=== PATIENT | female | born 1970 | race American Indian/Alaskan Native ===

== ENCOUNTER 2020-02-21 07:26 | Inpatient (IN) | payer MEDICAID, SELFPAY ==
[2020-02-21] MEDS ORDERED: ALBUTEROL 2.5 MG/3 ML NEBU IH ONE (08:21)
[2020-02-21] MEDS ORDERED: MAGNESIUM SULFATE 2 GM/50 ML BAG IV ONE (08:21)
[2020-02-21] MEDS ORDERED: IPRATROPIUM 0.02% NEBU 2.5 ML IH ONE (08:21)
[2020-02-21] MEDS ORDERED: methylPREDNISolone Sod Succinate 125 MG/2 ML INJ IV ONE (08:21)
--- NOTE | 2020-02-21 08:30 | Emergency Department Report ---
HPI - General Chief Complaint: Adult Asthma Time Seen by Provider: 02/21/20 07:55 - HPI HPI: Room 7 \The patient is a 49-year-old female present with a chief complaint of shortness of breath. Patient states her symptoms began 02/18/2020 when a dog in a home triggered her asthma. Patient states she has had waxing and waning wheezing ever since. Patient states she has had a cough productive of clear sputum for the same amount of time. Patient states her wheezing worsened last night prompting her to come to the hospital. Patient denies history of fever. Patient states she tested negative for Covid 2 weeks ago ED Past Medical Hx - Past Medical History Hx Congestive Heart Failure: Yes (cardiomyopathy) Hx Asthma: Yes Additional medical history: pacemaker - Surgical History Hx Pacemaker: Yes - Family History Family history: no significant - Social History Smoking Status: Current Every Day Smoker (1/2 pack/day) Substance Use Type: Marijuana - Medications Home Medications: Home Medications Medication Instructions Recorded Confirmed Last Taken Type No Known Home Medications [No 02/21/20 02/21/20 Unknown History Reported Home Medications] ED Review of Systems ROS: Stated complaint: ASTHMA/YURI Other details as noted in HPI Constitutional: denies: fever Eyes: denies: eye pain ENT: denies: throat pain Respiratory: cough, shortness of breath, wheezing Cardiovascular: denies: chest pain Endocrine: no symptoms reported Gastrointestinal: denies: abdominal pain Genitourinary: denies: dysuria Musculoskeletal: denies: back pain Neurological: denies: headache Physical Exam - Physical Exam Vital Signs: Vital Signs 02/21/20 02/21/20 07:57 08:03 Temperature 99 F Pulse Rate 123 H Respiratory 28 H Rate Blood Pressure 104/63 [Right] O2 Sat by Pulse 94 94 Oximetry Physical Exam: GENERAL: The patient is well-developed well-nourished female sitting on stretcher receiving breathing treatment. [] HEENT: Normocephalic. Atraumatic. Extraocular motions are intact. Patient has moist mucous membranes. NECK: Supple. Trachea midline CHEST/LUNGS: Diminished on the left greater than right. Faint wheezing aus cultated. There is no respiratory distress noted. HEART/CARDIOVASCULAR: Regular. There is tachycardia. There is no gallop rub or murmur. ABDOMEN: Abdomen is soft, nontender. Patient has normal bowel sounds. There is no abdominal distention. SKIN: There is no rash. There is no diaphoresis. NEURO: The patient is awake, alert, and oriented. The patient is cooperative. The patient has normal speech MUSCULOSKELETAL: There is no evidence of acute injury. ED Course Vital Signs 02/21/20 02/21/20 07:57 08:03 Temperature 99 F Pulse Rate 123 H Respiratory 28 H Rate Blood Pressure 104/63 [Right] O2 Sat by Pulse 94 94 Oximetry - Reevaluation(s) Reevaluation #1: 02/21/20 10:08 I was called to the room for sudden status change with the patient. Patient complains of worsening shortness of breath with SPO2 in the 70s. Patient placed on nonrebreather initially with blood sats up to 100%. Patient then placed on BiPAP. Repeat chest x-ray ordered 02/21/20 10:24 Patient improved on BiPAP. Satting 100%, calm ED Medical Decision Making - Lab Data Result diagrams: 02/21/20 10:17 02/21/20 10:17 Laboratory Tests 02/21/20 02/21/20 02/21/20 10:17 10:17 10:17 WBC 21.2 H RBC 4.27 Hgb 13.1 Hct 40.6 MCV 95 MCH 31 MCHC 32 RDW 14.3 Plt Count 438 Seg Neutrophils % Promotions Assistant Sales Marketing D-Dimer 362.52 H Sodium 139 Potassium 3.8 Chloride 106.2 Carbon Dioxide 24 Anion Gap 13 BUN 9 Creatinine 0.4 L Estimated GFR > 60 BUN/Creatinine Ratio 23 Glucose 168 H Lactic Acid Calcium 8.5 Ferritin Lactate Dehydrogenase 324 H Troponin T C-Reactive Protein 0.40 NT-Pro-B Natriuret Pep 1005 H Triglycerides Cholesterol LDL Cholesterol Direct HDL Cholesterol Cholesterol/HDL Ratio Procalcitonin 02/21/20 02/21/20 02/21/20 10:17 10:17 10:17 WBC RBC Hgb Hct MCV MCH MCHC RDW Plt Count Seg Neutrophils % D-Dimer Sodium Potassium Chloride Carbon Dioxide Anion Gap BUN Creatinine Estimated GFR BUN/Creatinine Ratio Glucose Lactic Acid 2.50 H* Calcium Ferritin 160.6 Lactate Dehydrogenase Troponin T C-Reactive Protein NT-Pro-B Natriuret Pep Triglycerides Cholesterol LDL Cholesterol Direct HDL Cholesterol Cholesterol/HDL Ratio Procalcitonin < 0.05 02/21/20 02/21/20 10:17 11:56 WBC RBC Hgb Hct MCV MCH MCHC RDW Plt Count Seg Neutrophils % D-Dimer Sodium Potassium Chloride Carbon Dioxide Anion Gap BUN Creatinine Estimated GFR BUN/Creatinine Ratio Glucose Lactic Acid 2.80 H* Calcium Ferritin Lactate Dehydrogenase Troponin T 0.044 H C-Reactive Protein NT-Pro-B Natriuret Pep 1026 H Triglycerides 68 Cholesterol 170 LDL Cholesterol Direct 92 HDL Cholesterol 75 H Cholesterol/HDL Ratio 2.26 Procalcitonin - Radiology Data Radiology results: report reviewed (Chest x-ray), image reviewed (Chest x-ray) interpreted by me: Chest x-ray-no definite focal infiltrates, no pneumothorax, [facility] [address] [place] [address] XRay Report Signed Patient: OWEN CM MR#: [id number] : 1970 Acct:[id number] Age/Sex: 49 / F ADM Date: 02/21/20 Loc: ED Attending Dr: Ordering Physician: FABRIZIO LOPEZ MD Date of Service: 02/21/20 Procedure(s): XR chest 1V ap Accession Number(s): [id number] cc: FABRIZIO LOPEZ MD Fluoro Time In Minutes: CHEST 1 VIEW INDICATION / CLINICAL INFORMATION: Shortness of breath, cough. COMPARISON: None available. FINDINGS: SUPPORT DEVICES: Dual-lead left chest wall cardiac device with leads terminating in the right atrium and ventricle. HEART / MEDIASTINUM: No significant abnormality. LUNGS / PLEURA: No significant pulmonary or pleural abnormality. No confluent infiltrates or pleural effusion. No pneumothorax. ADDITIONAL FINDINGS: No significant additional findings. IMPRESSION: 1. No acute findings. Signer Name: Dinesh Elias MD Signed: 02/21/2020 9:26 AM Workstation Name: [id number] Transcribed By: Dictated By: DINESH ELIAS Electronically Authenticated By: DINESH ELIAS Signed Date/Time: 02/21/20925 DD/ 4 TD/TT: - Differential Diagnosis Acute asthma exacerbation, pneumonia, bronchitis Critical care attestation.: If time is entered above; I have spent that time in minutes in the direct care of this critically ill patient, excluding procedure time. ED Disposition Clinical Impression: COPD exacerbation, Cough, Hypoxia Disposition: OP ADMIT IP TO THIS HOSP Is pt being admited?: Yes Does the pt Need Aspirin: No Condition: Fair Instructions: Chronic Obstructive Pulmonary Disease (ED) Referrals: PRIMARY CARE, [Primary Care Provider] - 3-5 Days Time of Disposition: 12:51 (Hospitalist paged (Dr. Newton))
--- NOTE | 2020-02-21 09:30 | XRay Report ---
CHEST 1 VIEW INDICATION / CLINICAL INFORMATION: Shortness of breath, cough. COMPARISON: None available. FINDINGS: SUPPORT DEVICES: Dual-lead left chest wall cardiac device with leads terminating in the right atrium and ventricle. HEART / MEDIASTINUM: No significant abnormality. LUNGS / PLEURA: No significant pulmonary or pleural abnormality. No confluent infiltrates or pleural effusion. No pneumothorax. ADDITIONAL FINDINGS: No significant additional findings. IMPRESSION: 1. No acute findings. Signer Name: Dinesh Hein MD Signed: 02/21/2020 9:26 AM Workstation Name: [id number]
[2020-02-21] MEDS ORDERED: IPRATROPIUM/ALBUTEROL SULFATE 3 ML AMPUL.NEB IH ONE (09:49)
[2020-02-21] MEDS ORDERED: ETOMIDATE 20 MG/10 ML INJ IV ONE (10:03)
[2020-02-21] MEDS ORDERED: ROCURONIUM 50 MG/5 ML INJ IV ONE ×2 (10:03→16:55)
[2020-02-21] MEDS ORDERED: SUCCINYLCHOLINE CHLORIDE 200 MG/10 ML INJ MDV ONE ×2 (10:04→16:12)
[2020-02-21] MEDS ORDERED: LORazepam 2 MG/ML VIAL ONE ×3 (10:05→15:00)
[2020-02-21] MEDS ORDERED: LORazepam 2 MG/ML VIAL IV ONE ×3 (10:20→15:03)
[2020-02-21] MEDS: LORazepam 2 MG/ML VIAL IV ONE ×2 (10:26→10:28)
--- NOTE | 2020-02-21 10:36 | XRay Report ---
CHEST 1 VIEW INDICATION / CLINICAL INFORMATION: Sudden status change, worsening SOB, hypoxia. COMPARISON: 02/21/2020 FINDINGS: SUPPORT DEVICES: Stable, satisfactory device positioning. HEART / MEDIASTINUM: Stable. LUNGS / PLEURA: Interval development of linear opacity in the right lung base. No pleural effusion. N o pneumothorax. ADDITIONAL FINDINGS: No significant additional findings. IMPRESSION: 1. Interval development of mild right lung base atelectasis. Signer Name: Dinesh Hein MD Signed: 02/21/2020 10:31 AM Workstation Name: [id number]
[2020-02-21 10:55] LABS: Hematocrit 40.6 % (30.3-42.9); Hemoglobin 13.1 gm/dl (10.1-14.3); Mean Corpuscular HGB Conc 32 % (30-34); Mean Corpuscular Volume 95 fl (79-97); Platelet Count 438 K/mm3 (140-440); Red Blood Count 4.27 M/mm3 (3.65-5.03); Red Cell Distribution Width 14.3 % (13.2-15.2)
[2020-02-21 11:04] LABS: Blood Urea Nitrogen 9 mg/dL (7-17); Calcium 8.5 mg/dL (8.4-10.2); Hemolysis Index 5
[2020-02-21 11:07] LABS: BUN/Creatinine Ratio 23
[2020-02-21] MEDS ORDERED: ASPIRIN 325 MG TAB PO ONE (11:11)
[2020-02-21 12:19] LABS: Chol/HDL Ratio 2.26 %
[2020-02-21] MEDS ORDERED: cefTRIAXone/NS 1 GM/50 ML 1 GM/50 ML BAG IV ONE (12:31)
[2020-02-21 14:51] LABS: Band Neutrophils # (Manual) 0.2 K/mm3; Basophils % (Manual) 0 % (0.0-1.8); Eosinophils % (Manual) 0 % (0.0-4.3); Total Cells Counted 100
[2020-02-21 14:52] LABS: Platelet Estimate Consistent w Auto; RBC Morphology Normal
[2020-02-21 15:15] LABS: ABG Base Excess -3.8 mmol/L (-2.0-3.0); ABG Methemoglobin 0.6 % (0.0-1.5); ABG Oxygen Saturation 93.2 % (95.0-99.0); ABG PCO2 70.8 mm Hg; ABG PO2 73.8 mm Hg (80.0-90.0)
[2020-02-21 15:18] LABS: ABG PH 7.183 pH Units (7.350-7.450)
--- NOTE | 2020-02-21 16:10 | History and Physical Report ---
History of Present Illness Chief complaint: I cant breathe History of present illness: 49 YO Female with Nicotine Dependence, Cardiomyopathy s/p Pacemaker placement, Asthma Moderate Persistent presents to ED for evaluation. Patient states that she has experienced shortness of breath, wheezing over the past 3 days with persistently worsening symptoms over the same timeframe. Patient knowledges increasing nebulizer use, increase bronchodilator therapy without relief of symptoms. Patient knowledges productive cough of clear sputum, dyspnea on exertion, decreased exercise tolerance. EMS was notified and upon arrival the patient was found to be in distress and subsequently transported to [facility] for further care and evaluation of the aforementioned symptoms. Patient seen and evaluated in the emergency department. All lab and imaging studies reviewed. Patient found to have a pulse oximetry of 86% on 4 L nasal cannula which is consistent with acute hypoxemic respiratory failure. The patient was placed on noninvasive positive pressure ventilation with mild improvement in symptoms. The patient was also found to have right lower lobe pneumonia complicated by sepsis. Patient did not respond to medical therapy. Patient was unable to protect her airway and was intubated and placed on ventilatory support in the emergency department. Patient admitted to ICU due to increased risk of cardiopulmonary decompensation. Critical care team consulted in ED. No further history is obtainable. No prior admission for review. No medication listed at time of admission for reconciliation. Past History Past Medical History: heart failure, other (See HPI) Past Surgical History: Other (Pacemaker placement) Social history: single, smoking. denies: alcohol abuse, prescription drug abuse Family history: hypertension Medications and Allergies Allergies Allergy/AdvReac Type Severity Reaction Status Date / Time No Known Allergies Allergy Unverified 02/21/20 08:57 Home Medications Medication Instructions Recorded Confirmed Last Taken Type No Known Home Medications [No 02/21/20 02/21/20 Unknown History Reported Home Medications] Review of Systems ROS unobtainable: due to endotracheal tube Exam - Constitutional Vitals: Temp Pulse Resp BP Pulse Ox 99 F 126 H 27 H 150/101 95 02/21/20 07:57 02/21/20 15:50 02/21/20 15:50 02/21/20 15:50 02/21/20 15:50 General appearance: Present: severe distress - EENT Eyes: Present: miosis ENT: hearing decreased - Neck Neck: Present: supple, normal ROM - Respiratory Respiratory effort: labored, pursed lips, accessory muscle use, stridor Respiratory: bilateral: diminished, rhonchi - Cardiovascular Rhythm: other (Tachycardia) Heart Sounds: Present: S1 & S2. Absent: rub, click - Extremities Extremities: pulses symmetrical, No edema Peripheral Pulses: abnormal (Capillary refill greater than 3.5 seconds) - Abdominal General gastrointestinal: Present: soft, non-tender, non-distended, normal bowel sounds Female genitourinary: Present: normal - Integumentary Integumentary: Present: clear, warm, dry - Musculoskeletal Musculoskeletal: generalized weakness - Psychiatric Psychiatric: agitated - Neurologic Neurologic: CNII-XII intact, no focal deficits, moves all extremities, no gait normal HEART Score - HEART Score Troponin: Troponin T 0.044 ng/mL (0.00-0.029) H 02/21/20 10:17 Results - Labs CBC & Chem 7: 02/21/20 10:17 02/21/20 10:17 Labs: Abnormal lab results 02/21/20 02/21/20 02/21/20 Range/Units 10:17 10:17 10:17 WBC 21.2 H (4.5-11.0) K/mm3 Seg Neuts % (Manual) 94.0 H (40.0-70.0) % Lymphocytes % (Manual) 4.0 L (13.4-35.0) % Seg Neutrophils # Man 19.9 H (1.8-7.7) K/mm3 Lymphocytes # (Manual) 0.8 L (1.2-5.4) K/mm3 D-Dimer 362.52 H (0-234) ng/mlDDU ABG pH (7.350-7.450) pH Units ABG pO2 (80.0-90.0) mm Hg ABG O2 Saturation (95.0-99.0) % ABG Base Excess (-2.0-3.0) mmol/L Oxyhemoglobin (95.0-99.0) % Creatinine 0.4 L (0.6-1.2) mg/dL Glucose 168 H (65-100) mg/dL Lactic Acid (0.7-2.0) mmol/L Lactate Dehydrogenase 324 H (91-180) units/L Troponin T (0.00-0.029) ng/mL NT-Pro-B Natriuret Pep 1005 H (0-900) pg/mL HDL Cholesterol (40-59) mg/dL 02/21/20 02/21/20 02/21/20 Range/Units 10:17 10:17 11:56 WBC (4.5-11.0) K/mm3 Seg Neuts % (Manual) (40.0-70.0) % Lymphocytes % (Manual) (13.4-35.0) % Seg Neutrophils # Man (1.8-7.7) K/mm3 Lymphocytes # (Manual) (1.2-5.4) K/mm3 D-Dimer (0-234) ng/mlDDU ABG pH (7.350-7.450) pH Units ABG pO2 (80.0-90.0) mm Hg ABG O2 Saturation (95.0-99.0) % ABG Base Excess (-2.0-3.0) mmol/L Oxyhemoglobin (95.0-99.0) % Creatinine (0.6-1.2) mg/dL Glucose (65-100) mg/dL Lactic Acid 2.50 H* 2.80 H* (0.7-2.0) mmol/L Lactate Dehydrogenase (91-180) units/L Troponin T 0.044 H (0.00-0.029) ng/mL NT-Pro-B Natriuret Pep 1026 H (0-900) pg/mL HDL Cholesterol 75 H (40-59) mg/dL 02/21/20 02/21/20 02/21/20 Range/Units 13:31 14:18 15:03 WBC (4.5-11.0) K/mm3 Seg Neuts % (Manual) (40.0-70.0) % Lymphocytes % (Manual) (13.4-35.0) % Seg Neutrophils # Man (1.8-7.7) K/mm3 Lymphocytes # (Manual) (1.2-5.4) K/mm3 D-Dimer (0-234) ng/mlDDU ABG pH 7.183 L* (7.350-7.450) pH Units ABG pO2 73.8 L (80.0-90.0) mm Hg ABG O2 Saturation 93.2 L (95.0-99.0) % ABG Base Excess -3.8 L (-2.0-3.0) mmol/L Oxyhemoglobin 90.6 L (95.0-99.0) % Creatinine (0.6-1.2) mg/dL Glucose (65-100) mg/dL Lactic Acid 2.10 H* 2.50 H* (0.7-2.0) mmol/L Lactate Dehydrogenase (91-180) units/L Troponin T (0.00-0.029) ng/mL NT-Pro-B Natriuret Pep (0-900) pg/mL HDL Cholesterol (40-59) mg/dL Assessment and Plan - Patient Problems (1) Acute hypoxemic respiratory failure Current Visit: Yes Status: Acute Plan to address problem: Patient intubated and on ventilatory support. Wean vent as tolerated. ABG in a.m., sedation holiday, spontaneous breathing trial in a.m., The high probability of a clinically significant, sudden or life threatening deterioration of the [cardiac, pulmonary, renal, neuro] system(s) required my full and direct attention, intervention and personal management. The aggregate critical care time was [90] minutes. This time is in addition to time spent p erforming reported procedures but includes the following: [x] Data Review and interpretation [x] Patient assessment and monitoring of vital signs [x] Documentation [x] Medication orders and management (2) Pneumonia Current Visit: Yes Status: Acute Qualifiers: Laterality: right Lung location: lower lobe of lung Plan to address problem: Pneumonia protocol: Chest x-ray, CBC, CMP, IV antibiotic therapy, pulse oximetry, blood culture. (3) Sepsis Current Visit: Yes Status: Acute Qualifiers: Acute respiratory failure type: with hypoxia Plan to address problem: Sepsis protocol: CBC, CMP, chest x-ray, urinalysis, IV fluid resuscitation therapy, IV antibiotic therapy, monitor urine output every shift, maintain mean arterial pressure greater than or equal to 65, IV pressor support as clinically indicated, monitor fluid balance, blood culture, serial lactic acid level. (4) Cardiomyopathy Current Visit: Yes Status: Acute Qualifiers: Cardiomyopathy type: unspecified Qualified Code(s): I42.9 - Cardiomyopathy, unspecified Plan to address problem: Supportive care, echocardiogram ordered and pending at time of admission. (5) Nicotine dependence Current Visit: Yes Status: Acute Qualifiers: Nicotine product type: cigarettes Substance use status: in withdrawal Qualified Code(s): F17.213 - Nicotine dependence, cigarettes, with withdrawal Plan to address problem: Smoking cessation, behavior change counseling, +15 minutes (6) COPD exacerbation Current Visit: Yes Status: Acute Plan to address problem: IV steroid therapy, supportive care, (7) DVT prophylaxis Current Visit: Yes Status: Acute Plan to address problem: SCD to bilateral lower extremities while in bed, prophylactic anticoagulation
[2020-02-21] MEDS ORDERED: KETAMINE 500 MG/5 ML VIAL MDV ONE (16:12)
[2020-02-21] MEDS ORDERED: SODIUM CHLORIDE 0.9% 1000 ML IV SOLN IV ONE (16:30)
[2020-02-21] MEDS ORDERED: LORazepam 2 MG/ML VIAL IV PRN (16:44)
[2020-02-21] MEDS ORDERED: MINERAL OIL/PETROLATUM, WHITE OPHTH OINT 3.5 GM OU PRN (16:44)
[2020-02-21] MEDS ORDERED: LIP THERAPY VASELINE TP PRN (16:44)
--- NOTE | 2020-02-21 16:54 | Emergency Department Report ---
Blank Doc - Documentation Documentation: 49-year-old female with previous CABG, pacemaker, admitted for status asthmatic us now on BiPAP. I was requested by hospitalist to intubate. Blood gas shows acute respiratory acidosis with a critical pH with a PCO2 greater than 70. The patient consented to intubation. Procedure note The patient was prepared and placed in appropriate positioning. She was given ketamine for sedation. Nurse reported infiltration of IV she believes sometime after the ketamine was administered. She states that the ketamine did not infiltrate. Not withstanding, I placed an 18-gauge internal jugular line in the patient's left neck, single stick with Y site attachment. Additional medication was given for RSI and that port. Patient received ketamine and Ativan for induction then succinylcholine. She was switched from BiPAP to Ambu bag assist. She was well preoxygenated. She was intubated using direct laryngoscopy, MAC 4 blade and 7.5 [place] endotracheal tube, single attempt. The tube was secured at 22 cm at the teeth. There was colorimetric end-tidal CO2 change. Patient remained hemodynamically stable. Chest x-ray is ordered. Ventilator settings, restraint and sedation as ordered. Diagnostic impression Acute respiratory failure on BiPAP Plan Ventilatory management per respiratory and hospitalist. I will check the patient's chest x-ray. I will be sure that she is stable for their continued critical care management.
[2020-02-21] MEDS ORDERED: LORazepam 100 MG in SODIUM CHLORIDE 0.9% 50 ML, EMPTY BAG 0 ML IV SCH (17:00)
--- NOTE | 2020-02-21 17:21 | XRay Report ---
CHEST 1 VIEW INDICATION / CLINICAL INFORMATION: ETT placement. COMPARISON: 02/21/2020 FINDINGS: SUPPORT DEVICES: Interval placement of ET tube with its tip in appropriate position. Left chest wall cardiac device is stable. HEART / MEDIASTINUM: Stable. LUNGS / PLEURA: Previously noted right lung base opacity is similar. No pleural effusion. No pneumoth orax. ADDITIONAL FINDINGS: No significant additional findings. IMPRESSION: 1. Interval placement of ET tube with its tip in appropriate position. 2. Pulmonary findings are stable. Signer Name: Dinesh Hein MD Signed: 02/21/2020 5:16 PM Workstation Name: [id number]
[2020-02-21] MEDS ORDERED: SODIUM CHLORIDE 0.9% 1000 ML 2,000 ML ONE (17:25)
--- NOTE | 2020-02-21 17:34 | Consultation ---
History of Present Illness Consult date: 02/21/20 Requesting physician: CLARIBEL GARCIA Reason for consult: other (Critical care management) History of present illness: HISTORY PER DOCUMENTATION. PATIENT WAS ORALLY INTUBATED AT THE TIME OD MY EVALUATION 49 year old Female with Nicotine Dependence, Cardiomyopathy s/p Pacemaker placement, Asthma Moderate Persistent presents to ED for evaluation. Patient states that she has experienced shortness of breath, wheezing over the past 3 days with persistently worsening symptoms over the same timeframe. Patient knowledges increasing nebulizer use, increase bronchodilator therapy without relief of symptoms. Patient knowledges productive cough of clear sputum, dyspnea on exertion, decreased exercise tolerance. EMS was notified and upon arrival the patient was found to be in distress and subsequently transported to [facility] for further care and evaluation of the aforementioned symptoms. Patient seen and evaluated in the emergency department. All lab and imaging studies reviewed. Patient found to have a pulse oximetry of 86% on 4 L nasal cannula which is consistent with acute hypoxemic respiratory failure. The patient was placed on noninvasive positive pressure ventilation with mild improvement in symptoms. The patient was also found to have right lower lobe pneumonia complicated by sepsis. Patient did not respond to medical therapy. Patient was unable to protect her airway and was intubated and placed on ventilatory support in the emergency department. Patient admitted to ICU due to increased risk of cardiopulmonary decompensation. Critical care team consulted in ED. Medications and Allergies Allergies Allergy/AdvReac Type Severity Reaction Status Date / Time No Known Allergies Allergy Unverified 02/21/20 08:57 Home Medications Medication Instructions Recorded Confirmed Last Taken Type No Known Home Medications [No 02/21/20 02/21/20 Unknown History Reported Home Medications] Active Meds: Active Medications Acetaminophen (Tylenol) 650 mg PO Q6H PRN PRN Reason: Pain, Mild (1-3) Hydromorphone HCl (Dilaudid) 0.25 mg IV Q4H PRN PRN Reason: Pain, Moderate (4-6) Hydrophilic Ointment (Vaseline Lip Therapy) 1 applic TP Q2HR PRN PRN Reason: Dry Lips Levofloxacin/Dextrose (Levaquin 750mg/150ml) 750 mg in 150 mls @ 100 mls/hr IV Q24H KATELYN; Protocol Lorazepam 100 mg/ Sodium Chloride/ Miscellaneous Information 100 mls @ 1 mls/hr IV TITR KATELYN; Protocol Lorazepam (Ativan) 2 mg IV Q10MIN PRN PRN Reason: Agitation Multi-Ingred Cream/Lotion/Oil/Oint (Artificial Tears Ophth Oint) 1 applic OU Q4HR PRN PRN Reason: Dry Eye(s) Sodium Chloride (Sodium Chloride Flush Syringe 10 Ml) 10 ml IV BID KATELYN Sodium Chloride (Sodium Chloride Flush Syringe 10 Ml) 10 ml IV PRN PRN PRN Reason: LINE FLUSH Review of Systems ROS unobtainable: due to endotracheal tube Physical Examination Vital signs: Vital Signs Temp Pulse Resp BP Pulse Ox 99 F 123 H 28 H 104/63 94 02/21/20 07:57 02/21/20 07:57 02/21/20 07:57 02/21/20 07:57 02/21/20 07:57 General appearance: no acute distress, other (sedated, orally intubated) Eyes: non-icteric ENT: oropharynx moist, other (copious oral secretions) Neck: supple, no lymphadenopathy Effort: normal Ascultation: Bilateral: diminished breath sounds, rhonchi Cardiovascular: regular rate and rhythm, other (S1,S2) Gastrointestinal: normoactive bowel sounds, soft, non-tender, non-distended Integumentary: normal Extremities: no cyanosis, no edema, pulses normal unable to assess (sedated) other (unable to assess, sedated) Results - Laboratory Findings CBC and BMP: 02/22/20 02:57 02/22/20 02:57 ABG ABG pH 7.183 pH Units (7.350-7.450) L* 02/21/20 15:03 ABG pCO2 70.8 mm Hg 02/21/20 15:03 ABG pO2 73.8 mm Hg (80.0-90.0) L 02/21/20 15:03 ABG O2 Saturation 93.2 % (95.0-99.0) L 02/21/20 15:03 PT/INR, D-dimer D-Dimer 362.52 ng/mlDDU (0-234) H 02/21/20 10:17 Abnormal lab findings: Abnormal Labs 02/21/20 02/21/20 02/21/20 10:17 10:17 10:17 WBC 21.2 H Seg Neuts % (Manual) 94.0 H Lymphocytes % (Manual) 4.0 L Seg Neutrophils # Man 19.9 H Lymphocytes # (Manual) 0.8 L D-Dimer 362.52 H ABG pH ABG pO2 ABG O2 Saturation ABG Base Excess Oxyhemoglobin Creatinine 0.4 L Glucose 168 H Lactic Acid Lactate Dehydrogenase 324 H Troponin T NT-Pro-B Natriuret Pep 1005 H HDL Cholesterol 02/21/20 02/21/20 02/21/20 10:17 10:17 11:56 WBC Seg Neuts % (Manual) Lymphocytes % (Manual) Seg Neutrophils # Man Lymphocytes # (Manual) D-Dimer ABG pH ABG pO2 ABG O2 Saturation ABG Base Excess Oxyhemoglobin Creatinine Glucose Lactic Acid 2.50 H* 2.80 H* Lactate Dehydrogenase Troponin T 0.044 H NT-Pro-B Natriuret Pep 1026 H HDL Cholesterol 75 H 02/21/20 02/21/20 02/21/20 13:31 14:18 15:03 WBC Seg Neuts % (Manual) Lymphocytes % (Manual) Seg Neutrophils # Man Lymphocytes # (Manual) D-Dimer ABG pH 7.183 L* ABG pO2 73.8 L ABG O2 Saturation 93.2 L ABG Base Excess -3.8 L Oxyhemoglobin 90.6 L Creatinine Glucose Lactic Acid 2.10 H* 2.50 H* Lactate Dehydrogenase Troponin T NT-Pro-B Natriuret Pep HDL Cholesterol 02/21/20 16:10 WBC Seg Neuts % (Manual) Lymphocytes % (Manual) Seg Neutrophils # Man Lymphocytes # (Manual) D-Dimer ABG pH ABG pO2 ABG O2 Saturation ABG Base Excess Oxyhemoglobin Creatinine Glucose Lactic Acid 2.10 H* Lactate Dehydrogenase Troponin T NT-Pro-B Natriuret Pep HDL Cholesterol - Diagnostic Findings Chest x-ray: image reviewed Assessment and Plan Acute hypoxemic-hypercapnic respiratory failure on MVS Toxic metabolic encephalopathy CAP Cardiomyopathy s/p AICD h/o Asthma Tobacco use/Nicotine dependence UDS-positive THC Lactic acidosis -VAP bundle addressed, Aspiration precautions HOB >40 -Lung protective strategies, ARDS net protocol -Adjusted minute ventilation fro better gas-exchange with follow up ABG -Bronchodilators -Empiric antibiotics for now, de-escalate as clinically indicated Follow cultures -Vasopressor support to keep MAP>65, as clinically indicated -Monitor hemodynamics closely- judicious use of IVF, unknown EF but has AICD and has elevated BNP -CXR, ABG in am and as clinically indicated -Hilton catheter in this critically ill patient with acute renal failure. Re- address need for ongoing Hilton in the next 24 hours -Avoid nephrotoxins, adjust all medications for CrCl and GFR -Daily assessment of readiness to wean; SAT and SBT in am - Bronchodilators with pulmonary hygiene per RT -Maintenance of sleep-wake cycle, avoid delirium -Place NGT and initiate enteral nutritional support -Nutrition consult placed - Accuchecks with glycemic control per SSI for target blood glucose of 140-180 mg/dL while critically ill; avoid hypoglycemia -On Lorazepam, will change to Fentanyl and Propofol. Patient also has lactic acidosis, which may worsen with prolonged Lorazepam infusion - VTE prophylaxis -Heparin - Stress ulcer prophylaxis -Famotidine - Avoid delirium; Avoid benzodiazepines -Mobility, off loading per facility protocol to prevent pressure ulcers -PT/OT, range of motion exercises -Get echocardiogram to evaluate LVEF -Chronic home medications, cardioprotective measures -Nicotine withdrawal precautions, Smoking cessation counselling once she is extubated and is able to participate in counselling discussions -continue other care per attending / other consultants CONDITION: CRITICAL PROGNOSIS: GUARDED CODE STATUS: FULL CODE The high probability of a clinically significant, sudden or life-threatening deterioration of the respiratory, cardiovascular, neurology, renal system(s) required my full and direct attention, intervention and personal management. The aggregate critical care time was [35] minutes without overlap. Time includes spent on; [x] Data Review and interpretation [x] Patient assessment and monitoring of vital signs [x] Documentation [x] Medication orders and management
[2020-02-21 18:59] LABS: ABG Base Excess -5.5 mmol/L (-2.0-3.0); ABG HCO3 23.4 mmol/L (20.0-26.0); ABG Methemoglobin 0.5 % (0.0-1.5); ABG Oxygen Saturation 99.4 % (95.0-99.0); ABG PCO2 60.7 mm Hg; ABG PH 7.204 pH Units (7.350-7.450)
[2020-02-21] MEDS ORDERED: ACETAMINOPHEN 325 MG TAB PO PRN (19:09)
[2020-02-21] MEDS ORDERED: HYDROmorphone 1 MG/1 ML INJ IV PRN (19:09)
[2020-02-21 19:44] LABS: Amphetamine Screen,Urine Negative; Benzodiazepines Screen,Urine Negative; Cocaine Screen,Urine Negative; Methadone Screen,Urine Negative; Opiate Screen,Urine Negative
[2020-02-21 19:55] LABS: Cannabinoid Screen,Urine Positive
--- NOTE | 2020-02-21 20:28 | XRay Report ---
. ABDOMEN 1 VIEW(S) 02/21/2020 7:16 PM INDICATION: OG tube placement. COMPARISON: Prior chest radiograph dated 02/21/2020. FINDINGS: The tip of the nasogastric tube is malpositioned projecting over the mediastinum at the distal [place] ction. Advancement approximately 15 cm is recommended. Significantly gas-filled and distended gastric lumen.. Signer Name: Dinesh Hein MD Signed: 02/21/2020 8:24 PM Workstation Name: [id number]
--- NOTE | 2020-02-21 21:34 | XRay Report ---
ABDOMEN 1 VIEW(S) 02/21/2020 8:20 PM INDICATION: OG tube placement. COMPARISON: 02/21/2020 FINDINGS: Interval advancement of the NG tube now with its tip and sidehole projected over the gas-filled and d istended gastric lumen distally. Retraction approximately 10 cm can be performed if needed. Signer Name: Dinesh Hein MD Signed: 02/21/2020 9:29 PM Workstation Name: [id number]
[2020-02-21] MEDS ORDERED: methylPREDNISolone Sod Succinate 40 MG/1 ML INJ ONE (22:11)
[2020-02-21] MEDS ORDERED: HEPARIN 5,000 UNIT/1 ML VIAL ONE (22:12)
[2020-02-21] MEDS: methylPREDNISolone Sod Succinate 40 MG/1 ML INJ IV SCH (22:19)
[2020-02-21] MEDS: HEPARIN 5,000 UNIT/1 ML VIAL SUB-Q SCH (22:19)
--- NOTE | 2020-02-22 00:18 | Cat Scan Report ---
CTA chest with contrast INDICATION : dypsnea. TECHNIQUE: Axial imaging performed through the chest, with contrast bolus timing set to maximize opa cification of the pulmonary arteries. 3-plane MIP reformatted images were obtained. All CT scans at this location are performed using CT dose reduction for ALARA by means of automated exposure control. 100 mL of intravenous contrast administered. COMPARISON: None FINDINGS: Bolus: Contrast bolus timing is adequate. PTE: No filling defect is present to suggest PTE. Mediastinum: Endotracheal tube terminates above the arben. NG tube projects into the stomach. Heart size is normal. No pathologic mediastinal adenopathy. Lungs: There is advanced emphysema with mild patchy airspace disease centrally in the right middle l obe. The lungs are otherwise clear. Upper abdomen: Limited imaging of the upper abdomen shows nothing acute. Bones: Degenerative changes in the spine with nothing acute. IMPRESSION: 1. Negative for PTE. 2. Advanced emphysema with patchy airspace disease in the right middle lobe centrally. Correlate for evolving pneumonia. Signer Name: Doyle Valenzuela MD Signed: 02/22/2020 12:13 AM Workstation Name: [id number]
[2020-02-22] MEDS ORDERED: SODIUM CHLORIDE 0.9% 1000 ML 1,000 ML ONE ×3 (00:49→17:52)
[2020-02-22] MEDS ORDERED: SODIUM CHLORIDE 0.9% 1000 ML 1,000 ML IV ONE ×2 (00:50→02:37)
[2020-02-22 03:14] LABS: ABG Base Excess -3.8 mmol/L (-2.0-3.0); ABG HCO3 21.5 mmol/L (20.0-26.0); ABG Methemoglobin 0.5 % (0.0-1.5); ABG Oxygen Saturation 99.1 % (95.0-99.0); ABG PCO2 39.8 mm Hg; ABG PH 7.35 pH Units (7.350-7.450); ABG PO2 187.8 mm Hg (80.0-90.0)
[2020-02-22 03:30] LABS: Hematocrit 38.4 % (30.3-42.9); Hemoglobin 12.6 gm/dl (10.1-14.3); Mean Corpuscular HGB Conc 33 % (30-34); Mean Corpuscular Volume 96 fl (79-97); Platelet Count 331 K/mm3 (140-440); Red Blood Count 4.02 M/mm3 (3.65-5.03); Red Cell Distribution Width 14.1 % (13.2-15.2)
[2020-02-22 03:33] LABS: Lymphocytes % (Auto) 5.2 % (13.4-35.0)
[2020-02-22 03:34] LABS: Basophils % (Auto) 0.2 % (0.0-1.8); Lymphocytes # (Auto) 1.1 K/mm3 (1.2-5.4); Monocytes # (Auto) 1.8 K/mm3 (0.0-0.8); Monocytes % (Auto) 8.1 % (0.0-7.3)
--- NOTE | 2020-02-22 03:50 | XRay Report ---
CHEST - 1 VIEW INDICATION: follow up respiratory failure COMPARISON: Yesterday FINDINGS: SUPPORT DEVICES: Interval placement of an NG tube with tip of the tube below the [id number] in th e upper abdomen region. Satisfactory support device positioning. HEART: Stable cardiomediastinal silhouette. LUNGS/PLEURA: Minimal residual patchy right basilar airspace disease with otherwise clear lungs. ADDITIONAL FINDINGS: None. IMPRESSION: New NG tube projecting below the [id number]. Otherwise minimal residual patchy right basilar airsp susan disease. Signer Name: Doyle Valenzuela MD Signed: 02/22/2020 3:46 AM Workstation Name: [id number]
[2020-02-22 03:56] LABS: Blood Urea Nitrogen 11 mg/dL (7-17); Calcium 8.2 mg/dL (8.4-10.2); Hemolysis Index 64
[2020-02-22 04:01] LABS: BUN/Creatinine Ratio 22
[2020-02-22] MEDS: SODIUM CHLORIDE 0.9% 1000 ML 1,000 ML IV SCH ×2 (04:44→17:54)
[2020-02-22] MEDS ORDERED: methylPREDNISolone Sod Succinate 40 MG/1 ML INJ ONE (09:41)
[2020-02-22] MEDS ORDERED: HEPARIN 5,000 UNIT/1 ML VIAL ONE (09:41)
[2020-02-22] MEDS ORDERED: FAMOTIDINE 20 MG/2 ML INJ IV ONE (09:41)
[2020-02-22] MEDS: FAMOTIDINE 20 MG/2 ML INJ IV SCH (09:50)
[2020-02-22] MEDS: methylPREDNISolone Sod Succinate 40 MG/1 ML INJ IV SCH (09:50)
[2020-02-22] MEDS: HEPARIN 5,000 UNIT/1 ML VIAL SUB-Q SCH (09:51)
[2020-02-22] MEDS ORDERED: SODIUM BICARBONATE 325 MG TAB FEEDTUBE PRN (14:00)
[2020-02-22] MEDS ORDERED: LIPASE 10,500/PROTEASE 25,000/AMYLASE 43,750 (UNITS) DR CAP FEEDTUBE PRN (14:00)
[2020-02-22] MEDS ORDERED: fentaNYL 100 MCG/2 ML INJ IV PRN (14:48)
--- NOTE | 2020-02-22 16:28 | Progress Note ---
Assessment and Plan Acute hypoxemic-hypercapnic respiratory failure on MVS Toxic metabolic encephalopathy CAP Cardiomyopathy s/p AICD h/o Asthma Tobacco use/Nicotine dependence UDS-positive THC Lactic acidosis -VAP bundle addressed, Aspiration precautions HOB >40 - Continue with Lung protective strategies, ARDS net protocol - Continue with bronchodilators - Continue with empiric antibiotics for CAP, de-escalate as clinically indicated -Vasopressor support to keep MAP>65, as clinically indicated -Monitor hemodynamics closely- judicious use of IVF, unknown EF but has AICD and has elevated BNP Echocardiogram is pending -CXR, ABG in am and as clinically indicated -Discontinue Hilton cathetr, no longer clinically indicated -Avoid nephrotoxins, adjust all medications for CrCl and GFR -Daily assessment of readiness to wean; SAT and SBT daily - Bronchodilators with pulmonary hygiene per RT -Maintenance of sleep-wake cycle, avoid delirium -Enteral nutritional support, tube feedings per RD recommendations - Accuchecks with glycemic control per SSI for target blood glucose of 140-180 mg/dL while critically ill; avoid hypoglycemia -Continue Fentanyl and Propofol, titrate to RASS 0 to -1. - VTE prophylaxis -Heparin - Stress ulcer prophylaxis -Famotidine - Avoid delirium; Avoid benzodiazepines -Mobility, off loading per facility protocol to prevent pressure ulcers -PT/OT, range of motion exercises -Trend lactic acidosis -Chronic home medications, cardioprotective measures -Nicotine withdrawal precautions, Smoking cessation counselling once she is extubated and is able to participate in counselling discussions -continue other care per attending / other consultants CONDITION: CRITICAL PROGNOSIS: GUARDED CODE STATUS: FULL CODE The high probability of a clinically significant, sudden or life-threatening deterioration of the respiratory, cardiovascular, neurology, renal system(s) required my full and direct attention, intervention and personal management. The aggregate critical care time was [35] minutes without overlap. Time includes spent on; [x] Data Review and interpretation [x] Patient assessment and monitoring of vital signs [x] Documentation [x] Medication orders and management Subjective Date of service: 02/22/20 Interval history: Patient is seen today for: Acute hypoxemic & hypercapnic respiratory failure; Toxic metabolic encephalopathy; CAP; CMOP s/p AICD; h/o Asthma; Tobacco use/Nicotine dependence Seen and examined at bedside; 24hour events reviewed; nursing and respiratory care staff consulted; no adverse overnight events reported to me; resting peacefully in bed; remains on MVS; sedated ; no emesis or overt aspiration; Objective Vital Signs - 12hr 02/22/20 02/22/20 02/22/20 04:30 04:45 05:00 Pulse Rate 101 H 105 H 101 H Respiratory 26 H 26 H 26 H Rate Blood Pressure 106/75 108/78 112/80 O2 Sat by Pulse 100 99 Oximetry 02/22/20 02/22/20 02/22/20 05:15 05:30 05:45 Pulse Rate 100 H 104 H 103 H Respiratory 26 H 26 H 26 H Rate Blood Pressure 111/74 117/82 106/77 O2 Sat by Pulse 94 92 Oximetry 02/22/20 02/22/20 02/22/20 06:00 06:15 06:30 Pulse Rate 108 H 105 H 105 H Respiratory 26 H 26 H 26 H Rate Blood Pressure 116/86 115/81 108/74 O2 Sat by Pulse 99 98 Oximetry 02/22/20 02/22/20 02/22/20 06:45 07:00 07:15 Pulse Rate 103 H 107 H 106 H Respiratory 26 H 26 H 25 H Rate Blood Pressure 108/76 107/66 113/77 O2 Sat by Pulse 98 Oximetry 02/22/20 02/22/20 02/22/20 07:30 07:35 07:45 Pulse Rate 104 H 106 H Respiratory 25 H 25 H Rate Blood Pressure 109/75 117/77 O2 Sat by Pulse 98 99 Oximetry 02/22/20 02/22/20 02/22/20 07:51 08:00 08:15 Pulse Rate 109 H 108 H 106 H Respiratory 25 H 25 H Rate Blood Pressure 117/77 113/77 110/76 O2 Sat by Pulse 98 Oximetry 02/22/20 02/22/20 02/22/20 08:30 08:45 09:00 Pulse Rate 106 H 106 H 106 H Respiratory 25 H 25 H 26 H Rate Blood Pressure 116/78 119/81 109/81 O2 Sat by Pulse 99 99 98 Oximetry 02/22/20 02/22/20 02/22/20 09:15 09:30 09:45 Pulse Rate 108 H 108 H 106 H Respiratory 25 H 25 H 25 H Rate Blood Pressure 110/75 110/78 115/76 O2 Sat by Pulse 99 98 Oximetry 02/22/20 02/22/20 02/22/20 10:00 10:15 10:30 Pulse Rate 105 H 105 H 103 H Respiratory 20 26 H 19 Rate Blood Pressure 112/85 126/85 119/85 O2 Sat by Pulse 97 98 Oximetry 02/22/20 02/22/20 02/22/20 10:45 11:00 11:15 Pulse Rate 106 H 99 H 103 H Respiratory 26 H 26 H 27 H Rate Blood Pressure 119/84 121/83 119/82 O2 Sat by Pulse 99 Oximetry 02/22/20 02/22/20 02/22/20 11:23 11:30 11:45 Pulse Rate 105 H 102 H 103 H Respiratory 26 H 26 H Rate Blood Pressure 119/82 113/83 117/81 O2 Sat by Pulse 100 Oximetry 02/22/20 02/22/20 02/22/20 12:00 12:15 12:30 Pulse Rate 100 H 102 H 100 H Respiratory 26 H 26 H 26 H Rate Blood Pressure 119/83 113/82 114/77 O2 Sat by Pulse 99 99 Oximetry 02/22/20 02/22/20 02/22/20 12:45 13:00 13:15 Pulse Rate 102 H 101 H 108 H Respiratory 26 H 26 H 32 H Rate Blood Pressure 117/80 116/81 134/94 O2 Sat by Pulse 99 Oximetry 02/22/20 13:30 Pulse Rate 120 H Respiratory 32 H Rate Blood Pressure 130/90 O2 Sat by Pulse Oximetry Constitutional: no acute distress, other (sedated, orally intubated) Eyes: non-icteric ENT: oropharynx moist, other (copious oral secretions, ETT at 23cm at the lip) Neck: supple, no lymphadenopathy Effort: normal Ascultation: Bilateral: diminished breath sounds, rhonchi Cardiovascular: regular rate and rhythm, other (S1,S2) Gastrointestinal: normoactive bowel sounds, soft, non-tender, non-distended Integumentary: normal Extremities: no cyanosis, no edema, pulses normal Neurologic: unable to assess (sedated) Psychiatric: other (unable to assess, sedated) CBC and BMP: 02/29/20 09:44 02/29/20 04:41 ABG, PT/INR, D-dimer: ABG ABG pH 7.350 pH Units (7.350-7.450) 02/22/20 02:25 ABG pCO2 39.8 mm Hg 02/22/20 02:25 ABG pO2 187.8 mm Hg (80.0-90.0) H 02/22/20 02:25 ABG O2 Saturation 99.1 % (95.0-99.0) H 02/22/20 02:25 PT/INR, D-dimer D-Dimer 362.52 ng/mlDDU (0-234) H 02/21/20 10:17 Abnormal lab findings: Abnormal Labs 02/21/20 02/21/20 02/21/20 10:17 10:17 10:17 WBC 21.2 H Lymph % (Auto) Archer % (Auto) Lymph # (Auto) Archer # (Auto) Seg Neutrophils % Seg Neuts % (Manual) 94.0 H Lymphocytes % (Manual) 4.0 L Seg Neutrophils # Seg Neutrophils # Man 19.9 H Lymphocytes # (Manual) 0.8 L D-Dimer 362.52 H ABG pH ABG pO2 ABG O2 Saturation ABG Base Excess Oxyhemoglobin Potassium Chloride Carbon Dioxide Creatinine 0.4 L Glucose 168 H Lactic Acid Calcium Lactate Dehydrogenase 324 H Troponin T NT-Pro-B Natriuret Pep 1005 H HDL Cholesterol 02/21/20 02/21/20 02/21/20 10:17 10:17 11:56 WBC Lymph % (Auto) Archer % (Auto) Lymph # (Auto) Archer # (Auto) Seg Neutrophils % Seg Neuts % (Manual) Lymphocytes % (Manual) Seg Neutrophils # Seg Neutrophils # Man Lymphocytes # (Manual) D-Dimer ABG pH ABG pO2 ABG O2 Saturation ABG Base Excess Oxyhemoglobin Potassium Chloride Carbon Dioxide Creatinine Glucose Lactic Acid 2.50 H* 2.80 H* Calcium Lactate Dehydrogenase Troponin T 0.044 H NT-Pro-B Natriuret Pep 1026 H HDL Cholesterol 75 H 02/21/20 02/21/20 02/21/20 13:31 14:18 15:03 WBC Lymph % (Auto) Archer % (Auto) Lymph # (Auto) Archer # (Auto) Seg Neutrophils % Seg Neuts % (Manual) Lymphocytes % (Manual) Seg Neutrophils # Seg Neutrophils # Man Lymphocytes # (Manual) D-Dimer ABG pH 7.183 L* ABG pO2 73.8 L ABG O2 Saturation 93.2 L ABG Base Excess -3.8 L Oxyhemoglobin 90.6 L Potassium Chloride Carbon Dioxide Creatinine Glucose Lactic Acid 2.10 H* 2.50 H* Calcium Lactate Dehydrogenase Troponin T NT-Pro-B Natriuret Pep HDL Cholesterol 02/21/20 02/21/20 02/22/20 16:10 18:33 02:25 WBC Lymph % (Auto) Archer % (Auto) Lymph # (Auto) Archer # (Auto) Seg Neutrophils % Seg Neuts % (Manual) Lymphocytes % (Manual) Seg Neutrophils # Seg Neutrophils # Man Lymphocytes # (Manual) D-Dimer ABG pH 7.204 L ABG pO2 295.0 H 187.8 H ABG O2 Saturation 99.4 H 99.1 H ABG Base Excess -5.5 L -3.8 L Oxyhemoglobin Potassium Chloride Carbon Dioxide Creatinine Glucose Lactic Acid 2.10 H* Calcium Lactate Dehydrogenase Troponin T NT-Pro-B Natriuret Pep HDL Cholesterol 02/22/20 02/22/20 02/22/20 02:57 02:57 02:57 WBC 21.9 H Lymph % (Auto) 5.2 L Archer % (Auto) 8.1 H Lymph # (Auto) 1.1 L Archer # (Auto) 1.8 H Seg Neutrophils % 86.5 H Seg Neuts % (Manual) Lymphocytes % (Manual) Seg Neutrophils # 19.0 H Seg Neutrophils # Man Lymphocytes # (Manual) D-Dimer ABG pH ABG pO2 ABG O2 Saturation ABG Base Excess Oxyhemoglobin Potassium 5.9 H D Chloride 109.4 H Carbon Dioxide 17 L D Creatinine 0.5 L Glucose 106 H Lactic Acid 2.40 H* Calcium 8.2 L Lactate Dehydrogenase Troponin T NT-Pro-B Natriuret Pep HDL Cholesterol Chest x-ray: image reviewed Allied health notes reviewed: RT
[2020-02-22] MEDS ORDERED: IPRATROPIUM/ALBUTEROL SULFATE 3 ML AMPUL.NEB IH ONE (20:40)
[2020-02-22] MEDS: IPRATROPIUM/ALBUTEROL SULFATE 3 ML AMPUL.NEB IH SCH (21:02)
[2020-02-23] MEDS ORDERED: HEPARIN 5,000 UNIT/1 ML VIAL ONE ×2 (00:19→10:45)
[2020-02-23] MEDS ORDERED: FAMOTIDINE 20 MG/2 ML INJ IV ONE ×2 (00:19→10:47)
[2020-02-23] MEDS ORDERED: methylPREDNISolone Sod Succinate 40 MG/1 ML INJ ONE ×2 (00:19→10:46)
[2020-02-23] MEDS: HEPARIN 5,000 UNIT/1 ML VIAL SUB-Q SCH ×2 (00:30→11:07)
[2020-02-23] MEDS: FAMOTIDINE 20 MG/2 ML INJ IV SCH ×2 (00:30→11:07)
[2020-02-23] MEDS: methylPREDNISolone Sod Succinate 40 MG/1 ML INJ IV SCH ×2 (00:32→11:06)
--- NOTE | 2020-02-23 03:58 | XRay Report ---
CHEST - 1 VIEW INDICATION: follow up respiratory failure COMPARISON: Yesterday FINDINGS: SUPPORT DEVICES: Stable support device positioning. HEART: Stable cardiomediastinal silhouette. LUNGS/PLEURA: Minimal residual patchy airspace disease in the right lung base. No new abnormality. ADDITIONAL FINDINGS: None. IMPRESSION: Unchanged exam. Signer Name: Doyle Valenzuela MD Signed: 02/23/2020 3:53 AM Workstation Name: [id number]
[2020-02-23] MEDS ORDERED: SODIUM CHLORIDE 0.9% 1000 ML 1,000 ML ONE ×2 (06:36→22:37)
[2020-02-23 06:46] LABS: ABG Base Excess -2.1 mmol/L (-2.0-3.0); ABG HCO3 20.9 mmol/L (20.0-26.0); ABG Methemoglobin 0.5 % (0.0-1.5); ABG Oxygen Saturation 97.3 % (95.0-99.0); ABG PCO2 30.3 mm Hg; ABG PH 7.456 pH Units (7.350-7.450); ABG PO2 87.4 mm Hg (80.0-90.0)
--- NOTE | 2020-02-23 08:45 | Progress Note ---
Assessment and Plan The high probability of a clinically significant, sudden or life threatening deterioration of the [cardiac, pulmonary, renal, neuro] system(s) required my full and direct attention, intervention and personal management. The aggregate critical care time was [40] minutes. This time is in addition to time spent performing reported procedures but includes the following: [x] Data Review and interpretation [x] Patient assessment and monitoring of vital signs [x] Documentation [x] Medication orders and management Patient Problems (1) Acute hypoxemic respiratory failure Current Visit: Yes Status: Acute Plan to address problem: Patient intubated and on ventilatory support. Wean vent as tolerated. ABG in a.m., sedation holiday, spontaneous breathing trial in a.m., (2) Pneumonia Current Visit: Yes Status: Acute Qualifiers: Laterality: right Lung location: lower lobe of lung Plan to address problem: Pneumonia protocol: Chest x-ray, CBC, CMP, IV antibiotic therapy, pulse oximetry, blood culture. (3) Sepsis Current Visit: Yes Status: Acute Qualifiers: Acute respiratory failure type: with hypoxia Plan to address problem: Sepsis protocol: CBC, CMP, chest x-ray, urinalysis, IV fluid resuscitation therapy, IV antibiotic therapy, monitor urine output every shift, maintain mean arterial pressure greater than or equal to 65, IV pressor support as clinically indicated, monitor fluid balance, blood culture, serial lactic acid level. (4) Cardiomyopathy Current Visit: Yes Status: Acute Qualifiers: Cardiomyopathy type: unspecified Qualified Code(s): I42.9 - Cardiomyopathy, unspecified Plan to address problem: Supportive care, echocardiogram ordered and pending at time of admission. (5) Nicotine dependence Current Visit: Yes Status: Acute Qualifiers: Nicotine product type: cigarettes Substance use status: in withdrawal Qualified Code(s): F17.213 - Nicotine dependence, cigarettes, with withdrawal Plan to address problem: Smoking cessation, behavior change counseling, +15 minutes (6) COPD exacerbation Current Visit: Yes Status: Acute Plan to address problem: IV steroid therapy, supportive care, (7) DVT prophylaxis Current Visit: Yes Status: Acute Plan to address problem: SCD to bilateral lower extremities while in bed, prophylactic anticoagulation Subjective Date of service: 02/22/20 Principal diagnosis: Resp failure and asthma exacerbation Interval history: 1 YO Female with Nicotine Dependence, Cardiomyopathy s/p Pacemaker placement, Asthma Moderate Persistent presents to ED for evaluation. Patient states that she has experienced shortness of breath, wheezing over the past 3 days with persistently worsening symptoms over the same timeframe. Patient knowledges increasing nebulizer use, increase bronchodilator therapy without relief of symptoms. Patient knowledges productive cough of clear sputum, dyspnea on exertion, decreased exercise tolerance. EMS was notified and upon arrival the patient was found to be in distress and subsequently transported to [facility] for further care and evaluation of the aforementioned symptoms. Patient seen and evaluated in the emergency department. All lab and imaging studies reviewed. Patient found to have a pulse oximetry of 86% on 4 L nasal cannula which is consistent with acute hypoxemic respiratory failure. The patient was placed on noninvasive positive pressure ventilation with mild improvement in symptoms. The patient was also found to have right lower lobe pneumonia complicated by sepsis. Patient did not respond to medical therapy. Patient was unable to protect her airway and was intubated and placed on ventilatory support in the emergency department. Patient admitted to ICU due to increased risk of cardiopulmonary decompensation. Critical care team consulted in ED. No further history is obtainable. No prior admission for review. No medication listed at time of admission for reconciliation. Day 2 --02/22/20 Some improvement Objective - Constitutional Vitals: Vital Signs - 12hr 02/22/20 02/22/20 02/22/20 20:45 21:00 21:02 Pulse Rate 108 H 106 H Pulse Rate [ 104 H Throughout] Respiratory 23 26 H Rate Respiratory 26 H Rate [ Throughout] Blood Pressure 143/89 128/90 O2 Sat by Pulse 98 99 Oximetry 02/22/20 02/22/20 02/22/20 21:04 21:15 21:30 Pulse Rate 101 H 103 H 112 H Pulse Rate [ Throughout] Respiratory 26 H 27 H Rate Respiratory Rate [ Throughout] Blood Pressure 128/90 117/87 121/84 O2 Sat by Pulse 98 99 Oximetry 02/22/20 02/22/20 02/22/20 21:45 22:00 22:12 Pulse Rate 114 H 111 H 107 H Pulse Rate [ Throughout] Respiratory 25 H 26 H 26 H Rate Respiratory Rate [ Throughout] Blood Pressure 114/82 122/79 122/79 O2 Sat by Pulse 100 100 Oximetry 02/22/20 02/23/20 02/23/20 23:00 00:00 00:45 Pulse Rate 105 H 102 H 106 H Pulse Rate [ Throughout] Respiratory 23 26 H Rate Respiratory Rate [ Throughout] Blood Pressure 117/75 126/82 130/80 O2 Sat by Pulse 99 100 Oximetry 02/23/20 02/23/20 02/23/20 01:00 02:00 03:00 Pulse Rate 109 H 105 H 102 H Pulse Rate [ Throughout] Respiratory 29 H 26 H 26 H Rate Respiratory Rate [ Throughout] Blood Pressure 132/84 121/86 125/88 O2 Sat by Pulse 100 100 Oximetry 02/23/20 02/23/20 02/23/20 04:00 04:32 05:05 Pulse Rate 97 H 102 H Pulse Rate [ Throughout] Respiratory 27 H 26 H Rate Respiratory Rate [ Throughout] Blood Pressure 124/90 O2 Sat by Pulse 100 100 Oximetry 02/23/20 02/23/20 02/23/20 05:06 05:07 06:01 Pulse Rate 109 H 108 H 105 H Pulse Rate [ Throughout] Respiratory 26 H 26 H 26 H Rate Respiratory Rate [ Throughout] Blood Pressure 138/79 138/79 134/96 O2 Sat by Pulse 100 99 98 Oximetry 02/23/20 02/23/20 02/23/20 06:03 06:05 06:07 Pulse Rate 106 H 103 H 103 H Pulse Rate [ Throughout] Respiratory 26 H 26 H 15 Rate Respiratory Rate [ Throughout] Blood Pressure 134/96 134/96 134/96 O2 Sat by Pulse 99 99 99 Oximetry 02/23/20 02/23/20 02/23/20 06:09 06:11 06:13 Pulse Rate 101 H 103 H 100 H Pulse Rate [ Throughout] Respiratory 19 14 26 H Rate Respiratory Rate [ Throughout] Blood Pressure 134/96 134/96 134/96 O2 Sat by Pulse 98 98 99 Oximetry 02/23/20 02/23/20 02/23/20 06:15 06:17 06:19 Pulse Rate 101 H 102 H 102 H Pulse Rate [ Throughout] Respiratory 26 H 26 H 26 H Rate Respiratory Rate [ Throughout] Blood Pressure 134/96 134/96 134/96 O2 Sat by Pulse 94 100 100 Oximetry 02/23/20 02/23/20 02/23/20 06:21 06:23 06:25 Pulse Rate 102 H 101 H 100 H Pulse Rate [ Throughout] Respiratory 26 H 26 H 26 H Rate Respiratory Rate [ Throughout] Blood Pressure 134/96 134/96 134/96 O2 Sat by Pulse 99 100 100 Oximetry 02/23/20 02/23/20 02/23/20 06:27 06:29 06:30 Pulse Rate 107 H 107 H 102 H Pulse Rate [ Throughout] Respiratory 26 H 26 H 26 H Rate Respiratory Rate [ Throughout] Blood Pressure 134/96 134/96 126/80 O2 Sat by Pulse 100 100 100 Oximetry 02/23/20 02/23/20 02/23/20 06:31 06:33 06:35 Pulse Rate 104 H 103 H 111 H Pulse Rate [ Throughout] Respiratory 26 H 26 H 26 H Rate Respiratory Rate [ Throughout] Blood Pressure 126/80 126/80 126/80 O2 Sat by Pulse 100 100 100 Oximetry 02/23/20 02/23/20 02/23/20 06:37 06:39 06:41 Pulse Rate 104 H 103 H 103 H Pulse Rate [ Throughout] Respiratory 26 H 26 H 26 H Rate Respiratory Rate [ Throughout] Blood Pressure 126/80 126/80 126/80 O2 Sat by Pulse 100 100 100 Oximetry 02/23/20 02/23/20 02/23/20 06:43 06:45 06:47 Pulse Rate 105 H 106 H 103 H Pulse Rate [ Throughout] Respiratory 26 H 26 H 26 H Rate Respiratory Rate [ Throughout] Blood Pressure 126/80 126/80 126/80 O2 Sat by Pulse 100 100 100 Oximetry 02/23/20 02/23/20 02/23/20 06:49 06:51 06:53 Pulse Rate 108 H 103 H 105 H Pulse Rate [ Throughout] Respiratory 26 H 26 H 26 H Rate Respiratory Rate [ Throughout] Blood Pressure 126/80 126/80 126/80 O2 Sat by Pulse 100 100 100 Oximetry 02/23/20 02/23/20 02/23/20 06:54 06:55 06:57 Pulse Rate 101 H 99 H 109 H Pulse Rate [ Throughout] Respiratory 26 H 26 H 26 H Rate Respiratory Rate [ Throughout] Blood Pressure 126/80 126/80 126/80 O2 Sat by Pulse 100 100 100 Oximetry 02/23/20 02/23/20 02/23/20 06:59 07:00 07:01 Pulse Rate 100 H 98 H 103 H Pulse Rate [ Throughout] Respiratory 26 H 26 H 26 H Rate Respiratory Rate [ Throughout] Blood Pressure 126/80 127/86 127/86 O2 Sat by Pulse 100 97 100 Oximetry 02/23/20 02/23/20 02/23/20 07:03 07:05 07:07 Pulse Rate 99 H 103 H 96 H Pulse Rate [ Throughout] Respiratory 26 H 26 H 26 H Rate Respiratory Rate [ Throughout] Blood Pressure 127/86 127/86 127/86 O2 Sat by Pulse 100 100 99 Oximetry 02/23/20 02/23/20 02/23/20 07:09 07:11 07:13 Pulse Rate 94 H 94 H 94 H Pulse Rate [ Throughout] Respiratory 26 H 26 H 26 H Rate Respiratory Rate [ Throughout] Blood Pressure 127/86 127/86 127/86 O2 Sat by Pulse 100 100 100 Oximetry 02/23/20 02/23/20 02/23/20 07:15 07:17 07:19 Pulse Rate 93 H 96 H 98 H Pulse Rate [ Throughout] Respiratory 26 H 26 H 26 H Rate Respiratory Rate [ Throughout] Blood Pressure 127/86 127/86 126/80 O2 Sat by Pulse 100 100 100 Oximetry 02/23/20 02/23/20 02/23/20 07:21 07:23 07:25 Pulse Rate 95 H 97 H 96 H Pulse Rate [ Throughout] Respiratory 26 H 26 H 26 H Rate Respiratory Rate [ Throughout] Blood Pressure 126/80 126/80 126/80 O2 Sat by Pulse 99 100 100 Oximetry 02/23/20 02/23/20 02/23/20 07:27 07:29 07:30 Pulse Rate 101 H 96 H 95 H Pulse Rate [ Throughout] Respiratory 26 H 26 H 26 H Rate Respiratory Rate [ Throughout] Blood Pressure 126/80 126/80 130/84 O2 Sat by Pulse 100 100 Oximetry 02/23/20 07:31 Pulse Rate 99 H Pulse Rate [ Throughout] Respiratory 26 H Rate Respiratory Rate [ Throughout] Blood Pressure 130/84 O2 Sat by Pulse 100 Oximetry General appearance: Present: mild distress, well-nourished - EENT Eyes: PERRL, EOM intact ENT: hearing intact, clear oral mucosa Ears: bilateral: normal - Neck Neck: supple, normal ROM - Respiratory Respiratory effort: normal Respiratory: bilateral: diminished (Accesory muscles of resp prominent), rhonchi, wheezing - Breasts Breasts: normal - Cardiovascular Heart rate: 78 Rhythm: regular Heart Sounds: Present: S1 & S2. Absent: gallop, rub Extremities: pulses intact, No edema, normal color, Full ROM - Gastrointestinal General gastrointestinal: Present: soft, non-tender, non-distended, normal bowel sounds - Genitourinary Female genitourinary: normal - Integumentary Integumentary: clear, warm, dry - Musculoskeletal Musculoskeletal: 1, strength equal bilaterally - Neurologic Neurologic: moves all extremities - Psychiatric Psychiatric: memory intact, appropriate mood/affect, intact judgment & insight - Allied health notes Allied health notes reviewed: nursing, case management - Labs CBC & Chem 7: 02/22/20 02:57 02/22/20 02:57 Labs: Abnormal lab results 02/23/20 Range/Units 06:15 ABG pH 7.456 H (7.350-7.450) pH Units ABG Base Excess -2.1 L (-2.0-3.0) mmol/L HEART Score - HEART Score Troponin: Troponin T 0.044 ng/mL (0.00-0.029) H 02/21/20 10:17
[2020-02-23] MEDS: IPRATROPIUM/ALBUTEROL SULFATE 3 ML AMPUL.NEB IH SCH ×3 (09:50→20:39)
--- NOTE | 2020-02-23 10:55 | Progress Note ---
Assessment and Plan Assessment and plan: --COVID-19 test negative; -- Acute hypoxemic respiratory failure Current Visit: Yes Status: Acute Plan to address problem: Patient intubated and on ventilatory support. Continue sedation nebulizers and supportive care wean vent as tolerated and extubate Pulmonary critical following --Acute COPD exacerbation Current Visit: Yes Status: Acute Plan to address problem: IV steroid therapy, supportive care, --Probably community acquired pneumonia; Current Visit: Yes Status: Acute Plan to address problem: Empiric antibiotics with Levaquin Follow cultures, supportive care --Sepsis; secondary to right pneumonia Current Visit: Yes Status: Acute Plan to address problem: Tachycardia, leukocytosis, infiltrate on chest x-ray and CT Continue current antibiotics follow cultures --Acute systolic congestive heart failure; EF 15 to 20% Current Visit: Yes Status: Acute Plan to address problem: Diuretics, input output monitoring, beta-blockers CLOTILDE inhibitors, low-sodium diet, fluid restriction -- Cardiomyopathy EF 15 to 20% Current Visit: Yes Status: Acute Plan to address problem: Diuretics, input output monitoring, beta-blockers CLOTILDE inhibitors, low-sodium diet, fluid restriction Cardiology consult Possible ischemia work-up if not done before --Ongoing tobacco use; Current Visit: Yes Status: Acute Plan to address problem: Smoking cessation, nicotine patch as needed We will residential counselor the patient once patient is off ventilator --DVT prophylaxis Current Visit: Yes Status: Acute Plan to address problem: SCD , anticoagulation Closely monitor the patient and adjust management as needed Plan of care reviewed with the patient's nurse Consults and recommendations noted and appreciated The high probability of a clinically significant, sudden or life threatening deterioration of the [cardiac, pulmonary, renal, neuro] system(s) required my full and direct attention, intervention and personal management. The aggregate critical care time was [45] minutes. This time is in addition to time spent performing reported procedures but includes the follow ing: [x] Data Review and interpretation [x] Patient assessment and monitoring of vital signs [x] Documentation [x] Medication orders and management History Interval history: Have seen and examined the patient in ER awaiting ICU bed assignment Patient is orally intubated on ventilatory support, And sedated Vital signs reviewed Hospitalist Physical - Constitutional Vitals: Temp Pulse Resp BP Pulse Ox 98.2 F 96 H 26 H 128/89 100 02/22/20 19:00 02/23/20 08:30 02/23/20 08:30 02/23/20 08:30 02/23/20 08:30 General appearance: Present: mild distress, well-nourished, other (Intubated on vent) - EENT Eyes: Present: PERRL, EOM intact ENT: other (ET tube and Dobbhoff in place) - Neck Neck: Present: supple, other - Respiratory Respiratory effort: normal Respiratory: bilateral: diminished, rhonchi, negative: rales, wheezing - Cardiovascular Rhythm: regular Heart Sounds: Present: S1 & S2 - Extremities Extremities: no ischemia, No edema - Abdominal General gastrointestinal: soft, non-tender, non-distended, normal bowel sounds - Integumentary Integumentary: Present: clear, warm - Psychiatric Psychiatric: other (Intubated on vent) - Neurologic Neurologic: other (Intubated on vent) HEART Score - HEART Score Troponin: Troponin T 0.044 ng/mL (0.00-0.029) H 02/21/20 10:17 Results - Labs CBC & Chem 7: 02/22/20 02:57 02/22/20 02:57 Labs: Laboratory Last Values WBC 21.9 K/mm3 (4.5-11.0) H 02/22/20 02:57 RBC 4.02 M/mm3 (3.65-5.03) 02/22/20 02:57 Hgb 12.6 gm/dl (10.1-14.3) 02/22/20 02:57 Hct 38.4 % (30.3-42.9) 02/22/20 02:57 MCV 96 fl (79-97) 02/22/20 02:57 MCH 31 pg (28-32) 02/22/20 02:57 MCHC 33 % (30-34) 02/22/20 02:57 RDW 14.1 % (13.2-15.2) 02/22/20 02:57 Plt Count 331 K/mm3 (140-440) 02/22/20 02:57 Lymph % (Auto) 5.2 % (13.4-35.0) L 02/22/20 02:57 Beaver % (Auto) 8.1 % (0.0-7.3) H 02/22/20 02:57 Eos % (Auto) 0.0 % (0.0-4.3) 02/22/20 02:57 Baso % (Auto) 0.2 % (0.0-1.8) 02/22/20 02:57 Lymph # (Auto) 1.1 K/mm3 (1.2-5.4) L 02/22/20 02:57 Beaver # (Auto) 1.8 K/mm3 (0.0-0.8) H 02/22/20 02:57 Eos # (Auto) 0.0 K/mm3 (0.0-0.4) 02/22/20 02:57 Baso # (Auto) 0.0 K/mm3 (0.0-0.1) 02/22/20 02:57 Add Manual Diff Complete 02/21/20 10:17 Total Counted 100 02/21/20 10:17 Seg Neutrophils % 86.5 % (40.0-70.0) H 02/22/20 02:57 Seg Neuts % (Manual) 94.0 % (40.0-70.0) H 02/21/20 10:17 Band Neutrophils % 1.0 % 02/21/20 10:17 Lymphocytes % (Manual) 4.0 % (13.4-35.0) L 02/21/20 10:17 Reactive Lymphs % (Man) 0 % 02/21/20 10:17 Monocytes % (Manual) 1.0 % (0.0-7.3) 02/21/20 10:17 Eosinophils % (Manual) 0 % (0.0-4.3) 02/21/20 10:17 Basophils % (Manual) 0 % (0.0-1.8) 02/21/20 10:17 Metamyelocytes % 0 % 02/21/20 10:17 Myelocytes % 0 % 02/21/20 10:17 Promyelocytes % 0 % 02/21/20 10:17 Blast Cells % 0 % 02/21/20 10:17 Nucleated RBC % Not Reportable 02/21/20 10:17 Seg Neutrophils # 19.0 K/mm3 (1.8-7.7) H 02/22/20 02:57 Seg Neutrophils # Man 19.9 K/mm3 (1.8-7.7) H 02/21/20 10:17 Band Neutrophils # 0.2 K/mm3 02/21/20 10:17 Lymphocytes # (Manual) 0.8 K/mm3 (1.2-5.4) L 02/21/20 10:17 Abs React Lymphs (Man) 0.0 K/mm3 02/21/20 10:17 Monocytes # (Manual) 0.2 K/mm3 (0.0-0.8) 02/21/20 10:17 Eosinophils # (Manual) 0.0 K/mm3 (0.0-0.4) 02/21/20 10:17 Basophils # (Manual) 0.0 K/mm3 (0.0-0.1) 02/21/20 10:17 Metamyelocytes # 0.0 K/mm3 02/21/20 10:17 Myelocytes # 0.0 K/mm3 02/21/20 10:17 Promyelocytes # 0.0 K/mm3 02/21/20 10:17 Blast Cells # 0.0 K/mm3 02/21/20 10:17 WBC Morphology Not Reportable 02/21/20 10:17 Hypersegmented Neuts Not Reportable 02/21/20 10:17 Hyposegmented Neuts Not Reportable 02/21/20 10:17 Hypogranular Neuts Not Reportable 02/21/20 10:17 Smudge Cells Not Reportable 02/21/20 10:17 Toxic Granulation Not Reportable 02/21/20 10:17 Toxic Vacuolation Not Reportable 02/21/20 10:17 Dohle Bodies Not Reportable 02/21/20 10:17 Pelger-Huet Anomaly Not Reportable 02/21/20 10:17 Arlette Rods Not Reportable 02/21/20 10:17 Platelet Estimate Consistent w auto 02/21/20 10:17 Clumped Platelets Not Reportable 02/21/20 10:17 Plt Clumps, EDTA Not Reportable 02/21/20 10:17 Large Platelets Not Reportable 02/21/20 10:17 Giant Platelets Not Reportable 02/21/20 10:17 Platelet Satelliting Not Reportable 02/21/20 10:17 Plt Morphology Comment Not Reportable 02/21/20 10:17 RBC Morphology Normal 02/21/20 10:17 Dimorphic RBCs Not Reportable 02/21/20 10:17 Polychromasia Not Reportable 02/21/20 10:17 Hypochromasia Not Reportable 02/21/20 10:17 Poikilocytosis Not Reportable 02/21/20 10:17 Anisocytosis Not Reportable 02/21/20 10:17 Microcytosis Not Reportable 02/21/20 10:17 Macrocytosis Not Reportable 02/21/20 10:17 Spherocytes Not Reportable 02/21/20 10:17 Pappenheimer Bodies Not Reportable 02/21/20 10:17 Sickle Cells Not Reportable 02/21/20 10:17 Target Cells Not Reportable 02/21/20 10:17 Tear Drop Cells Not Reportable 02/21/20 10:17 Ovalocytes Not Reportable 02/21/20 10:17 Helmet Cells Not Reportable 02/21/20 10:17 [place] Bodies Not Reportable 02/21/20 10:17 Exira Rings Not Reportable 02/21/20 10:17 Vulcan Cells Not Reportable 02/21/20 10:17 Bite Cells Not Reportable 02/21/20 10:17 Crenated Cell Not Reportable 02/21/20 10:17 Elliptocytes Not Reportable 02/21/20 10:17 Acanthocytes (Spur) Not Reportable 02/21/20 10:17 Rouleaux Not Reportable 02/21/20 10:17 Hemoglobin C Crystals Not Reportable 02/21/20 10:17 Schistocytes Not Reportable 02/21/20 10:17 Malaria parasites Not Reportable 02/21/20 10:17 Hilton Bodies Not Reportable 02/21/20 10:17 Hem Pathologist Commnt No 02/21/20 10:17 D-Dimer 362.52 ng/mlDDU (0-234) H 02/21/20 10:17 ABG pH 7.456 pH Units (7.350-7.450) H 02/23/20 06:15 ABG pCO2 30.3 mm Hg 02/23/20 06:15 ABG pO2 87.4 mm Hg (80.0-90.0) 02/23/20 06:15 ABG HCO3 20.9 mmol/L (20.0-26.0) 02/23/20 06:15 ABG O2 Saturation 97.3 % (95.0-99.0) 02/23/20 06:15 ABG O2 Content 16.1 (0.0-44) 02/23/20 06:15 ABG Base Excess -2.1 mmol/L (-2.0-3.0) L 02/23/20 06:15 ABG Hemoglobin 12.0 gm/dl (12.0-16.0) 02/23/20 06:15 ABG Carboxyhemoglobin 1.7 % (0.0-5.0) 02/23/20 06:15 ABG Methemoglobin 0.5 % (0.0-1.5) 02/23/20 06:15 Oxyhemoglobin 95.1 % (95.0-99.0) 02/23/20 06:15 FiO2 25 % 02/23/20 06:15 Sodium 142 mmol/L (137-145) 02/22/20 02:57 Potassium 5.9 mmol/L (3.6-5.0) H D 02/22/20 02:57 Chloride 109.4 mmol/L (98-107) H 02/22/20 02:57 Carbon Dioxide 17 mmol/L (22-30) L D 02/22/20 02:57 Anion Gap 22 mmol/L 02/22/20 02:57 BUN 11 mg/dL (7-17) 02/22/20 02:57 Creatinine 0.5 mg/dL (0.6-1.2) L 02/22/20 02:57 Estimated GFR > 60 ml/min 02/22/20 02:57 BUN/Creatinine Ratio 22 % 02/22/20 02:57 Glucose 106 mg/dL (65-100) H 02/22/20 02:57 Lactic Acid 1.80 mmol/L (0.7-2.0) 02/22/20 15:07 Calcium 8.2 mg/dL (8.4-10.2) L 02/22/20 02:57 Ferritin 160.6 ng/mL (10.0-200.0) 02/21/20 10:17 Lactate Dehydrogenase 324 units/L (91-180) H 02/21/20 10:17 Troponin T 0.044 ng/mL (0.00-0.029) H 02/21/20 10:17 C-Reactive Protein 0.40 mg/dL (0.00-1.30) 02/21/20 10:17 NT-Pro-B Natriuret Pep 1005 pg/mL (0-900) H 02/21/20 10:17 NT-Pro-B Natriuret Pep 1026 pg/mL (0-900) H 02/21/20 10:17 Triglycerides 68 mg/dL (2-149) 02/21/20 10:17 Cholesterol 170 mg/dL (50-199) 02/21/20 10:17 LDL Cholesterol Direct 92 mg/dL (50-130) 02/21/20 10:17 HDL Cholesterol 75 mg/dL (40-59) H 02/21/20 10:17 Cholesterol/HDL Ratio 2.26 % 02/21/20 10:17 Procalcitonin < 0.05 ng/mL (<0.15) 02/21/20 10:17 Urine Opiates Screen Negative 02/21/20 19:20 Urine Methadone Screen Negative 02/21/20 19:20 Ur Barbiturates Screen Negative 02/21/20 19:20 Ur Phencyclidine Scrn Negative 02/21/20 19:20 Ur Amphetamines Screen Negative 02/21/20 19:20 U Benzodiazepines Scrn Negative 02/21/20 19:20 Urine Cocaine Screen Negative 02/21/20 19:20 U Marijuana (THC) Screen Positive 02/21/20 19:20 Drugs of Abuse Note Disclamer 02/21/20 19:20 Coronavirus (PCR) Negative (Negative) 02/21/20 10:24 Microbiology: Microbiology 02/21/20 16:44 Tracheal Aspirate Sputum Culture - Preliminary 02/21/20 10:28 Peripheral/Venous Blood Culture - Preliminary NO GROWTH AFTER 24 HOURS 02/21/20 10:17 Peripheral/Venous Blood Culture - Preliminary NO GROWTH AFTER 24 HOURS - Diagnostic Impressions Diagnostic Impressions: Echocardiogram 02/21/20 16:13 Transthoracic Echocardiogram Indication: Shortness of breath BP: 109/75 HR: 100 Conclusions *The left ventricular size is moderate to severely dilated. *Global left ventricular systolic function is severely decreased. *The estimated ejection fraction is Less Than 15-20%. *There is mild mitral regurgitation. *There is trace tricuspid regurgitation. *There is evidence of mild pulmonary hypertension. *The right ventricular systolic pressure is calculated at 30 mmHg. *A pacemaker wire is visualized in the right heart chambers. Findings Left Ventricle: The left ventricular size is moderate to severely dilated. There is no left ventricular hypertrophy. Global left ventricular systolic function is severely decreased. The estimated ejection fraction is 15-20%. Left Atrium: The left atrial chamber size is normal. Right Ventricle: The right ventricle is mildly dilated. The right ventricular global systolic function is mildly reduced. A pacemaker wire is visualized in the right ventricle. Right Atrium: The right atrial cavity size is normal. A pacemaker wire is visualized in the right atrium. Aortic Valve: The aortic valve is trileaflet. The aortic valve leaflets are moderately thickened. There is no evidence of aortic regurgitation. There is no evidence of aortic stenosis. Mitral Valve: The mitral valve leaflets appear myxomatous. There is mild mitral regurgitation. There is no evidence of mitral stenosis. Tricuspid Valve: There is trace tricuspid regurgitation. The right ventricular systolic pressure is calculated at 30 mmHg. There is evidence of mild pulmonary hypertension. Pulmonic Valve: There is mild pulmonic regurgitation. Pericardium: There is no pericardial effusion. Aorta: There is no dilatation of the aortic root. Venous: The inferior vena cava is dilated. Measurements Chambers 2D Name Value Normal Range IVSd (2D) 0.8 cm (0.6 - 1.1) LVPWd (2D) 0.78 cm (0.6 - 1.1) LVIDd (2D) 5.1 cm (3.7 - 5.6) LVIDs (2D) 3.74 cm (2 - 3.8) LV FS (2D) 26.7 % - EF Teichholz (2D) 51.89 % - Ao root diameter (2D) 3.33 cm (2 - 3.7) Volumes/Mass Name Value Normal Range LA ESV SP 4CH (A/L) 34.31 ml - LA ESV SP 2CH (A/L) 13.16 ml - LA ESV BP (A/L) 36.23 ml - LA ESV BP (A/L) index 21.31 ml/m2 - LA ESV SP 4CH (MOD) 28.65 ml - LA ESV SP 2CH (MOD) 10.49 ml - LA ESV BP (MOD) 29.3 ml - LA ESV BP (MOD) index 17.24 ml/m2 - Aortic Valve Name Value Normal Range AV Vmax 1.05 m/sec - AV VTI 14.59 cm - AV peak gradient 4.38 mmHg - AV mean gradient 2.55 mmHg - LVOT diameter 2.14 cm - LVOT Vmax 0.92 m/sec - LVOT VTI 12.77 cm - LVOT peak gradient 3.36 mmHg - LVOT mean gradient 1.53 mmHg - SV LVOT 45.99 ml - REJI (continuity Vmax) 3.15 cm2 - REJI (continuity VTI) 3.15 cm2 - Ascending Ao 2.83 cm - Mitral Valve Name Value Normal Range MV PHT 38.65 msec - MR Vmax 3.89 m/sec - MVA (PHT) 5.69 cm2 - Tricuspid Valve Name Value Normal Range TR Vmax 2.21 m/sec - TR peak gradient 19 mmHg - RAP 8 mmHg - RVSP 30 mmHg - IVC diameter 2.45 cm (1.2 - 2.3) Pulmonic Valve/Qp:Qs Name Value Normal Range PV Vmax 0.68 m/sec - PV peak gradient 1.86 mmHg - PV acceleration time 110.37 msec - Hilton/IV: IV Catheter Type [Right Peripheral IV Antecubital] IV Catheter Type [Left Peripheral IV External Jugular] IV Catheter Type [Right Peripheral IV Forearm] Active Medications - Current Medications Current Medications: Generic Name Dose Route Start Last Admin Trade Name Freq PRN Reason Stop Dose Admin Acetaminophen 650 mg 02/21/20 16:10 Tylenol PO Q6H PRN Pain, Mild (1-3) Albuterol/Ipratropium 1 ampul 02/22/20 20:00 02/22/20 21:02 Duoneb *Not For Prn Use* IH 1 ampul TIDRT KATELYN Administration Lipase/Protease/Amylase 1 each 02/22/20 14:00 Pancreradha Sebastian 10,500 Unit FEEDTUBE PRN PRN For Clogged Feeding Tube Famotidine 20 mg 02/22/20 10:00 02/23/20 00:30 Pepcid IV 20 mg BID KATELYN Administration Fentanyl 50 mcg 02/22/20 14:48 Sublimaze IV Q10MIN PRN ANALGESIA Heparin Sodium (Porcine) 5,000 unit 02/21/20 22:00 02/23/20 00:30 Heparin SUB-Q 5,000 unit Q12HR KATELYN Administration Hydromorphone HCl 0.25 mg 02/21/20 16:10 Dilaudid IV Q4H PRN Pain, Moderate (4-6) Hydrophilic Ointment 1 applic 02/21/20 16:44 Vaseline Lip Therapy TP Q2HR PRN Dry Lips Levofloxacin/Dextrose 750 mg in 150 mls @ 100 mls/hr 02/21/20 17:00 02/22/20 18:00 Levaquin 750mg/150ml IV 02/25/20 18:29 100 mls/hr Q24H KATELYN Administration Protocol Sodium Chloride 1,000 mls @ 75 mls/hr 02/22/20 04:30 02/22/20 17:54 Nacl 0.9% 1000 Ml IV 75 mls/hr DIRECT KATELYN Administration Fentanyl Citrate 2,000 mcg in 100 mls @ 3.175 mls/hr 02/22/20 15:00 Fentanyl Drip Premix IV TITR KATELYN Protocol 1 MCG/KG/HR Propofol 1,000 mg in 100 mls @ 1.905 mls/hr 02/22/20 15:00 02/23/20 05:00 Diprivan 10 Mg/Ml IV 15 mcg/kg/min TITR KATELYN 5.715 mls/hr Titration Protocol 5 MCG/KG/MIN Lorazepam 2 mg 02/21/20 16:44 Ativan IV Q10MIN PRN Agitation Methylprednisolone Sodium Succinate 20 mg 02/21/20 22:00 02/23/20 00:32 Solu-Medrol IV 20 mg Q12HR KATELYN Administration Multi-Ingred Cream/Lotion/Oil/Oint 1 applic 02/21/20 16:44 Artificial Tears Ophth Oint OU Q4HR PRN Dry Eye(s) Sodium Bicarbonate 325 mg 02/22/20 14:00 Sodium Bicarbonate FEEDTUBE PRN PRN For Clogged Feeding Tube Sodium Chloride 10 ml 02/21/20 22:00 02/23/20 08:46 Sodium Chloride Flush Syringe 10 Ml IV Not Given BID KATELYN Sodium Chloride 10 ml 02/21/20 16:10 Sodium Chloride Flush Syringe 10 Ml IV PRN PRN LINE FLUSH Nutrition/Malnutrition Assess - Dietary Evaluation Nutrition/Malnutrition Findings: Nutrition Notes Start: 02/22/20 11:38 Freq: Status: Active Protocol: Document 02/22/20 11:38 BRENDA (Rec: 02/22/20 11:47 BRENDA [id number]) Nutrition Notes Need for Assessment generated from: MD Order Initial or Follow up Assessment Current Diagnosis COPD,Sepsis,Heart Failure, Respiratory Failure Other Pertinent Diagnosis COPD exacerbation, asthma, pneu Current Diet NPO Labs/Tests K 5.9 Pertinent Medications Solumedrol, NS at 75ml/hr, Ativan gtt Height 5 ft 5 in Weight 63.503 kg [place] Body Weight (kg) 56.81 BMI 23.3 Weight Status Appropriate Subjective/Other Information RD consulted to evaluate nutritional intake. Pt in ED at this time and on vent support. Burn Absent Trauma Absent Minimum of two criteria No #1 Nutrition Diagnosis Inadequate oral intake Etiology mech ventilation As Evidenced by Signs and Symptoms pt NPO Is patient on ventilator? Yes Is Patient Ambulatory and/or Out of Bed No REE-([facility]-confined to bed) 1511.124 [facility] Additional Notes Pro needs 1.2-2g/k-127g/ day Fluid needs 1ml/kcal Nutrition Intervention Change Diet Order: Advance diet when medically feasible Nutrition Support: Start EN support if unable to advance diet Recommend Promote at 60ml/hr. Goal #1 Either advance diet or start EN support to meet nutrient needs Anticipated Discharge Needs: Unable to identify at this time Follow-Up By: 02/24/20 Additional Comments F/U: diet advancement vs TF consult, vent status
[2020-02-23] MEDS ORDERED: fentaNYL DRIP Premix 2,000 MCG/100 ML BAG IV ONE (11:01)
[2020-02-23] MEDS: fentaNYL DRIP Premix 2,000 MCG/100 ML BAG IV SCH (11:07)
--- NOTE | 2020-02-23 13:57 | Progress Note ---
Assessment and Plan Acute hypoxemic-hypercapnic respiratory failure on MVS Toxic metabolic encephalopathy CAP Cardiomyopathy s/p AICD h/o Asthma Tobacco use/Nicotine dependence Lactic acidosis - repeat ABG tonight +/- adjust set minute ventilation - ACS evaluation ongoing - empiric Levaquin X 5 days for Severe Sepsis - continue care as below otherwise; - Vasopressor support to keep MAP > 65 mmHg - Monitor hemodynamics closely; judicious use of IVF re: HFrEF (ECHO EF of 15- 20%) - continue Daily SAT and SBT assessment as tolerated - continue to wean supplemental oxygen for target O2 sat's > 92% acutely - VAP bundle addressed - continue lung protective strategies - continue bronchodilators with pulmonary hygiene per RT - wean per pulmonary driven protocols otherwise - continue accuchecks with glycemic control per SSI (While critically ill target blood glucose of 140-180 mg/dL; avoid hypoglycemia) - sedation prn for target RASS -1 to -2 - avoid nephrotoxins, renally dose all medications - continue to avoid benzodiazepine's, reduce the possibility of delirium - prn analgesia per CPOT score - Maintenance of sleep-wake cycle, avoid delirium - continue enteral nutritional support at goal rate as tolerated - G.I. & VTE prophylaxis - PT/OT/ROM exercises - continue mobility protocols for pressure ulcer prophylaxis - Monitor hemodynamics closely - Nicotine withdrawal precautions, Smoking cessation counselling once she is extubated and is able to participate in counselling discussions - continue other care per attending / other consultants - discharge planning ongoing concurrently .... Re-evaluate in am & prn CONDITION: CRITICAL PROGNOSIS: GUARDED CODE STATUS: FULL CODE The high probability of a clinically significant, sudden or life-threatening deterioration of the [respiratory, cardiovascular, neurologic & renal] system (s) required my full and direct attention, intervention and personal management. The aggregate critical care time was [35] minutes without overlap. Time includes spent on; [x] Data Review and interpretation [x] Patient assessment and monitoring of vital signs [x] Documentation [x] Medication orders and management Subjective Date of service: 02/23/20 Principal diagnosis: Resp failure and asthma exacerbation Interval history: Patient is seen today for: Acute hypoxemic & hypercapnic respiratory failure; Toxic metabolic encephalopathy; CAP; CMOP s/p AICD; h/o Asthma; Tobacco use/Nicotine dependence Seen and examined at bedside; 24hour events reviewed; nursing and respiratory care staff consulted; no adverse overnight events reported to me; resting peacefully in bed; remains on MVS; sedated; riding set rate of 26/min; no emesis or overt aspiration reported to me and no high grade fevers Objective Vital Signs - 12hr 02/23/20 02/23/20 02/23/20 02:00 03:00 04:00 Pulse Rate 105 H 102 H 97 H Pulse Rate [ Throughout] Respiratory 26 H 26 H 27 H Rate Respiratory Rate [ Throughout] Blood Pressure 121/86 125/88 124/90 O2 Sat by Pulse 100 100 Oximetry 02/23/20 02/23/20 02/23/20 04:32 05:05 05:06 Pulse Rate 102 H 109 H Pulse Rate [ Throughout] Respiratory 26 H 26 H Rate Respiratory Rate [ Throughout] Blood Pressure 138/79 O2 Sat by Pulse 100 100 Oximetry 02/23/20 02/23/20 02/23/20 05:07 06:01 06:03 Pulse Rate 108 H 105 H 106 H Pulse Rate [ Throughout] Respiratory 26 H 26 H 26 H Rate Respiratory Rate [ Throughout] Blood Pressure 138/79 134/96 134/96 O2 Sat by Pulse 99 98 99 Oximetry 02/23/20 02/23/20 02/23/20 06:05 06:07 06:09 Pulse Rate 103 H 103 H 101 H Pulse Rate [ Throughout] Respiratory 26 H 15 19 Rate Respiratory Rate [ Throughout] Blood Pressure 134/96 134/96 134/96 O2 Sat by Pulse 99 99 98 Oximetry 02/23/20 02/23/20 02/23/20 06:11 06:13 06:15 Pulse Rate 103 H 100 H 101 H Pulse Rate [ Throughout] Respiratory 14 26 H 26 H Rate Respiratory Rate [ Throughout] Blood Pressure 134/96 134/96 134/96 O2 Sat by Pulse 98 99 94 Oximetry 02/23/20 02/23/20 02/23/20 06:17 06:19 06:21 Pulse Rate 102 H 102 H 102 H Pulse Rate [ Throughout] Respiratory 26 H 26 H 26 H Rate Respiratory Rate [ Throughout] Blood Pressure 134/96 134/96 134/96 O2 Sat by Pulse 100 100 99 Oximetry 02/23/20 02/23/20 02/23/20 06:23 06:25 06:27 Pulse Rate 101 H 100 H 107 H Pulse Rate [ Throughout] Respiratory 26 H 26 H 26 H Rate Respiratory Rate [ Throughout] Blood Pressure 134/96 134/96 134/96 O2 Sat by Pulse 100 100 100 Oximetry 02/23/20 02/23/20 02/23/20 06:29 06:30 06:31 Pulse Rate 107 H 102 H 104 H Pulse Rate [ Throughout] Respiratory 26 H 26 H 26 H Rate Respiratory Rate [ Throughout] Blood Pressure 134/96 126/80 126/80 O2 Sat by Pulse 100 100 100 Oximetry 02/23/20 02/23/20 02/23/20 06:33 06:35 06:37 Pulse Rate 103 H 111 H 104 H Pulse Rate [ Throughout] Respiratory 26 H 26 H 26 H Rate Respiratory Rate [ Throughout] Blood Pressure 126/80 126/80 126/80 O2 Sat by Pulse 100 100 100 Oximetry 02/23/20 02/23/20 02/23/20 06:39 06:41 06:43 Pulse Rate 103 H 103 H 105 H Pulse Rate [ Throughout] Respiratory 26 H 26 H 26 H Rate Respiratory Rate [ Throughout] Blood Pressure 126/80 126/80 126/80 O2 Sat by Pulse 100 100 100 Oximetry 02/23/20 02/23/20 02/23/20 06:45 06:47 06:49 Pulse Rate 106 H 103 H 108 H Pulse Rate [ Throughout] Respiratory 26 H 26 H 26 H Rate Respiratory Rate [ Throughout] Blood Pressure 126/80 126/80 126/80 O2 Sat by Pulse 100 100 100 Oximetry 02/23/20 02/23/20 02/23/20 06:51 06:53 06:54 Pulse Rate 103 H 105 H 101 H Pulse Rate [ Throughout] Respiratory 26 H 26 H 26 H Rate Respiratory Rate [ Throughout] Blood Pressure 126/80 126/80 126/80 O2 Sat by Pulse 100 100 100 Oximetry 02/23/20 02/23/20 02/23/20 06:55 06:57 06:59 Pulse Rate 99 H 109 H 100 H Pulse Rate [ Throughout] Respiratory 26 H 26 H 26 H Rate Respiratory Rate [ Throughout] Blood Pressure 126/80 126/80 126/80 O2 Sat by Pulse 100 100 100 Oximetry 02/23/20 02/23/20 02/23/20 07:00 07:01 07:03 Pulse Rate 98 H 103 H 99 H Pulse Rate [ Throughout] Respiratory 26 H 26 H 26 H Rate Respiratory Rate [ Throughout] Blood Pressure 127/86 127/86 127/86 O2 Sat by Pulse 97 100 100 Oximetry 02/23/20 02/23/20 02/23/20 07:05 07:07 07:09 Pulse Rate 103 H 96 H 94 H Pulse Rate [ Throughout] Respiratory 26 H 26 H 26 H Rate Respiratory Rate [ Throughout] Blood Pressure 127/86 127/86 127/86 O2 Sat by Pulse 100 99 100 Oximetry 02/23/20 02/23/20 02/23/20 07:11 07:13 07:15 Pulse Rate 94 H 94 H 93 H Pulse Rate [ Throughout] Respiratory 26 H 26 H 26 H Rate Respiratory Rate [ Throughout] Blood Pressure 127/86 127/86 127/86 O2 Sat by Pulse 100 100 100 Oximetry 02/23/20 02/23/20 02/23/20 07:17 07:19 07:21 Pulse Rate 96 H 98 H 95 H Pulse Rate [ Throughout] Respiratory 26 H 26 H 26 H Rate Respiratory Rate [ Throughout] Blood Pressure 127/86 126/80 126/80 O2 Sat by Pulse 100 100 99 Oximetry 02/23/20 02/23/20 02/23/20 07:23 07:25 07:27 Pulse Rate 97 H 96 H 101 H Pulse Rate [ Throughout] Respiratory 26 H 26 H 26 H Rate Respiratory Rate [ Throughout] Blood Pressure 126/80 126/80 126/80 O2 Sat by Pulse 100 100 100 Oximetry 02/23/20 02/23/20 02/23/20 07:29 07:30 07:31 Pulse Rate 96 H 95 H 99 H Pulse Rate [ Throughout] Respiratory 26 H 26 H 26 H Rate Respiratory Rate [ Throughout] Blood Pressure 126/80 130/84 130/84 O2 Sat by Pulse 100 100 Oximetry 02/23/20 02/23/20 02/23/20 08:00 08:30 09:00 Pulse Rate 104 H 96 H 99 H Pulse Rate [ Throughout] Respiratory 26 H 26 H 26 H Rate Respiratory Rate [ Throughout] Blood Pressure 136/67 128/89 125/81 O2 Sat by Pulse 100 100 Oximetry 02/23/20 02/23/20 02/23/20 09:30 09:40 10:00 Pulse Rate 95 H 106 H Pulse Rate [ 104 H Throughout] Respiratory 26 H 11 L Rate Respiratory 30 H Rate [ Throughout] Blood Pressure 136/97 121/83 O2 Sat by Pulse 99 100 Oximetry 1202/23/20 02/23/20 10:31 11:00 11:30 Pulse Rate 130 H 136 H 128 H Pulse Rate [ Throughout] Respiratory 32 H 37 H 31 H Rate Respiratory Rate [ Throughout] Blood Pressure 136/97 143/100 138/78 O2 Sat by Pulse 98 95 95 Oximetry 02/23/20 02/23/20 12:00 12:30 Pulse Rate 114 H 105 H Pulse Rate [ Throughout] Respiratory 23 26 H Rate Respiratory Rate [ Throughout] Blood Pressure 125/68 124/70 O2 Sat by Pulse 94 94 Oximetry Constitutional: no acute distress, other (middle aged female with normal respiratory effort at rest on MVS) Eyes: non-icteric ENT: oropharynx moist, other (ETT 23 cm MILKA) Neck: supple, no lymphadenopathy Effort: normal Ascultation: Bilateral: diminished breath sounds, rhonchi, other (prolonged expiratory phase) Percussion: Bilateral: not dull Cardiovascular: regular rate and rhythm, other (S1,S2) Gastrointestinal: normoactive bowel sounds, soft, non-tender, non-distended Integumentary: normal Extremities: no cyanosis, no edema, pulses normal, no ischemia or petechiae Neurologic: pupils equal and round, unable to assess (sedated) Psychiatric: other (unable to assess, sedated) CBC and BMP: 02/24/20 04:50 02/24/20 04:50 ABG, PT/INR, D-dimer: ABG ABG pH 7.456 pH Units (7.350-7.450) H 02/23/20 06:15 ABG pCO2 30.3 mm Hg 02/23/20 06:15 ABG pO2 87.4 mm Hg (80.0-90.0) 02/23/20 06:15 ABG O2 Saturation 97.3 % (95.0-99.0) 02/23/20 06:15 PT/INR, D-dimer D-Dimer 362.52 ng/mlDDU (0-234) H 02/21/20 10:17 Abnormal lab findings: Abnormal Labs 02/21/20 02/21/20 02/21/20 10:17 10:17 10:17 WBC 21.2 H Lymph % (Auto) [place] % (Auto) Lymph # (Auto) [place] # (Auto) Seg Neutrophils % Seg Neuts % (Manual) 94.0 H Lymphocytes % (Manual) 4.0 L Seg Neutrophils # Seg Neutrophils # Man 19.9 H Lymphocytes # (Manual) 0.8 L D-Dimer 362.52 H ABG pH ABG pO2 ABG O2 Saturation ABG Base Excess Oxyhemoglobin Potassium Chloride Carbon Dioxide Creatinine 0.4 L Glucose 168 H Lactic Acid Calcium Lactate Dehydrogenase 324 H Troponin T NT-Pro-B Natriuret Pep 1005 H HDL Cholesterol 02/21/20 02/21/20 02/21/20 10:17 10:17 11:56 WBC Lymph % (Auto) [place] % (Auto) Lymph # (Auto) [place] # (Auto) Seg Neutrophils % Seg Neuts % (Manual) Lymphocytes % (Manual) Seg Neutrophils # Seg Neutrophils # Man Lymphocytes # (Manual) D-Dimer ABG pH ABG pO2 ABG O2 Saturation ABG Base Excess Oxyhemoglobin Potassium Chloride Carbon Dioxide Creatinine Glucose Lactic Acid 2.50 H* 2.80 H* Calcium Lactate Dehydrogenase Troponin T 0.044 H NT-Pro-B Natriuret Pep 1026 H HDL Cholesterol 75 H 02/21/20 02/21/20 02/21/20 13:31 14:18 15:03 WBC Lymph % (Auto) [place] % (Auto) Lymph # (Auto) [place] # (Auto) Seg Neutrophils % Seg Neuts % (Manual) Lymphocytes % (Manual) Seg Neutrophils # Seg Neutrophils # Man Lymphocytes # (Manual) D-Dimer ABG pH 7.183 L* ABG pO2 73.8 L ABG O2 Saturation 93.2 L ABG Base Excess -3.8 L Oxyhemoglobin 90.6 L Potassium Chloride Carbon Dioxide Creatinine Glucose Lactic Acid 2.10 H* 2.50 H* Calcium Lactate Dehydrogenase Troponin T NT-Pro-B Natriuret Pep HDL Cholesterol 02/21/20 02/21/20 02/22/20 16:10 18:33 02:25 WBC Lymph % (Auto) [place] % (Auto) Lymph # (Auto) [place] # (Auto) Seg Neutrophils % Seg Neuts % (Manual) Lymphocytes % (Manual) Seg Neutrophils # Seg Neutrophils # Man Lymphocytes # (Manual) D-Dimer ABG pH 7.204 L ABG pO2 295.0 H 187.8 H ABG O2 Saturation 99.4 H 99.1 H ABG Base Excess -5.5 L -3.8 L Oxyhemoglobin Potassium Chloride Carbon Dioxide Creatinine Glucose Lactic Acid 2.10 H* Calcium Lactate Dehydrogenase Troponin T NT-Pro-B Natriuret Pep HDL Cholesterol 02/22/20 02/22/20 02/22/20 02:57 02:57 02:57 WBC 21.9 H Lymph % (Auto) 5.2 L [place] % (Auto) 8.1 H Lymph # (Auto) 1.1 L [place] # (Auto) 1.8 H Seg Neutrophils % 86.5 H Seg Neuts % (Manual) Lymphocytes % (Manual) Seg Neutrophils # 19.0 H Seg Neutrophils # Man Lymphocytes # (Manual) D-Dimer ABG pH ABG pO2 ABG O2 Saturation ABG Base Excess Oxyhemoglobin Potassium 5.9 H D Chloride 109.4 H Carbon Dioxide 17 L D Creatinine 0.5 L Glucose 106 H Lactic Acid 2.40 H* Calcium 8.2 L Lactate Dehydrogenase Troponin T NT-Pro-B Natriuret Pep HDL Cholesterol 02/23/20 06:15 WBC Lymph % (Auto) [place] % (Auto) Lymph # (Auto) [place] # (Auto) Seg Neutrophils % Seg Neuts % (Manual) Lymphocytes % (Manual) Seg Neutrophils # Seg Neutrophils # Man Lymphocytes # (Manual) D-Dimer ABG pH 7.456 H ABG pO2 ABG O2 Saturation ABG Base Excess -2.1 L Oxyhemoglobin Potassium Chloride Carbon Dioxide Creatinine Glucose Lactic Acid Calcium Lactate Dehydrogenase Troponin T NT-Pro-B Natriuret Pep HDL Cholesterol Chest x-ray: image reviewed (hyperinflation; left upper chest ICD) Allied health notes reviewed: nursing
[2020-02-23] MEDS ORDERED: IPRATROPIUM/ALBUTEROL SULFATE 3 ML AMPUL.NEB IH ONE ×2 (14:05→20:37)
[2020-02-23] MEDS ORDERED: PROPOFOL 500 MG/50 ML VIAL IV SCH (20:00)
[2020-02-24] MEDS ORDERED: HEPARIN 5,000 UNIT/1 ML VIAL ONE ×2 (00:53→10:11)
[2020-02-24] MEDS ORDERED: methylPREDNISolone Sod Succinate 40 MG/1 ML INJ ONE ×2 (00:53→10:10)
[2020-02-24] MEDS ORDERED: FAMOTIDINE 20 MG/2 ML INJ IV ONE ×2 (00:53→10:11)
[2020-02-24] MEDS ORDERED: fentaNYL DRIP Premix 2,000 MCG/100 ML BAG IV ONE ×2 (01:17→14:53)
[2020-02-24] MEDS: PROPOFOL 500 MG/50 ML VIAL IV SCH ×5 (01:52→20:30)
[2020-02-24] MEDS: SODIUM CHLORIDE 0.9% 1000 ML 1,000 ML IV SCH (01:53)
[2020-02-24] MEDS: fentaNYL DRIP Premix 2,000 MCG/100 ML BAG IV SCH ×2 (01:53→14:57)
[2020-02-24] MEDS: FAMOTIDINE 20 MG/2 ML INJ IV SCH ×2 (01:56→10:16)
[2020-02-24] MEDS: HEPARIN 5,000 UNIT/1 ML VIAL SUB-Q SCH ×2 (01:56→10:16)
[2020-02-24] MEDS: methylPREDNISolone Sod Succinate 40 MG/1 ML INJ IV SCH ×2 (01:56→10:15)
--- NOTE | 2020-02-24 04:26 | XRay Report ---
CHEST - 1 VIEW INDICATION: follow up respiratory failure COMPARISON: Yesterday FINDINGS: SUPPORT DEVICES: Stable support device positioning. HEART: Stable cardiomediastinal silhouette. LUNGS/PLEURA: Minimal residual patchy airspace disease in the lungs, most notably the right upper lo be. ADDITIONAL FINDINGS: None. IMPRESSION: Unchanged exam. Signer Name: Doyle Valenzuela MD Signed: 02/24/2020 4:22 AM Workstation Name: [id number]
[2020-02-24 04:51] LABS: ABG Base Excess -2.8 mmol/L (-2.0-3.0); ABG HCO3 21.7 mmol/L (20.0-26.0); ABG Methemoglobin 0.6 % (0.0-1.5); ABG Oxygen Saturation 82.9 % (95.0-99.0); ABG PCO2 36.7 mm Hg; ABG PH 7.39 pH Units (7.350-7.450)
[2020-02-24 05:26] LABS: Basophils % (Auto) 0.1 % (0.0-1.8); Eosinophils % (Auto) 0.1 % (0.0-4.3); Hematocrit 38.9 % (30.3-42.9); Hemoglobin 12.5 gm/dl (10.1-14.3); Lymphocytes # (Auto) 1.3 K/mm3 (1.2-5.4); Lymphocytes % (Auto) 7.1 % (13.4-35.0); Mean Corpuscular HGB Conc 32 % (30-34); Mean Corpuscular Volume 96 fl (79-97); Monocytes # (Auto) 1.3 K/mm3 (0.0-0.8); Monocytes % (Auto) 7.1 % (0.0-7.3); Platelet Count 370 K/mm3 (140-440); Red Blood Count 4.06 M/mm3 (3.65-5.03); Red Cell Distribution Width 13.9 % (13.2-15.2)
[2020-02-24 05:37] LABS: ABG Base Excess -3.1 mmol/L (-2.0-3.0); ABG HCO3 22.3 mmol/L (20.0-26.0); ABG Methemoglobin 0.6 % (0.0-1.5); ABG Oxygen Saturation 90.8 % (95.0-99.0); ABG PH 7.353 pH Units (7.350-7.450); ABG PO2 58.9 mm Hg (80.0-90.0)
[2020-02-24 05:42] LABS: Alanine Aminotransferase 46 units/L (7-56); Albumin 3.7 g/dL (3.9-5); Blood Urea Nitrogen 8 mg/dL (7-17); Calcium 8.4 mg/dL (8.4-10.2); Hemolysis Index 8
[2020-02-24 05:46] LABS: BUN/Creatinine Ratio 20
[2020-02-24] MEDS ORDERED: IPRATROPIUM/ALBUTEROL SULFATE 3 ML AMPUL.NEB IH ONE ×3 (08:49→22:43)
[2020-02-24] MEDS: IPRATROPIUM/ALBUTEROL SULFATE 3 ML AMPUL.NEB IH SCH ×3 (08:52→22:47)
[2020-02-24] MEDS ORDERED: SIMPLE SYRUP 15 ML FEEDTUBE PRN ×2 (09:00)
[2020-02-24] MEDS ORDERED: LIPASE 10,500/PROTEASE 25,000/AMYLASE 43,750 (UNITS) DR CAP FEEDTUBE PRN (09:00)
[2020-02-24] MEDS ORDERED: SODIUM BICARBONATE 325 MG TAB FEEDTUBE PRN (09:00)
--- NOTE | 2020-02-24 09:06 | Progress Note ---
Assessment and Plan Assessment and plan: --COVID-19 test negative; -- Acute hypoxemic respiratory failure Current Visit: Yes Status: Acute Plan to address problem: Patient intubated and on ventilatory support. Continue sedation nebulizers and supportive care wean vent as tolerated and extubate --Acute COPD exacerbation Current Visit: Yes Status: Acute Plan to address problem: IV steroid therapy, IV antibiotics supportive care, --Probably community acquired pneumonia; Current Visit: Yes Status: Acute Plan to address problem: Empiric antibiotics with Levaquin Follow cultures, supportive care --Sepsis; secondary to right pneumonia Current Visit: Yes Status: Acute Plan to address problem: Tachycardia, leukocytosis, infiltrate on chest x-ray and CT Continue current antibiotics follow cultures --Acute on chronic congestive heart failure; EF 15 to 20% Current Visit: Yes Status: Acute Plan to address problem: Diuretics, input output monitoring, beta-blockers CLOTILDE inhibitors, low-sodium diet, fluid restriction Cardiology consult --Dilated cardiomyopathy EF 15 to 20% Current Visit: Yes Status: Acute Plan to address problem: Diuretics, input output monitoring, beta-blockers CLOTILDE inhibitors, low-sodium diet, fluid restriction Possible ischemia work-up if not done before ICD in place --Ongoing tobacco use; Current Visit: Yes Status: Acute Plan to address problem: Smoking cessation, nicotine patch as needed We will primary counselor the patient once patient is off ventilator --DVT prophylaxis Current Visit: Yes Status: Acute Plan to address problem: SCD , anticoagulation Closely monitor the patient and adjust management as needed Plan of care reviewed with the patient's nurse Consults and recommendations noted and appreciated The high probability of a clinically significant, sudden or life threatening deterioration of the [cardiac, pulmonary, renal, neuro] system(s) required my full and direct attention, intervention and personal management. The aggregate critical care time was [45] minutes. This time is in addition to time spent performing reported procedures but includes the following: [x] Data Review and interpretation [x] Patient assessment and monitoring of vital signs [x] Documentation [x] Medication orders and management Get good have you how 02/24/2020; patient remains intubated on ventilatory support COVID-19 test negative, wean as tolerated and extubate Follow cultures, consultants recommendations noted and appreciated Start tube feeding History Interval history: I have seen and examined the patient in ER awaiting ICU bed assignment Patient remains intubated on ventilatory support, sedated Vital signs noted COVID-19 test negative Hospitalist Physical - Constitutional Vitals: Temp Pulse Resp BP Pulse Ox 98.2 F 82 26 H 116/80 100 02/22/20 19:00 02/24/20 08:37 02/24/20 08:30 02/24/20 08:37 02/24/20 08:37 General appearance: Present: mild distress, well-nourished, other (Intubated on vent) - EENT Eyes: Present: PERRL, EOM intact - Neck Neck: Present: supple, normal ROM - Respiratory Respiratory effort: normal Respiratory: bilateral: diminished, rhonchi, negative: rales, wheezing - Cardiovascular Rhythm: regular Heart Sounds: Present: S1 & S2 - Extremities Extremities: no ischemia, No edema - Abdominal General gastrointestinal: soft, non-tender, non-distended, normal bowel sounds - Integumentary Integumentary: Present: clear, warm - Psychiatric Psychiatric: other (Ventilatory support) - Neurologic Neurologic: other (Intubated on vent) HEART Score - HEART Score Troponin: Troponin T 0.044 ng/mL (0.00-0.029) H 02/21/20 10:17 Results - Labs CBC & Chem 7: 02/24/20 04:50 02/24/20 04:50 Labs: Laboratory Last Values WBC 18.7 K/mm3 (4.5-11.0) H 02/24/20 04:50 RBC 4.06 M/mm3 (3.65-5.03) 02/24/20 04:50 Hgb 12.5 gm/dl (10.1-14.3) 02/24/20 04:50 Hct 38.9 % (30.3-42.9) 02/24/20 04:50 MCV 96 fl (79-97) 02/24/20 04:50 MCH 31 pg (28-32) 02/24/20 04:50 MCHC 32 % (30-34) 02/24/20 04:50 RDW 13.9 % (13.2-15.2) 02/24/20 04:50 Plt Count 370 K/mm3 (140-440) 02/24/20 04:50 Lymph % (Auto) 7.1 % (13.4-35.0) L 02/24/20 04:50 [place] % (Auto) 7.1 % (0.0-7.3) 02/24/20 04:50 Eos % (Auto) 0.1 % (0.0-4.3) 02/24/20 04:50 Baso % (Auto) 0.1 % (0.0-1.8) 02/24/20 04:50 Lymph # (Auto) 1.3 K/mm3 (1.2-5.4) 02/24/20 04:50 [place] # (Auto) 1.3 K/mm3 (0.0-0.8) H 02/24/20 04:50 Eos # (Auto) 0.0 K/mm3 (0.0-0.4) 02/24/20 04:50 Baso # (Auto) 0.0 K/mm3 (0.0-0.1) 02/24/20 04:50 Add Manual Diff Complete 02/21/20 10:17 Total Counted 100 02/21/20 10:17 Seg Neutrophils % 85.6 % (40.0-70.0) H 02/24/20 04:50 Seg Neuts % (Manual) 94.0 % (40.0-70.0) H 02/21/20 10:17 Band Neutrophils % 1.0 % 02/21/20 10:17 Lymphocytes % (Manual) 4.0 % (13.4-35.0) L 02/21/20 10:17 Reactive Lymphs % (Man) 0 % 02/21/20 10:17 Monocytes % (Manual) 1.0 % (0.0-7.3) 02/21/20 10:17 Eosinophils % (Manual) 0 % (0.0-4.3) 02/21/20 10:17 Basophils % (Manual) 0 % (0.0-1.8) 02/21/20 10:17 Metamyelocytes % 0 % 02/21/20 10:17 Myelocytes % 0 % 02/21/20 10:17 Promyelocytes % 0 % 02/21/20 10:17 Blast Cells % 0 % 02/21/20 10:17 Nucleated RBC % Not Reportable 02/21/20 10:17 Seg Neutrophils # 16.0 K/mm3 (1.8-7.7) H 02/24/20 04:50 Seg Neutrophils # Man 19.9 K/mm3 (1.8-7.7) H 02/21/20 10:17 Band Neutrophils # 0.2 K/mm3 02/21/20 10:17 Lymphocytes # (Manual) 0.8 K/mm3 (1.2-5.4) L 02/21/20 10:17 Abs React Lymphs (Man) 0.0 K/mm3 02/21/20 10:17 Monocytes # (Manual) 0.2 K/mm3 (0.0-0.8) 02/21/20 10:17 Eosinophils # (Manual) 0.0 K/mm3 (0.0-0.4) 02/21/20 10:17 Basophils # (Manual) 0.0 K/mm3 (0.0-0.1) 02/21/20 10:17 Metamyelocytes # 0.0 K/mm3 02/21/20 10:17 Myelocytes # 0.0 K/mm3 02/21/20 10:17 Promyelocytes # 0.0 K/mm3 02/21/20 10:17 Blast Cells # 0.0 K/mm3 02/21/20 10:17 WBC Morphology Not Reportable 02/21/20 10:17 Hypersegmented Neuts Not Reportable 02/21/20 10:17 Hyposegmented Neuts Not Reportable 02/21/20 10:17 Hypogranular Neuts Not Reportable 02/21/20 10:17 Smudge Cells Not Reportable 02/21/20 10:17 Toxic Granulation Not Reportable 02/21/20 10:17 Toxic Vacuolation Not Reportable 02/21/20 10:17 Dohle Bodies Not Reportable 02/21/20 10:17 Pelger-Huet Anomaly Not Reportable 02/21/20 10:17 Arlette Rods Not Reportable 02/21/20 10:17 Platelet Estimate Consistent w auto 02/21/20 10:17 Clumped Platelets Not Reportable 02/21/20 10:17 Plt Clumps, EDTA Not Reportable 02/21/20 10:17 Large Platelets Not Reportable 02/21/20 10:17 Giant Platelets Not Reportable 02/21/20 10:17 Platelet Satelliting Not Reportable 02/21/20 10:17 Plt Morphology Comment Not Reportable 02/21/20 10:17 RBC Morphology Normal 02/21/20 10:17 Dimorphic RBCs Not Reportable 02/21/20 10:17 Polychromasia Not Reportable 02/21/20 10:17 Hypochromasia Not Reportable 02/21/20 10:17 Poikilocytosis Not Reportable 02/21/20 10:17 Anisocytosis Not Reportable 02/21/20 10:17 Microcytosis Not Reportable 02/21/20 10:17 Macrocytosis Not Reportable 02/21/20 10:17 Spherocytes Not Reportable 02/21/20 10:17 Pappenheimer Bodies Not Reportable 02/21/20 10:17 Sickle Cells Not Reportable 02/21/20 10:17 Target Cells Not Reportable 02/21/20 10:17 Tear Drop Cells Not Reportable 02/21/20 10:17 Ovalocytes Not Reportable 02/21/20 10:17 Helmet Cells Not Reportable 02/21/20 10:17 Dahl-[place] Bodies Not Reportable 02/21/20 10:17 Sparks Rings Not Reportable 02/21/20 10:17 Aide Cells Not Reportable 02/21/20 10:17 Bite Cells Not Reportable 02/21/20 10:17 Crenated Cell Not Reportable 02/21/20 10:17 Elliptocytes Not Reportable 02/21/20 10:17 Acanthocytes (Spur) Not Reportable 02/21/20 10:17 Rouleaux Not Reportable 02/21/20 10:17 Hemoglobin C Crystals Not Reportable 02/21/20 10:17 Schistocytes Not Reportable 02/21/20 10:17 Malaria parasites Not Reportable 02/21/20 10:17 Hilton Bodies Not Reportable 02/21/20 10:17 Hem Pathologist Commnt No 02/21/20 10:17 D-Dimer 362.52 ng/mlDDU (0-234) H 02/21/20 10:17 ABG pH 7.353 pH Units (7.350-7.450) 02/24/20 05:08 ABG pCO2 41.0 mm Hg 02/24/20 05:08 ABG pO2 58.9 mm Hg (80.0-90.0) L 02/24/20 05:08 ABG HCO3 22.3 mmol/L (20.0-26.0) 02/24/20 05:08 ABG O2 Saturation 90.8 % (95.0-99.0) L 02/24/20 05:08 ABG O2 Content 14.0 (0.0-44) 02/24/20 04:36 ABG Base Excess -3.1 mmol/L (-2.0-3.0) L 02/24/20 05:08 ABG Hemoglobin 12.6 gm/dl (12.0-16.0) 02/24/20 05:08 ABG Carboxyhemoglobin 1.4 % (0.0-5.0) 02/24/20 05:08 ABG Methemoglobin 0.6 % (0.0-1.5) 02/24/20 05:08 Oxyhemoglobin 89.0 % (95.0-99.0) L 02/24/20 05:08 FiO2 25 % 02/24/20 05:08 Sodium 142 mmol/L (137-145) 02/24/20 04:50 Potassium 4.4 mmol/L (3.6-5.0) D 02/24/20 04:50 Chloride 107.5 mmol/L (98-107) H 02/24/20 04:50 Carbon Dioxide 21 mmol/L (22-30) L 02/24/20 04:50 Anion Gap 18 mmol/L 02/24/20 04:50 BUN 8 mg/dL (7-17) 02/24/20 04:50 Creatinine 0.4 mg/dL (0.6-1.2) L 02/24/20 04:50 Estimated GFR > 60 ml/min 02/24/20 04:50 BUN/Creatinine Ratio 20 % 02/24/20 04:50 Glucose 76 mg/dL (65-100) 02/24/20 04:50 Lactic Acid 1.80 mmol/L (0.7-2.0) 02/22/20 15:07 Calcium 8.4 mg/dL (8.4-10.2) 02/24/20 04:50 Magnesium 2.00 mg/dL (1.7-2.3) 02/24/20 04:50 Ferritin 160.6 ng/mL (10.0-200.0) 02/21/20 10:17 Total Bilirubin 1.10 mg/dL (0.1-1.2) 02/24/20 04:50 AST 36 units/L (5-40) 02/24/20 04:50 ALT 46 units/L (7-56) 02/24/20 04:50 Alkaline Phosphatase 69 units/L (35-129) 02/24/20 04:50 Lactate Dehydrogenase 324 units/L (91-180) H 02/21/20 10:17 Troponin T 0.044 ng/mL (0.00-0.029) H 02/21/20 10:17 C-Reactive Protein 0.40 mg/dL (0.00-1.30) 02/21/20 10:17 NT-Pro-B Natriuret Pep 1005 pg/mL (0-900) H 02/21/20 10:17 NT-Pro-B Natriuret Pep 1026 pg/mL (0-900) H 02/21/20 10:17 Total Protein 5.9 g/dL (6.3-8.2) L 02/24/20 04:50 Albumin 3.7 g/dL (3.9-5) L 02/24/20 04:50 Albumin/Globulin Ratio 1.7 % 02/24/20 04:50 Triglycerides 68 mg/dL (2-149) 02/21/20 10:17 Cholesterol 170 mg/dL (50-199) 02/21/20 10:17 LDL Cholesterol Direct 92 mg/dL (50-130) 02/21/20 10:17 HDL Cholesterol 75 mg/dL (40-59) H 02/21/20 10:17 Cholesterol/HDL Ratio 2.26 % 02/21/20 10:17 Procalcitonin < 0.05 ng/mL (<0.15) 02/21/20 10:17 Urine Opiates Screen Negative 02/21/20 19:20 Urine Methadone Screen Negative 02/21/20 19:20 Ur Barbiturates Screen Negative 02/21/20 19:20 Ur Phencyclidine Scrn Negative 02/21/20 19:20 Ur Amphetamines Screen Negative 02/21/20 19:20 U Benzodiazepines Scrn Negative 02/21/20 19:20 Urine Cocaine Screen Negative 02/21/20 19:20 U Marijuana (THC) Screen Positive 02/21/20 19:20 Drugs of Abuse Note Disclamer 02/21/20 19:20 Coronavirus (PCR) Negative (Negative) 02/21/20 10:24 Microbiology: Microbiology 02/21/20 10:28 Peripheral/Venous Blood Culture - Preliminary NO GROWTH AFTER 48 HOURS 02/21/20 10:17 Peripheral/Venous Blood Culture - Preliminary NO GROWTH AFTER 48 HOURS - Diagnostic Impressions Diagnostic Impressions: Echocardiogram 02/21/20 16:13 Transthoracic Echocardiogram Indication: Shortness of breath BP: 109/75 HR: 100 Conclusions *The left ventricular size is moderate to severely dilated. *Global left ventricular systolic function is severely decreased. *The estimated ejection fraction is Less Than 15-20%. *There is mild mitral regurgitation. *There is trace tricuspid regurgitation. *There is evidence of mild pulmonary hypertension. *The right ventricular systolic pressure is calculated at 30 mmHg. *A pacemaker wire is visualized in the right heart chambers. Findings Left Ventricle: The left ventricular size is moderate to severely dilated. There is no left ventricular hypertrophy. Global left ventricular systolic function is severely decreased. The estimated ejection fraction is 15-20%. Left Atrium: The left atrial chamber size is normal. Right Ventricle: The right ventricle is mildly dilated. The right ventricular global systolic function is mildly reduced. A pacemaker wire is visualized in the right ventricle. Right Atrium: The right atrial cavity size is normal. A pacemaker wire is visualized in the right atrium. Aortic Valve: The aortic valve is trileaflet. The aortic valve leaflets are moderately thickened. There is no evidence of aortic regurgitation. There is no evidence of aortic stenosis. Mitral Valve: The mitral valve leaflets appear myxomatous. There is mild mitral regurgitation. There is no evidence of mitral stenosis. Tricuspid Valve: There is trace tricuspid regurgitation. The right ventricular systolic pressure is calculated at 30 mmHg. There is evidence of mild pulmonary hypertension. Pulmonic Valve: There is mild pulmonic regurgitation. Pericardium: There is no pericardial effusion. Aorta: There is no dilatation of the aortic root. Venous: The inferior vena cava is dilated. Measurements Chambers 2D Name Value Normal Range IVSd (2D) 0.8 cm (0.6 - 1.1) LVPWd (2D) 0.78 cm (0.6 - 1.1) LVIDd (2D) 5.1 cm (3.7 - 5.6) LVIDs (2D) 3.74 cm (2 - 3.8) LV FS (2D) 26.7 % - EF Teichholz (2D) 51.89 % - Ao root diameter (2D) 3.33 cm (2 - 3.7) Volumes/Mass Name Value Normal Range LA ESV SP 4CH (A/L) 34.31 ml - LA ESV SP 2CH (A/L) 13.16 ml - LA ESV BP (A/L) 36.23 ml - LA ESV BP (A/L) index 21.31 ml/m2 - LA ESV SP 4CH (MOD) 28.65 ml - LA ESV SP 2CH (MOD) 10.49 ml - LA ESV BP (MOD) 29.3 ml - LA ESV BP (MOD) index 17.24 ml/m2 - Aortic Valve Name Value Normal Range AV Vmax 1.05 m/sec - AV VTI 14.59 cm - AV peak gradient 4.38 mmHg - AV mean gradient 2.55 mmHg - LVOT diameter 2.14 cm - LVOT Vmax 0.92 m/sec - LVOT VTI 12.77 cm - LVOT peak gradient 3.36 mmHg - LVOT mean gradient 1.53 mmHg - SV LVOT 45.99 ml - REJI (continuity Vmax) 3.15 cm2 - REJI (continuity VTI) 3.15 cm2 - Ascending Ao 2.83 cm - Mitral Valve Name Value Normal Range MV PHT 38.65 msec - MR Vmax 3.89 m/sec - MVA (PHT) 5.69 cm2 - Tricuspid Valve Name Value Normal Range TR Vmax 2.21 m/sec - TR peak gradient 19 mmHg - RAP 8 mmHg - RVSP 30 mmHg - IVC diameter 2.45 cm (1.2 - 2.3) Pulmonic Valve/Qp:Qs Name Value Normal Range PV Vmax 0.68 m/sec - PV peak gradient 1.86 mmHg - PV acceleration time 110.37 msec - Hilton/IV: IV Catheter Type [Right Peripheral IV Antecubital] IV Catheter Type [Left Peripheral IV External Jugular] IV Catheter Type [Right Peripheral IV Forearm] IV Catheter Type [Right Hand] INT / Saline Lock Active Medications - Current Medications Current Medications: Generic Name Dose Route Start Last Admin Trade Name Freq PRN Reason Stop Dose Admin Acetaminophen 650 mg 02/21/20 16:10 Tylenol PO Q6H PRN Pain, Mild (1-3) Albuterol/Ipratropium 1 ampul 02/22/20 20:00 02/24/20 08:52 Duoneb *Not For Prn Use* IH 1 ampul TIDRT KATELYN Administration Lipase/Protease/Amylase 1 each 02/22/20 14:00 Arlene Sebastian 10,500 Unit FEEDTUBE PRN PRN For Clogged Feeding Tube Lipase/Protease/Amylase 1 each 02/24/20 08:56 Arlene Sebastian 10,500 Unit FEEDTUBE PRN PRN For Clogged Feeding Tube Famotidine 20 mg 02/22/20 10:00 02/24/20 01:56 Pepcid IV 20 mg BID KATELYN Administration Fentanyl 50 mcg 02/22/20 14:48 Sublimaze IV Q10MIN PRN ANALGESIA Heparin Sodium (Porcine) 5,000 unit 02/21/20 22:00 02/24/20 01:56 Heparin SUB-Q 5,000 unit Q12HR KATELYN Administration Hydromorphone HCl 0.25 mg 02/21/20 16:10 Dilaudid IV Q4H PRN Pain, Moderate (4-6) Hydrophilic Ointment 1 applic 02/21/20 16:44 Vaseline Lip Therapy TP Q2HR PRN Dry Lips Levofloxacin/Dextrose 750 mg in 150 mls @ 100 mls/hr 02/21/20 17:00 02/23/20 17:07 Levaquin 750mg/150ml IV 02/25/20 18:29 100 mls/hr Q24H KATELYN Administration Protocol Sodium Chloride 1,000 mls @ 75 mls/hr 02/22/20 04:30 02/24/20 01:53 Nacl 0.9% 1000 Ml IV 75 mls/hr DIRECT KATELYN Administration Fentanyl Citrate 2,000 mcg in 100 mls @ 3.175 mls/hr 02/22/20 15:00 02/24/20 01:53 Fentanyl Drip Premix IV 2 mcg/kg/hr TITR KATELYN 6.35 mls/hr Administration Protocol 1 MCG/KG/HR Propofol 500 mg in 50 mls @ 1.905 mls/hr 02/23/20 23:00 02/24/20 08:59 Propofol IV 25 mcg/kg/min TITR KATELYN 9.525 mls/hr Titration Protocol 5 MCG/KG/MIN Lorazepam 2 mg 02/21/20 16:44 Ativan IV Q10MIN PRN Agitation Methylprednisolone Sodium Succinate 20 mg 02/21/20 22:00 02/24/20 01:56 Solu-Medrol IV 20 mg Q12HR KATELYN Administration Multi-Ingred Cream/Lotion/Oil/Oint 1 applic 02/21/20 16:44 Artificial Tears Ophth Oint OU Q4HR PRN Dry Eye(s) Simple Syrup 15 ml 02/24/20 08:56 Simple Syrup FEEDTUBE PRN PRN Hypoglycemia Simple Syrup 30 ml 02/24/20 08:56 Simple Syrup FEEDTUBE PRN PRN Hypoglycemia Sodium Bicarbonate 325 mg 02/22/20 14:00 Sodium Bicarbonate FEEDTUBE PRN PRN For Clogged Feeding Tube Sodium Bicarbonate 325 mg 02/24/20 08:56 Sodium Bicarbonate FEEDTUBE PRN PRN For Clogged Feeding Tube Sodium Chloride 10 ml 02/21/20 22:00 02/24/20 01:57 Sodium Chloride Flush Syringe 10 Ml IV 10 ml BID KATELYN Administration Sodium Chloride 10 ml 02/21/20 16:10 Sodium Chloride Flush Syringe 10 Ml IV PRN PRN LINE FLUSH Nutrition/Malnutrition Assess - Dietary Evaluation Nutrition/Malnutrition Findings: Nutrition Notes Start: 02/22/20 11:38 Freq: Status: Active Protocol: Document 02/23/20 12:37 EN (Rec: 02/23/20 12:40 EN [id number]) Co-Sign 02/23/20 12:37 NHALL Nutrition Notes Initial or Follow up Brief Note Current Diagnosis COPD,Sepsis,Heart Failure, Respiratory Failure Other Pertinent Diagnosis COPD exacerbation, asthma, pneu Current Diet NPO Subjective/Other Information Pt remains in ED and on vent support. No TF consult received. Nutrition Intervention Anticipated Discharge Needs: Unable to identify at this time Follow-Up By: 02/25/20 Additional Comments F/U: diet advancement vs TF consult, vent status
[2020-02-24] MEDS: FUROSEMIDE 20 MG TAB PO SCH (10:22)
[2020-02-24] MEDS: carvediloL 3.125 MG TAB PO SCH (10:22)
[2020-02-24] MEDS: LISINOPRIL 5 MG TAB PO SCH (10:23)
--- NOTE | 2020-02-24 11:51 | Consultation ---
History of Present Illness Consult date: 02/24/20 Consult reason: other (Cardiomyopathy) History of present illness: This is a 49-year old F who presented to this hospital with shortness of breath, wheezing, admitted with acute respiratory failure, asthma exacerbation and pneumonia. COVID test was negative. CTA of the CT was negative for PE. In the emergency room the patient was unable to protect her airway and was intubated and placed on ventilatory support. Cardiology consultation has been requested for dilated cardiomyopathy. An echocardiogram showed severe dilated cardiomyopathy with an ejection fraction 15-20%. There was mild dilated RV with mild pulmonary hypertension, RVSP. The findings of this cardiomyopathy is likely chronic. She has a dual chamber AICD insitu seen on her chest x-ray. There is no 12-lead ECG available for review but telemetry shows a normal sinus rhythm. Past History Past Medical History: heart failure Past Surgical History: Other (ICD placement) Social history: single, smoking. denies: alcohol abuse, prescription drug abuse Family history: hypertension Medications and Allergies Allergies Allergy/AdvReac Type Severity Reaction Status Date / Time No Known Allergies Allergy Unverified 02/21/20 08:57 Home Medications Medication Instructions Recorded Confirmed Last Taken Type No Known Home Medications [No 02/21/20 02/21/20 Unknown History Reported Home Medications] Active Meds: Active Medications Acetaminophen (Tylenol) 650 mg PO Q6H PRN PRN Reason: Pain, Mild (1-3) Albuterol/Ipratropium (Duoneb *Not For Prn Use*) 1 ampul IH TIDRT [facility] Last Admin: 02/24/20 08:52 Dose: 1 ampul Documented by: Lipase/Protease/Amylase (Arlene Sebastian 10,500 Unit) 1 each FEEDTUBE PRN PRN PRN Reason: For Clogged Feeding Tube Carvedilol (Coreg) 3.125 mg PO BID [facility] Last Admin: 02/24/20 10:22 Dose: Not Given Documented by: Famotidine (Pepcid) 20 mg IV BID [facility] Last Admin: 02/24/20 10:16 Dose: 20 mg Documented by: Fentanyl (Sublimaze) 50 mcg IV Q10MIN PRN PRN Reason: ANALGESIA Furosemide (Lasix) 20 mg PO QDAY [facility] Last Admin: 02/24/20 10:22 Dose: Not Given Documented by: Heparin Sodium (Porcine) (Heparin) 5,000 unit SUB-Q Q12HR KATELYN Last Admin: 02/24/20 10:16 Dose: 5,000 unit Documented by: Hydromorphone HCl (Dilaudid) 0.25 mg IV Q4H PRN PRN Reason: Pain, Moderate (4-6) Hydrophilic Ointment (Vaseline Lip Therapy) 1 applic TP Q2HR PRN PRN Reason: Dry Lips Levofloxacin/Dextrose (Levaquin 750mg/150ml) 750 mg in 150 mls @ 100 mls/hr IV Q24H KATELYN; Protocol Stop: 02/25/20 18:29 Last Admin: 02/23/20 17:07 Dose: 100 mls/hr Documented by: Sodium Chloride (Nacl 0.9% 1000 Ml) 1,000 mls @ 75 mls/hr IV DIRECT KATELYN Last Admin: 02/24/20 01:53 Dose: 75 mls/hr Documented by: Fentanyl Citrate (Fentanyl Drip Premix) 2,000 mcg in 100 mls @ 3.175 mls/hr IV TITR KATELYN; Protocol Last Admin: 02/24/20 01:53 Dose: 2 mcg/kg/hr, 6.35 mls/hr Documented by: Propofol (Propofol) 500 mg in 50 mls @ 1.905 mls/hr IV TITR KATELYN; Protocol Last Admin: 02/24/20 09:33 Dose: 25 mcg/kg/min, 9.525 mls/hr Documented by: Lisinopril (Zestril) 5 mg PO QDAY KATELYN Last Admin: 02/24/20 10:23 Dose: Not Given Documented by: Lorazepam (Ativan) 2 mg IV Q10MIN PRN PRN Reason: Agitation Methylprednisolone Sodium Succinate (Solu-Medrol) 20 mg IV Q12HR KATELYN Last Admin: 02/24/20 10:15 Dose: 20 mg Documented by: Multi-Ingred Cream/Lotion/Oil/Oint (Artificial Tears Ophth Oint) 1 applic OU Q4HR PRN PRN Reason: Dry Eye(s) Simple Syrup (Simple Syrup) 15 ml FEEDTUBE PRN PRN PRN Reason: Hypoglycemia Simple Syrup (Simple Syrup) 30 ml FEEDTUBE PRN PRN PRN Reason: Hypoglycemia Sodium Bicarbonate (Sodium Bicarbonate) 325 mg FEEDTUBE PRN PRN PRN Reason: For Clogged Feeding Tube Sodium Chloride (Sodium Chloride Flush Syringe 10 Ml) 10 ml IV BID KATELYN Last Admin: 02/24/20 01:57 Dose: 10 ml Documented by: Sodium Chloride (Sodium Chloride Flush Syringe 10 Ml) 10 ml IV PRN PRN PRN Reason: LINE FLUSH Review of Systems ROS unobtainable: due to endotracheal tube Physical Examination Vital Signs Temp Pulse Resp BP Pulse Ox 99 F 123 H 28 H 104/63 94 02/21/20 07:57 02/21/20 07:57 02/21/20 07:57 02/21/20 07:57 02/21/20 07:57 General appearance: other (intubated on the vent) Cardiac: Positive: Reg Rate and Rhythm Results 02/24/20 04:50 02/24/20 04:50 Cardiac Enzymes 02/24/20 Range/Units 04:50 AST 36 (5-40) units/L CBC 02/24/20 Range/Units 04:50 WBC 18.7 H (4.5-11.0) K/mm3 RBC 4.06 (3.65-5.03) M/mm3 Hgb 12.5 (10.1-14.3) gm/dl Hct 38.9 (30.3-42.9) % Plt Count 370 (140-440) K/mm3 Lymph # (Auto) 1.3 (1.2-5.4) K/mm3 [place] # (Auto) 1.3 H (0.0-0.8) K/mm3 Eos # (Auto) 0.0 (0.0-0.4) K/mm3 Baso # (Auto) 0.0 (0.0-0.1) K/mm3 Comprehensive Metabolic Panel 02/24/20 Range/Units 04:50 Sodium 142 (137-145) mmol/L Potassium 4.4 D (3.6-5.0) mmol/L Chloride 107.5 H (98-107) mmol/L Carbon Dioxide 21 L (22-30) mmol/L BUN 8 (7-17) mg/dL Creatinine 0.4 L (0.6-1.2) mg/dL Glucose 76 (65-100) mg/dL Calcium 8.4 (8.4-10.2) mg/dL AST 36 (5-40) units/L ALT 46 (7-56) units/L Alkaline Phosphatase 69 (35-129) units/L Total Protein 5.9 L (6.3-8.2) g/dL Albumin 3.7 L (3.9-5) g/dL Assessment and Plan - Patient Problems (1) Cardiomyopathy Current Visit: Yes Status: Acute Qualifiers: Qualified Code(s): I42.9 - Cardiomyopathy, unspecified Plan to address problem: An echocardiogram showed severe dilated cardiomyopathy with an ejection fraction 15-20%. There was mild dilated RV with mild pulmonary hypertension, RVSP. The findings of this cardiomyopathy is likely chronic. She has a dual chamber AICD insitu seen on her chest x-ray. Guideline directed medical therapy for dilated cardiomyopathy including diuretics, beta blockers and afterload reduction agents. Obtain a 12 lead ECG.
[2020-02-24] MEDS ORDERED: SODIUM CHLORIDE 0.9% 1000 ML 1,000 ML ONE (14:53)
--- NOTE | 2020-02-24 15:23 | Progress Note ---
Assessment and Plan Acute hypoxemic-hypercapnic respiratory failure on MVS Acute COPD exacerbation Toxic metabolic encephalopathy CAP Cardiomyopathy s/p AICD h/o Asthma Tobacco use/Nicotine dependence Lactic acidosis - reduced set rate to 20/min - tentatively begin SBT's in am if appropriate minute ventilation - repeat ABG in am - ACS evaluation ongoing - complete empiric Levaquin X 5 days for AE-COPD - continue systemic steroids with slow taper - continue care as below otherwise; - Vasopressor support to keep MAP > 65 mmHg - Monitor hemodynamics closely; judicious use of IVF re: HFrEF (ECHO EF of 15- 20%) - continue Daily SAT and SBT assessment as tolerated - continue to wean supplemental oxygen for target O2 sat's > 92% acutely - VAP bundle addressed - continue lung protective strategies - continue bronchodilators with pulmonary hygiene per RT - wean per pulmonary driven protocols otherwise - continue accuchecks with glycemic control per SSI (While critically ill target blood glucose of 140-180 mg/dL; avoid hypoglycemia) - sedation prn for target RASS -1 to -2 - avoid nephrotoxins, renally dose all medications - continue to avoid benzodiazepine's, reduce the possibility of delirium - prn analgesia per CPOT score - Maintenance of sleep-wake cycle, avoid delirium - continue enteral nutritional support at goal rate as tolerated - G.I. & VTE prophylaxis - PT/OT/ROM exercises - continue mobility protocols for pressure ulcer prophylaxis - Monitor hemodynamics closely - Nicotine withdrawal precautions, Smoking cessation counselling once she is extubated and is able to participate in counselling discussions - continue other care per attending / other consultants - discharge planning ongoing concurrently .... Re-evaluate in am & prn CONDITION: CRITICAL PROGNOSIS: GUARDED CODE STATUS: FULL CODE The high probability of a clinically significant, sudden or life-threatening deterioration of the [respiratory, cardiovascular, neurologic & renal] system (s) required my full and direct attention, intervention and personal management. The aggregate critical care time was [32] minutes without overlap. Time includes spent on; [x] Data Review and interpretation [x] Patient assessment and monitoring of vital signs [x] Documentation [x] Medication orders and management Subjective Date of service: 02/24/20 Principal diagnosis: Ac hypoxemic & hypercapnic resp failure; Ac. encephalopathy; CAP; CMOP;COPD Interval history: Patient is seen today for: Acute hypoxemic & hypercapnic respiratory failure; Toxic metabolic encephalopathy; CAP; CMOP s/p AICD; h/o Asthma; Tobacco use/Nicotine dependence Seen and examined at bedside; 24hour events reviewed; nursing and respiratory care staff consulted; no adverse overnight events reported to me; resting peacefully in bed; remains on MVS; sedated but a little morte alert; no emesis or overt aspiration; attempts to nod head somewhat appropriately at time of my examination; no high grade fevers Objective Vital Signs - 12hr 02/24/20 02/24/20 02/24/20 03:30 04:00 04:30 Pulse Rate 92 H 84 82 Pulse Rate [ Throughout] Respiratory 26 H 26 H 26 H Rate Respiratory Rate [ Throughout] Blood Pressure 142/88 142/88 130/88 O2 Sat by Pulse 100 100 96 Oximetry 02/24/20 02/24/20 02/24/20 04:39 05:00 05:30 Pulse Rate 77 91 H 77 Pulse Rate [ Throughout] Respiratory 26 H 26 H Rate Respiratory Rate [ Throughout] Blood Pressure 121/77 130/88 123/78 O2 Sat by Pulse 100 92 Oximetry 02/24/20 02/24/20 02/24/20 06:00 06:30 07:00 Pulse Rate 82 89 82 Pulse Rate [ Throughout] Respiratory 26 H 26 H 26 H Rate Respiratory Rate [ Throughout] Blood Pressure 122/91 129/87 129/84 O2 Sat by Pulse 100 100 99 Oximetry 02/24/20 02/24/20 02/24/20 07:30 08:00 08:30 Pulse Rate 79 72 77 Pulse Rate [ 79 Throughout] Respiratory 26 H 26 H 26 H Rate Respiratory 26 H Rate [ Throughout] Blood Pressure 119/78 119/76 116/80 O2 Sat by Pulse 99 99 97 Oximetry 02/24/20 02/24/20 02/24/20 08:37 09:00 09:30 Pulse Rate 82 86 87 Pulse Rate [ Throughout] Respiratory 25 H 26 H Rate Respiratory Rate [ Throughout] Blood Pressure 116/80 123/85 126/80 O2 Sat by Pulse 100 100 98 Oximetry 02/24/20 02/24/20 02/24/20 10:00 10:30 11:00 Pulse Rate 80 78 80 Pulse Rate [ Throughout] Respiratory 12 26 H 26 H Rate Respiratory Rate [ Throughout] Blood Pressure 112/73 111/57 116/76 O2 Sat by Pulse 99 98 97 Oximetry 02/24/20 02/24/20 11:30 13:00 Pulse Rate 76 75 Pulse Rate [ Throughout] Respiratory 26 H Rate Respiratory Rate [ Throughout] Blood Pressure 123/79 111/74 O2 Sat by Pulse 100 100 Oximetry Constitutional: appears uncomfortable, other (middle aged female with mildly increased respiratory effort at rest on MVS) Eyes: non-icteric ENT: oropharynx moist, other (ETT 23 cm MILKA) Neck: supple, no lymphadenopathy, no JVD Effort: normal Ascultation: Bilateral: diminished breath sounds, rhonchi Percussion: Bilateral: not dull Cardiovascular: regular rate and rhythm, other (S1,S2) Gastrointestinal: normoactive bowel sounds, soft, non-tender, non-distended Integumentary: normal Extremities: no cyanosis, no edema, pulses normal, no ischemia or petechiae Neurologic: pupils equal and round, unable to assess (sedated) Psychiatric: other (unable to assess, sedated) CBC and BMP: 02/24/20 04:50 02/24/20 04:50 ABG, PT/INR, D-dimer: ABG ABG pH 7.353 pH Units (7.350-7.450) 02/24/20 05:08 ABG pCO2 41.0 mm Hg 02/24/20 05:08 ABG pO2 58.9 mm Hg (80.0-90.0) L 02/24/20 05:08 ABG O2 Saturation 90.8 % (95.0-99.0) L 02/24/20 05:08 PT/INR, D-dimer D-Dimer 362.52 ng/mlDDU (0-234) H 02/21/20 10:17 Abnormal lab findings: Abnormal Labs 02/21/20 02/21/20 02/21/20 10:17 10:17 10:17 WBC 21.2 H Lymph % (Auto) [place] % (Auto) Lymph # (Auto) [place] # (Auto) Seg Neutrophils % Seg Neuts % (Manual) 94.0 H Lymphocytes % (Manual) 4.0 L Seg Neutrophils # Seg Neutrophils # Man 19.9 H Lymphocytes # (Manual) 0.8 L D-Dimer 362.52 H ABG pH ABG pO2 ABG O2 Saturation ABG Base Excess Oxyhemoglobin Potassium Chloride Carbon Dioxide Creatinine 0.4 L Glucose 168 H Lactic Acid Calcium Lactate Dehydrogenase 324 H Troponin T NT-Pro-B Natriuret Pep 1005 H Total Protein Albumin HDL Cholesterol 02/21/20 02/21/20 02/21/20 10:17 10:17 11:56 WBC Lymph % (Auto) [place] % (Auto) Lymph # (Auto) [place] # (Auto) Seg Neutrophils % Seg Neuts % (Manual) Lymphocytes % (Manual) Seg Neutrophils # Seg Neutrophils # Man Lymphocytes # (Manual) D-Dimer ABG pH ABG pO2 ABG O2 Saturation ABG Base Excess Oxyhemoglobin Potassium Chloride Carbon Dioxide Creatinine Glucose Lactic Acid 2.50 H* 2.80 H* Calcium Lactate Dehydrogenase Troponin T 0.044 H NT-Pro-B Natriuret Pep 1026 H Total Protein Albumin HDL Cholesterol 75 H 02/21/20 02/21/20 02/21/20 13:31 14:18 15:03 WBC Lymph % (Auto) [place] % (Auto) Lymph # (Auto) [place] # (Auto) Seg Neutrophils % Seg Neuts % (Manual) Lymphocytes % (Manual) Seg Neutrophils # Seg Neutrophils # Man Lymphocytes # (Manual) D-Dimer ABG pH 7.183 L* ABG pO2 73.8 L ABG O2 Saturation 93.2 L ABG Base Excess -3.8 L Oxyhemoglobin 90.6 L Potassium Chloride Carbon Dioxide Creatinine Glucose Lactic Acid 2.10 H* 2.50 H* Calcium Lactate Dehydrogenase Troponin T NT-Pro-B Natriuret Pep Total Protein Albumin HDL Cholesterol 02/21/20 02/21/20 02/22/20 16:10 18:33 02:25 WBC Lymph % (Auto) [place] % (Auto) Lymph # (Auto) [place] # (Auto) Seg Neutrophils % Seg Neuts % (Manual) Lymphocytes % (Manual) Seg Neutrophils # Seg Neutrophils # Man Lymphocytes # (Manual) D-Dimer ABG pH 7.204 L ABG pO2 295.0 H 187.8 H ABG O2 Saturation 99.4 H 99.1 H ABG Base Excess -5.5 L -3.8 L Oxyhemoglobin Potassium Chloride Carbon Dioxide Creatinine Glucose Lactic Acid 2.10 H* Calcium Lactate Dehydrogenase Troponin T NT-Pro-B Natriuret Pep Total Protein Albumin HDL Cholesterol 02/22/20 02/22/20 02/22/20 02:57 02:57 02:57 WBC 21.9 H Lymph % (Auto) 5.2 L [place] % (Auto) 8.1 H Lymph # (Auto) 1.1 L [place] # (Auto) 1.8 H Seg Neutrophils % 86.5 H Seg Neuts % (Manual) Lymphocytes % (Manual) Seg Neutrophils # 19.0 H Seg Neutrophils # Man Lymphocytes # (Manual) D-Dimer ABG pH ABG pO2 ABG O2 Saturation ABG Base Excess Oxyhemoglobin Potassium 5.9 H D Chloride 109.4 H Carbon Dioxide 17 L D Creatinine 0.5 L Glucose 106 H Lactic Acid 2.40 H* Calcium 8.2 L Lactate Dehydrogenase Troponin T NT-Pro-B Natriuret Pep Total Protein Albumin HDL Cholesterol 02/23/20 02/24/20 02/24/20 06:15 04:36 04:50 WBC 18.7 H Lymph % (Auto) 7.1 L [place] % (Auto) Lymph # (Auto) [place] # (Auto) 1.3 H Seg Neutrophils % 85.6 H Seg Neuts % (Manual) Lymphocytes % (Manual) Seg Neutrophils # 16.0 H Seg Neutrophils # Man Lymphocytes # (Manual) D-Dimer ABG pH 7.456 H ABG pO2 46.0 L ABG O2 Saturation 82.9 L ABG Base Excess -2.1 L -2.8 L Oxyhemoglobin 81.2 L Potassium Chloride Carbon Dioxide Creatinine Glucose Lactic Acid Calcium Lactate Dehydrogenase Troponin T NT-Pro-B Natriuret Pep Total Protein Albumin HDL Cholesterol 02/24/20 02/24/20 04:50 05:08 WBC Lymph % (Auto) [place] % (Auto) Lymph # (Auto) [place] # (Auto) Seg Neutrophils % Seg Neuts % (Manual) Lymphocytes % (Manual) Seg Neutrophils # Seg Neutrophils # Man Lymphocytes # (Manual) D-Dimer ABG pH ABG pO2 58.9 L ABG O2 Saturation 90.8 L ABG Base Excess -3.1 L Oxyhemoglobin 89.0 L Potassium Chloride 107.5 H Carbon Dioxide 21 L Creatinine 0.4 L Glucose Lactic Acid Calcium Lactate Dehydrogenase Troponin T NT-Pro-B Natriuret Pep Total Protein 5.9 L Albumin 3.7 L HDL Cholesterol Chest x-ray: image reviewed Allied health notes reviewed: nursing
[2020-02-24] MEDS ORDERED: PROPOFOL 500 MG/50 ML VIAL IV ONE (19:15)
[2020-02-25] MEDS ORDERED: PROPOFOL 500 MG/50 ML VIAL IV ONE ×4 (01:48→16:52)
[2020-02-25] MEDS: PROPOFOL 500 MG/50 ML VIAL IV SCH ×3 (01:55→10:25)
[2020-02-25] MEDS ORDERED: HEPARIN 5,000 UNIT/1 ML VIAL ONE ×2 (01:56→14:12)
[2020-02-25] MEDS: carvediloL 3.125 MG TAB PO SCH ×3 (01:56→23:30)
[2020-02-25] MEDS ORDERED: FAMOTIDINE 20 MG/2 ML INJ IV ONE ×2 (01:56→14:12)
[2020-02-25] MEDS ORDERED: methylPREDNISolone Sod Succinate 40 MG/1 ML INJ ONE ×2 (01:56→14:11)
[2020-02-25] MEDS: methylPREDNISolone Sod Succinate 40 MG/1 ML INJ IV SCH ×2 (01:59→14:19)
[2020-02-25] MEDS: HEPARIN 5,000 UNIT/1 ML VIAL SUB-Q SCH ×2 (01:59→14:17)
[2020-02-25] MEDS: FAMOTIDINE 20 MG/2 ML INJ IV SCH ×2 (01:59→14:16)
--- NOTE | 2020-02-25 03:34 | XRay Report ---
CHEST - 1 VIEW INDICATION: follow up respiratory failure COMPARISON: Yesterday FINDINGS: SUPPORT DEVICES: Stable support device positioning. HEART: Stable cardiomediastinal silhouette. LUNGS/PLEURA: Minimal residual patchy airspace disease in the lungs. ADDITIONAL FINDINGS: None. IMPRESSION: Slightly improved exam. Signer Name: Doyle Valenzuela MD Signed: 02/25/2020 3:29 AM Workstation Name: [email or web address]
[2020-02-25] MEDS ORDERED: SODIUM CHLORIDE 0.9% 1000 ML 1,000 ML ONE (04:03)
[2020-02-25 04:08] LABS: ABG Base Excess -3.1 mmol/L (-2.0-3.0); ABG HCO3 22.3 mmol/L (20.0-26.0); ABG Methemoglobin 0.5 % (0.0-1.5); ABG Oxygen Saturation 93.6 % (95.0-99.0); ABG PCO2 40.9 mm Hg; ABG PH 7.354 pH Units (7.350-7.450); ABG PO2 64.6 mm Hg (80.0-90.0)
[2020-02-25] MEDS: SODIUM CHLORIDE 0.9% 1000 ML 1,000 ML IV SCH (04:45)
[2020-02-25] MEDS ORDERED: fentaNYL DRIP Premix 2,000 MCG/100 ML BAG IV ONE ×2 (05:52→19:06)
[2020-02-25] MEDS: fentaNYL DRIP Premix 2,000 MCG/100 ML BAG IV SCH ×2 (05:56→19:09)
[2020-02-25] MEDS ORDERED: IPRATROPIUM/ALBUTEROL SULFATE 3 ML AMPUL.NEB IH ONE ×3 (07:52→21:38)
[2020-02-25] MEDS: IPRATROPIUM/ALBUTEROL SULFATE 3 ML AMPUL.NEB IH SCH ×3 (08:02→21:48)
--- NOTE | 2020-02-25 08:48 | Progress Note ---
Assessment and Plan Assessment and plan: --COVID-19 test negative; -- Acute hypoxemic respiratory failure Current Visit: Yes Status: Acute Plan to address problem: Due to acute on chronic congestive heart failure Pneumonia , COPD exacerbation Continue ventilatory support. Continue sedation nebulizers and supportive care wean vent as tolerated and extubate Pulmonary critical care following --Acute COPD exacerbation Current Visit: Yes Status: Acute Plan to address problem: IV steroid therapy, nebulizers IV antibiotics supportive care, --Probably community acquired pneumonia; Current Visit: Yes Status: Acute Plan to address problem: Empiric antibiotics with Levaquin Follow cultures, supportive care --Sepsis; secondary to right pneumonia Current Visit: Yes Status: Acute Plan to address problem: Tachycardia, leukocytosis, infiltrate on chest x-ray and CT Continue current antibiotics follow cultures --Acute on chronic congestive heart failure; EF 15 to 20% Current Visit: Yes Status: Acute Plan to address problem: Diuretics, input output monitoring, beta-blockers CLOTILDE inhibitors, low-sodium diet, fluid restriction Cardiology consult --Dilated cardiomyopathy EF 15 to 20% Current Visit: Yes Status: Acute Plan to address problem: Diuretics, input output monitoring, beta-blockers CLOTILDE inhibitors, low-sodium diet, fluid restriction Possible ischemia work-up if not done before ICD in place --Ongoing tobacco use; Current Visit: Yes Status: Acute Plan to address problem: Smoking cessation, nicotine patch as needed We will counseling program leader the patient once patient is off ventilator --DVT prophylaxis Current Visit: Yes Status: Acute Plan to address problem: SCD , anticoagulation Closely monitor the patient and adjust management as needed Plan of care reviewed with the patient's nurse Consults and recommendations noted and appreciated The high probability of a clinically significant, sudden or life threatening deterioration of the [cardiac, pulmonary, renal, neuro] system(s) required my full and direct attention, intervention and personal management. The aggregate critical care time was [40] minutes. This time is in addition to time spent performing reported procedures but includes the following: [x] Data Review and interpretation [x] Patient assessment and monitoring of vital signs [x] Documentation [x] Medication orders and management Get good have you how 02/24/2020; patient remains intubated on ventilatory support COVID-19 test negative, wean as tolerated and extubate Follow cultures, consultants recommendations noted and appreciated Start tube feeding 02/25/2020; patient tolerating tube feeding, remains intubated on vent Chest x-ray today mild improvement, wean as tolerated History Interval history: I have seen and examined the patient this morning in ER awaiting ICU bed assignment Patient orally intubated ventilatory support Responding to simple verbal commands by opening eyes In mild distress Vital signs noted Hospitalist Physical - Constitutional Vitals: Temp Pulse Resp BP Pulse Ox 98.2 F 92 H 20 126/79 95 02/22/20 19:00 02/25/20 08:00 02/25/20 08:00 02/25/20 07:00 02/25/20 07:00 General appearance: Present: mild distress, well-nourished, other (Intubated on vent) - EENT Eyes: Present: PERRL, EOM intact - Neck Neck: Present: supple, normal ROM - Respiratory Respiratory effort: normal Respiratory: bilateral: diminished, rhonchi, negative: rales, wheezing - Cardiovascular Rhythm: regular Heart Sounds: Present: S1 & S2 - Extremities Extremities: no ischemia, No edema - Abdominal General gastrointestinal: soft, non-tender, non-distended, normal bowel sounds - Integumentary Integumentary: Present: clear, warm - Psychiatric Psychiatric: appropriate mood/affect, cooperative - Neurologic Neurologic: moves all extremities HEART Score - HEART Score Troponin: Troponin T 0.044 ng/mL (0.00-0.029) H 02/21/20 10:17 Results - Labs CBC & Chem 7: 02/24/20 04:50 02/24/20 04:50 Labs: Laboratory Last Values WBC 18.7 K/mm3 (4.5-11.0) H 02/24/20 04:50 RBC 4.06 M/mm3 (3.65-5.03) 02/24/20 04:50 Hgb 12.5 gm/dl (10.1-14.3) 02/24/20 04:50 Hct 38.9 % (30.3-42.9) 02/24/20 04:50 MCV 96 fl (79-97) 02/24/20 04:50 MCH 31 pg (28-32) 02/24/20 04:50 MCHC 32 % (30-34) 02/24/20 04:50 RDW 13.9 % (13.2-15.2) 02/24/20 04:50 Plt Count 370 K/mm3 (140-440) 02/24/20 04:50 Lymph % (Auto) 7.1 % (13.4-35.0) L 02/24/20 04:50 [place] % (Auto) 7.1 % (0.0-7.3) 02/24/20 04:50 Eos % (Auto) 0.1 % (0.0-4.3) 02/24/20 04:50 Baso % (Auto) 0.1 % (0.0-1.8) 02/24/20 04:50 Lymph # (Auto) 1.3 K/mm3 (1.2-5.4) 02/24/20 04:50 Marion # (Auto) 1.3 K/mm3 (0.0-0.8) H 02/24/20 04:50 Eos # (Auto) 0.0 K/mm3 (0.0-0.4) 02/24/20 04:50 Baso # (Auto) 0.0 K/mm3 (0.0-0.1) 02/24/20 04:50 Add Manual Diff Complete 02/21/20 10:17 Total Counted 100 02/21/20 10:17 Seg Neutrophils % 85.6 % (40.0-70.0) H 02/24/20 04:50 Seg Neuts % (Manual) 94.0 % (40.0-70.0) H 02/21/20 10:17 Band Neutrophils % 1.0 % 02/21/20 10:17 Lymphocytes % (Manual) 4.0 % (13.4-35.0) L 02/21/20 10:17 Reactive Lymphs % (Man) 0 % 02/21/20 10:17 Monocytes % (Manual) 1.0 % (0.0-7.3) 02/21/20 10:17 Eosinophils % (Manual) 0 % (0.0-4.3) 02/21/20 10:17 Basophils % (Manual) 0 % (0.0-1.8) 02/21/20 10:17 Metamyelocytes % 0 % 02/21/20 10:17 Myelocytes % 0 % 02/21/20 10:17 Promyelocytes % 0 % 02/21/20 10:17 Blast Cells % 0 % 02/21/20 10:17 Nucleated RBC % Not Reportable 02/21/20 10:17 Seg Neutrophils # 16.0 K/mm3 (1.8-7.7) H 02/24/20 04:50 Seg Neutrophils # Man 19.9 K/mm3 (1.8-7.7) H 02/21/20 10:17 Band Neutrophils # 0.2 K/mm3 02/21/20 10:17 Lymphocytes # (Manual) 0.8 K/mm3 (1.2-5.4) L 02/21/20 10:17 Abs React Lymphs (Man) 0.0 K/mm3 02/21/20 10:17 Monocytes # (Manual) 0.2 K/mm3 (0.0-0.8) 02/21/20 10:17 Eosinophils # (Manual) 0.0 K/mm3 (0.0-0.4) 02/21/20 10:17 Basophils # (Manual) 0.0 K/mm3 (0.0-0.1) 02/21/20 10:17 Metamyelocytes # 0.0 K/mm3 02/21/20 10:17 Myelocytes # 0.0 K/mm3 02/21/20 10:17 Promyelocytes # 0.0 K/mm3 02/21/20 10:17 Blast Cells # 0.0 K/mm3 02/21/20 10:17 WBC Morphology Not Reportable 02/21/20 10:17 Hypersegmented Neuts Not Reportable 02/21/20 10:17 Hyposegmented Neuts Not Reportable 02/21/20 10:17 Hypogranular Neuts Not Reportable 02/21/20 10:17 Smudge Cells Not Reportable 02/21/20 10:17 Toxic Granulation Not Reportable 02/21/20 10:17 Toxic Vacuolation Not Reportable 02/21/20 10:17 Dohle Bodies Not Reportable 02/21/20 10:17 Pelger-Huet Anomaly Not Reportable 02/21/20 10:17 Arlette Rods Not Reportable 02/21/20 10:17 Platelet Estimate Consistent w auto 02/21/20 10:17 Clumped Platelets Not Reportable 02/21/20 10:17 Plt Clumps, EDTA Not Reportable 02/21/20 10:17 Large Platelets Not Reportable 02/21/20 10:17 Giant Platelets Not Reportable 02/21/20 10:17 Platelet Satelliting Not Reportable 02/21/20 10:17 Plt Morphology Comment Not Reportable 02/21/20 10:17 RBC Morphology Normal 02/21/20 10:17 Dimorphic RBCs Not Reportable 02/21/20 10:17 Polychromasia Not Reportable 02/21/20 10:17 Hypochromasia Not Reportable 02/21/20 10:17 Poikilocytosis Not Reportable 02/21/20 10:17 Anisocytosis Not Reportable 02/21/20 10:17 Microcytosis Not Reportable 02/21/20 10:17 Macrocytosis Not Reportable 02/21/20 10:17 Spherocytes Not Reportable 02/21/20 10:17 Pappenheimer Bodies Not Reportable 02/21/20 10:17 Sickle Cells Not Reportable 02/21/20 10:17 Target Cells Not Reportable 02/21/20 10:17 Tear Drop Cells Not Reportable 02/21/20 10:17 Ovalocytes Not Reportable 02/21/20 10:17 Helmet Cells Not Reportable 02/21/20 10:17 [place] Bodies Not Reportable 02/21/20 10:17 [place] Rings Not Reportable 02/21/20 10:17 Aide Cells Not Reportable 02/21/20 10:17 Bite Cells Not Reportable 02/21/20 10:17 Crenated Cell Not Reportable 02/21/20 10:17 Elliptocytes Not Reportable 02/21/20 10:17 Acanthocytes (Spur) Not Reportable 02/21/20 10:17 Rouleaux Not Reportable 02/21/20 10:17 Hemoglobin C Crystals Not Reportable 02/21/20 10:17 Schistocytes Not Reportable 02/21/20 10:17 Malaria parasites Not Reportable 02/21/20 10:17 Hilton Bodies Not Reportable 02/21/20 10:17 Hem Pathologist Commnt No 02/21/20 10:17 D-Dimer 362.52 ng/mlDDU (0-234) H 02/21/20 10:17 ABG pH 7.354 pH Units (7.350-7.450) 02/25/20 03:30 ABG pCO2 40.9 mm Hg 02/25/20 03:30 ABG pO2 64.6 mm Hg (80.0-90.0) L 02/25/20 03:30 ABG HCO3 22.3 mmol/L (20.0-26.0) 02/25/20 03:30 ABG O2 Saturation 93.6 % (95.0-99.0) L 02/25/20 03:30 ABG O2 Content 15.1 (0.0-44) 02/25/20 03:30 ABG Base Excess -3.1 mmol/L (-2.0-3.0) L 02/25/20 03:30 ABG Hemoglobin 11.7 gm/dl (12.0-16.0) L 02/25/20 03:30 ABG Carboxyhemoglobin 1.5 % (0.0-5.0) 02/25/20 03:30 ABG Methemoglobin 0.5 % (0.0-1.5) 02/25/20 03:30 Oxyhemoglobin 91.6 % (95.0-99.0) L 02/25/20 03:30 FiO2 25 % 02/25/20 03:30 Sodium 142 mmol/L (137-145) 02/24/20 04:50 Potassium 4.4 mmol/L (3.6-5.0) D 02/24/20 04:50 Chloride 107.5 mmol/L (98-107) H 02/24/20 04:50 Carbon Dioxide 21 mmol/L (22-30) L 02/24/20 04:50 Anion Gap 18 mmol/L 02/24/20 04:50 BUN 8 mg/dL (7-17) 02/24/20 04:50 Creatinine 0.4 mg/dL (0.6-1.2) L 02/24/20 04:50 Estimated GFR > 60 ml/min 02/24/20 04:50 BUN/Creatinine Ratio 20 % 02/24/20 04:50 Glucose 76 mg/dL (65-100) 02/24/20 04:50 Lactic Acid 1.80 mmol/L (0.7-2.0) 02/22/20 15:07 Calcium 8.4 mg/dL (8.4-10.2) 02/24/20 04:50 Magnesium 2.00 mg/dL (1.7-2.3) 02/24/20 04:50 Ferritin 160.6 ng/mL (10.0-200.0) 02/21/20 10:17 Total Bilirubin 1.10 mg/dL (0.1-1.2) 02/24/20 04:50 AST 36 units/L (5-40) 02/24/20 04:50 ALT 46 units/L (7-56) 02/24/20 04:50 Alkaline Phosphatase 69 units/L (35-129) 02/24/20 04:50 Lactate Dehydrogenase 324 units/L (91-180) H 02/21/20 10:17 Troponin T 0.044 ng/mL (0.00-0.029) H 02/21/20 10:17 C-Reactive Protein 0.40 mg/dL (0.00-1.30) 02/21/20 10:17 NT-Pro-B Natriuret Pep 1005 pg/mL (0-900) H 02/21/20 10:17 NT-Pro-B Natriuret Pep 1026 pg/mL (0-900) H 02/21/20 10:17 Total Protein 5.9 g/dL (6.3-8.2) L 02/24/20 04:50 Albumin 3.7 g/dL (3.9-5) L 02/24/20 04:50 Albumin/Globulin Ratio 1.7 % 02/24/20 04:50 Triglycerides 128 mg/dL (2-149) 02/25/20 05:06 Cholesterol 170 mg/dL (50-199) 02/21/20 10:17 LDL Cholesterol Direct 92 mg/dL (50-130) 02/21/20 10:17 HDL Cholesterol 75 mg/dL (40-59) H 02/21/20 10:17 Cholesterol/HDL Ratio 2.26 % 02/21/20 10:17 Procalcitonin < 0.05 ng/mL (<0.15) 02/21/20 10:17 Urine Opiates Screen Negative 02/21/20 19:20 Urine Methadone Screen Negative 02/21/20 19:20 Ur Barbiturates Screen Negative 02/21/20 19:20 Ur Phencyclidine Scrn Negative 02/21/20 19:20 Ur Amphetamines Screen Negative 02/21/20 19:20 U Benzodiazepines Scrn Negative 02/21/20 19:20 Urine Cocaine Screen Negative 02/21/20 19:20 U Marijuana (THC) Screen Positive 02/21/20 19:20 Drugs of Abuse Note Disclamer 02/21/20 19:20 Coronavirus (PCR) Negative (Negative) 02/21/20 10:24 Microbiology: Microbiology 02/21/20 10:28 Peripheral/Venous Blood Culture - Preliminary NO GROWTH AFTER 72 HOURS 02/21/20 10:17 Peripheral/Venous Blood Culture - Preliminary NO GROWTH AFTER 72 HOURS 02/21/20 16:44 Tracheal Aspirate Sputum Culture - Final - Diagnostic Impressions Diagnostic Impressions: Echocardiogram 02/21/20 16:13 Transthoracic Echocardiogram Indication: Shortness of breath BP: 109/75 HR: 100 Conclusions *The left ventricular size is moderate to severely dilated. *Global left ventricular systolic function is severely decreased. *The estimated ejection fraction is Less Than 15-20%. *There is mild mitral regurgitation. *There is trace tricuspid regurgitation. *There is evidence of mild pulmonary hypertension. *The right ventricular systolic pressure is calculated at 30 mmHg. *A pacemaker wire is visualized in the right heart chambers. Findings Left Ventricle: The left ventricular size is moderate to severely dilated. There is no left ventricular hypertrophy. Global left ventricular systolic function is severely decreased. The estimated ejection fraction is 15-20%. Left Atrium: The left atrial chamber size is normal. Right Ventricle: The right ventricle is mildly dilated. The right ventricular global systolic function is mildly reduced. A pacemaker wire is visualized in the right ventricle. Right Atrium: The right atrial cavity size is normal. A pacemaker wire is visualized in the right atrium. Aortic Valve: The aortic valve is trileaflet. The aortic valve leaflets are moderately thickened. There is no evidence of aortic regurgitation. There is no evidence of aortic stenosis. Mitral Valve: The mitral valve leaflets appear myxomatous. There is mild mitral regurgitation. There is no evidence of mitral stenosis. Tricuspid Valve: There is trace tricuspid regurgitation. The right ventricular systolic pressure is calculated at 30 mmHg. There is evidence of mild pulmonary hypertension. Pulmonic Valve: There is mild pulmonic regurgitation. Pericardium: There is no pericardial effusion. Aorta: There is no dilatation of the aortic root. Venous: The inferior vena cava is dilated. Measurements Chambers 2D Name Value Normal Range IVSd (2D) 0.8 cm (0.6 - 1.1) LVPWd (2D) 0.78 cm (0.6 - 1.1) LVIDd (2D) 5.1 cm (3.7 - 5.6) LVIDs (2D) 3.74 cm (2 - 3.8) LV FS (2D) 26.7 % - EF Teichholz (2D) 51.89 % - Ao root diameter (2D) 3.33 cm (2 - 3.7) Volumes/Mass Name Value Normal Range LA ESV SP 4CH (A/L) 34.31 ml - LA ESV SP 2CH (A/L) 13.16 ml - LA ESV BP (A/L) 36.23 ml - LA ESV BP (A/L) index 21.31 ml/m2 - LA ESV SP 4CH (MOD) 28.65 ml - LA ESV SP 2CH (MOD) 10.49 ml - LA ESV BP (MOD) 29.3 ml - LA ESV BP (MOD) index 17.24 ml/m2 - Aortic Valve Name Value Normal Range AV Vmax 1.05 m/sec - AV VTI 14.59 cm - AV peak gradient 4.38 mmHg - AV mean gradient 2.55 mmHg - LVOT diameter 2.14 cm - LVOT Vmax 0.92 m/sec - LVOT VTI 12.77 cm - LVOT peak gradient 3.36 mmHg - LVOT mean gradient 1.53 mmHg - SV LVOT 45.99 ml - REJI (continuity Vmax) 3.15 cm2 - REJI (continuity VTI) 3.15 cm2 - Ascending Ao 2.83 cm - Mitral Valve Name Value Normal Range MV PHT 38.65 msec - MR Vmax 3.89 m/sec - MVA (PHT) 5.69 cm2 - Tricuspid Valve Name Value Normal Range TR Vmax 2.21 m/sec - TR peak gradient 19 mmHg - RAP 8 mmHg - RVSP 30 mmHg - IVC diameter 2.45 cm (1.2 - 2.3) Pulmonic Valve/Qp:Qs Name Value Normal Range PV Vmax 0.68 m/sec - PV peak gradient 1.86 mmHg - PV acceleration time 110.37 msec - Hilton/IV: IV Catheter Type [Right Peripheral IV Antecubital] IV Catheter Type [Left Peripheral IV External Jugular] IV Catheter Type [Right Peripheral IV Forearm] IV Catheter Type [Right Hand] INT / Saline Lock Active Medications - Current Medications Current Medications: Generic Name Dose Route Start Last Admin Trade Name Freq PRN Reason Stop Dose Admin Acetaminophen 650 mg 02/21/20 16:10 Tylenol PO Q6H PRN Pain, Mild (1-3) Albuterol/Ipratropium 1 ampul 02/22/20 20:00 02/25/20 08:02 Duoneb *Not For Prn Use* IH 1 ampul TIDRT KATELYN Administration Lipase/Protease/Amylase 1 each 02/24/20 09:00 Pancreaze 10,500 Unit FEEDTUBE PRN PRN For Clogged Feeding Tube Carvedilol 3.125 mg 02/24/20 10:00 02/25/20 01:56 Coreg PO Not Given BID KATELYN Famotidine 20 mg 02/22/20 10:00 02/25/20 01:59 Pepcid IV 20 mg BID KATELYN Administration Fentanyl 50 mcg 02/22/20 14:48 Sublimaze IV Q10MIN PRN ANALGESIA Furosemide 20 mg 02/24/20 10:00 02/24/20 10:22 Lasix PO Not Given QDAY KATELYN Heparin Sodium (Porcine) 5,000 unit 02/21/20 22:00 02/25/20 01:59 Heparin SUB-Q 5,000 unit Q12HR KATELYN Administration Hydromorphone HCl 0.25 mg 02/21/20 16:10 Dilaudid IV Q4H PRN Pain, Moderate (4-6) Hydrophilic Ointment 1 applic 02/21/20 16:44 Vaseline Lip Therapy TP Q2HR PRN Dry Lips Levofloxacin/Dextrose 750 mg in 150 mls @ 100 mls/hr 02/21/20 17:00 02/24/20 17:59 Levaquin 750mg/150ml IV 02/25/20 18:29 100 mls/hr Q24H KATELYN Administration Protocol Sodium Chloride 1,000 mls @ 75 mls/hr 02/22/20 04:30 02/25/20 04:45 Nacl 0.9% 1000 Ml IV 75 mls/hr DIRECT KATELYN Administration Fentanyl Citrate 2,000 mcg in 100 mls @ 3.175 mls/hr 02/22/20 15:00 02/25/20 05:56 Fentanyl Drip Premix IV 2 mcg/kg/hr TITR KATELYN 6.35 mls/hr Administration Protocol 1 MCG/KG/HR Propofol 500 mg in 50 mls @ 1.905 mls/hr 02/23/20 23:00 02/25/20 04:41 Propofol IV 25 mcg/kg/min TITR KATELYN 9.525 mls/hr Administration Protocol 5 MCG/KG/MIN Lisinopril 5 mg 02/24/20 10:00 02/24/20 10:23 Zestril PO Not Given QDAY KATELYN Lorazepam 2 mg 02/21/20 16:44 Ativan IV Q10MIN PRN Agitation Methylprednisolone Sodium Succinate 20 mg 02/21/20 22:00 02/25/20 01:59 Solu-Medrol IV 20 mg Q12HR KATELYN Administration Multi-Ingred Cream/Lotion/Oil/Oint 1 applic 02/21/20 16:44 Artificial Tears Ophth Oint OU Q4HR PRN Dry Eye(s) Simple Syrup 15 ml 02/24/20 09:00 Simple Syrup FEEDTUBE PRN PRN Hypoglycemia Simple Syrup 30 ml 02/24/20 09:00 Simple Syrup FEEDTUBE PRN PRN Hypoglycemia Sodium Bicarbonate 325 mg 02/24/20 09:00 Sodium Bicarbonate FEEDTUBE PRN PRN For Clogged Feeding Tube Sodium Chloride 10 ml 02/21/20 22:00 02/25/20 01:59 Sodium Chloride Flush Syringe 10 Ml IV 10 ml BID KATELYN Administration Sodium Chloride 10 ml 02/21/20 16:10 Sodium Chloride Flush Syringe 10 Ml IV PRN PRN LINE FLUSH Nutrition/Malnutrition Assess - Dietary Evaluation Nutrition/Malnutrition Findings: Nutrition Notes Start: 02/22/20 11:38 Freq: Status: Active Protocol: Document 02/24/20 12:16 EN (Rec: 02/24/20 12:22 EN [id number]) Co-Sign 02/24/20 12:16 MK Nutrition Notes Need for Assessment generated from: MD Order Initial or Follow up Assessment Current Diagnosis COPD,Sepsis,Heart Failure, Respiratory Failure Other Pertinent Diagnosis COPD exacerbation, asthma, pneu Current Diet NPO Labs/Tests Reviewed Pertinent Medications Propofol Solu-medrol NS at 75 ml/hr Fentanyl Height 5 ft 5 in Weight 63.503 kg [place] Body Weight (kg) 56.81 BMI 23.3 Weight Status Appropriate Subjective/Other Information MD consult to write/manage TF. Pt is in ED and on vent. Percent of energy/protein needs met: 0%/0% Burn Absent Trauma Absent GI Symptoms None Minimum of two criteria No physical signs of malnutrition #1 Nutrition Diagnosis Inadequate oral intake Diagnosis Progress(for reassessment Continues documentation) Is patient on ventilator? Yes Is Patient Ambulatory and/or Out of Bed No REE-([facility]-confined to bed) 1511.124 Calculation Used for Recommendations [facility] Additional Notes Pro needs 1.2-2g/k-127g/ day Fluid needs 1ml/kcal Nutrition Intervention Change Diet Order: Start TF Nutrition Support: Promote at 60 ml/hr Flush 50ml q4h Kcal 1,440 Protein (gm) 90 Fluid (mL) 1,208 Goal #1 TF tolerance Goal #2 Meet 80% of energy and protein needs with TF at goal rate Anticipated Discharge Needs: Unable to identify at this time Follow-Up By: 02/26/20 Additional Comments F/u for TF start/tolerance
--- NOTE | 2020-02-25 09:43 | Progress Note ---
Assessment and Plan - Patient Problems (1) CHF (congestive heart failure) Current Visit: Yes Status: Acute (2) Cardiomyopathy Current Visit: Yes Status: Acute Qualifiers: Cardiomyopathy type: unspecified Qualified Code(s): I42.9 - Cardiomyopathy, unspecified Subjective Date of service: 02/25/20 Principal diagnosis: Ac hypoxemic & hypercapnic resp failure; Ac. encephalopathy; CAP; CMOP;COPD Interval history: VENT',,,APPEARS COMFORTABLE Objective Vital Signs Pulse Pulse Resp Resp BP Pulse Ox 02/25/20 08:00 92 H 20 02/25/20 07:00 91 H 126/79 95 02/25/20 06:30 80 20 117/48 96 02/25/20 06:00 90 20 122/83 93 02/25/20 05:30 86 20 122/83 94 02/25/20 05:00 88 20 112/63 94 02/25/20 04:30 80 20 112/63 95 02/25/20 04:00 79 20 119/60 93 02/25/20 03:59 91 H 119/60 100 02/25/20 03:30 97 H 19 133/67 85 02/25/20 03:00 89 20 121/70 88 02/25/20 02:30 83 20 114/69 92 02/25/20 02:00 80 20 114/69 95 02/25/20 01:30 83 20 122/56 95 02/25/20 01:09 76 113/69 100 02/25/20 01:00 77 20 113/69 100 02/25/20 00:30 83 19 102/57 100 02/25/20 00:00 81 20 125/50 100 02/24/20 23:37 80 20 117/67 100 02/24/20 23:30 84 20 117/67 100 02/24/20 23:00 79 20 120/69 100 02/24/20 22:47 88 20 02/24/20 22:44 76 112/64 100 02/24/20 22:30 83 20 112/64 100 02/24/20 22:00 100 H 20 131/82 98 02/24/20 21:30 81 20 123/68 99 02/24/20 21:00 89 20 116/63 97 02/24/20 20:30 77 20 106/63 98 02/24/20 20:00 80 20 103/61 99 02/24/20 19:30 89 20 110/65 98 02/24/20 19:00 87 20 105/61 99 02/24/20 18:30 87 18 128/77 99 02/24/20 18:00 80 20 118/73 100 02/24/20 17:30 79 20 107/66 02/24/20 17:00 81 20 105/66 100 02/24/20 16:30 105 H 19 114/75 97 02/24/20 16:00 96 H 20 111/65 95 02/24/20 15:30 96 H 20 118/66 97 02/24/20 15:00 116 H 13 125/68 98 02/24/20 14:30 119 H 42 H 123/79 97 02/24/20 14:00 77 86 26 H 20 114/70 98 02/24/20 13:30 77 26 H 123/79 02/24/20 13:00 69 26 H 111/74 100 02/24/20 12:30 80 26 H 122/78 100 02/24/20 12:00 74 26 H 112/76 100 02/24/20 11:30 76 26 H 123/79 100 02/24/20 11:00 80 26 H 116/76 97 02/24/20 10:30 78 26 H 111/57 98 02/24/20 10:00 80 12 112/73 99 - Physical Examination General: No Apparent Distress, Other (VENT) Neck: Positive: JVD/HJR Cardiac: Positive: Regular Rhythm, S4 Lungs: Positive: Other (COARSE BS) Neuro: Positive: Grossly Intact Abdomen: Positive: Unremarkable Extremities: Present: edema (NO) - Labs and Meds Lipids 02/25/20 Range/Units 05:06 Triglycerides 128 (2-149) mg/dL - Allied health notes Allied health notes reviewed: nursing
[2020-02-25] MEDS ORDERED: HYDROmorphone 1 MG/1 ML INJ ONE ×2 (11:43→16:14)
[2020-02-25] MEDS: HYDROmorphone 1 MG/1 ML INJ IV PRN ×2 (11:55→16:20)
[2020-02-25] MEDS: LISINOPRIL 5 MG TAB PO SCH (12:58)
[2020-02-25] MEDS: FUROSEMIDE 20 MG TAB PO SCH (13:01)
--- NOTE | 2020-02-25 13:08 | Progress Note ---
Assessment and Plan Acute hypoxemic-hypercapnic respiratory failure on MVS Acute COPD exacerbation Toxic metabolic encephalopathy CAP Cardiomyopathy s/p AICD h/o Asthma Tobacco use/Nicotine dependence Lactic acidosis - reduced set rate to 12/min - resume Daily SAT and SBT assessment as tolerated in am - ACS evaluation ongoing - complete empiric Levaquin X 5 days for AE-COPD - continue systemic steroids with slow taper - continue care as below otherwise; - Vasopressor support to keep MAP > 65 mmHg - Monitor hemodynamics closely; judicious use of IVF re: HFrEF (ECHO EF of 15- 20%) - continue to wean supplemental oxygen for target O2 sat's > 92% acutely - VAP bundle addressed - continue lung protective strategies - continue bronchodilators with pulmonary hygiene per RT - wean per pulmonary driven protocols otherwise - continue accuchecks with glycemic control per SSI (While critically ill target blood glucose of 140-180 mg/dL; avoid hypoglycemia) - sedation prn for target RASS -1 to -2 - avoid nephrotoxins, renally dose all medications - continue to avoid benzodiazepine's, reduce the possibility of delirium - prn analgesia per CPOT score - Maintenance of sleep-wake cycle, avoid delirium - continue enteral nutritional support at goal rate as tolerated - G.I. & VTE prophylaxis - PT/OT/ROM exercises - continue mobility protocols for pressure ulcer prophylaxis - Monitor hemodynamics closely - Nicotine withdrawal precautions, Smoking cessation counselling once she is extubated and is able to participate in counselling discussions - continue other care per attending / other consultants - discharge planning ongoing concurrently .... Re-evaluate in am & prn CONDITION: CRITICAL PROGNOSIS: GUARDED CODE STATUS: FULL CODE The high probability of a clinically significant, sudden or life-threatening deterioration of the [respiratory, cardiovascular, neurologic & renal] system (s) required my full and direct attention, intervention and personal management. The aggregate critical care time was [35] minutes without overlap. Time includes spent on; [x] Data Review and interpretation [x] Patient assessment and monitoring of vital signs [x] Documentation [x] Medication orders and management Subjective Date of service: 02/25/20 Principal diagnosis: Ac hypoxemic & hypercapnic resp failure; Ac. encephalopathy; CAP; CMOP;COPD Interval history: Patient is seen today for: Acute hypoxemic & hypercapnic respiratory failure; Toxic metabolic encephalopathy; CAP; CMOP s/p AICD; h/o Asthma; Tobacco use/ Nicotine dependence Seen and examined at bedside; 24hour events reviewed; nursing and respiratory care staff consulted; no adverse overnight events reported to me; resting pe acefully in bed; remains on MVS; failed SBT with increased work of breathing and tachyarrythmia; sedated; secretions moderate; No emesis or overt aspiration Objective Vital Signs - 12hr 02/25/20 02/25/20 02/25/20 01:09 01:30 02:00 Pulse Rate 76 83 80 Pulse Rate [ Throughout] Respiratory 20 20 Rate Respiratory Rate [ Throughout] Blood Pressure 113/69 122/56 114/69 O2 Sat by Pulse 100 95 95 Oximetry 02/25/20 02/25/20 02/25/20 02:30 03:00 03:30 Pulse Rate 83 89 97 H Pulse Rate [ Throughout] Respiratory 20 20 19 Rate Respiratory Rate [ Throughout] Blood Pressure 114/69 121/70 133/67 O2 Sat by Pulse 92 88 85 Oximetry 02/25/20 02/25/20 02/25/20 03:59 04:00 04:30 Pulse Rate 91 H 79 80 Pulse Rate [ Throughout] Respiratory 20 20 Rate Respiratory Rate [ Throughout] Blood Pressure 119/60 119/60 112/63 O2 Sat by Pulse 100 93 95 Oximetry 02/25/20 02/25/20 02/25/20 05:00 05:30 06:00 Pulse Rate 88 86 90 Pulse Rate [ Throughout] Respiratory 20 20 20 Rate Respiratory Rate [ Throughout] Blood Pressure 112/63 122/83 122/83 O2 Sat by Pulse 94 94 93 Oximetry 02/25/20 02/25/20 02/25/20 06:30 07:00 07:30 Pulse Rate 80 80 96 H Pulse Rate [ Throughout] Respiratory 20 20 20 Rate Respiratory Rate [ Throughout] Blood Pressure 117/48 115/51 126/79 O2 Sat by Pulse 96 96 93 Oximetry 02/25/20 02/25/20 02/25/20 08:00 08:30 09:00 Pulse Rate 90 92 H 87 Pulse Rate [ 92 H Throughout] Respiratory 20 20 20 Rate Respiratory 20 Rate [ Throughout] Blood Pressure 119/71 123/55 132/63 O2 Sat by Pulse 95 97 96 Oximetry 02/25/20 02/25/20 02/25/20 09:30 10:00 10:30 Pulse Rate 103 H 89 82 Pulse Rate [ Throughout] Respiratory 15 20 20 Rate Respiratory Rate [ Throughout] Blood Pressure 132/63 132/69 117/55 O2 Sat by Pulse 98 96 98 Oximetry 02/25/20 02/25/20 02/25/20 11:00 12:56 12:58 Pulse Rate 81 86 86 Pulse Rate [ Throughout] Respiratory 20 Rate Respiratory Rate [ Throughout] Blood Pressure 108/54 102/56 102/56 O2 Sat by Pulse 97 Oximetry Constitutional: appears uncomfortable, other (middle aged female with moderately increased respiratory effort at rest on MVS) Eyes: non-icteric ENT: oropharynx moist, other (ETT 23 cm MILKA) Neck: supple, no lymphadenopathy, no JVD Effort: mildly labored (moderately) Ascultation: Bilateral: diminished breath sounds, rhonchi, other (prolonged expiratory phase) Percussion: Bilateral: not dull Cardiovascular: regular rate and rhythm, other (S1,S2) Gastrointestinal: normoactive bowel sounds, soft, non-tender, non-distended Integumentary: normal Extremities: no cyanosis, no edema, pulses normal, no ischemia or petechiae Neurologic: pupils equal and round, unable to assess (sedated) Psychiatric: other (unable to assess, sedated) CBC and BMP: 02/26/20 04:37 02/26/20 04:37 ABG, PT/INR, D-dimer: ABG ABG pH 7.354 pH Units (7.350-7.450) 02/25/20 03:30 ABG pCO2 40.9 mm Hg 02/25/20 03:30 ABG pO2 64.6 mm Hg (80.0-90.0) L 02/25/20 03:30 ABG O2 Saturation 93.6 % (95.0-99.0) L 02/25/20 03:30 PT/INR, D-dimer D-Dimer 362.52 ng/mlDDU (0-234) H 02/21/20 10:17 Abnormal lab findings: Abnormal Labs 02/21/20 02/21/20 02/21/20 10:17 10:17 10:17 WBC 21.2 H Lymph % (Auto) [place] % (Auto) Lymph # (Auto) [place] # (Auto) Seg Neutrophils % Seg Neuts % (Manual) 94.0 H Lymphocytes % (Manual) 4.0 L Seg Neutrophils # Seg Neutrophils # Man 19.9 H Lymphocytes # (Manual) 0.8 L D-Dimer 362.52 H ABG pH ABG pO2 ABG O2 Saturation ABG Base Excess ABG Hemoglobin Oxyhemoglobin Potassium Chloride Carbon Dioxide Creatinine 0.4 L Glucose 168 H Lactic Acid Calcium Lactate Dehydrogenase 324 H Troponin T NT-Pro-B Natriuret Pep 1005 H Total Protein Albumin HDL Cholesterol 02/21/20 02/21/20 02/21/20 10:17 10:17 11:56 WBC Lymph % (Auto) [place] % (Auto) Lymph # (Auto) [place] # (Auto) Seg Neutrophils % Seg Neuts % (Manual) Lymphocytes % (Manual) Seg Neutrophils # Seg Neutrophils # Man Lymphocytes # (Manual) D-Dimer ABG pH ABG pO2 ABG O2 Saturation ABG Base Excess ABG Hemoglobin Oxyhemoglobin Potassium Chloride Carbon Dioxide Creatinine Glucose Lactic Acid 2.50 H* 2.80 H* Calcium Lactate Dehydrogenase Troponin T 0.044 H NT-Pro-B Natriuret Pep 1026 H Total Protein Albumin HDL Cholesterol 75 H 02/21/20 02/21/20 02/21/20 13:31 14:18 15:03 WBC Lymph % (Auto) [place] % (Auto) Lymph # (Auto) [place] # (Auto) Seg Neutrophils % Seg Neuts % (Manual) Lymphocytes % (Manual) Seg Neutrophils # Seg Neutrophils # Man Lymphocytes # (Manual) D-Dimer ABG pH 7.183 L* ABG pO2 73.8 L ABG O2 Saturation 93.2 L ABG Base Excess -3.8 L ABG Hemoglobin Oxyhemoglobin 90.6 L Potassium Chloride Carbon Dioxide Creatinine Glucose Lactic Acid 2.10 H* 2.50 H* Calcium Lactate Dehydrogenase Troponin T NT-Pro-B Natriuret Pep Total Protein Albumin HDL Cholesterol 02/21/20 02/21/20 02/22/20 16:10 18:33 02:25 WBC Lymph % (Auto) [place] % (Auto) Lymph # (Auto) [place] # (Auto) Seg Neutrophils % Seg Neuts % (Manual) Lymphocytes % (Manual) Seg Neutrophils # Seg Neutrophils # Man Lymphocytes # (Manual) D-Dimer ABG pH 7.204 L ABG pO2 295.0 H 187.8 H ABG O2 Saturation 99.4 H 99.1 H ABG Base Excess -5.5 L -3.8 L ABG Hemoglobin Oxyhemoglobin Potassium Chloride Carbon Dioxide Creatinine Glucose Lactic Acid 2.10 H* Calcium Lactate Dehydrogenase Troponin T NT-Pro-B Natriuret Pep Total Protein Albumin HDL Cholesterol 02/22/20 02/22/20 02/22/20 02:57 02:57 02:57 WBC 21.9 H Lymph % (Auto) 5.2 L [place] % (Auto) 8.1 H Lymph # (Auto) 1.1 L [place] # (Auto) 1.8 H Seg Neutrophils % 86.5 H Seg Neuts % (Manual) Lymphocytes % (Manual) Seg Neutrophils # 19.0 H Seg Neutrophils # Man Lymphocytes # (Manual) D-Dimer ABG pH ABG pO2 ABG O2 Saturation ABG Base Excess ABG Hemoglobin Oxyhemoglobin Potassium 5.9 H D Chloride 109.4 H Carbon Dioxide 17 L D Creatinine 0.5 L Glucose 106 H Lactic Acid 2.40 H* Calcium 8.2 L Lactate Dehydrogenase Troponin T NT-Pro-B Natriuret Pep Total Protein Albumin HDL Cholesterol 02/23/20 02/24/20 02/24/20 06:15 04:36 04:50 WBC 18.7 H Lymph % (Auto) 7.1 L [place] % (Auto) Lymph # (Auto) [place] # (Auto) 1.3 H Seg Neutrophils % 85.6 H Seg Neuts % (Manual) Lymphocytes % (Manual) Seg Neutrophils # 16.0 H Seg Neutrophils # Man Lymphocytes # (Manual) D-Dimer ABG pH 7.456 H ABG pO2 46.0 L ABG O2 Saturation 82.9 L ABG Base Excess -2.1 L -2.8 L ABG Hemoglobin Oxyhemoglobin 81.2 L Potassium Chloride Carbon Dioxide Creatinine Glucose Lactic Acid Calcium Lactate Dehydrogenase Troponin T NT-Pro-B Natriuret Pep Total Protein Albumin HDL Cholesterol 02/24/20 02/24/20 02/25/20 04:50 05:08 03:30 WBC Lymph % (Auto) [place] % (Auto) Lymph # (Auto) [place] # (Auto) Seg Neutrophils % Seg Neuts % (Manual) Lymphocytes % (Manual) Seg Neutrophils # Seg Neutrophils # Man Lymphocytes # (Manual) D-Dimer ABG pH ABG pO2 58.9 L 64.6 L ABG O2 Saturation 90.8 L 93.6 L ABG Base Excess -3.1 L -3.1 L ABG Hemoglobin 11.7 L Oxyhemoglobin 89.0 L 91.6 L Potassium Chloride 107.5 H Carbon Dioxide 21 L Creatinine 0.4 L Glucose Lactic Acid Calcium Lactate Dehydrogenase Troponin T NT-Pro-B Natriuret Pep Total Protein 5.9 L Albumin 3.7 L HDL Cholesterol Chest x-ray: image reviewed (cardiomegaly; ICD; faint LLL infiltrate) Allied health notes reviewed: nursing
[2020-02-25] MEDS ORDERED: FUROSEMIDE 20 MG/2 ML INJ ONE (16:14)
[2020-02-25] MEDS: FUROSEMIDE 20 MG/2 ML INJ IV SCH (16:22)
[2020-02-25] MEDS ORDERED: dexAMETHasone 4 MG/ML VIAL ONE (21:14)
[2020-02-25] MEDS ORDERED: dexAMETHasone 4 MG/ML VIAL IV ONE (21:28)
[2020-02-26] MEDS ORDERED: FAMOTIDINE 20 MG/2 ML INJ IV ONE (00:34)
[2020-02-26] MEDS ORDERED: HEPARIN 5,000 UNIT/1 ML VIAL ONE (00:34)
[2020-02-26] MEDS ORDERED: methylPREDNISolone Sod Succinate 40 MG/1 ML INJ ONE (00:34)
[2020-02-26] MEDS: FAMOTIDINE 20 MG/2 ML INJ IV SCH (00:38)
[2020-02-26] MEDS: HEPARIN 5,000 UNIT/1 ML VIAL SUB-Q SCH ×3 (00:38→21:11)
[2020-02-26] MEDS: methylPREDNISolone Sod Succinate 40 MG/1 ML INJ IV SCH ×2 (00:38→12:06)
[2020-02-26 05:27] LABS: Hematocrit 38.2 % (30.3-42.9); Hemoglobin 12.4 gm/dl (10.1-14.3); Mean Corpuscular HGB Conc 33 % (30-34); Mean Corpuscular Volume 93 fl (79-97); Platelet Count 411 K/mm3 (140-440); Red Blood Count 4.09 M/mm3 (3.65-5.03); Red Cell Distribution Width 13.7 % (13.2-15.2)
[2020-02-26 05:30] LABS: Basophils # (Auto) 0.1 K/mm3 (0.0-0.1); Basophils % (Auto) 0.1 % (0.0-1.8); Lymphocytes # (Auto) 1.4 K/mm3 (1.2-5.4); Lymphocytes % (Auto) 5.5 % (13.4-35.0); Monocytes # (Auto) 1.2 K/mm3 (0.0-0.8); Monocytes % (Auto) 4.9 % (0.0-7.3)
[2020-02-26] MEDS: FUROSEMIDE 20 MG/2 ML INJ IV SCH (06:03)
[2020-02-26 06:39] LABS: Blood Urea Nitrogen 10 mg/dL (7-17); Calcium 9.2 mg/dL (8.4-10.2); Hemolysis Index 4
[2020-02-26 06:41] LABS: BUN/Creatinine Ratio 20
[2020-02-26] MEDS: IPRATROPIUM/ALBUTEROL SULFATE 3 ML AMPUL.NEB IH SCH ×3 (08:21→21:28)
--- NOTE | 2020-02-26 08:33 | XRay Report ---
CHEST 1 VIEW INDICATION / CLINICAL INFORMATION: follow up respiratory failure. COMPARISON: 02/25/2020 0245 hours FINDINGS: SUPPORT DEVICES: Left-sided pacemaker HEART / MEDIASTINUM: No significant abnormality. LUNGS / PLEURA: Minimal airspace disease No pneumothorax. ADDITIONAL FINDINGS: No significant additional findings. IMPRESSION: Minimal airspace disease unchanged from yesterday Signer Name: Campbell Jj MD FACR Signed: 02/26/2020 8:28 AM Workstation Name: [id number]
[2020-02-26] MEDS: HYDROmorphone 1 MG/1 ML INJ IV PRN ×3 (08:45→16:50)
--- NOTE | 2020-02-26 09:44 | Progress Note ---
<SPENCER JEROME - Last Filed: 02/26/20 09:39> Assessment and Plan Non-ischemic cardiomyopathy normal [facility] in 2008 while living in [place] per pt presence of AICD Respiratory failure Asthma exacerbation Tobacco abuse An echocardiogram showed severe dilated cardiomyopathy with an ejection fraction 15-20%. There was mild dilated RV with mild pulmonary hypertension, RVSP. Strongly encourage smoking cessation. Continue guideline directed medical therapy for dilated cardiomyopathy. Otherwise conservative cardiac management. Subjective Date of service: 02/26/20 Principal diagnosis: Ac hypoxemic & hypercapnic resp failure; Ac. encephalopathy; CAP; CMOP;COPD Interval history: Patient self extubated overnight. Currently resting in bed and appears comfortable. Objective Vital Signs Temp Pulse Pulse Resp Resp BP Pulse Ox 02/26/20 08:26 99 02/26/20 08:24 98.6 F 44 L 16 125/50 97 02/26/20 08:00 52 L 16 02/26/20 04:21 97.9 F 47 L 16 116/45 100 02/26/20 01:23 97 02/26/20 01:08 98.6 F 90 20 130/79 96 02/26/20 00:41 99 H 18 131/81 99 02/26/20 00:30 102 H 19 131/81 98 02/26/20 00:21 100 H 20 133/67 98 02/26/20 00:11 101 H 19 133/67 97 02/26/20 00:00 89 14 133/67 98 02/25/20 23:51 97 H 18 129/54 96 02/25/20 23:41 98 H 15 129/54 98 02/25/20 23:36 98.9 F 02/25/20 23:35 93 H 37 H 129/54 96 02/25/20 23:00 110 H 21 141/80 95 02/25/20 22:00 97 H 15 126/70 95 02/25/20 21:48 88 13 02/25/20 21:00 113 H 17 149/82 97 02/25/20 20:00 155 H 26 H 164/98 95 02/25/20 19:23 150 H 99 02/25/20 19:00 71 14 138/83 94 02/25/20 15:00 138 H 150/87 96 02/25/20 13:51 115 H 13 02/25/20 12:58 86 102/56 02/25/20 12:56 86 102/56 02/25/20 11:00 135 H 20 122/83 93 02/25/20 10:30 82 20 117/55 98 02/25/20 10:00 89 20 132/69 96 - Physical Examination General: No Apparent Distress Neck: Positive: trachea midline Cardiac: Positive: Reg Rate and Rhythm Lungs: Positive: Decreased Breath Sounds Neuro: Positive: Grossly Intact Abdomen: Positive: Unremarkable Extremities: Absent: edema - Labs and Meds CBC 02/26/20 Range/Units 04:37 WBC 24.6 H (4.5-11.0) K/mm3 RBC 4.09 (3.65-5.03) M/mm3 Hgb 12.4 (10.1-14.3) gm/dl Hct 38.2 (30.3-42.9) % Plt Count 411 (140-440) K/mm3 Lymph # (Auto) 1.4 (1.2-5.4) K/mm3 [place] # (Auto) 1.2 H (0.0-0.8) K/mm3 Eos # (Auto) 0.0 (0.0-0.4) K/mm3 Baso # (Auto) 0.1 (0.0-0.1) K/mm3 Comprehensive Metabolic Panel 02/26/20 Range/Units 04:37 Sodium 143 (137-145) mmol/L Potassium 3.5 L D (3.6-5.0) mmol/L Chloride 102.8 (98-107) mmol/L Carbon Dioxide 25 (22-30) mmol/L BUN 10 (7-17) mg/dL Creatinine 0.5 L (0.6-1.2) mg/dL Glucose 155 H (65-100) mg/dL Calcium 9.2 (8.4-10.2) mg/dL - Allied health notes Allied health notes reviewed: nursing <JUSTIN HAYES - Last Filed: 02/28/20 09:04> Assessment and Plan - Patient Problems (1) CHF (congestive heart failure) Current Visit: Yes Status: Acute (2) Cardiomyopathy Current Visit: Yes Status: Acute Qualifiers: Cardiomyopathy type: unspecified Qualified Code(s): I42.9 - Cardiomyopathy, unspecified Subjective Interval history: I SAW THIS PT & AGREE WITH THE Dx & Tx PLAN Objective Vital Signs Temp Pulse Pulse Pulse Pulse Resp Resp 02/28/20 08:39 97.2 F L 72 18 02/28/20 08:34 02/28/20 08:25 65 20 02/28/20 06:20 98.0 F 48 L 18 02/28/20 00:44 98.0 F 50 L 18 02/27/20 22:00 92 H 02/27/20 21:46 02/27/20 21:41 79 18 02/27/20 21:18 41 L 02/27/20 19:35 98.0 F 41 L 20 02/27/20 17:00 79 02/27/20 16:45 80 18 02/27/20 15:22 40 L 02/27/20 15:21 98.9 F 20 02/27/20 12:17 98.9 F 74 20 02/27/20 11:25 02/27/20 11:20 82 18 02/27/20 10:03 89 02/27/20 10:01 89 02/27/20 10:00 79 86 86 21 BP Pulse Ox 02/28/20 08:39 97/46 93 02/28/20 08:34 96 02/28/20 08:25 02/28/20 06:20 123/67 92 02/28/20 00:44 108/52 93 02/27/20 22:00 02/27/20 21:46 96 02/27/20 21:41 02/27/20 21:18 108/48 02/27/20 19:35 108/48 91 02/27/20 17:00 02/27/20 16:45 02/27/20 15:22 90 02/27/20 15:21 108/46 02/27/20 12:17 100/59 94 02/27/20 11:25 98 02/27/20 11:20 02/27/20 10:03 112/54 02/27/20 10:01 112/54 02/27/20 10:00 95
--- NOTE | 2020-02-26 10:58 | Progress Note ---
Assessment and Plan Assessment and plan: --COVID-19 test negative; -- Acute hypoxemic respiratory failure/extubated Current Visit: Yes Status: Acute Plan to address problem: Due to acute on chronic congestive heart failure Pneumonia , COPD exacerbation Continue ventilatory support. Continue sedation nebulizers and supportive care wean vent as tolerated and extubate Pulmonary critical care following --Acute COPD exacerbation Current Visit: Yes Status: Acute Plan to address problem: IV steroid therapy, nebulizers IV antibiotics supportive care, --Probably community acquired pneumonia; Current Visit: Yes Status: Acute Plan to address problem: Empiric antibiotics with Levaquin Follow cultures, supportive care --Sepsis; secondary to right pneumonia Current Visit: Yes Status: Acute Plan to address problem: Tachycardia, leukocytosis, infiltrate on chest x-ray and CT Continue current antibiotics follow cultures --Acute on chronic congestive heart failure; EF 15 to 20% Current Visit: Yes Status: Acute Plan to address problem: Diuretics, input output monitoring, beta-blockers CLOTILDE inhibitors, low-sodium diet, fluid restriction Cardiology consult --Dilated cardiomyopathy EF 15 to 20% Current Visit: Yes Status: Acute Plan to address problem: Diuretics, input output monitoring, beta-blockers CLOTILDE inhibitors, low-sodium diet, fluid restriction Possible ischemia work-up if not done before ICD in place --Ongoing tobacco use; Current Visit: Yes Status: Acute Plan to address problem: Smoking cessation, nicotine patch as needed We will college counselor the patient once patient is off ventilator --DVT prophylaxis Current Visit: Yes Status: Acute Plan to address problem: SCD , anticoagulation Closely monitor the patient and adjust the management as needed Plan of care reviewed with the patient and her nurse We will check physical therapy occupational therapy DC planning when medically stable History Interval history: I have seen and examined the patient at the bedside Patient's chart and medications reviewed, patient was extubated yesterday Alert and awake in mild distress Speech therapist evaluating the patient Complains of mild shortness of breath Vital signs noted Hospitalist Physical - Constitutional Vitals: Temp Pulse Resp BP Pulse Ox 98.6 F 44 L 16 125/50 99 02/26/20 08:24 12 08:24 02/26/20 08:24 02/26/20 08:24 02/26/20 08:26 General appearance: Present: mild distress, well-nourished, other (On nasal c annula oxygen) - EENT Eyes: Present: PERRL, EOM intact - Neck Neck: Present: supple, normal ROM - Respiratory Respiratory effort: normal Respiratory: bilateral: diminished, rhonchi, negative: rales, wheezing - Cardiovascular Rhythm: regular Heart Sounds: Present: S1 & S2 - Extremities Extremities: no ischemia, No edema - Abdominal General gastrointestinal: soft, non-tender, non-distended, normal bowel sounds - Integumentary Integumentary: Present: clear, warm - Psychiatric Psychiatric: appropriate mood/affect, cooperative - Neurologic Neurologic: CNII-XII intact, moves all extremities HEART Score - HEART Score Troponin: Troponin T 0.044 ng/mL (0.00-0.029) H 02/21/20 10:17 Results - Labs CBC & Chem 7: 02/27/20 05:19 02/27/20 05:19 Labs: Laboratory Last Values WBC 24.6 K/mm3 (4.5-11.0) H 02/26/20 04:37 RBC 4.09 M/mm3 (3.65-5.03) 02/26/20 04:37 Hgb 12.4 gm/dl (10.1-14.3) 02/26/20 04:37 Hct 38.2 % (30.3-42.9) 02/26/20 04:37 MCV 93 fl (79-97) 02/26/20 04:37 MCH 30 pg (28-32) 02/26/20 04:37 MCHC 33 % (30-34) 02/26/20 04:37 RDW 13.7 % (13.2-15.2) 02/26/20 04:37 Plt Count 411 K/mm3 (140-440) 02/26/20 04:37 Lymph % (Auto) 5.5 % (13.4-35.0) L 02/26/20 04:37 [place] % (Auto) 4.9 % (0.0-7.3) 02/26/20 04:37 Eos % (Auto) 0.0 % (0.0-4.3) 02/26/20 04:37 Baso % (Auto) 0.1 % (0.0-1.8) 02/26/20 04:37 Lymph # (Auto) 1.4 K/mm3 (1.2-5.4) 02/26/20 04:37 [place] # (Auto) 1.2 K/mm3 (0.0-0.8) H 02/26/20 04:37 Eos # (Auto) 0.0 K/mm3 (0.0-0.4) 02/26/20 04:37 Baso # (Auto) 0.1 K/mm3 (0.0-0.1) 02/26/20 04:37 Add Manual Diff Complete 02/21/20 10:17 Total Counted 100 02/21/20 10:17 Seg Neutrophils % 89.5 % (40.0-70.0) H 02/26/20 04:37 Seg Neuts % (Manual) 94.0 % (40.0-70.0) H 02/21/20 10:17 Band Neutrophils % 1.0 % 02/21/20 10:17 Lymphocytes % (Manual) 4.0 % (13.4-35.0) L 02/21/20 10:17 Reactive Lymphs % (Man) 0 % 02/21/20 10:17 Monocytes % (Manual) 1.0 % (0.0-7.3) 02/21/20 10:17 Eosinophils % (Manual) 0 % (0.0-4.3) 02/21/20 10:17 Basophils % (Manual) 0 % (0.0-1.8) 02/21/20 10:17 Metamyelocytes % 0 % 02/21/20 10:17 Myelocytes % 0 % 02/21/20 10:17 Promyelocytes % 0 % 02/21/20 10:17 Blast Cells % 0 % 02/21/20 10:17 Nucleated RBC % Not Reportable 02/21/20 10:17 Seg Neutrophils # 22.0 K/mm3 (1.8-7.7) H 02/26/20 04:37 Seg Neutrophils # Man 19.9 K/mm3 (1.8-7.7) H 02/21/20 10:17 Band Neutrophils # 0.2 K/mm3 02/21/20 10:17 Lymphocytes # (Manual) 0.8 K/mm3 (1.2-5.4) L 02/21/20 10:17 Abs React Lymphs (Man) 0.0 K/mm3 02/21/20 10:17 Monocytes # (Manual) 0.2 K/mm3 (0.0-0.8) 02/21/20 10:17 Eosinophils # (Manual) 0.0 K/mm3 (0.0-0.4) 02/21/20 10:17 Basophils # (Manual) 0.0 K/mm3 (0.0-0.1) 02/21/20 10:17 Metamyelocytes # 0.0 K/mm3 02/21/20 10:17 Myelocytes # 0.0 K/mm3 02/21/20 10:17 Promyelocytes # 0.0 K/mm3 02/21/20 10:17 Blast Cells # 0.0 K/mm3 02/21/20 10:17 WBC Morphology Not Reportable 02/21/20 10:17 Hypersegmented Neuts Not Reportable 02/21/20 10:17 Hyposegmented Neuts Not Reportable 02/21/20 10:17 Hypogranular Neuts Not Reportable 02/21/20 10:17 Smudge Cells Not Reportable 02/21/20 10:17 Toxic Granulation Not Reportable 02/21/20 10:17 Toxic Vacuolation Not Reportable 02/21/20 10:17 Dohle Bodies Not Reportable 02/21/20 10:17 Pelger-Huet Anomaly Not Reportable 02/21/20 10:17 Arlette Rods Not Reportable 02/21/20 10:17 Platelet Estimate Consistent w auto 02/21/20 10:17 Clumped Platelets Not Reportable 02/21/20 10:17 Plt Clumps, EDTA Not Reportable 02/21/20 10:17 Large Platelets Not Reportable 02/21/20 10:17 Giant Platelets Not Reportable 02/21/20 10:17 Platelet Satelliting Not Reportable 02/21/20 10:17 Plt Morphology Comment Not Reportable 02/21/20 10:17 RBC Morphology Normal 02/21/20 10:17 Dimorphic RBCs Not Reportable 02/21/20 10:17 Polychromasia Not Reportable 02/21/20 10:17 Hypochromasia Not Reportable 02/21/20 10:17 Poikilocytosis Not Reportable 02/21/20 10:17 Anisocytosis Not Reportable 02/21/20 10:17 Microcytosis Not Reportable 02/21/20 10:17 Macrocytosis Not Reportable 02/21/20 10:17 Spherocytes Not Reportable 02/21/20 10:17 Pappenheimer Bodies Not Reportable 02/21/20 10:17 Sickle Cells Not Reportable 02/21/20 10:17 Target Cells Not Reportable 02/21/20 10:17 Tear Drop Cells Not Reportable 02/21/20 10:17 Ovalocytes Not Reportable 02/21/20 10:17 Helmet Cells Not Reportable 02/21/20 10:17 Dahl-E[place] Bodies Not Reportable 02/21/20 10:17 [place] Rings Not Reportable 02/21/20 10:17 Painter Cells Not Reportable 02/21/20 10:17 Bite Cells Not Reportable 02/21/20 10:17 Crenated Cell Not Reportable 02/21/20 10:17 Elliptocytes Not Reportable 02/21/20 10:17 Acanthocytes (Spur) Not Reportable 02/21/20 10:17 Rouleaux Not Reportable 02/21/20 10:17 Hemoglobin C Crystals Not Reportable 02/21/20 10:17 Schistocytes Not Reportable 02/21/20 10:17 Malaria parasites Not Reportable 02/21/20 10:17 Hilton Bodies Not Reportable 02/21/20 10:17 Hem Pathologist Commnt No 02/21/20 10:17 D-Dimer 362.52 ng/mlDDU (0-234) H 02/21/20 10:17 ABG pH 7.354 pH Units (7.350-7.450) 02/25/20 03:30 ABG pCO2 40.9 mm Hg 02/25/20 03:30 ABG pO2 64.6 mm Hg (80.0-90.0) L 02/25/20 03:30 ABG HCO3 22.3 mmol/L (20.0-26.0) 02/25/20 03:30 ABG O2 Saturation 93.6 % (95.0-99.0) L 02/25/20 03:30 ABG O2 Content 15.1 (0.0-44) 02/25/20 03:30 ABG Base Excess -3.1 mmol/L (-2.0-3.0) L 02/25/20 03:30 ABG Hemoglobin 11.7 gm/dl (12.0-16.0) L 02/25/20 03:30 ABG Carboxyhemoglobin 1.5 % (0.0-5.0) 02/25/20 03:30 ABG Methemoglobin 0.5 % (0.0-1.5) 02/25/20 03:30 Oxyhemoglobin 91.6 % (95.0-99.0) L 02/25/20 03:30 FiO2 25 % 02/25/20 03:30 Sodium 143 mmol/L (137-145) 02/26/20 04:37 Potassium 3.5 mmol/L (3.6-5.0) L D 02/26/20 04:37 Chloride 102.8 mmol/L (98-107) 02/26/20 04:37 Carbon Dioxide 25 mmol/L (22-30) 02/26/20 04:37 Anion Gap 19 mmol/L 02/26/20 04:37 BUN 10 mg/dL (7-17) 02/26/20 04:37 Creatinine 0.5 mg/dL (0.6-1.2) L 02/26/20 04:37 Estimated GFR > 60 ml/min 02/26/20 04:37 BUN/Creatinine Ratio 20 % 02/26/20 04:37 Glucose 155 mg/dL (65-100) H 02/26/20 04:37 Lactic Acid 1.80 mmol/L (0.7-2.0) 02/22/20 15:07 Calcium 9.2 mg/dL (8.4-10.2) 02/26/20 04:37 Magnesium 2.00 mg/dL (1.7-2.3) 02/24/20 04:50 Ferritin 160.6 ng/mL (10.0-200.0) 02/21/20 10:17 Total Bilirubin 1.10 mg/dL (0.1-1.2) 02/24/20 04:50 AST 36 units/L (5-40) 02/24/20 04:50 ALT 46 units/L (7-56) 02/24/20 04:50 Alkaline Phosphatase 69 units/L (35-129) 02/24/20 04:50 Lactate Dehydrogenase 324 units/L (91-180) H 02/21/20 10:17 Troponin T 0.044 ng/mL (0.00-0.029) H 02/21/20 10:17 C-Reactive Protein 0.40 mg/dL (0.00-1.30) 02/21/20 10:17 NT-Pro-B Natriuret Pep 1005 pg/mL (0-900) H 02/21/20 10:17 NT-Pro-B Natriuret Pep 1026 pg/mL (0-900) H 02/21/20 10:17 Total Protein 5.9 g/dL (6.3-8.2) L 02/24/20 04:50 Albumin 3.7 g/dL (3.9-5) L 02/24/20 04:50 Albumin/Globulin Ratio 1.7 % 02/24/20 04:50 Triglycerides 128 mg/dL (2-149) 02/25/20 05:06 Cholesterol 170 mg/dL (50-199) 02/21/20 10:17 LDL Cholesterol Direct 92 mg/dL (50-130) 02/21/20 10:17 HDL Cholesterol 75 mg/dL (40-59) H 02/21/20 10:17 Cholesterol/HDL Ratio 2.26 % 02/21/20 10:17 Procalcitonin < 0.05 ng/mL (<0.15) 02/21/20 10:17 Urine Opiates Screen Negative 02/21/20 19:20 Urine Methadone Screen Negative 02/21/20 19:20 Ur Barbiturates Screen Negative 02/21/20 19:20 Ur Phencyclidine Scrn Negative 02/21/20 19:20 Ur Amphetamines Screen Negative 02/21/20 19:20 U Benzodiazepines Scrn Negative 02/21/20 19:20 Urine Cocaine Screen Negative 02/21/20 19:20 U Marijuana (THC) Screen Positive 02/21/20 19:20 Drugs of Abuse Note Disclamer 02/21/20 19:20 Coronavirus (PCR) Negative (Negative) 02/21/20 10:24 Microbiology: Microbiology 02/21/20 10:28 Peripheral/Venous Blood Culture - Preliminary NO GROWTH AFTER 4 DAYS 02/21/20 10:17 Peripheral/Venous Blood Culture - Preliminary NO GROWTH AFTER 4 DAYS - Diagnostic Impressions Diagnostic Impressions: Echocardiogram 02/21/20 16:13 Transthoracic Echocardiogram Indication: Shortness of breath BP: 109/75 HR: 100 Conclusions *The left ventricular size is moderate to severely dilated. *Global left ventricular systolic function is severely decreased. *The estimated ejection fraction is Less Than 15-20%. *There is mild mitral regurgitation. *There is trace tricuspid regurgitation. *There is evidence of mild pulmonary hypertension. *The right ventricular systolic pressure is calculated at 30 mmHg. *A pacemaker wire is visualized in the right heart chambers. Findings Left Ventricle: The left ventricular size is moderate to severely dilated. There is no left ventricular hypertrophy. Global left ventricular systolic function is severely decreased. The estimated ejection fraction is 15-20%. Left Atrium: The left atrial chamber size is normal. Right Ventricle: The right ventricle is mildly dilated. The right ventricular global systolic function is mildly reduced. A pacemaker wire is visualized in the right ventricle. Right Atrium: The right atrial cavity size is normal. A pacemaker wire is visualized in the right atrium. Aortic Valve: The aortic valve is trileaflet. The aortic valve leaflets are moderately thickened. There is no evidence of aortic regurgitation. There is no evidence of aortic stenosis. Mitral Valve: The mitral valve leaflets appear myxomatous. There is mild mitral regurgitation. There is no evidence of mitral stenosis. Tricuspid Valve: There is trace tricuspid regurgitation. The right ventricular systolic pressure is calculated at 30 mmHg. There is evidence of mild pulmonary hypertension. Pulmonic Valve: There is mild pulmonic regurgitation. Pericardium: There is no pericardial effusion. Aorta: There is no dilatation of the aortic root. Venous: The inferior vena cava is dilated. Measurements Chambers 2D Name Value Normal Range IVSd (2D) 0.8 cm (0.6 - 1.1) LVPWd (2D) 0.78 cm (0.6 - 1.1) LVIDd (2D) 5.1 cm (3.7 - 5.6) LVIDs (2D) 3.74 cm (2 - 3.8) LV FS (2D) 26.7 % - EF Teichholz (2D) 51.89 % - Ao root diameter (2D) 3.33 cm (2 - 3.7) Volumes/Mass Name Value Normal Range LA ESV SP 4CH (A/L) 34.31 ml - LA ESV SP 2CH (A/L) 13.16 ml - LA ESV BP (A/L) 36.23 ml - LA ESV BP (A/L) index 21.31 ml/m2 - LA ESV SP 4CH (MOD) 28.65 ml - LA ESV SP 2CH (MOD) 10.49 ml - LA ESV BP (MOD) 29.3 ml - LA ESV BP (MOD) index 17.24 ml/m2 - Aortic Valve Name Value Normal Range AV Vmax 1.05 m/sec - AV VTI 14.59 cm - AV peak gradient 4.38 mmHg - AV mean gradient 2.55 mmHg - LVOT diameter 2.14 cm - LVOT Vmax 0.92 m/sec - LVOT VTI 12.77 cm - LVOT peak gradient 3.36 mmHg - LVOT mean gradient 1.53 mmHg - SV LVOT 45.99 ml - REJI (continuity Vmax) 3.15 cm2 - REJI (continuity VTI) 3.15 cm2 - Ascending Ao 2.83 cm - Mitral Valve Name Value Normal Range MV PHT 38.65 msec - MR Vmax 3.89 m/sec - MVA (PHT) 5.69 cm2 - Tricuspid Valve Name Value Normal Range TR Vmax 2.21 m/sec - TR peak gradient 19 mmHg - RAP 8 mmHg - RVSP 30 mmHg - IVC diameter 2.45 cm (1.2 - 2.3) Pulmonic Valve/Qp:Qs Name Value Normal Range PV Vmax 0.68 m/sec - PV peak gradient 1.86 mmHg - PV acceleration time 110.37 msec - Hilton/IV: IV Catheter Type [Right INT / Saline Lock Antecubital] IV Catheter Type [Left Peripheral IV External Jugular] IV Catheter Type [Right Peripheral IV Forearm] IV Catheter Type [Right Hand] INT / Saline Lock Active Medications - Current Medications Current Medications: Generic Name Dose Route Start Last Admin Trade Name Freq PRN Reason Stop Dose Admin Acetaminophen 650 mg 02/21/20 16:10 Tylenol PO Q6H PRN Pain, Mild (1-3) Albuterol/Ipratropium 1 ampul 02/22/20 20:00 02/26/20 08:21 Duoneb *Not For Prn Use* IH 1 ampul TIDRT KATELYN Administration Lipase/Protease/Amylase 1 each 02/24/20 09:00 Arlene Sebastian 10,500 Unit FEEDTUBE PRN PRN For Clogged Feeding Tube Carvedilol 3.125 mg 02/24/20 10:00 12/03/20 23:30 Coreg PO 3.125 mg BID KATELYN Administration Famotidine 20 mg 02/26/20 10:00 Pepcid PO BID KATELYN Furosemide 20 mg 02/25/20 13:00 02/26/20 06:03 Lasix IV 20 mg DAILY@0600 KATELYN Administration Heparin Sodium (Porcine) 5,000 unit 02/21/20 22:00 02/26/20 00:38 Heparin SUB-Q 5,000 unit Q12HR KATELYN Administration Hydromorphone HCl 0.25 mg 02/21/20 16:10 02/25/20 16:20 Dilaudid IV 0.25 mg Q4H PRN Administration Pain, Moderate (4-6) Hydrophilic Ointment 1 applic 02/21/20 16:44 Vaseline Lip Therapy TP Q2HR PRN Dry Lips Sodium Chloride 1,000 mls @ 75 mls/hr 02/22/20 04:30 02/25/20 04:45 Nacl 0.9% 1000 Ml IV 75 mls/hr DIRECT KATELYN Administration Lisinopril 5 mg 02/24/20 10:00 02/25/20 12:58 Zestril PO Not Given QDAY KATELYN Lorazepam 2 mg 02/21/20 16:44 Ativan IV Q10MIN PRN Agitation Methylprednisolone Sodium Succinate 20 mg 02/21/20 22:00 02/26/20 00:38 Solu-Medrol IV 20 mg Q12HR KATELYN Administration Multi-Ingred Cream/Lotion/Oil/Oint 1 applic 02/21/20 16:44 Artificial Tears Ophth Oint OU Q4HR PRN Dry Eye(s) Simple Syrup 15 ml 02/24/20 09:00 Simple Syrup FEEDTUBE PRN PRN Hypoglycemia Simple Syrup 30 ml 02/24/20 09:00 Simple Syrup FEEDTUBE PRN PRN Hypoglycemia Sodium Bicarbonate 325 mg 02/24/20 09:00 Sodium Bicarbonate FEEDTUBE PRN PRN For Clogged Feeding Tube Sodium Chloride 10 ml 02/21/20 22:00 02/26/20 00:39 Sodium Chloride Flush Syringe 10 Ml IV 10 ml BID KATELYN Administration Sodium Chloride 10 ml 02/21/20 16:10 Sodium Chloride Flush Syringe 10 Ml IV PRN PRN LINE FLUSH Spironolactone 25 mg 02/26/20 10:00 Aldactone PO QDAY [facility] Nutrition/Malnutrition Assess - Dietary Evaluation Nutrition/Malnutrition Findings: Nutrition Notes Start: 02/22/20 11:38 Freq: Status: Active Protocol: Document 02/24/20 12:16 EN (Rec: 02/24/20 12:22 EN [id number]) Co-Sign 02/24/20 12:16 MK Nutrition Notes Need for Assessment generated from: MD Order Initial or Follow up Assessment Current Diagnosis COPD,Sepsis,Heart Failure, Respiratory Failure Other Pertinent Diagnosis COPD exacerbation, asthma, pneu Current Diet NPO Labs/Tests Reviewed Pertinent Medications Propofol Solu-medrol NS at 75 ml/hr Fentanyl Height 5 ft 5 in Weight 63.503 kg [place] Body Weight (kg) 56.81 BMI 23.3 Weight Status Appropriate Subjective/Other Information MD consult to write/manage TF. Pt is in ED and on vent. Percent of energy/protein needs met: 0%/0% Burn Absent Trauma Absent GI Symptoms None Minimum of two criteria No physical signs of malnutrition #1 Nutrition Diagnosis Inadequate oral intake Diagnosis Progress(for reassessment Continues documentation) Is patient on ventilator? Yes Is Patient Ambulatory and/or Out of Bed No REE-([place]. Jeor-confined to bed) 1511.124 Calculation Used for Recommendations [place] or Additional Notes Pro needs 1.2-2g/k-127g/ day Fluid needs 1ml/kcal Nutrition Intervention Change Diet Order: Start TF Nutrition Support: Promote at 60 ml/hr Flush 50ml q4h Kcal 1,440 Protein (gm) 90 Fluid (mL) 1,208 Goal #1 TF tolerance Goal #2 Meet 80% of energy and protein needs with TF at goal rate Anticipated Discharge Needs: Unable to identify at this time Follow-Up By: 02/26/20 Additional Comments F/u for TF start/tolerance
[2020-02-26] MEDS ORDERED: FLU VACC QUAD 2020-2021 (6 months +)/PF 60 0.5 ML SYRINGE IM ONE (12:00)
[2020-02-26] MEDS: SPIRONOLACTONE 25 MG TAB PO SCH (12:08)
[2020-02-26] MEDS: FAMOTIDINE 20 MG TAB PO SCH ×2 (12:08→21:10)
[2020-02-26] MEDS: LISINOPRIL 5 MG TAB PO SCH (12:08)
[2020-02-26] MEDS: carvediloL 3.125 MG TAB PO SCH ×2 (12:08→21:11)
[2020-02-26] MEDS: SODIUM CHLORIDE 0.9% 1000 ML 1,000 ML IV SCH (12:36)
--- NOTE | 2020-02-26 14:43 | Progress Note ---
Assessment and Plan Acute hypoxemic-hypercapnic respiratory failure on MVS Acute COPD exacerbation Toxic metabolic encephalopathy CAP Cardiomyopathy s/p AICD h/o Asthma Tobacco use/Nicotine dependence Lactic acidosis - replaced KCL 40 meq p.o. X 1 - s/p empiric Levaquin X 5 days for AE-COPD - continue systemic steroids with slow taper (changed to prednisone 20 mg qd) - continue care as below otherwise; - Monitor hemodynamics closely; judicious use of IVF re: HFrEF (ECHO EF of 15- 20%) [stopped IVF] - continue to wean supplemental oxygen for target O2 sat's > 90 % acutely - aspiration precautions - continue lung protective strategies - continue bronchodilators with pulmonary hygiene per RT - wean per pulmonary driven protocols otherwise - continue accuchecks with glycemic control per SSI for a target blood glucose of < 180 mg/dL; avoid hypoglycemia - avoid nephrotoxins, renally dose all medications - prn analgesia per pain score - Maintenance of sleep-wake cycle, avoid delirium - G.I. & VTE prophylaxis - PT/OT/ROM exercises - mobility protocols for pressure ulcer prophylaxis - Monitor hemodynamics closely - Nicotine withdrawal precautions, Smoking cessation counselling done at bedside - continue other care per attending / other consultants - discharge planning ongoing concurrently .... Re-evaluate in am & prn CONDITION: FAIR PROGNOSIS: GUARDED CODE STATUS: FULL CODE Subjective Date of service: 02/26/20 Principal diagnosis: Ac hypoxemic & hypercapnic resp failure; Ac. encephalopathy; CAP; CMOP;COPD Interval history: Patient is seen today for: Acute hypoxemic & hypercapnic respiratory failure; Toxic metabolic encephalopathy; CAP; CMOP s/p AICD; h/o Asthma; Tobacco use/Nicotine dependence Seen and examined at bedside; 24hour events reviewed; nursing and respiratory care staff consulted; no adverse overnight events reported to me; resting peacefully in bed; self extubated yesterday but doing decently; remains on 40% FiO2; + cough no hemoptysis; No N/V/F/C Objective Vital Signs - 12hr 02/26/20 02/26/20 02/26/20 04:21 08:00 08:24 Temperature 97.9 F 98.6 F Pulse Rate 47 L 44 L Pulse Rate [ 52 L Throughout] Respiratory 16 16 Rate Respiratory 16 Rate [ Throughout] Blood Pressure 116/45 125/50 O2 Sat by Pulse 100 97 Oximetry 02/26/20 02/26/20 08:26 11:32 Temperature 98.9 F Pulse Rate 61 Pulse Rate [ Throughout] Respiratory 16 Rate Respiratory Rate [ Throughout] Blood Pressure 123/53 O2 Sat by Pulse 99 93 Oximetry Constitutional: no acute distress, other (middle aged female with mildly increased respiratory effort at rest) Eyes: non-icteric ENT: oropharynx moist, other (extubated) Neck: supple, no lymphadenopathy, no JVD Effort: mildly labored (moderately) Ascultation: Bilateral: diminished breath sounds, wheezes (posterior bases end expiration), other (prolonged expiratory phase) Percussion: Bilateral: not dull Cardiovascular: regular rate and rhythm, other (S1,S2) Gastrointestinal: normoactive bowel sounds, soft, non-tender, non-distended Integumentary: normal Extremities: no cyanosis, no edema, pulses normal, no ischemia or petechiae Neurologic: non-focal exam, pupils equal and round, CN II-XII normal, motor strength normal and (weak) Psychiatric: mood appropriate, affect normal CBC and BMP: 02/26/20 04:37 02/26/20 04:37 ABG, PT/INR, D-dimer: ABG ABG pH 7.354 pH Units (7.350-7.450) 02/25/20 03:30 ABG pCO2 40.9 mm Hg 02/25/20 03:30 ABG pO2 64.6 mm Hg (80.0-90.0) L 02/25/20 03:30 ABG O2 Saturation 93.6 % (95.0-99.0) L 02/25/20 03:30 PT/INR, D-dimer D-Dimer 362.52 ng/mlDDU (0-234) H 02/21/20 10:17 Abnormal lab findings: Abnormal Labs 02/21/20 02/21/20 02/21/20 10:17 10:17 10:17 WBC 21.2 H Lymph % (Auto) Levy % (Auto) Lymph # (Auto) Levy # (Auto) Seg Neutrophils % Seg Neuts % (Manual) 94.0 H Lymphocytes % (Manual) 4.0 L Seg Neutrophils # Seg Neutrophils # Man 19.9 H Lymphocytes # (Manual) 0.8 L D-Dimer 362.52 H ABG pH ABG pO2 ABG O2 Saturation ABG Base Excess ABG Hemoglobin Oxyhemoglobin Potassium Chloride Carbon Dioxide Creatinine 0.4 L Glucose 168 H Lactic Acid Calcium Lactate Dehydrogenase 324 H Troponin T NT-Pro-B Natriuret Pep 1005 H Total Protein Albumin HDL Cholesterol 02/21/20 02/21/20 02/21/20 10:17 10:17 11:56 WBC Lymph % (Auto) Levy % (Auto) Lymph # (Auto) Levy # (Auto) Seg Neutrophils % Seg Neuts % (Manual) Lymphocytes % (Manual) Seg Neutrophils # Seg Neutrophils # Man Lymphocytes # (Manual) D-Dimer ABG pH ABG pO2 ABG O2 Saturation ABG Base Excess ABG Hemoglobin Oxyhemoglobin Potassium Chloride Carbon Dioxide Creatinine Glucose Lactic Acid 2.50 H* 2.80 H* Calcium Lactate Dehydrogenase Troponin T 0.044 H NT-Pro-B Natriuret Pep 1026 H Total Protein Albumin HDL Cholesterol 75 H 02/21/20 02/21/20 02/21/20 13:31 14:18 15:03 WBC Lymph % (Auto) Levy % (Auto) Lymph # (Auto) Levy # (Auto) Seg Neutrophils % Seg Neuts % (Manual) Lymphocytes % (Manual) Seg Neutrophils # Seg Neutrophils # Man Lymphocytes # (Manual) D-Dimer ABG pH 7.183 L* ABG pO2 73.8 L ABG O2 Saturation 93.2 L ABG Base Excess -3.8 L ABG Hemoglobin Oxyhemoglobin 90.6 L Potassium Chloride Carbon Dioxide Creatinine Glucose Lactic Acid 2.10 H* 2.50 H* Calcium Lactate Dehydrogenase Troponin T NT-Pro-B Natriuret Pep Total Protein Albumin HDL Cholesterol 02/21/20 02/21/20 02/22/20 16:10 18:33 02:25 WBC Lymph % (Auto) Levy % (Auto) Lymph # (Auto) Levy # (Auto) Seg Neutrophils % Seg Neuts % (Manual) Lymphocytes % (Manual) Seg Neutrophils # Seg Neutrophils # Man Lymphocytes # (Manual) D-Dimer ABG pH 7.204 L ABG pO2 295.0 H 187.8 H ABG O2 Saturation 99.4 H 99.1 H ABG Base Excess -5.5 L -3.8 L ABG Hemoglobin Oxyhemoglobin Potassium Chloride Carbon Dioxide Creatinine Glucose Lactic Acid 2.10 H* Calcium Lactate Dehydrogenase Troponin T NT-Pro-B Natriuret Pep Total Protein Albumin HDL Cholesterol 02/22/20 02/22/20 02/22/20 02:57 02:57 02:57 WBC 21.9 H Lymph % (Auto) 5.2 L Levy % (Auto) 8.1 H Lymph # (Auto) 1.1 L Levy # (Auto) 1.8 H Seg Neutrophils % 86.5 H Seg Neuts % (Manual) Lymphocytes % (Manual) Seg Neutrophils # 19.0 H Seg Neutrophils # Man Lymphocytes # (Manual) D-Dimer ABG pH ABG pO2 ABG O2 Saturation ABG Base Excess ABG Hemoglobin Oxyhemoglobin Potassium 5.9 H D Chloride 109.4 H Carbon Dioxide 17 L D Creatinine 0.5 L Glucose 106 H Lactic Acid 2.40 H* Calcium 8.2 L Lactate Dehydrogenase Troponin T NT-Pro-B Natriuret Pep Total Protein Albumin HDL Cholesterol 02/23/20 02/24/20 02/24/20 06:15 04:36 04:50 WBC 18.7 H Lymph % (Auto) 7.1 L Levy % (Auto) Lymph # (Auto) Levy # (Auto) 1.3 H Seg Neutrophils % 85.6 H Seg Neuts % (Manual) Lymphocytes % (Manual) Seg Neutrophils # 16.0 H Seg Neutrophils # Man Lymphocytes # (Manual) D-Dimer ABG pH 7.456 H ABG pO2 46.0 L ABG O2 Saturation 82.9 L ABG Base Excess -2.1 L -2.8 L ABG Hemoglobin Oxyhemoglobin 81.2 L Potassium Chloride Carbon Dioxide Creatinine Glucose Lactic Acid Calcium Lactate Dehydrogenase Troponin T NT-Pro-B Natriuret Pep Total Protein Albumin HDL Cholesterol 02/24/20 02/24/20 02/25/20 04:50 05:08 03:30 WBC Lymph % (Auto) Levy % (Auto) Lymph # (Auto) Levy # (Auto) Seg Neutrophils % Seg Neuts % (Manual) Lymphocytes % (Manual) Seg Neutrophils # Seg Neutrophils # Man Lymphocytes # (Manual) D-Dimer ABG pH ABG pO2 58.9 L 64.6 L ABG O2 Saturation 90.8 L 93.6 L ABG Base Excess -3.1 L -3.1 L ABG Hemoglobin 11.7 L Oxyhemoglobin 89.0 L 91.6 L Potassium Chloride 107.5 H Carbon Dioxide 21 L Creatinine 0.4 L Glucose Lactic Acid Calcium Lactate Dehydrogenase Troponin T NT-Pro-B Natriuret Pep Total Protein 5.9 L Albumin 3.7 L HDL Cholesterol 02/26/20 02/26/20 04:37 04:37 WBC 24.6 H Lymph % (Auto) 5.5 L Levy % (Auto) Lymph # (Auto) Levy # (Auto) 1.2 H Seg Neutrophils % 89.5 H Seg Neuts % (Manual) Lymphocytes % (Manual) Seg Neutrophils # 22.0 H Seg Neutrophils # Man Lymphocytes # (Manual) D-Dimer ABG pH ABG pO2 ABG O2 Saturation ABG Base Excess ABG Hemoglobin Oxyhemoglobin Potassium 3.5 L D Chloride Carbon Dioxide Creatinine 0.5 L Glucose 155 H Lactic Acid Calcium Lactate Dehydrogenase Troponin T NT-Pro-B Natriuret Pep Total Protein Albumin HDL Cholesterol Chest x-ray: image reviewed Allied health notes reviewed: nursing
[2020-02-26] MEDS ORDERED: POTASSIUM CHLORIDE ER 20 MEQ TAB PO ONE (15:48)
[2020-02-27] MEDS: FUROSEMIDE 20 MG/2 ML INJ IV SCH (05:28)
[2020-02-27 05:44] LABS: Hematocrit 36.2 % (30.3-42.9); Hemoglobin 11.6 gm/dl (10.1-14.3); Mean Corpuscular HGB Conc 32 % (30-34); Mean Corpuscular Volume 93 fl (79-97); Platelet Count 364 K/mm3 (140-440); Red Blood Count 3.88 M/mm3 (3.65-5.03); Red Cell Distribution Width 13.8 % (13.2-15.2)
[2020-02-27 06:01] LABS: Blood Urea Nitrogen 12 mg/dL (7-17); Calcium 8.7 mg/dL (8.4-10.2); Hemolysis Index 6
[2020-02-27 06:03] LABS: BUN/Creatinine Ratio 30
[2020-02-27 07:10] LABS: Basophils % (Manual) 0 % (0.0-1.8); Eosinophils % (Manual) 0 % (0.0-4.3); Total Cells Counted 100
[2020-02-27 07:11] LABS: Anisocytosis 1+; Large Platelets Few; Platelet Estimate Consistent w Auto
--- NOTE | 2020-02-27 08:05 | XRay Report ---
CHEST 1 VIEW 02/27/2020 6:56 AM INDICATION / CLINICAL INFORMATION: follow up respiratory failure. COMPARISON: 02/26/2020 FINDINGS: SUPPORT DEVICES: Left subclavian pacemaker/ICD leads, unchanged HEART / MEDIASTINUM: No significant abnormality. LUNGS / PLEURA: No significant pulmonary or pleural abnormality. No pneumothorax. ADDITIONAL FINDINGS: No significant additional findings. IMPRESSION: 1. No acute findings. Signer Name: Lalo Muñoz MD Signed: 02/27/2020 8:01 AM Workstation Name: [id number]
--- NOTE | 2020-02-27 08:11 | Progress Note ---
Assessment and Plan Assessment and plan: --COVID-19 test negative; --Hypokalemia; Current Visit: Yes Status: Acute Plan to address problem: In spite of being on spironolactone , patient's potassium potassium 3.3 We will add one-time dose of 30 mEq p.o. x1 Closely monitor potassium levels -- Acute hypoxemic respiratory failure/self extubated Current Visit: Yes Status: Acute Plan to address problem: Due to acute on chronic congestive heart failure . Pneumonia , COPD exacerbation Continue ventilatory support. Continue sedation nebulizers and supportive care wean vent as tolerated and extubate Pulmonary critical care following --Acute COPD exacerbation Current Visit: Yes Status: Acute Plan to address problem: IV steroid therapy, nebulizers IV antibiotics supportive care, --Probably community acquired pneumonia; Current Visit: Yes Status: Acute Plan to address problem: Empiric antibiotics with Levaquin Follow cultures, supportive care --Sepsis; secondary to right pneumonia Current Visit: Yes Status: Acute Plan to address problem: Tachycardia, leukocytosis, infiltrate on chest x-ray and CT Continue current antibiotics follow cultures --Acute on chronic congestive heart failure; EF 15 to 20% Current Visit: Yes Status: Acute Plan to address problem: Diuretics, input output monitoring, beta-blockers CLOTILDE inhibitors, low-sodium diet, fluid restriction Cardiology consult --Dilated cardiomyopathy EF 15 to 20% Current Visit: Yes Status: Acute Plan to address problem: Diuretics, input output monitoring, beta-blockers CLOTILDE inhibitors, low-sodium diet, fluid restriction Possible ischemia work-up if not done before ICD in place --Ongoing tobacco use; Current Visit: Yes Status: Acute Plan to address problem: Smoking cessation, nicotine patch as needed We will vocational guidance counselor the patient once patient is off ventilator --DVT prophylaxis Current Visit: Yes Status: Acute Plan to address problem: SCD , anticoagulation Closely monitor the patient and adjust the management as needed Plan of care reviewed with the patient and her nurse We will check physical therapy occupational therapy DC planning when medically stable 02/27/2020; patient feels slightly better complains of generalized weakness, awaiting PT evaluation Possible discharge in 1 to 2 days if stable, vegan diet ordered per patient's request History Interval history: I have seen and examined the patient at the bedside this morning Patient's chart and medications reviewed Patient feels slightly better, request for vegan diet Vital signs noted Hospitalist Physical - Constitutional Vitals: Temp Pulse Resp BP Pulse Ox 98.6 F 53 L 20 113/58 90 02/27/20 04:53 02/27/20 04:53 02/27/20 04:53 02/27/20 04:53 02/27/20 04:53 General appearance: Present: mild distress, well-nourished, other (On nasal cannula oxygen) - EENT Eyes: Present: PERRL, EOM intact - Neck Neck: Present: supple, normal ROM - Respiratory Respiratory effort: normal Respiratory: bilateral: diminished, negative: rales, rhonchi, wheezing - Cardiovascular Rhythm: regular Heart Sounds: Present: S1 & S2 - Extremities Extremities: no ischemia, No edema - Abdominal General gastrointestinal: soft, non-tender, non-distended, normal bowel sounds - Integumentary Integumentary: Present: clear, warm - Psychiatric Psychiatric: appropriate mood/affect, cooperative - Neurologic Neurologic: moves all extremities HEART Score - HEART Score Troponin: Troponin T 0.044 ng/mL (0.00-0.029) H 02/21/20 10:17 Results - Labs CBC & Chem 7: 02/27/20 05:19 02/27/20 05:19 Labs: Laboratory Last Values WBC 25.7 K/mm3 (4.5-11.0) H 02/27/20 05:19 RBC 3.88 M/mm3 (3.65-5.03) 02/27/20 05:19 Hgb 11.6 gm/dl (10.1-14.3) 02/27/20 05:19 Hct 36.2 % (30.3-42.9) 02/27/20 05:19 MCV 93 fl (79-97) 02/27/20 05:19 MCH 30 pg (28-32) 02/27/20 05:19 MCHC 32 % (30-34) 02/27/20 05:19 RDW 13.8 % (13.2-15.2) 02/27/20 05:19 Plt Count 364 K/mm3 (140-440) 02/27/20 05:19 Lymph % (Auto) 5.5 % (13.4-35.0) L 02/26/20 04:37 [place] % (Auto) 4.9 % (0.0-7.3) 02/26/20 04:37 Eos % (Auto) 0.0 % (0.0-4.3) 02/26/20 04:37 Baso % (Auto) 0.1 % (0.0-1.8) 02/26/20 04:37 Lymph # (Auto) 1.4 K/mm3 (1.2-5.4) 02/26/20 04:37 [place]assen # (Auto) 1.2 K/mm3 (0.0-0.8) H 02/26/20 04:37 Eos # (Auto) 0.0 K/mm3 (0.0-0.4) 02/26/20 04:37 Baso # (Auto) 0.1 K/mm3 (0.0-0.1) 02/26/20 04:37 Add Manual Diff Complete 02/27/20 05:19 Total Counted 100 02/27/20 05:19 Seg Neutrophils % 89.5 % (40.0-70.0) H 02/26/20 04:37 Seg Neuts % (Manual) 76.0 % (40.0-70.0) H 02/27/20 05:19 Band Neutrophils % 0 % 02/27/20 05:19 Lymphocytes % (Manual) 15.0 % (13.4-35.0) 02/27/20 05:19 Reactive Lymphs % (Man) 0 % 02/27/20 05:19 Monocytes % (Manual) 9.0 % (0.0-7.3) H 02/27/20 05:19 Eosinophils % (Manual) 0 % (0.0-4.3) 02/27/20 05:19 Basophils % (Manual) 0 % (0.0-1.8) 02/27/20 05:19 Metamyelocytes % 0 % 02/27/20 05:19 Myelocytes % 0 % 02/27/20 05:19 Promyelocytes % 0 % 02/27/20 05:19 Blast Cells % 0 % 02/27/20 05:19 Nucleated RBC % Not Reportable 02/27/20 05:19 Seg Neutrophils # 22.0 K/mm3 (1.8-7.7) H 02/26/20 04:37 Seg Neutrophils # Man 19.5 K/mm3 (1.8-7.7) H 02/27/20 05:19 Band Neutrophils # 0.0 K/mm3 02/27/20 05:19 Lymphocytes # (Manual) 3.9 K/mm3 (1.2-5.4) 02/27/20 05:19 Abs React Lymphs (Man) 0.0 K/mm3 02/27/20 05:19 Monocytes # (Manual) 2.3 K/mm3 (0.0-0.8) H 02/27/20 05:19 Eosinophils # (Manual) 0.0 K/mm3 (0.0-0.4) 02/27/20 05:19 Basophils # (Manual) 0.0 K/mm3 (0.0-0.1) 02/27/20 05:19 Metamyelocytes # 0.0 K/mm3 02/27/20 05:19 Myelocytes # 0.0 K/mm3 02/27/20 05:19 Promyelocytes # 0.0 K/mm3 02/27/20 05:19 Blast Cells # 0.0 K/mm3 02/27/20 05:19 WBC Morphology Not Reportable 02/27/20 05:19 Hypersegmented Neuts Not Reportable 02/27/20 05:19 Hyposegmented Neuts Not Reportable 02/27/20 05:19 Hypogranular Neuts Not Reportable 02/27/20 05:19 Smudge Cells Not Reportable 02/27/20 05:19 Toxic Granulation Not Reportable 02/27/20 05:19 Toxic Vacuolation Not Reportable 02/27/20 05:19 Dohle Bodies Not Reportable 02/27/20 05:19 Pelger-Huet Anomaly Not Reportable 02/27/20 05:19 Arlette Rods Not Reportable 02/27/20 05:19 Platelet Estimate Consistent w auto 02/27/20 05:19 Clumped Platelets Not Reportable 02/27/20 05:19 Plt Clumps, EDTA Not Reportable 02/27/20 05:19 Large Platelets Few 02/27/20 05:19 Giant Platelets Not Reportable 02/27/20 05:19 Platelet Satelliting Not Reportable 02/27/20 05:19 Plt Morphology Comment Not Reportable 02/27/20 05:19 RBC Morphology Not Reportable 02/27/20 05:19 Dimorphic RBCs Not Reportable 02/27/20 05:19 Polychromasia Not Reportable 02/27/20 05:19 Hypochromasia Not Reportable 02/27/20 05:19 Poikilocytosis Not Reportable 02/27/20 05:19 Anisocytosis 1+ 02/27/20 05:19 Microcytosis Not Reportable 02/27/20 05:19 Macrocytosis Not Reportable 02/27/20 05:19 Spherocytes Not Reportable 02/27/20 05:19 Pappenheimer Bodies Not Reportable 02/27/20 05:19 Sickle Cells Not Reportable 02/27/20 05:19 Target Cells Not Reportable 02/27/20 05:19 Tear Drop Cells Not Reportable 02/27/20 05:19 Ovalocytes Not Reportable 02/27/20 05:19 Helmet Cells Not Reportable 02/27/20 05:19 [place] Bodies Not Reportable 02/27/20 05:19 Rogers Rings Not Reportable 02/27/20 05:19 [place] Cells Not Reportable 02/27/20 05:19 Bite Cells Not Reportable 02/27/20 05:19 Crenated Cell Not Reportable 02/27/20 05:19 Elliptocytes Not Reportable 02/27/20 05:19 Acanthocytes (Spur) Not Reportable 02/27/20 05:19 Rouleaux Not Reportable 02/27/20 05:19 Hemoglobin C Crystals Not Reportable 02/27/20 05:19 Schistocytes Not Reportable 02/27/20 05:19 Malaria parasites Not Reportable 02/27/20 05:19 Hilton Bodies Not Reportable 02/27/20 05:19 Hem Pathologist Commnt No 02/27/20 05:19 D-Dimer 362.52 ng/mlDDU (0-234) H 02/21/20 10:17 ABG pH 7.354 pH Units (7.350-7.450) 02/25/20 03:30 ABG pCO2 40.9 mm Hg 02/25/20 03:30 ABG pO2 64.6 mm Hg (80.0-90.0) L 02/25/20 03:30 ABG HCO3 22.3 mmol/L (20.0-26.0) 02/25/20 03:30 ABG O2 Saturation 93.6 % (95.0-99.0) L 02/25/20 03:30 ABG O2 Content 15.1 (0.0-44) 02/25/20 03:30 ABG Base Excess -3.1 mmol/L (-2.0-3.0) L 02/25/20 03:30 ABG Hemoglobin 11.7 gm/dl (12.0-16.0) L 02/25/20 03:30 ABG Carboxyhemoglobin 1.5 % (0.0-5.0) 02/25/20 03:30 ABG Methemoglobin 0.5 % (0.0-1.5) 02/25/20 03:30 Oxyhemoglobin 91.6 % (95.0-99.0) L 02/25/20 03:30 FiO2 25 % 02/25/20 03:30 Sodium 141 mmol/L (137-145) 02/27/20 05:19 Potassium 3.3 mmol/L (3.6-5.0) L 02/27/20 05:19 Chloride 103.8 mmol/L (98-107) 02/27/20 05:19 Carbon Dioxide 29 mmol/L (22-30) 02/27/20 05:19 Anion Gap 12 mmol/L 02/27/20 05:19 BUN 12 mg/dL (7-17) 02/27/20 05:19 Creatinine 0.4 mg/dL (0.6-1.2) L 02/27/20 05:19 Estimated GFR > 60 ml/min 02/27/20 05:19 BUN/Creatinine Ratio 30 % 02/27/20 05:19 Glucose 111 mg/dL (65-100) H 02/27/20 05:19 Lactic Acid 1.80 mmol/L (0.7-2.0) 02/22/20 15:07 Calcium 8.7 mg/dL (8.4-10.2) 02/27/20 05:19 Magnesium 2.00 mg/dL (1.7-2.3) 02/24/20 04:50 Ferritin 160.6 ng/mL (10.0-200.0) 02/21/20 10:17 Total Bilirubin 1.10 mg/dL (0.1-1.2) 02/24/20 04:50 AST 36 units/L (5-40) 02/24/20 04:50 ALT 46 units/L (7-56) 02/24/20 04:50 Alkaline Phosphatase 69 units/L (35-129) 02/24/20 04:50 Lactate Dehydrogenase 324 units/L (91-180) H 02/21/20 10:17 Troponin T 0.044 ng/mL (0.00-0.029) H 02/21/20 10:17 C-Reactive Protein 0.40 mg/dL (0.00-1.30) 02/21/20 10:17 NT-Pro-B Natriuret Pep 1005 pg/mL (0-900) H 02/21/20 10:17 NT-Pro-B Natriuret Pep 1026 pg/mL (0-900) H 02/21/20 10:17 Total Protein 5.9 g/dL (6.3-8.2) L 02/24/20 04:50 Albumin 3.7 g/dL (3.9-5) L 02/24/20 04:50 Albumin/Globulin Ratio 1.7 % 02/24/20 04:50 Triglycerides 128 mg/dL (2-149) 02/25/20 05:06 Cholesterol 170 mg/dL (50-199) 02/21/20 10:17 LDL Cholesterol Direct 92 mg/dL (50-130) 02/21/20 10:17 HDL Cholesterol 75 mg/dL (40-59) H 02/21/20 10:17 Cholesterol/HDL Ratio 2.26 % 02/21/20 10:17 Procalcitonin < 0.05 ng/mL (<0.15) 02/21/20 10:17 Urine Opiates Screen Negative 02/21/20 19:20 Urine Methadone Screen Negative 02/21/20 19:20 Ur Barbiturates Screen Negative 02/21/20 19:20 Ur Phencyclidine Scrn Negative 02/21/20 19:20 Ur Amphetamines Screen Negative 02/21/20 19:20 U Benzodiazepines Scrn Negative 02/21/20 19:20 Urine Cocaine Screen Negative 02/21/20 19:20 U Marijuana (THC) Screen Positive 02/21/20 19:20 Drugs of Abuse Note Disclamer 02/21/20 19:20 Coronavirus (PCR) Negative (Negative) 02/21/20 10:24 Microbiology: Microbiology 02/21/20 10:28 Peripheral/Venous Blood Culture - Final NO GROWTH AFTER 5 DAYS 02/21/20 10:17 Peripheral/Venous Blood Culture - Final NO GROWTH AFTER 5 DAYS - Diagnostic Impressions Diagnostic Impressions: Echocardiogram 02/21/20 16:13 Transthoracic Echocardiogram Indication: Shortness of breath BP: 109/75 HR: 100 Conclusions *The left ventricular size is moderate to severely dilated. *Global left ventricular systolic function is severely decreased. *The estimated ejection fraction is Less Than 15-20%. *There is mild mitral regurgitation. *There is trace tricuspid regurgitation. *There is evidence of mild pulmonary hypertension. *The right ventricular systolic pressure is calculated at 30 mmHg. *A pacemaker wire is visualized in the right heart chambers. Findings Left Ventricle: The left ventricular size is moderate to severely dilated. There is no left ventricular hypertrophy. Global left ventricular systolic function is severely decreased. The estimated ejection fraction is 15-20%. Left Atrium: The left atrial chamber size is normal. Right Ventricle: The right ventricle is mildly dilated. The right ventricular global systolic function is mildly reduced. A pacemaker wire is visualized in the right ventricle. Right Atrium: The right atrial cavity size is normal. A pacemaker wire is visualized in the right atrium. Aortic Valve: The aortic valve is trileaflet. The aortic valve leaflets are moderately thickened. There is no evidence of aortic regurgitation. There is no evidence of aortic stenosis. Mitral Valve: The mitral valve leaflets appear myxomatous. There is mild mitral regurgitation. There is no evidence of mitral stenosis. Tricuspid Valve: There is trace tricuspid regurgitation. The right ventricular systolic pressure is calculated at 30 mmHg. There is evidence of mild pulmonary hypertension. Pulmonic Valve: There is mild pulmonic regurgitation. Pericardium: There is no pericardial effusion. Aorta: There is no dilatation of the aortic root. Venous: The inferior vena cava is dilated. Measurements Chambers 2D Name Value Normal Range IVSd (2D) 0.8 cm (0.6 - 1.1) LVPWd (2D) 0.78 cm (0.6 - 1.1) LVIDd (2D) 5.1 cm (3.7 - 5.6) LVIDs (2D) 3.74 cm (2 - 3.8) LV FS (2D) 26.7 % - EF Teichholz (2D) 51.89 % - Ao root diameter (2D) 3.33 cm (2 - 3.7) Volumes/Mass Name Value Normal Range LA ESV SP 4CH (A/L) 34.31 ml - LA ESV SP 2CH (A/L) 13.16 ml - LA ESV BP (A/L) 36.23 ml - LA ESV BP (A/L) index 21.31 ml/m2 - LA ESV SP 4CH (MOD) 28.65 ml - LA ESV SP 2CH (MOD) 10.49 ml - LA ESV BP (MOD) 29.3 ml - LA ESV BP (MOD) index 17.24 ml/m2 - Aortic Valve Name Value Normal Range AV Vmax 1.05 m/sec - AV VTI 14.59 cm - AV peak gradient 4.38 mmHg - AV mean gradient 2.55 mmHg - LVOT diameter 2.14 cm - LVOT Vmax 0.92 m/sec - LVOT VTI 12.77 cm - LVOT peak gradient 3.36 mmHg - LVOT mean gradient 1.53 mmHg - SV LVOT 45.99 ml - REJI (continuity Vmax) 3.15 cm2 - REJI (continuity VTI) 3.15 cm2 - Ascending Ao 2.83 cm - Mitral Valve Name Value Normal Range MV PHT 38.65 msec - MR Vmax 3.89 m/sec - MVA (PHT) 5.69 cm2 - Tricuspid Valve Name Value Normal Range TR Vmax 2.21 m/sec - TR peak gradient 19 mmHg - RAP 8 mmHg - RVSP 30 mmHg - IVC diameter 2.45 cm (1.2 - 2.3) Pulmonic Valve/Qp:Qs Name Value Normal Range PV Vmax 0.68 m/sec - PV peak gradient 1.86 mmHg - PV acceleration time 110.37 msec - Hilton/IV: IV Catheter Type [Right INT / Saline Lock Antecubital] IV Catheter Type [Left Peripheral IV External Jugular] IV Catheter Type [Right Peripheral IV Forearm] IV Catheter Type [Right Hand] INT / Saline Lock Active Medications - Current Medications Current Medications: Generic Name Dose Route Start Last Admin Trade Name Freq PRN Reason Stop Dose Admin Acetaminophen 650 mg 02/21/20 16:10 Tylenol PO Q6H PRN Pain, Mild (1-3) Albuterol/Ipratropium 1 ampul 02/22/20 20:00 02/26/20 21:28 Duoneb *Not For Prn Use* IH 1 ampul TIDRT KATELYN Administration Lipase/Protease/Amylase 1 each 02/24/20 09:00 Arlene Sebastian 10,500 Unit FEEDTUBE PRN PRN For Clogged Feeding Tube Carvedilol 3.125 mg 02/24/20 10:00 02/26/20 21:11 Coreg PO 3.125 mg BID KATELYN Administration Famotidine 20 mg 02/26/20 10:00 02/26/20 21:10 Pepcid PO 20 mg BID KATELYN Administration Furosemide 20 mg 02/25/20 13:00 02/27/20 05:28 Lasix IV 20 mg DAILY@0600 KATELYN Administration Heparin Sodium (Porcine) 5,000 unit 02/21/20 22:00 02/26/20 21:11 Heparin SUB-Q 5,000 unit Q12HR KATELYN Administration Hydromorphone HCl 0.25 mg 02/21/20 16:10 02/26/20 16:50 Dilaudid IV 0.25 mg Q4H PRN Administration Pain, Moderate (4-6) Hydrophilic Ointment 1 applic 02/21/20 16:44 Vaseline Lip Therapy TP Q2HR PRN Dry Lips Lisinopril 5 mg 02/24/20 10:00 02/26/20 12:08 Zestril PO 5 mg QDAY KATELYN Administration Lorazepam 2 mg 02/21/20 16:44 Ativan IV Q10MIN PRN Agitation Multi-Ingred Cream/Lotion/Oil/Oint 1 applic 02/21/20 16:44 Artificial Tears Ophth Oint OU Q4HR PRN Dry Eye(s) Simple Syrup 15 ml 02/24/20 09:00 Simple Syrup FEEDTUBE PRN PRN Hypoglycemia Simple Syrup 30 ml 02/24/20 09:00 Simple Syrup FEEDTUBE PRN PRN Hypoglycemia Sodium Bicarbonate 325 mg 02/24/20 09:00 Sodium Bicarbonate FEEDTUBE PRN PRN For Clogged Feeding Tube Sodium Chloride 10 ml 02/21/20 22:00 02/26/20 21:33 Sodium Chloride Flush Syringe 10 Ml IV 10 ml BID KATELYN Administration Sodium Chloride 10 ml 02/21/20 16:10 Sodium Chloride Flush Syringe 10 Ml IV PRN PRN LINE FLUSH Spironolactone 25 mg 02/26/20 10:00 02/26/20 12:08 Aldactone PO 25 mg QDAY KATELYN Administration Nutrition/Malnutrition Assess - Dietary Evaluation Nutrition/Malnutrition Findings: Nutrition Notes Start: 02/22/20 11:38 Freq: Status: Active Protocol: Document 02/26/20 10:58 CW (Rec: 02/26/20 11:03 CW [email or web address]) Co-Sign 02/26/20 10:58 LM Nutrition Notes Initial or Follow up Brief Note Current Diagnosis COPD,Sepsis,Heart Failure, Respiratory Failure Other Pertinent Diagnosis COPD exacerbation, asthma, pneu Current Diet Promote 1.0 at 60ml/hr Labs/Tests K 3.5 Pertinent Medications Lasix Heparin Solu-medrol Height 5 ft 5 in Weight 63.5 kg [place] Body Weight (kg) 56.81 BMI 23.3 Weight Status Appropriate Subjective/Other Information Pt self extubated on 02/24. [employer]ST[employer]ILOS[employer]HY PROFESSOR conducting swallow exam during visit. Nurse reports pt requested breaskfast today. WESTERN PHILOSOPHY PROFESSOR approved pt for regular diet. Nutrition Intervention Change Diet Order: Cardiac Goal #1 Meet 75% of protein and energy needs Anticipated Discharge Needs: Unable to identify at this time Follow-Up By: 02/29/20 Additional Comments FU for intakes/tolerance
[2020-02-27] MEDS: FAMOTIDINE 20 MG TAB PO SCH ×2 (10:00→21:14)
[2020-02-27] MEDS: carvediloL 3.125 MG TAB PO SCH ×2 (10:01→21:18)
[2020-02-27] MEDS: LISINOPRIL 5 MG TAB PO SCH (10:01)
[2020-02-27] MEDS: ACETAMINOPHEN 325 MG TAB PO PRN ×2 (10:01→21:13)
[2020-02-27] MEDS: SPIRONOLACTONE 25 MG TAB PO SCH (10:03)
[2020-02-27] MEDS: HEPARIN 5,000 UNIT/1 ML VIAL SUB-Q SCH ×2 (10:07→21:15)
--- NOTE | 2020-02-27 10:49 | Progress Note ---
Assessment and Plan - Patient Problems (1) CHF (congestive heart failure) Current Visit: Yes Status: Acute (2) Cardiomyopathy Current Visit: Yes Status: Acute Qualifiers: Cardiomyopathy type: unspecified Qualified Code(s): I42.9 - Cardiomyopathy, unspecified Subjective Date of service: 02/27/20 Principal diagnosis: Ac hypoxemic & hypercapnic resp failure; Ac. encephalopathy; CAP; CMOP;COPD Interval history: AMBULATING Objective Vital Signs Temp Pulse Pulse Resp Resp BP Pulse Ox 02/27/20 10:03 89 112/54 02/27/20 10:01 89 112/54 02/27/20 07:41 80 97 02/27/20 07:40 98.0 F 20 112/71 02/27/20 04:53 98.6 F 53 L 20 113/58 90 02/26/20 23:43 98.5 F 84 20 112/42 98 02/26/20 22:00 88 95 02/26/20 21:30 51 L 18 02/26/20 21:11 87 123/79 02/26/20 19:28 97.7 F 87 20 123/79 95 02/26/20 16:38 99 H 18 02/26/20 16:20 98.3 F 85 16 114/73 100 02/26/20 11:32 98.9 F 61 16 123/53 93 - Physical Examination General: No Apparent Distress HEENT: Positive: PERRL Neck: Positive: neck supple, trachea midline Cardiac: Positive: Reg Rate and Rhythm Lungs: Positive: clear to auscultation Neuro: Positive: Grossly Intact Abdomen: Positive: Unremarkable Extremities: Absent: edema - Labs and Meds CBC 02/27/20 Range/Units 05:19 WBC 25.7 H (4.5-11.0) K/mm3 RBC 3.88 (3.65-5.03) M/mm3 Hgb 11.6 (10.1-14.3) gm/dl Hct 36.2 (30.3-42.9) % Plt Count 364 (140-440) K/mm3 Comprehensive Metabolic Panel 02/27/20 Range/Units 05:19 Sodium 141 (137-145) mmol/L Potassium 3.3 L (3.6-5.0) mmol/L Chloride 103.8 (98-107) mmol/L Carbon Dioxide 29 (22-30) mmol/L BUN 12 (7-17) mg/dL Creatinine 0.4 L (0.6-1.2) mg/dL Glucose 111 H (65-100) mg/dL Calcium 8.7 (8.4-10.2) mg/dL - Allied health notes Allied health notes reviewed: nursing
[2020-02-27] MEDS: IPRATROPIUM/ALBUTEROL SULFATE 3 ML AMPUL.NEB IH SCH ×3 (11:20→21:41)
--- NOTE | 2020-02-27 13:14 | Progress Note ---
Assessment and Plan Acute hypoxemic-hypercapnic respiratory failure on MVS Acute COPD exacerbation Toxic metabolic encephalopathy CAP Cardiomyopathy s/p AICD h/o Asthma Tobacco use/Nicotine dependence Lactic acidosis - continue systemic steroids with slow taper (changed to prednisone 20 mg qd) - doing better overall, continue care as below - continue care as below otherwise; - s/p empiric Levaquin X 5 days for AE-COPD - Monitor hemodynamics closely; judicious use of IVF re: HFrEF (ECHO EF of 15- 20%) [stopped IVF] - continue to wean supplemental oxygen for target O2 sat's > 90 % acutely - aspiration precautions - continue lung protective strategies - continue bronchodilators with pulmonary hygiene per RT - wean per pulmonary driven protocols otherwise - continue accuchecks with glycemic control per SSI for a target blood glucose of < 180 mg/dL; avoid hypoglycemia - avoid nephrotoxins, renally dose all medications - prn analgesia per pain score - Maintenance of sleep-wake cycle, avoid delirium - G.I. & VTE prophylaxis - PT/OT/ROM exercises - mobility protocols for pressure ulcer prophylaxis - Monitor hemodynamics closely - Nicotine withdrawal precautions, Smoking cessation counselling done at bedside - continue other care per attending / other consultants - discharge planning ongoing concurrently .... Re-evaluate in am & prn Subjective Date of service: 02/27/20 Principal diagnosis: Ac hypoxemic & hypercapnic resp failure; Ac. encephalopathy ; CAP; CMOP;COPD Interval history: Patient is seen today for: Acute hypoxemic & hypercapnic respiratory failure; Toxic metabolic encephalopathy; CAP; CMOP s/p AICD; h/o Asthma; Tobacco use/Nicotine dependence Seen and examined at bedside; 24hour events reviewed; nursing and respiratory care staff consulted; no adverse overnight events reported to me; resting peacefully in bed; feels better; less SOB; No N/V/F/C Objective Vital Signs - 12hr 02/27/20 02/27/20 02/27/20 04:53 07:40 07:41 Temperature 98.6 F 98.0 F Pulse Rate 53 L 80 Pulse Rate [ Left Radial] Pulse Rate [ Right Radial] Respiratory 20 20 Rate Blood Pressure 113/58 112/71 O2 Sat by Pulse 90 97 Oximetry 02/27/20 02/27/20 02/27/20 10:00 10:01 10:03 Temperature Pulse Rate 79 89 89 Pulse Rate [ 86 Left Radial] Pulse Rate [ 86 Right Radial] Respiratory 21 Rate Blood Pressure 112/54 112/54 O2 Sat by Pulse 95 Oximetry 02/27/20 12:17 Temperature 98.9 F Pulse Rate 74 Pulse Rate [ Left Radial] Pulse Rate [ Right Radial] Respiratory 20 Rate Blood Pressure 100/59 O2 Sat by Pulse 94 Oximetry Constitutional: no acute distress, other (middle aged female with mildly increased respiratory effort at rest) Eyes: non-icteric ENT: oropharynx moist, other (extubated) Neck: supple, no lymphadenopathy, no JVD Effort: mildly labored (moderately) Ascultation: Bilateral: rhonchi (scant bases), other (prolonged expiratory phase) Percussion: Bilateral: not dull Cardiovascular: regular rate and rhythm, other (S1,S2) Gastrointestinal: normoactive bowel sounds, soft, non-tender, non-distended Integumentary: normal Extremities: no cyanosis, no edema, pulses normal, no ischemia or petechiae Neurologic: non-focal exam, pupils equal and round, CN II-XII normal, motor strength normal and (weak) Psychiatric: mood appropriate, affect normal CBC and BMP: 02/27/20 05:19 02/28/20 10:05 ABG, PT/INR, D-dimer: ABG ABG pH 7.354 pH Units (7.350-7.450) 02/25/20 03:30 ABG pCO2 40.9 mm Hg 02/25/20 03:30 ABG pO2 64.6 mm Hg (80.0-90.0) L 02/25/20 03:30 ABG O2 Saturation 93.6 % (95.0-99.0) L 02/25/20 03:30 PT/INR, D-dimer D-Dimer 362.52 ng/mlDDU (0-234) H 02/21/20 10:17 Abnormal lab findings: Abnormal Labs 02/21/20 02/21/20 02/21/20 10:17 10:17 10:17 WBC 21.2 H Lymph % (Auto) [place] % (Auto) Lymph # (Auto) [place] # (Auto) Seg Neutrophils % Seg Neuts % (Manual) 94.0 H Lymphocytes % (Manual) 4.0 L Monocytes % (Manual) Seg Neutrophils # Seg Neutrophils # Man 19.9 H Lymphocytes # (Manual) 0.8 L Monocytes # (Manual) D-Dimer 362.52 H ABG pH ABG pO2 ABG O2 Saturation ABG Base Excess ABG Hemoglobin Oxyhemoglobin Potassium Chloride Carbon Dioxide Creatinine 0.4 L Glucose 168 H Lactic Acid Calcium Lactate Dehydrogenase 324 H Troponin T NT-Pro-B Natriuret Pep 1005 H Total Protein Albumin HDL Cholesterol 02/21/20 02/21/20 02/21/20 10:17 10:17 11:56 WBC Lymph % (Auto) [place] % (Auto) Lymph # (Auto) [place] # (Auto) Seg Neutrophils % Seg Neuts % (Manual) Lymphocytes % (Manual) Monocytes % (Manual) Seg Neutrophils # Seg Neutrophils # Man Lymphocytes # (Manual) Monocytes # (Manual) D-Dimer ABG pH ABG pO2 ABG O2 Saturation ABG Base Excess ABG Hemoglobin Oxyhemoglobin Potassium Chloride Carbon Dioxide Creatinine Glucose Lactic Acid 2.50 H* 2.80 H* Calcium Lactate Dehydrogenase Troponin T 0.044 H NT-Pro-B Natriuret Pep 1026 H Total Protein Albumin HDL Cholesterol 75 H 02/21/20 02/21/20 02/21/20 13:31 14:18 15:03 WBC Lymph % (Auto) [place] % (Auto) Lymph # (Auto) [place] # (Auto) Seg Neutrophils % Seg Neuts % (Manual) Lymphocytes % (Manual) Monocytes % (Manual) Seg Neutrophils # Seg Neutrophils # Man Lymphocytes # (Manual) Monocytes # (Manual) D-Dimer ABG pH 7.183 L* ABG pO2 73.8 L ABG O2 Saturation 93.2 L ABG Base Excess -3.8 L ABG Hemoglobin Oxyhemoglobin 90.6 L Potassium Chloride Carbon Dioxide Creatinine Glucose Lactic Acid 2.10 H* 2.50 H* Calcium Lactate Dehydrogenase Troponin T NT-Pro-B Natriuret Pep Total Protein Albumin HDL Cholesterol 02/21/20 02/21/20 02/22/20 16:10 18:33 02:25 WBC Lymph % (Auto) [place] % (Auto) Lymph # (Auto) [place] # (Auto) Seg Neutrophils % Seg Neuts % (Manual) Lymphocytes % (Manual) Monocytes % (Manual) Seg Neutrophils # Seg Neutrophils # Man Lymphocytes # (Manual) Monocytes # (Manual) D-Dimer ABG pH 7.204 L ABG pO2 295.0 H 187.8 H ABG O2 Saturation 99.4 H 99.1 H ABG Base Excess -5.5 L -3.8 L ABG Hemoglobin Oxyhemoglobin Potassium Chloride Carbon Dioxide Creatinine Glucose Lactic Acid 2.10 H* Calcium Lactate Dehydrogenase Troponin T NT-Pro-B Natriuret Pep Total Protein Albumin HDL Cholesterol 02/22/20 02/22/20 02/22/20 02:57 02:57 02:57 WBC 21.9 H Lymph % (Auto) 5.2 L [place] % (Auto) 8.1 H Lymph # (Auto) 1.1 L [place] # (Auto) 1.8 H Seg Neutrophils % 86.5 H Seg Neuts % (Manual) Lymphocytes % (Manual) Monocytes % (Manual) Seg Neutrophils # 19.0 H Seg Neutrophils # Man Lymphocytes # (Manual) Monocytes # (Manual) D-Dimer ABG pH ABG pO2 ABG O2 Saturation ABG Base Excess ABG Hemoglobin Oxyhemoglobin Potassium 5.9 H D Chloride 109.4 H Carbon Dioxide 17 L D Creatinine 0.5 L Glucose 106 H Lactic Acid 2.40 H* Calcium 8.2 L Lactate Dehydrogenase Troponin T NT-Pro-B Natriuret Pep Total Protein Albumin HDL Cholesterol 02/23/20 02/24/20 02/24/20 06:15 04:36 04:50 WBC 18.7 H Lymph % (Auto) 7.1 L [place] % (Auto) Lymph # (Auto) [place] # (Auto) 1.3 H Seg Neutrophils % 85.6 H Seg Neuts % (Manual) Lymphocytes % (Manual) Monocytes % (Manual) Seg Neutrophils # 16.0 H Seg Neutrophils # Man Lymphocytes # (Manual) Monocytes # (Manual) D-Dimer ABG pH 7.456 H ABG pO2 46.0 L ABG O2 Saturation 82.9 L ABG Base Excess -2.1 L -2.8 L ABG Hemoglobin Oxyhemoglobin 81.2 L Potassium Chloride Carbon Dioxide Creatinine Glucose Lactic Acid Calcium Lactate Dehydrogenase Troponin T NT-Pro-B Natriuret Pep Total Protein Albumin HDL Cholesterol 02/24/20 02/24/20 02/25/20 04:50 05:08 03:30 WBC Lymph % (Auto) [place] % (Auto) Lymph # (Auto) [place] # (Auto) Seg Neutrophils % Seg Neuts % (Manual) Lymphocytes % (Manual) Monocytes % (Manual) Seg Neutrophils # Seg Neutrophils # Man Lymphocytes # (Manual) Monocytes # (Manual) D-Dimer ABG pH ABG pO2 58.9 L 64.6 L ABG O2 Saturation 90.8 L 93.6 L ABG Base Excess -3.1 L -3.1 L ABG Hemoglobin 11.7 L Oxyhemoglobin 89.0 L 91.6 L Potassium Chloride 107.5 H Carbon Dioxide 21 L Creatinine 0.4 L Glucose Lactic Acid Calcium Lactate Dehydrogenase Troponin T NT-Pro-B Natriuret Pep Total Protein 5.9 L Albumin 3.7 L HDL Cholesterol 02/26/20 02/26/20 02/27/20 04:37 04:37 05:19 WBC 24.6 H 25.7 H Lymph % (Auto) 5.5 L [place] % (Auto) Lymph # (Auto) [place] # (Auto) 1.2 H Seg Neutrophils % 89.5 H Seg Neuts % (Manual) 76.0 H Lymphocytes % (Manual) Monocytes % (Manual) 9.0 H Seg Neutrophils # 22.0 H Seg Neutrophils # Man 19.5 H Lymphocytes # (Manual) Monocytes # (Manual) 2.3 H D-Dimer ABG pH ABG pO2 ABG O2 Saturation ABG Base Excess ABG Hemoglobin Oxyhemoglobin Potassium 3.5 L D Chloride Carbon Dioxide Creatinine 0.5 L Glucose 155 H Lactic Acid Calcium Lactate Dehydrogenase Troponin T NT-Pro-B Natriuret Pep Total Protein Albumin HDL Cholesterol 02/27/20 05:19 WBC Lymph % (Auto) [place] % (Auto) Lymph # (Auto) [place] # (Auto) Seg Neutrophils % Seg Neuts % (Manual) Lymphocytes % (Manual) Monocytes % (Manual) Seg Neutrophils # Seg Neutrophils # Man Lymphocytes # (Manual) Monocytes # (Manual) D-Dimer ABG pH ABG pO2 ABG O2 Saturation ABG Base Excess ABG Hemoglobin Oxyhemoglobin Potassium 3.3 L Chloride Carbon Dioxide Creatinine 0.4 L Glucose 111 H Lactic Acid Calcium Lactate Dehydrogenase Troponin T NT-Pro-B Natriuret Pep Total Protein Albumin HDL Cholesterol Allied health notes reviewed: nursing
[2020-02-27] MEDS ORDERED: POTASSIUM CHLORIDE ER 10 MEQ TAB PO NR (19:00)
[2020-02-27] MEDS: HYDROmorphone 1 MG/1 ML INJ IV PRN (23:48)
[2020-02-28] MEDS: FUROSEMIDE 20 MG/2 ML INJ IV SCH (05:15)
[2020-02-28] MEDS: IPRATROPIUM/ALBUTEROL SULFATE 3 ML AMPUL.NEB IH SCH ×3 (08:28→20:11)
--- NOTE | 2020-02-28 08:35 | XRay Report ---
CHEST 1 VIEW 7:50 AM INDICATION / CLINICAL INFORMATION: Respiratory failure. COMPARISON: Yesterday. FINDINGS: SUPPORT DEVICES: The position of the dual chamber left subclavian ICD has not changed. HEART / MEDIASTINUM: The heart size and pulmonary vasculature are normal. LUNGS / PLEURA: Mild left retrocardiac atelectasis has increased. The right lung is clear No pneumoth orax. ADDITIONAL FINDINGS: No significant additional findings. IMPRESSION: Mild left retrocardiac atelectasis. Signer Name: Den Garcia MD Signed: 02/28/2020 8:30 AM Workstation Name: [id number]
--- NOTE | 2020-02-28 08:56 | Progress Note ---
Assessment and Plan Assessment and plan: --COVID-19 test negative; --Sore throat; due to self extubation Current Visit: Yes Status: Acute Plan to address problem: Cepacol lozenges Lidocaine throat spray --Sepsis; secondary to right pneumonia/POA Current Visit: Yes Status: Acute Plan to address problem: Tachycardia, leukocytosis, infiltrate on chest x-ray and CT, Patient completed 5 days of Levaquin 02/28/2020 chest x-ray mild left retrocardiac atelectasis --Leukocytosis; Current Visit: Yes Status: Acute Plan to address problem: 02/28/2020 chest x-ray mild left retrocardiac atelectasis Follow cultures --Possible community acquired pneumonia; POA Current Visit: Yes Status: Acute Plan to address problem: Completed 5 days of Levaquin Pulmonary following -- Ac. hypoxemic resp failure/self extubated 02/25/2020 Current Visit: Yes Status: Acute Plan to address problem: Continue oxygen titrate O2 sats to more than 90% Ambulate as tolerated, Pulmonary following Oxygen evaluation --Acute COPD exacerbation Current Visit: Yes Status: Acute Plan to address problem: IV steroid therapy, nebulizers IV antibiotics supportive care, --Hypokalemia; Current Visit: Yes Status: Acute Plan to address problem: In spite of being on spironolactone , patient's potassium potassium 3.3 We will add one-time dose of 30 mEq p.o. x1 Closely monitor potassium levels --Acute on chronic congestive heart failure; EF 15 to 20% Current Visit: Yes Status: Acute Plan to address problem: Diuretics, input output monitoring, beta-blockers CLOTILDE inhibitors, low-sodium diet, fluid restriction Cardiology consult --Dilated cardiomyopathy EF 15 to 20% Current Visit: Yes Status: Acute Plan to address problem: Diuretics, input output monitoring, beta-blockers CLOTILDE inhibitors, low-sodium diet, fluid restriction Possible ischemia work-up if not done before --ICD in place; stable --Ongoing tobacco use; Current Visit: Yes Status: Acute Plan to address problem: Smoking cessation, nicotine patch as needed We will certified addiction counselor the patient once patient is off ventilator --DVT prophylaxis Current Visit: Yes Status: Acute Plan to address problem: SCD , anticoagulation Closely monitor the patient and adjust the management as needed Plan of care reviewed with the patient and her nurse We will check physical therapy occupational therapy DC planning when medically stable 02/27/2020; patient feels slightly better complains of generalized weakness, awaiting PT evaluation Possible discharge in 1 to 2 days if stable, vegan diet ordered per patient's request 02/28/2020; patient feels slightly better, ambulate as tolerated, possible discha rge tomorrow if stable History Interval history: I have seen and examined the patient this morning Patient's chart and medications reviewed Patient feels slightly better wants to ambulate and shower Complains of sore throat, secondary to self extubation Vital signs noted Hospitalist Physical - Constitutional Vitals: Temp Pulse Resp BP Pulse Ox 97.2 F L 72 18 101/40 100 02/28/20 08:39 02/28/20 08:39 02/28/20 08:39 02/28/20 08:39 02/28/20 08:39 General appearance: Present: mild distress, well-nourished - EENT Eyes: Present: PERRL, EOM intact - Neck Neck: Present: supple, normal ROM - Respiratory Respiratory effort: normal Respiratory: bilateral: diminished, negative: rales, rhonchi, wheezing - Cardiovascular Rhythm: regular Heart Sounds: Present: S1 & S2 - Extremities Extremities: no ischemia, No edema - Abdominal General gastrointestinal: soft, non-tender, non-distended, normal bowel sounds - Integumentary Integumentary: Present: clear, warm - Psychiatric Psychiatric: appropriate mood/affect, cooperative - Neurologic Neurologic: moves all extremities HEART Score - HEART Score Troponin: Troponin T 0.044 ng/mL (0.00-0.029) H 02/21/20 10:17 Results - Labs CBC & Chem 7: 02/27/20 05:19 02/28/20 10:05 Labs: Laboratory Last Values WBC 25.7 K/mm3 (4.5-11.0) H 02/27/20 05:19 RBC 3.88 M/mm3 (3.65-5.03) 02/27/20 05:19 Hgb 11.6 gm/dl (10.1-14.3) 02/27/20 05:19 Hct 36.2 % (30.3-42.9) 02/27/20 05:19 MCV 93 fl (79-97) 02/27/20 05:19 MCH 30 pg (28-32) 02/27/20 05:19 MCHC 32 % (30-34) 02/27/20 05:19 RDW 13.8 % (13.2-15.2) 02/27/20 05:19 Plt Count 364 K/mm3 (140-440) 02/27/20 05:19 Lymph % (Auto) 5.5 % (13.4-35.0) L 02/26/20 04:37 [place] % (Auto) 4.9 % (0.0-7.3) 02/26/20 04:37 Eos % (Auto) 0.0 % (0.0-4.3) 02/26/20 04:37 Baso % (Auto) 0.1 % (0.0-1.8) 02/26/20 04:37 Lymph # (Auto) 1.4 K/mm3 (1.2-5.4) 02/26/20 04:37 [place] # (Auto) 1.2 K/mm3 (0.0-0.8) H 02/26/20 04:37 Eos # (Auto) 0.0 K/mm3 (0.0-0.4) 02/26/20 04:37 Baso # (Auto) 0.1 K/mm3 (0.0-0.1) 02/26/20 04:37 Add Manual Diff Complete 02/27/20 05:19 Total Counted 100 02/27/20 05:19 Seg Neutrophils % 89.5 % (40.0-70.0) H 02/26/20 04:37 Seg Neuts % (Manual) 76.0 % (40.0-70.0) H 02/27/20 05:19 Band Neutrophils % 0 % 02/27/20 05:19 Lymphocytes % (Manual) 15.0 % (13.4-35.0) 02/27/20 05:19 Reactive Lymphs % (Man) 0 % 02/27/20 05:19 Monocytes % (Manual) 9.0 % (0.0-7.3) H 02/27/20 05:19 Eosinophils % (Manual) 0 % (0.0-4.3) 02/27/20 05:19 Basophils % (Manual) 0 % (0.0-1.8) 02/27/20 05:19 Metamyelocytes % 0 % 02/27/20 05:19 Myelocytes % 0 % 02/27/20 05:19 Promyelocytes % 0 % 02/27/20 05:19 Blast Cells % 0 % 02/27/20 05:19 Nucleated RBC % Not Reportable 02/27/20 05:19 Seg Neutrophils # 22.0 K/mm3 (1.8-7.7) H 02/26/20 04:37 Seg Neutrophils # Man 19.5 K/mm3 (1.8-7.7) H 02/27/20 05:19 Band Neutrophils # 0.0 K/mm3 02/27/20 05:19 Lymphocytes # (Manual) 3.9 K/mm3 (1.2-5.4) 02/27/20 05:19 Abs React Lymphs (Man) 0.0 K/mm3 02/27/20 05:19 Monocytes # (Manual) 2.3 K/mm3 (0.0-0.8) H 02/27/20 05:19 Eosinophils # (Manual) 0.0 K/mm3 (0.0-0.4) 02/27/20 05:19 Basophils # (Manual) 0.0 K/mm3 (0.0-0.1) 02/27/20 05:19 Metamyelocytes # 0.0 K/mm3 02/27/20 05:19 Myelocytes # 0.0 K/mm3 02/27/20 05:19 Promyelocytes # 0.0 K/mm3 02/27/20 05:19 Blast Cells # 0.0 K/mm3 02/27/20 05:19 WBC Morphology Not Reportable 02/27/20 05:19 Hypersegmented Neuts Not Reportable 02/27/20 05:19 Hyposegmented Neuts Not Reportable 02/27/20 05:19 Hypogranular Neuts Not Reportable 02/27/20 05:19 Smudge Cells Not Reportable 02/27/20 05:19 Toxic Granulation Not Reportable 02/27/20 05:19 Toxic Vacuolation Not Reportable 02/27/20 05:19 Dohle Bodies Not Reportable 02/27/20 05:19 Pelger-Huet Anomaly Not Reportable 02/27/20 05:19 Arlette Rods Not Reportable 02/27/20 05:19 Platelet Estimate Consistent w auto 02/27/20 05:19 Clumped Platelets Not Reportable 02/27/20 05:19 Plt Clumps, EDTA Not Reportable 02/27/20 05:19 Large Platelets Few 02/27/20 05:19 Giant Platelets Not Reportable 02/27/20 05:19 Platelet Satelliting Not Reportable 02/27/20 05:19 Plt Morphology Comment Not Reportable 02/27/20 05:19 RBC Morphology Not Reportable 02/27/20 05:19 Dimorphic RBCs Not Reportable 02/27/20 05:19 Polychromasia Not Reportable 02/27/20 05:19 Hypochromasia Not Reportable 02/27/20 05:19 Poikilocytosis Not Reportable 02/27/20 05:19 Anisocytosis 1+ 02/27/20 05:19 Microcytosis Not Reportable 02/27/20 05:19 Macrocytosis Not Reportable 02/27/20 05:19 Spherocytes Not Reportable 02/27/20 05:19 Pappenheimer Bodies Not Reportable 02/27/20 05:19 Sickle Cells Not Reportable 02/27/20 05:19 Target Cells Not Reportable 02/27/20 05:19 Tear Drop Cells Not Reportable 02/27/20 05:19 Ovalocytes Not Reportable 02/27/20 05:19 Helmet Cells Not Reportable 02/27/20 05:19 [place] Bodies Not Reportable 02/27/20 05:19 [place] Rings Not Reportable 02/27/20 05:19 [place] Cells Not Reportable 02/27/20 05:19 Bite Cells Not Reportable 02/27/20 05:19 Crenated Cell Not Reportable 02/27/20 05:19 Elliptocytes Not Reportable 02/27/20 05:19 Acanthocytes (Spur) Not Reportable 02/27/20 05:19 Rouleaux Not Reportable 02/27/20 05:19 Hemoglobin C Crystals Not Reportable 02/27/20 05:19 Schistocytes Not Reportable 02/27/20 05:19 Malaria parasites Not Reportable 02/27/20 05:19 [place] Bodies Not Reportable 02/27/20 05:19 Hem Pathologist Commnt No 02/27/20 05:19 D-Dimer 362.52 ng/mlDDU (0-234) H 02/21/20 10:17 ABG pH 7.354 pH Units (7.350-7.450) 02/25/20 03:30 ABG pCO2 40.9 mm Hg 02/25/20 03:30 ABG pO2 64.6 mm Hg (80.0-90.0) L 02/25/20 03:30 ABG HCO3 22.3 mmol/L (20.0-26.0) 02/25/20 03:30 ABG O2 Saturation 93.6 % (95.0-99.0) L 02/25/20 03:30 ABG O2 Content 15.1 (0.0-44) 02/25/20 03:30 ABG Base Excess -3.1 mmol/L (-2.0-3.0) L 02/25/20 03:30 ABG Hemoglobin 11.7 gm/dl (12.0-16.0) L 02/25/20 03:30 ABG Carboxyhemoglobin 1.5 % (0.0-5.0) 02/25/20 03:30 ABG Methemoglobin 0.5 % (0.0-1.5) 02/25/20 03:30 Oxyhemoglobin 91.6 % (95.0-99.0) L 02/25/20 03:30 FiO2 25 % 02/25/20 03:30 Sodium 141 mmol/L (137-145) 02/27/20 05:19 Potassium 3.3 mmol/L (3.6-5.0) L 02/27/20 05:19 Chloride 103.8 mmol/L (98-107) 02/27/20 05:19 Carbon Dioxide 29 mmol/L (22-30) 02/27/20 05:19 Anion Gap 12 mmol/L 02/27/20 05:19 BUN 12 mg/dL (7-17) 02/27/20 05:19 Creatinine 0.4 mg/dL (0.6-1.2) L 02/27/20 05:19 Estimated GFR > 60 ml/min 02/27/20 05:19 BUN/Creatinine Ratio 30 % 02/27/20 05:19 Glucose 111 mg/dL (65-100) H 02/27/20 05:19 Lactic Acid 1.80 mmol/L (0.7-2.0) 02/22/20 15:07 Calcium 8.7 mg/dL (8.4-10.2) 02/27/20 05:19 Magnesium 2.00 mg/dL (1.7-2.3) 02/24/20 04:50 Ferritin 160.6 ng/mL (10.0-200.0) 02/21/20 10:17 Total Bilirubin 1.10 mg/dL (0.1-1.2) 02/24/20 04:50 AST 36 units/L (5-40) 02/24/20 04:50 ALT 46 units/L (7-56) 02/24/20 04:50 Alkaline Phosphatase 69 units/L (35-129) 02/24/20 04:50 Lactate Dehydrogenase 324 units/L (91-180) H 02/21/20 10:17 Troponin T 0.044 ng/mL (0.00-0.029) H 02/21/20 10:17 C-Reactive Protein 0.40 mg/dL (0.00-1.30) 02/21/20 10:17 NT-Pro-B Natriuret Pep 1005 pg/mL (0-900) H 02/21/20 10:17 NT-Pro-B Natriuret Pep 1026 pg/mL (0-900) H 02/21/20 10:17 Total Protein 5.9 g/dL (6.3-8.2) L 02/24/20 04:50 Albumin 3.7 g/dL (3.9-5) L 02/24/20 04:50 Albumin/Globulin Ratio 1.7 % 02/24/20 04:50 Triglycerides 128 mg/dL (2-149) 02/25/20 05:06 Cholesterol 170 mg/dL (50-199) 02/21/20 10:17 LDL Cholesterol Direct 92 mg/dL (50-130) 02/21/20 10:17 HDL Cholesterol 75 mg/dL (40-59) H 02/21/20 10:17 Cholesterol/HDL Ratio 2.26 % 02/21/20 10:17 Procalcitonin < 0.05 ng/mL (<0.15) 02/21/20 10:17 Urine Opiates Screen Negative 02/21/20 19:20 Urine Methadone Screen Negative 02/21/20 19:20 Ur Barbiturates Screen Negative 11/29/20 19:20 Ur Phencyclidine Scrn Negative 02/21/20 19:20 Ur Amphetamines Screen Negative 02/21/20 19:20 U Benzodiazepines Scrn Negative 02/21/20 19:20 Urine Cocaine Screen Negative 02/21/20 19:20 U Marijuana (THC) Screen Positive 02/21/20 19:20 Drugs of Abuse Note Disclamer 02/21/20 19:20 Coronavirus (PCR) Negative (Negative) 02/21/20 10:24 - Diagnostic Impressions Diagnostic Impressions: Echocardiogram 02/21/20 16:13 Transthoracic Echocardiogram Indication: Shortness of breath BP: 109/75 HR: 100 Conclusions *The left ventricular size is moderate to severely dilated. *Global left ventricular systolic function is severely decreased. *The estimated ejection fraction is Less Than 15-20%. *There is mild mitral regurgitation. *There is trace tricuspid regurgitation. *There is evidence of mild pulmonary hypertension. *The right ventricular systolic pressure is calculated at 30 mmHg. *A pacemaker wire is visualized in the right heart chambers. Findings Left Ventricle: The left ventricular size is moderate to severely dilated. There is no left ventricular hypertrophy. Global left ventricular systolic function is severely decreased. The estimated ejection fraction is 15-20%. Left Atrium: The left atrial chamber size is normal. Right Ventricle: The right ventricle is mildly dilated. The right ventricular global systolic function is mildly reduced. A pacemaker wire is visualized in the right ventricle. Right Atrium: The right atrial cavity size is normal. A pacemaker wire is visualized in the right atrium. Aortic Valve: The aortic valve is trileaflet. The aortic valve leaflets are moderately thickened. There is no evidence of aortic regurgitation. There is no evidence of aortic stenosis. Mitral Valve: The mitral valve leaflets appear myxomatous. There is mild mitral regurgitation. There is no evidence of mitral stenosis. Tricuspid Valve: There is trace tricuspid regurgitation. The right ventricular systolic pressure is calculated at 30 mmHg. There is evidence of mild pulmonary hypertension. Pulmonic Valve: There is mild pulmonic regurgitation. Pericardium: There is no pericardial effusion. Aorta: There is no dilatation of the aortic root. Venous: The inferior vena cava is dilated. Measurements Chambers 2D Name Value Normal Range IVSd (2D) 0.8 cm (0.6 - 1.1) LVPWd (2D) 0.78 cm (0.6 - 1.1) LVIDd (2D) 5.1 cm (3.7 - 5.6) LVIDs (2D) 3.74 cm (2 - 3.8) LV FS (2D) 26.7 % - EF Teichholz (2D) 51.89 % - Ao root diameter (2D) 3.33 cm (2 - 3.7) Volumes/Mass Name Value Normal Range LA ESV SP 4CH (A/L) 34.31 ml - LA ESV SP 2CH (A/L) 13.16 ml - LA ESV BP (A/L) 36.23 ml - LA ESV BP (A/L) index 21.31 ml/m2 - LA ESV SP 4CH (MOD) 28.65 ml - LA ESV SP 2CH (MOD) 10.49 ml - LA ESV BP (MOD) 29.3 ml - LA ESV BP (MOD) index 17.24 ml/m2 - Aortic Valve Name Value Normal Range AV Vmax 1.05 m/sec - AV VTI 14.59 cm - AV peak gradient 4.38 mmHg - AV mean gradient 2.55 mmHg - LVOT diameter 2.14 cm - LVOT Vmax 0.92 m/sec - LVOT VTI 12.77 cm - LVOT peak gradient 3.36 mmHg - LVOT mean gradient 1.53 mmHg - SV LVOT 45.99 ml - REJI (continuity Vmax) 3.15 cm2 - REJI (continuity VTI) 3.15 cm2 - Ascending Ao 2.83 cm - Mitral Valve Name Value Normal Range MV PHT 38.65 msec - MR Vmax 3.89 m/sec - MVA (PHT) 5.69 cm2 - Tricuspid Valve Name Value Normal Range TR Vmax 2.21 m/sec - TR peak gradient 19 mmHg - RAP 8 mmHg - RVSP 30 mmHg - IVC diameter 2.45 cm (1.2 - 2.3) Pulmonic Valve/Qp:Qs Name Value Normal Range PV Vmax 0.68 m/sec - PV peak gradient 1.86 mmHg - PV acceleration time 110.37 msec - [place]/IV: Voiding Method Bedside Commode IV Catheter Type [Right INT / Saline Lock Antecubital] IV Catheter Type [Left Peripheral IV External Jugular] IV Catheter Type [Right Peripheral IV Forearm] IV Catheter Type [Right Hand] INT / Saline Lock Active Medications - Current Medications Current Medications: Generic Name Dose Route Start Last Admin Trade Name Freq PRN Reason Stop Dose Admin Acetaminophen 650 mg 02/21/20 16:10 02/27/20 21:13 Tylenol PO 650 mg Q6H PRN Administration Pain, Mild (1-3) Albuterol/Ipratropium 1 ampul 02/22/20 20:00 02/28/20 08:28 Duoneb *Not For Prn Use* IH 1 ampul TIDRT KATELYN Administration Lipase/Protease/Amylase 1 each 02/24/20 09:00 Pancreradha Sebastian 10,500 Unit FEEDTUBE PRN PRN For Clogged Feeding Tube Carvedilol 3.125 mg 02/24/20 10:00 02/27/20 21:18 Coreg PO Not Given BID KATELYN Famotidine 20 mg 02/26/20 10:00 02/27/20 21:14 Pepcid PO 20 mg BID KATELYN Administration Furosemide 20 mg 02/25/20 13:00 02/28/20 05:15 Lasix IV 20 mg DAILY@0600 KATELYN Administration Heparin Sodium (Porcine) 5,000 unit 02/21/20 22:00 02/27/20 21:15 Heparin SUB-Q 5,000 unit Q12HR KATELYN Administration Hydromorphone HCl 0.25 mg 02/21/20 16:10 02/27/20 23:48 Dilaudid IV 0.25 mg Q4H PRN Administration Pain, Moderate (4-6) Hydrophilic Ointment 1 applic 02/21/20 16:44 Vaseline Lip Therapy TP Q2HR PRN Dry Lips Lisinopril 5 mg 02/24/20 10:00 02/27/20 10:01 Zestril PO 5 mg QDAY KATELYN Administration Lorazepam 2 mg 02/21/20 16:44 Ativan IV Q10MIN PRN Agitation Multi-Ingred Cream/Lotion/Oil/Oint 1 applic 02/21/20 16:44 Artificial Tears Ophth Oint OU Q4HR PRN Dry Eye(s) Simple Syrup 15 ml 02/24/20 09:00 Simple Syrup FEEDTUBE PRN PRN Hypoglycemia Simple Syrup 30 ml 02/24/20 09:00 Simple Syrup FEEDTUBE PRN PRN Hypoglycemia Sodium Bicarbonate 325 mg 02/24/20 09:00 Sodium Bicarbonate FEEDTUBE PRN PRN For Clogged Feeding Tube Sodium Chloride 10 ml 02/21/20 22:00 02/27/20 21:23 Sodium Chloride Flush Syringe 10 Ml IV 10 ml BID KATELYN Administration Sodium Chloride 10 ml 02/21/20 16:10 Sodium Chloride Flush Syringe 10 Ml IV PRN PRN LINE FLUSH Spironolactone 25 mg 02/26/20 10:00 02/27/20 10:03 Aldactone PO 25 mg QDAY KATELYN Administration Nutrition/Malnutrition Assess - Dietary Evaluation Nutrition/Malnutrition Findings: Nutrition Notes Start: 02/22/20 11:38 Freq: Status: Active Protocol: Document 02/26/20 10:58 CW (Rec: 02/26/20 11:03 CW [email or web address]) Co-Sign 02/26/20 10:58 LM Nutrition Notes Initial or Follow up Brief Note Current Diagnosis COPD,Sepsis,Heart Failure, Respiratory Failure Other Pertinent Diagnosis COPD exacerbation, asthma, pneu Current Diet Promote 1.0 at 60ml/hr Labs/Tests K 3.5 Pertinent Medications Lasix Heparin Solu-medrol Height 5 ft 5 in Weight 63.5 kg Edson Body Weight (kg) 56.81 BMI 23.3 Weight Status Appropriate Subjective/Other Information Pt self extubated on 02/24. [employer]RUGATED SHEET MATERIAL SHEETER conducting swallow exam during visit. Nurse reports pt requested cory today. CORRUGATED SHEET MATERIAL SHEETER approved pt for regular diet. Nutrition Intervention Change Diet Order: Cardiac Goal #1 Meet 75% of protein and energy needs Anticipated Discharge Needs: Unable to identify at this time Follow-Up By: 02/29/20 Additional Comments FU for intakes/tolerance
[2020-02-28] MEDS: HEPARIN 5,000 UNIT/1 ML VIAL SUB-Q SCH ×2 (09:28→21:50)
[2020-02-28] MEDS: LISINOPRIL 5 MG TAB PO SCH (09:28)
[2020-02-28] MEDS: SPIRONOLACTONE 25 MG TAB PO SCH (09:28)
[2020-02-28] MEDS: FAMOTIDINE 20 MG TAB PO SCH ×2 (09:28→21:50)
[2020-02-28] MEDS: carvediloL 3.125 MG TAB PO SCH ×2 (09:29→21:50)
[2020-02-28] MEDS ORDERED: POTASSIUM CHLORIDE ER 20 MEQ TAB PO ONE (11:09)
--- NOTE | 2020-02-28 12:53 | Progress Note ---
Assessment and Plan - Patient Problems (1) CHF (congestive heart failure) Current Visit: Yes Status: Acute (2) Cardiomyopathy Current Visit: Yes Status: Acute Qualifiers: Cardiomyopathy type: unspecified Qualified Code(s): I42.9 - Cardiomyopathy, unspecified Subjective Date of service: 02/28/20 Principal diagnosis: Ac hypoxemic & hypercapnic resp failure; Ac. encephalopathy; CAP; CMOP;COPD Interval history: breathing ok,,ambulating Objective Vital Signs Temp Pulse Pulse Resp Resp BP BP 02/28/20 11:39 98.1 F 61 15 116/53 02/28/20 09:29 60 116/53 02/28/20 09:28 60 116/53 02/28/20 08:39 97.2 F L 72 18 97/46 02/28/20 08:34 02/28/20 08:25 65 20 02/28/20 06:20 98.0 F 48 L 18 123/67 02/28/20 00:44 98.0 F 50 L 18 108/52 02/27/20 22:00 92 H 02/27/20 21:46 02/27/20 21:41 79 18 02/27/20 21:18 41 L 108/48 02/27/20 19:35 98.0 F 41 L 20 108/48 02/27/20 17:00 79 02/27/20 16:45 80 18 02/27/20 15:22 40 L 02/27/20 15:21 98.9 F 20 108/46 Pulse Ox 02/28/20 11:39 93 02/28/20 09:29 02/28/20 09:28 02/28/20 08:39 93 02/28/20 08:34 96 02/28/20 08:25 02/28/20 06:20 92 02/28/20 00:44 93 02/27/20 22:00 02/27/20 21:46 96 02/27/20 21:41 02/27/20 21:18 02/27/20 19:35 91 02/27/20 17:00 02/27/20 16:45 02/27/20 15:22 90 02/27/20 15:21 - Physical Examination General: No Apparent Distress HEENT: Positive: PERRL Neck: Positive: neck supple, trachea midline Cardiac: Positive: Reg Rate and Rhythm Lungs: Positive: clear to auscultation Neuro: Positive: Grossly Intact Abdomen: Positive: Unremarkable Extremities: Absent: edema (no) - Labs and Meds Comprehensive Metabolic Panel 02/28/20 Range/Units 10:05 Potassium 3.3 L (3.6-5.0) mmol/L - Allied health notes Allied health notes reviewed: nursing
--- NOTE | 2020-02-28 14:48 | Progress Note ---
Assessment and Plan Acute hypoxemic-hypercapnic respiratory failure on MVS Acute COPD exacerbation Toxic metabolic encephalopathy CAP Cardiomyopathy s/p AICD h/o Asthma Tobacco use/Nicotine dependence Lactic acidosis - discharge planning ok pulmonary-rai - doing better overall, continue care as below - continue systemic steroids with slow taper (prednisone 20 mg qd) - s/p empiric Levaquin X 5 days for AE-COPD - Monitor hemodynamics closely; judicious use of IVF re: HFrEF (ECHO EF of 15- 20%) [stopped IVF] - continue to wean supplemental oxygen for target O2 sat's > 90 % acutely - aspiration precautions - continue lung protective strategies - continue bronchodilators with pulmonary hygiene per RT - wean per pulmonary driven protocols otherwise - continue accuchecks with glycemic control per SSI for a target blood glucose of < 180 mg/dL; avoid hypoglycemia - avoid nephrotoxins, renally dose all medications - prn analgesia per pain score - Maintenance of sleep-wake cycle, avoid delirium - G.I. & VTE prophylaxis - PT/OT/ROM exercises - mobility protocols for pressure ulcer prophylaxis - Monitor hemodynamics closely - Nicotine withdrawal precautions, Smoking cessation counselling done at bedside - continue other care per attending / other consultants - discharge planning ongoing concurrently .... Re-evaluate in am & prn Subjective Date of service: 02/28/20 Principal diagnosis: Ac hypoxemic & hypercapnic resp failure; Ac. encephalopathy; CAP; CMOP;COPD Interval history: Patient is seen today for: Acute hypoxemic & hypercapnic respiratory failure; Toxic metabolic encephalopathy; CAP; CMOP s/p AICD; h/o Asthma; Tobacco use/Nicotine dependence Seen and examined at bedside; 24hour events reviewed; nursing and respiratory care staff consulted; no adverse overnight events reported to me; resting peacefully in bed; looks and feels so much better; no more wheezing; cough better; denies chest pain; ,looking forwards to going home. Objective Vital Signs - 12hr 02/28/20 02/28/20 02/28/20 06:20 08:25 08:34 Temperature 98.0 F Pulse Rate 48 L Pulse Rate [ Apical] Pulse Rate [ From Monitor] Pulse Rate [ 65 Throughout] Respiratory 18 Rate Respiratory 20 Rate [ Throughout] Blood Pressure 123/67 Blood Pressure [Right] O2 Sat by Pulse 92 96 Oximetry 02/28/20 02/28/20 02/28/20 08:39 09:28 09:29 Temperature 97.2 F L Pulse Rate 72 60 60 Pulse Rate [ Apical] Pulse Rate [ From Monitor] Pulse Rate [ Throughout] Respiratory 18 Rate Respiratory Rate [ Throughout] Blood Pressure 97/46 116/53 116/53 Blood Pressure [Right] O2 Sat by Pulse 93 Oximetry 02/28/20 02/28/20 10:00 11:39 Temperature 98.1 F Pulse Rate 93 H 61 Pulse Rate [ 93 H Apical] Pulse Rate [ 93 H From Monitor] Pulse Rate [ Throughout] Respiratory 15 Rate Respiratory Rate [ Throughout] Blood Pressure Blood Pressure 116/53 [Right] O2 Sat by Pulse 96 93 Oximetry Constitutional: no acute distress, other (middle aged female with normal respiratory effort at rest) Eyes: non-icteric ENT: oropharynx moist Neck: supple, no lymphadenopathy, no JVD Effort: normal Ascultation: Bilateral: clear, other (prolonged expiratory phase) Percussion: Bilateral: not dull Cardiovascular: regular rate and rhythm, other (S1,S2) Gastrointestinal: normoactive bowel sounds, soft, non-tender, non-distended Integumentary: normal Extremities: no cyanosis, no edema, pulses normal, no ischemia or petechiae Neurologic: non-focal exam, pupils equal and round, CN II-XII normal, motor strength normal and (weak) Psychiatric: mood appropriate, affect normal CBC and BMP: 02/27/20 05:19 02/28/20 10:05 ABG, PT/INR, D-dimer: ABG ABG pH 7.354 pH Units (7.350-7.450) 02/25/20 03:30 ABG pCO2 40.9 mm Hg 02/25/20 03:30 ABG pO2 64.6 mm Hg (80.0-90.0) L 02/25/20 03:30 ABG O2 Saturation 93.6 % (95.0-99.0) L 02/25/20 03:30 PT/INR, D-dimer D-Dimer 362.52 ng/mlDDU (0-234) H 02/21/20 10:17 Abnormal lab findings: Abnormal Labs 02/21/20 02/21/20 02/21/20 10:17 10:17 10:17 WBC 21.2 H Lymph % (Auto) Emery % (Auto) Lymph # (Auto) Emery # (Auto) Seg Neutrophils % Seg Neuts % (Manual) 94.0 H Lymphocytes % (Manual) 4.0 L Monocytes % (Manual) Seg Neutrophils # Seg Neutrophils # Man 19.9 H Lymphocytes # (Manual) 0.8 L Monocytes # (Manual) D-Dimer 362.52 H ABG pH ABG pO2 ABG O2 Saturation ABG Base Excess ABG Hemoglobin Oxyhemoglobin Potassium Chloride Carbon Dioxide Creatinine 0.4 L Glucose 168 H Lactic Acid Calcium Lactate Dehydrogenase 324 H Troponin T NT-Pro-B Natriuret Pep 1005 H Total Protein Albumin HDL Cholesterol 02/21/20 02/21/20 02/21/20 10:17 10:17 11:56 WBC Lymph % (Auto) Emery % (Auto) Lymph # (Auto) Emery # (Auto) Seg Neutrophils % Seg Neuts % (Manual) Lymphocytes % (Manual) Monocytes % (Manual) Seg Neutrophils # Seg Neutrophils # Man Lymphocytes # (Manual) Monocytes # (Manual) D-Dimer ABG pH ABG pO2 ABG O2 Saturation ABG Base Excess ABG Hemoglobin Oxyhemoglobin Potassium Chloride Carbon Dioxide Creatinine Glucose Lactic Acid 2.50 H* 2.80 H* Calcium Lactate Dehydrogenase Troponin T 0.044 H NT-Pro-B Natriuret Pep 1026 H Total Protein Albumin HDL Cholesterol 75 H 02/21/20 02/21/20 02/21/20 13:31 14:18 15:03 WBC Lymph % (Auto) Emery % (Auto) Lymph # (Auto) Emery # (Auto) Seg Neutrophils % Seg Neuts % (Manual) Lymphocytes % (Manual) Monocytes % (Manual) Seg Neutrophils # Seg Neutrophils # Man Lymphocytes # (Manual) Monocytes # (Manual) D-Dimer ABG pH 7.183 L* ABG pO2 73.8 L ABG O2 Saturation 93.2 L ABG Base Excess -3.8 L ABG Hemoglobin Oxyhemoglobin 90.6 L Potassium Chloride Carbon Dioxide Creatinine Glucose Lactic Acid 2.10 H* 2.50 H* Calcium Lactate Dehydrogenase Troponin T NT-Pro-B Natriuret Pep Total Protein Albumin HDL Cholesterol 02/21/20 02/21/20 02/22/20 16:10 18:33 02:25 WBC Lymph % (Auto) Emery % (Auto) Lymph # (Auto) Emery # (Auto) Seg Neutrophils % Seg Neuts % (Manual) Lymphocytes % (Manual) Monocytes % (Manual) Seg Neutrophils # Seg Neutrophils # Man Lymphocytes # (Manual) Monocytes # (Manual) D-Dimer ABG pH 7.204 L ABG pO2 295.0 H 187.8 H ABG O2 Saturation 99.4 H 99.1 H ABG Base Excess -5.5 L -3.8 L ABG Hemoglobin Oxyhemoglobin Potassium Chloride Carbon Dioxide Creatinine Glucose Lactic Acid 2.10 H* Calcium Lactate Dehydrogenase Troponin T NT-Pro-B Natriuret Pep Total Protein Albumin HDL Cholesterol 02/22/20 02/22/20 02/22/20 02:57 02:57 02:57 WBC 21.9 H Lymph % (Auto) 5.2 L Emery % (Auto) 8.1 H Lymph # (Auto) 1.1 L Emery # (Auto) 1.8 H Seg Neutrophils % 86.5 H Seg Neuts % (Manual) Lymphocytes % (Manual) Monocytes % (Manual) Seg Neutrophils # 19.0 H Seg Neutrophils # Man Lymphocytes # (Manual) Monocytes # (Manual) D-Dimer ABG pH ABG pO2 ABG O2 Saturation ABG Base Excess ABG Hemoglobin Oxyhemoglobin Potassium 5.9 H D Chloride 109.4 H Carbon Dioxide 17 L D Creatinine 0.5 L Glucose 106 H Lactic Acid 2.40 H* Calcium 8.2 L Lactate Dehydrogenase Troponin T NT-Pro-B Natriuret Pep Total Protein Albumin HDL Cholesterol 02/23/20 02/24/20 02/24/20 06:15 04:36 04:50 WBC 18.7 H Lymph % (Auto) 7.1 L Emery % (Auto) Lymph # (Auto) Emery # (Auto) 1.3 H Seg Neutrophils % 85.6 H Seg Neuts % (Manual) Lymphocytes % (Manual) Monocytes % (Manual) Seg Neutrophils # 16.0 H Seg Neutrophils # Man Lymphocytes # (Manual) Monocytes # (Manual) D-Dimer ABG pH 7.456 H ABG pO2 46.0 L ABG O2 Saturation 82.9 L ABG Base Excess -2.1 L -2.8 L ABG Hemoglobin Oxyhemoglobin 81.2 L Potassium Chloride Carbon Dioxide Creatinine Glucose Lactic Acid Calcium Lactate Dehydrogenase Troponin T NT-Pro-B Natriuret Pep Total Protein Albumin HDL Cholesterol 02/24/20 02/24/20 02/25/20 04:50 05:08 03:30 WBC Lymph % (Auto) Emery % (Auto) Lymph # (Auto) Emery # (Auto) Seg Neutrophils % Seg Neuts % (Manual) Lymphocytes % (Manual) Monocytes % (Manual) Seg Neutrophils # Seg Neutrophils # Man Lymphocytes # (Manual) Monocytes # (Manual) D-Dimer ABG pH ABG pO2 58.9 L 64.6 L ABG O2 Saturation 90.8 L 93.6 L ABG Base Excess -3.1 L -3.1 L ABG Hemoglobin 11.7 L Oxyhemoglobin 89.0 L 91.6 L Potassium Chloride 107.5 H Carbon Dioxide 21 L Creatinine 0.4 L Glucose Lactic Acid Calcium Lactate Dehydrogenase Troponin T NT-Pro-B Natriuret Pep Total Protein 5.9 L Albumin 3.7 L HDL Cholesterol 02/26/20 02/26/20 02/27/20 04:37 04:37 05:19 WBC 24.6 H 25.7 H Lymph % (Auto) 5.5 L Emery % (Auto) Lymph # (Auto) Emery # (Auto) 1.2 H Seg Neutrophils % 89.5 H Seg Neuts % (Manual) 76.0 H Lymphocytes % (Manual) Monocytes % (Manual) 9.0 H Seg Neutrophils # 22.0 H Seg Neutrophils # Man 19.5 H Lymphocytes # (Manual) Monocytes # (Manual) 2.3 H D-Dimer ABG pH ABG pO2 ABG O2 Saturation ABG Base Excess ABG Hemoglobin Oxyhemoglobin Potassium 3.5 L D Chloride Carbon Dioxide Creatinine 0.5 L Glucose 155 H Lactic Acid Calcium Lactate Dehydrogenase Troponin T NT-Pro-B Natriuret Pep Total Protein Albumin HDL Cholesterol 02/27/20 02/28/20 05:19 10:05 WBC Lymph % (Auto) Emery % (Auto) Lymph # (Auto) Emery # (Auto) Seg Neutrophils % Seg Neuts % (Manual) Lymphocytes % (Manual) Monocytes % (Manual) Seg Neutrophils # Seg Neutrophils # Man Lymphocytes # (Manual) Monocytes # (Manual) D-Dimer ABG pH ABG pO2 ABG O2 Saturation ABG Base Excess ABG Hemoglobin Oxyhemoglobin Potassium 3.3 L 3.3 L Chloride Carbon Dioxide Creatinine 0.4 L Glucose 111 H Lactic Acid Calcium Lactate Dehydrogenase Troponin T NT-Pro-B Natriuret Pep Total Protein Albumin HDL Cholesterol Allied health notes reviewed: nursing
[2020-02-28] MEDS: predniSONE 20 MG TAB PO SCH (15:10)
[2020-02-28] MEDS: HYDROmorphone 1 MG/1 ML INJ IV PRN (16:24)
[2020-02-28] MEDS ORDERED: BENZOCAINE/MENTHOL LOZENGE MM PRN (17:32)
[2020-02-28] MEDS: oxyCODONE /ACETAMINOPHEN 5-325MG TAB PO PRN (21:50)
[2020-02-29] MEDS: FUROSEMIDE 20 MG/2 ML INJ IV SCH (05:03)
--- NOTE | 2020-02-29 08:17 | XRay Report ---
CHEST - 1 VIEW 0735 hours INDICATION: follow up respiratory failure COMPARISON: Yesterday FINDINGS: Support devices: Stable positioning of the pacemaker device. Heart: Stable cardiomediastinal silhouette. Lungs/pleura: The right lung remains clear. Infiltrate or atelectasis in the left lower lobe is unch anged. The left upper lobe remains clear. No significant pleural fluid or pneumothorax. Additional findings: None. IMPRESSION: Unchanged exam. Signer Name: Edwin Acuña Jr, MD Signed: 02/29/2020 8:12 AM Workstation Name: [id number]
[2020-02-29] MEDS: IPRATROPIUM/ALBUTEROL SULFATE 3 ML AMPUL.NEB IH SCH ×3 (09:12→20:26)
[2020-02-29] MEDS: oxyCODONE /ACETAMINOPHEN 5-325MG TAB PO PRN ×2 (09:22→18:00)
[2020-02-29] MEDS: carvediloL 3.125 MG TAB PO SCH ×2 (09:23→21:54)
[2020-02-29] MEDS: SPIRONOLACTONE 25 MG TAB PO SCH (09:23)
[2020-02-29] MEDS: predniSONE 20 MG TAB PO SCH (09:23)
[2020-02-29] MEDS: HEPARIN 5,000 UNIT/1 ML VIAL SUB-Q SCH ×2 (09:23→21:53)
[2020-02-29] MEDS: LISINOPRIL 5 MG TAB PO SCH (09:23)
[2020-02-29] MEDS: FAMOTIDINE 20 MG TAB PO SCH ×2 (09:23→21:53)
--- NOTE | 2020-02-29 10:01 | Progress Note ---
<SPENCER JEROME - Last Filed: 02/29/20 10:00> Assessment and Plan Non-ischemic cardiomyopathy normal [facility] in 2008 while living in [place] per pt presence of AICD Respiratory failure Asthma exacerbation Tobacco abuse An echocardiogram showed severe dilated cardiomyopathy with an ejection fraction 15-20%. There was mild dilated RV with mild pulmonary hypertension, RVSP. Strongly encourage smoking cessation. Continue guideline directed medical therapy for dilated cardiomyopathy. Otherwise, conservative cardiac management. 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 Subjective Date of service: 02/29/20 Principal diagnosis: Ac hypoxemic & hypercapnic resp failure; Ac. encephalopathy; CAP; CMOP;COPD Interval history: Patient reports she is feeling better. Denies shortness of breath, denies chest pain and denies palpitations. Objective Vital Signs Temp Pulse Pulse Pulse Resp Resp BP 02/29/20 09:22 20 02/29/20 09:12 88 16 02/29/20 08:21 98.9 F 89 18 116/74 02/29/20 03:41 98.5 F 82 18 120/71 02/28/20 23:50 99.0 F 87 18 117/84 02/28/20 22:00 76 18 02/28/20 20:19 02/28/20 20:17 74 20 02/28/20 20:13 98.3 F 71 18 123/54 02/28/20 16:54 14 02/28/20 16:25 98.2 F 64 18 103/62 02/28/20 16:24 15 02/28/20 14:50 80 18 02/28/20 11:39 98.1 F 61 15 BP Pulse Ox 02/29/20 09:22 02/29/20 09:12 02/29/20 08:21 93 02/29/20 03:41 95 02/28/20 23:50 95 02/28/20 22:00 96 02/28/20 20:19 98 02/28/20 20:17 02/28/20 20:13 96 02/28/20 16:54 02/28/20 16:25 93 02/28/20 16:24 02/28/20 14:50 02/28/20 11:39 116/53 93 - Physical Examination General: No Apparent Distress HEENT: Positive: PERRL Neck: Positive: neck supple, trachea midline Cardiac: Positive: Reg Rate and Rhythm (with occasional PVCs) Lungs: Positive: Decreased Breath Sounds Neuro: Positive: Grossly Intact Abdomen: Positive: Unremarkable Extremities: Absent: edema - Labs and Meds Comprehensive Metabolic Panel 02/28/20 02/29/20 Range/Units 10:05 04:41 Potassium 3.3 L 3.9 (3.6-5.0) mmol/L - Allied health notes Allied health notes reviewed: nursing <JUSTIN HAYES - Last Filed: 03/01/20 07:52> Assessment and Plan - Patient Problems (1) CHF (congestive heart failure) Current Visit: Yes Status: Acute (2) Cardiomyopathy Current Visit: Yes Status: Acute Qualifiers: Cardiomyopathy type: unspecified Qualified Code(s): I42.9 - Cardiomyopathy, unspecified Subjective Interval history: I SAW THIS PT & AGREE WITH THE Dx & Tx PLAN. Objective Vital Signs Temp Pulse Pulse Resp Resp BP BP 03/01/20 04:20 97.9 F 65 16 105/64 02/29/20 23:44 98.2 F 68 14 92/49 02/29/20 22:00 02/29/20 20:28 80 20 02/29/20 19:53 98.3 F 92 H 14 107/66 02/29/20 18:00 20 02/29/20 17:32 98.6 F 76 18 102/53 02/29/20 14:53 90 16 02/29/20 12:06 98.7 F 64 18 103/70 02/29/20 10:00 02/29/20 09:22 20 02/29/20 09:12 88 16 02/29/20 08:21 98.9 F 89 18 116/74 Pulse Ox 03/01/20 04:20 96 02/29/20 23:44 96 02/29/20 22:00 97 02/29/20 20:28 02/29/20 19:53 96 02/29/20 18:00 02/29/20 17:32 96 02/29/20 14:53 02/29/20 12:06 02/29/20 10:00 97 02/29/20 09:22 02/29/20 09:12 02/29/20 08:21 93 - Labs and Meds CBC 02/29/20 Range/Units 09:44 WBC 26.0 H (4.5-11.0) K/mm3 RBC 4.41 (3.65-5.03) M/mm3 Hgb 13.5 (10.1-14.3) gm/dl Hct 41.9 (30.3-42.9) % Plt Count 374 (140-440) K/mm3 Lymph # (Auto) Door Closer
[2020-02-29 10:32] LABS: Hematocrit 41.9 % (30.3-42.9); Hemoglobin 13.5 gm/dl (10.1-14.3); Mean Corpuscular HGB Conc 32 % (30-34); Mean Corpuscular Volume 95 fl (79-97); Platelet Count 374 K/mm3 (140-440); Red Blood Count 4.41 M/mm3 (3.65-5.03); Red Cell Distribution Width 13.8 % (13.2-15.2)
--- NOTE | 2020-02-29 12:04 | Progress Note ---
Assessment and Plan Assessment and plan: --COVID-19 test negative; --Sore throat; due to self extubation Current Visit: Yes Status: Acute Plan to address problem: Cepacol lozenges Lidocaine throat spray --Sepsis; secondary to right pneumonia/POA Current Visit: Yes Status: Acute Plan to address problem: Tachycardia, leukocytosis, infiltrate on chest x-ray and CT, Patient completed 5 days of Levaquin 02/28/2020 chest x-ray mild left retrocardiac atelectasis --Persistent leukocytosis; Current Visit: Yes Status: Acute Plan to address problem: 02/28/2020 chest x-ray mild left retrocardiac atelectasis Follow cultures --Persistent infiltrate on chest x-ray/persistent leukocytosis Current Visit: Yes Status: Acute Plan to address problem: Completed 5 days of Levaquin Patient has persistent infiltrate on multiple chest x-rays along with worsening leukocytosis Start cefepime, pulmonary following ,ID consult if needed -- Ac. hypoxemic resp failure/self extubated 02/25/2020 Current Visit: Yes Status: Acute Plan to address problem: Continue oxygen titrate O2 sats to more than 90% Ambulate as tolerated, Pulmonary following Oxygen evaluation --Acute COPD exacerbation Current Visit: Yes Status: Acute Plan to address problem: IV steroid therapy, nebulizers IV antibiotics supportive care, --Hypokalemia; Current Visit: Yes Status: Acute Plan to address problem: Resolved, closely monitor electrolytes --Acute on chronic congestive heart failure; EF 15 to 20% Current Visit: Yes Status: Acute Plan to address problem: Diuretics, input output monitoring, beta-blockers CLOTILDE inhibitors, low-sodium diet, fluid restriction Cardiology consult --Dilated cardiomyopathy EF 15 to 20% Current Visit: Yes Status: Acute Plan to address problem: Diuretics, input output monitoring, beta-blockers CLOTILDE inhibitors, low-sodium diet, fluid restriction Possible ischemia work-up if not done before --ICD in place; stable --Ongoing tobacco use; Current Visit: Yes Status: Acute Plan to address problem: Smoking cessation, nicotine patch as needed We will counselor nurses' association the patient once patient is off ventilator --DVT prophylaxis Current Visit: Yes Status: Acute Plan to address problem: SCD , anticoagulation Closely monitor the patient and adjust the management as needed Plan of care reviewed with the patient and her nurse We will check physical therapy occupational therapy DC planning when medically stable 02/27/2020; patient feels slightly better complains of generalized weakness, awaiting PT evaluation Possible discharge in 1 to 2 days if stable, vegan diet ordered per patient's request 02/28/2020; patient feels slightly better, ambulate as tolerated, possible discharge tomorrow if stable 02/29/2020; persistent leukocytosis, persistent infiltrate on chest x-ray, patient has sore throat Probably secondary to self extubation, Cepacol lozenges/throat spray and pain medications Brief history: 49-year old female patient was admitted through emergency room with acute exacerbation of bronchial asthma and acute respiratory failure requiring intubation on ventilatory support .patient was self extubated on 02/25/2020 , noted to have leukocytosis and pneumonia , completed 5 days of IV Levaquin with significant improvement .however patient continues to have persistent leukocytosis , and persistent infiltrate on chest x-ray .patient started on cefepime Rpt Cultures sent, patient also has severe cardiomyopathy with ejection fraction of 15 to 20%, cardiology following and patient already has ICD in place. Disposition; follow clinically and DC in 1 to 2 days if stable, evaluate for home oxygen at discharge History Interval history: I have seen and examined at the bedside this morning Patient's chart and medications reviewed Patient continues to have some throat irritation[secondary to forceful self extubation] Pain medications, Cepacol throat lozenges, supportive care Vital signs noted, anxious to go home Hospitalist Physical - Constitutional Vitals: Temp Pulse Resp BP Pulse Ox 98.9 F 88 20 116/74 93 02/29/20 08:21 02/29/20 09:12 02/29/20 09:22 02/29/20 08:21 02/29/20 08:21 General appearance: Present: mild distress, well-nourished, other (On nasal cannula oxygen) - EENT Eyes: Present: PERRL, EOM intact - Neck Neck: Present: supple, normal ROM - Respiratory Respiratory effort: normal Respiratory: bilateral: diminished, negative: rales, rhonchi, wheezing - Cardiovascular Rhythm: regular Heart Sounds: Present: S1 & S2 - Extremities Extremities: no ischemia, No edema - Abdominal General gastrointestinal: soft, non-tender, non-distended, normal bowel sounds - Integumentary Integumentary: Present: clear, warm - Psychiatric Psychiatric: appropriate mood/affect, cooperative - Neurologic Neurologic: moves all extremities HEART Score - HEART Score Troponin: Troponin T 0.044 ng/mL (0.00-0.029) H 02/21/20 10:17 Results - Labs CBC & Chem 7: 02/29/20 09:44 02/29/20 04:41 Labs: Laboratory Last Values WBC 26.0 K/mm3 (4.5-11.0) H 02/29/20 09:44 RBC 4.41 M/mm3 (3.65-5.03) 02/29/20 09:44 Hgb 13.5 gm/dl (10.1-14.3) 02/29/20 09:44 Hct 41.9 % (30.3-42.9) 02/29/20 09:44 MCV 95 fl (79-97) 02/29/20 09:44 MCH 31 pg (28-32) 02/29/20 09:44 MCHC 32 % (30-34) 02/29/20 09:44 RDW 13.8 % (13.2-15.2) 02/29/20 09:44 Plt Count 374 K/mm3 (140-440) 02/29/20 09:44 Lymph % (Auto) 5.5 % (13.4-35.0) L 02/26/20 04:37 [place] % (Auto) 4.9 % (0.0-7.3) 02/26/20 04:37 Eos % (Auto) 0.0 % (0.0-4.3) 02/26/20 04:37 Baso % (Auto) 0.1 % (0.0-1.8) 02/26/20 04:37 Lymph # (Auto) Door Serviceman 02/29/20 09:44 [place] # (Auto) 1.2 K/mm3 (0.0-0.8) H 02/26/20 04:37 Eos # (Auto) 0.0 K/mm3 (0.0-0.4) 02/26/20 04:37 Baso # (Auto) 0.1 K/mm3 (0.0-0.1) 02/26/20 04:37 Add Manual Diff Complete 02/27/20 05:19 Total Counted 100 02/27/20 05:19 Seg Neutrophils % 89.5 % (40.0-70.0) H 02/26/20 04:37 Seg Neuts % (Manual) 76.0 % (40.0-70.0) H 02/27/20 05:19 Band Neutrophils % 0 % 02/27/20 05:19 Lymphocytes % (Manual) 15.0 % (13.4-35.0) 02/27/20 05:19 Reactive Lymphs % (Man) 0 % 02/27/20 05:19 Monocytes % (Manual) 9.0 % (0.0-7.3) H 02/27/20 05:19 Eosinophils % (Manual) 0 % (0.0-4.3) 02/27/20 05:19 Basophils % (Manual) 0 % (0.0-1.8) 02/27/20 05:19 Metamyelocytes % 0 % 02/27/20 05:19 Myelocytes % 0 % 02/27/20 05:19 Promyelocytes % 0 % 02/27/20 05:19 Blast Cells % 0 % 02/27/20 05:19 Nucleated RBC % Not Reportable 02/27/20 05:19 Seg Neutrophils # 22.0 K/mm3 (1.8-7.7) H 02/26/20 04:37 Seg Neutrophils # Man 19.5 K/mm3 (1.8-7.7) H 02/27/20 05:19 Band Neutrophils # 0.0 K/mm3 02/27/20 05:19 Lymphocytes # (Manual) 3.9 K/mm3 (1.2-5.4) 02/27/20 05:19 Abs React Lymphs (Man) 0.0 K/mm3 02/27/20 05:19 Monocytes # (Manual) 2.3 K/mm3 (0.0-0.8) H 02/27/20 05:19 Eosinophils # (Manual) 0.0 K/mm3 (0.0-0.4) 02/27/20 05:19 Basophils # (Manual) 0.0 K/mm3 (0.0-0.1) 02/27/20 05:19 Metamyelocytes # 0.0 K/mm3 02/27/20 05:19 Myelocytes # 0.0 K/mm3 02/27/20 05:19 Promyelocytes # 0.0 K/mm3 02/27/20 05:19 Blast Cells # 0.0 K/mm3 02/27/20 05:19 WBC Morphology Not Reportable 02/27/20 05:19 Hypersegmented Neuts Not Reportable 02/27/20 05:19 Hyposegmented Neuts Not Reportable 02/27/20 05:19 Hypogranular Neuts Not Reportable 02/27/20 05:19 Smudge Cells Not Reportable 02/27/20 05:19 Toxic Granulation Not Reportable 02/27/20 05:19 Toxic Vacuolation Not Reportable 02/27/20 05:19 Dohle Bodies Not Reportable 02/27/20 05:19 Pelger-Huet Anomaly Not Reportable 02/27/20 05:19 Arlette Rods Not Reportable 02/27/20 05:19 Platelet Estimate Consistent w auto 02/27/20 05:19 Clumped Platelets Not Reportable 02/27/20 05:19 Plt Clumps, EDTA Not Reportable 02/27/20 05:19 Large Platelets Few 02/27/20 05:19 Giant Platelets Not Reportable 02/27/20 05:19 Platelet Satelliting Not Reportable 02/27/20 05:19 Plt Morphology Comment Not Reportable 02/27/20 05:19 RBC Morphology Not Reportable 02/27/20 05:19 Dimorphic RBCs Not Reportable 02/27/20 05:19 Polychromasia Not Reportable 02/27/20 05:19 Hypochromasia Not Reportable 02/27/20 05:19 Poikilocytosis Not Reportable 02/27/20 05:19 Anisocytosis 1+ 02/27/20 05:19 Microcytosis Not Reportable 02/27/20 05:19 Macrocytosis Not Reportable 02/27/20 05:19 Spherocytes Not Reportable 02/27/20 05:19 Pappenheimer Bodies Not Reportable 02/27/20 05:19 Sickle Cells Not Reportable 02/27/20 05:19 Target Cells Not Reportable 02/27/20 05:19 Tear Drop Cells Not Reportable 02/27/20 05:19 Ovalocytes Not Reportable 02/27/20 05:19 Helmet Cells Not Reportable 02/27/20 05:19 [place] Bodies Not Reportable 02/27/20 05:19 [place] Rings Not Reportable 02/27/20 05:19 Aide Cells Not Reportable 02/27/20 05:19 Bite Cells Not Reportable 02/27/20 05:19 Crenated Cell Not Reportable 02/27/20 05:19 Elliptocytes Not Reportable 02/27/20 05:19 Acanthocytes (Spur) Not Reportable 02/27/20 05:19 Rouleaux Not Reportable 02/27/20 05:19 Hemoglobin C Crystals Not Reportable 02/27/20 05:19 Schistocytes Not Reportable 02/27/20 05:19 Malaria parasites Not Reportable 02/27/20 05:19 [place] Bodies Not Reportable 02/27/20 05:19 Hem Pathologist Commnt No 02/27/20 05:19 D-Dimer 362.52 ng/mlDDU (0-234) H 02/21/20 10:17 ABG pH 7.354 pH Units (7.350-7.450) 02/25/20 03:30 ABG pCO2 40.9 mm Hg 02/25/20 03:30 ABG pO2 64.6 mm Hg (80.0-90.0) L 02/25/20 03:30 ABG HCO3 22.3 mmol/L (20.0-26.0) 02/25/20 03:30 ABG O2 Saturation 93.6 % (95.0-99.0) L 02/25/20 03:30 ABG O2 Content 15.1 (0.0-44) 02/25/20 03:30 ABG Base Excess -3.1 mmol/L (-2.0-3.0) L 02/25/20 03:30 ABG Hemoglobin 11.7 gm/dl (12.0-16.0) L 02/25/20 03:30 ABG Carboxyhemoglobin 1.5 % (0.0-5.0) 02/25/20 03:30 ABG Methemoglobin 0.5 % (0.0-1.5) 02/25/20 03:30 Oxyhemoglobin 91.6 % (95.0-99.0) L 02/25/20 03:30 FiO2 25 % 02/25/20 03:30 Sodium 141 mmol/L (137-145) 02/27/20 05:19 Potassium 3.9 mmol/L (3.6-5.0) 02/29/20 04:41 Chloride 103.8 mmol/L (98-107) 02/27/20 05:19 Carbon Dioxide 29 mmol/L (22-30) 02/27/20 05:19 Anion Gap 12 mmol/L 02/27/20 05:19 BUN 12 mg/dL (7-17) 02/27/20 05:19 Creatinine 0.4 mg/dL (0.6-1.2) L 02/27/20 05:19 Estimated GFR > 60 ml/min 02/27/20 05:19 BUN/Creatinine Ratio 30 % 02/27/20 05:19 Glucose 111 mg/dL (65-100) H 02/27/20 05:19 Lactic Acid 1.80 mmol/L (0.7-2.0) 02/22/20 15:07 Calcium 8.7 mg/dL (8.4-10.2) 02/27/20 05:19 Magnesium 1.90 mg/dL (1.7-2.3) 02/29/20 04:41 Ferritin 160.6 ng/mL (10.0-200.0) 02/21/20 10:17 Total Bilirubin 1.10 mg/dL (0.1-1.2) 02/24/20 04:50 AST 36 units/L (5-40) 02/24/20 04:50 ALT 46 units/L (7-56) 02/24/20 04:50 Alkaline Phosphatase 69 units/L (35-129) 02/24/20 04:50 Lactate Dehydrogenase 324 units/L (91-180) H 02/21/20 10:17 Troponin T 0.044 ng/mL (0.00-0.029) H 02/21/20 10:17 C-Reactive Protein 0.40 mg/dL (0.00-1.30) 02/21/20 10:17 NT-Pro-B Natriuret Pep 1005 pg/mL (0-900) H 02/21/20 10:17 NT-Pro-B Natriuret Pep 1026 pg/mL (0-900) H 02/21/20 10:17 Total Protein 5.9 g/dL (6.3-8.2) L 02/24/20 04:50 Albumin 3.7 g/dL (3.9-5) L 02/24/20 04:50 Albumin/Globulin Ratio 1.7 % 02/24/20 04:50 Triglycerides 128 mg/dL (2-149) 02/25/20 05:06 Cholesterol 170 mg/dL (50-199) 02/21/20 10:17 LDL Cholesterol Direct 92 mg/dL (50-130) 02/21/20 10:17 HDL Cholesterol 75 mg/dL (40-59) H 02/21/20 10:17 Cholesterol/HDL Ratio 2.26 % 02/21/20 10:17 Procalcitonin < 0.05 ng/mL (<0.15) 02/21/20 10:17 Urine Opiates Screen Negative 02/21/20 19:20 Urine Methadone Screen Negative 02/21/20 19:20 Ur Barbiturates Screen Negative 02/21/20 19:20 Ur Phencyclidine Scrn Negative 02/21/20 19:20 Ur Amphetamines Screen Negative 02/21/20 19:20 U Benzodiazepines Scrn Negative 02/21/20 19:20 Urine Cocaine Screen Negative 02/21/20 19:20 U Marijuana (THC) Screen Positive 02/21/20 19:20 Drugs of Abuse Note Disclamer 02/21/20 19:20 Coronavirus (PCR) Negative (Negative) 02/21/20 10:24 - Diagnostic Impressions Diagnostic Impressions: Echocardiogram 02/21/20 16:13 Transthoracic Echocardiogram Indication: Shortness of breath BP: 109/75 HR: 100 Conclusions *The left ventricular size is moderate to severely dilated. *Global left ventricular systolic function is severely decreased. *The estimated ejection fraction is Less Than 15-20%. *There is mild mitral regurgitation. *There is trace tricuspid regurgitation. *There is evidence of mild pulmonary hypertension. *The right ventricular systolic pressure is calculated at 30 mmHg. *A pacemaker wire is visualized in the right heart chambers. Findings Left Ventricle: The left ventricular size is moderate to severely dilated. There is no left ventricular hypertrophy. Global left ventricular systolic function is severely decreased. The estimated ejection fraction is 15-20%. Left Atrium: The left atrial chamber size is normal. Right Ventricle: The right ventricle is mildly dilated. The right ventricular global systolic function is mildly reduced. A pacemaker wire is visualized in the right ventricle. Right Atrium: The right atrial cavity size is normal. A pacemaker wire is visualized in the right atrium. Aortic Valve: The aortic valve is trileaflet. The aortic valve leaflets are moderately thickened. There is no evidence of aortic regurgitation. There is no evidence of aortic stenosis. Mitral Valve: The mitral valve leaflets appear myxomatous. There is mild mitral regurgitation. There is no evidence of mitral stenosis. Tricuspid Valve: There is trace tricuspid regurgitation. The right ventricular systolic pressure is calculated at 30 mmHg. There is evidence of mild pulmonary hypertension. Pulmonic Valve: There is mild pulmonic regurgitation. Pericardium: There is no pericardial effusion. Aorta: There is no dilatation of the aortic root. Venous: The inferior vena cava is dilated. Measurements Chambers 2D Name Value Normal Range IVSd (2D) 0.8 cm (0.6 - 1.1) LVPWd (2D) 0.78 cm (0.6 - 1.1) LVIDd (2D) 5.1 cm (3.7 - 5.6) LVIDs (2D) 3.74 cm (2 - 3.8) LV FS (2D) 26.7 % - EF Teichholz (2D) 51.89 % - Ao root diameter (2D) 3.33 cm (2 - 3.7) Volumes/Mass Name Value Normal Range LA ESV SP 4CH (A/L) 34.31 ml - LA ESV SP 2CH (A/L) 13.16 ml - LA ESV BP (A/L) 36.23 ml - LA ESV BP (A/L) index 21.31 ml/m2 - LA ESV SP 4CH (MOD) 28.65 ml - LA ESV SP 2CH (MOD) 10.49 ml - LA ESV BP (MOD) 29.3 ml - LA ESV BP (MOD) index 17.24 ml/m2 - Aortic Valve Name Value Normal Range AV Vmax 1.05 m/sec - AV VTI 14.59 cm - AV peak gradient 4.38 mmHg - AV mean gradient 2.55 mmHg - LVOT diameter 2.14 cm - LVOT Vmax 0.92 m/sec - LVOT VTI 12.77 cm - LVOT peak gradient 3.36 mmHg - LVOT mean gradient 1.53 mmHg - SV LVOT 45.99 ml - REJI (continuity Vmax) 3.15 cm2 - REJI (continuity VTI) 3.15 cm2 - Ascending Ao 2.83 cm - Mitral Valve Name Value Normal Range MV PHT 38.65 msec - MR Vmax 3.89 m/sec - MVA (PHT) 5.69 cm2 - Tricuspid Valve Name Value Normal Range TR Vmax 2.21 m/sec - TR peak gradient 19 mmHg - RAP 8 mmHg - RVSP 30 mmHg - IVC diameter 2.45 cm (1.2 - 2.3) Pulmonic Valve/Qp:Qs Name Value Normal Range PV Vmax 0.68 m/sec - PV peak gradient 1.86 mmHg - PV acceleration time 110.37 msec - [place]/IV: Voiding Method Bedside Commode IV Catheter Type [Right INT / Saline Lock Antecubital] IV Catheter Type [Left Peripheral IV External Jugular] IV Catheter Type [Right Peripheral IV Forearm] IV Catheter Type [Right Hand] INT / Saline Lock Active Medications - Current Medications Current Medications: Generic Name Dose Route Start Last Admin Trade Name Freq PRN Reason Stop Dose Admin Acetaminophen 650 mg 02/21/20 16:10 02/27/20 21:13 Tylenol PO 650 mg Q6H PRN Administration Pain, Mild (1-3) Albuterol/Ipratropium 1 ampul 02/22/20 20:00 02/29/20 09:12 Duoneb *Not For Prn Use* IH 1 ampul TIDRT KATELYN Administration Lipase/Protease/Amylase 1 each 02/24/20 09:00 Pancreradha Sebastian 10,500 Unit FEEDTUBE PRN PRN For Clogged Feeding Tube Benzocaine/Menthol 1 each 02/28/20 17:32 02/29/20 05:05 Cepacol X Strength MM 1 each Q2HR PRN Administration Sore Throat Carvedilol 3.125 mg 02/24/20 10:00 02/29/20 09:23 Coreg PO 3.125 mg BID KATELYN Administration Famotidine 20 mg 02/26/20 10:00 02/29/20 09:23 Pepcid PO 20 mg BID KATELYN Administration Furosemide 20 mg 02/25/20 13:00 02/29/20 05:03 Lasix IV 20 mg DAILY@0600 KATELYN Administration Heparin Sodium (Porcine) 5,000 unit 02/21/20 22:00 02/29/20 09:23 Heparin SUB-Q 5,000 unit Q12HR KATELYN Administration Hydromorphone HCl 0.25 mg 02/21/20 16:10 02/28/20 16:24 Dilaudid IV 0.25 mg Q4H PRN Administration Pain, Moderate (4-6) Hydrophilic Ointment 1 applic 02/21/20 16:44 Vaseline Lip Therapy TP Q2HR PRN Dry Lips Lisinopril 5 mg 02/24/20 10:00 02/29/20 09:23 Zestril PO 5 mg QDAY KATELYN Administration Lorazepam 2 mg 02/21/20 16:44 Ativan IV Q10MIN PRN Agitation Multi-Ingred Cream/Lotion/Oil/Oint 1 applic 02/21/20 16:44 Artificial Tears Ophth Oint OU Q4HR PRN Dry Eye(s) Oxycodone/Acetaminophen 1 tab 02/28/20 17:35 02/29/20 09:22 Percocet 5/325 PO 1 tab Q6H PRN Administration Pain, Moderate (4-6) Prednisone 20 mg 02/28/20 15:00 02/29/20 09:23 Deltasone PO 20 mg QDAY KATELYN Administration Simple Syrup 15 ml 02/24/20 09:00 Simple Syrup FEEDTUBE PRN PRN Hypoglycemia Simple Syrup 30 ml 02/24/20 09:00 Simple Syrup FEEDTUBE PRN PRN Hypoglycemia Sodium Bicarbonate 325 mg 02/24/20 09:00 Sodium Bicarbonate FEEDTUBE PRN PRN For Clogged Feeding Tube Sodium Chloride 10 ml 02/21/20 22:00 02/28/20 21:51 Sodium Chloride Flush Syringe 10 Ml IV 10 ml BID KATELYN Administration Sodium Chloride 10 ml 02/21/20 16:10 Sodium Chloride Flush Syringe 10 Ml IV PRN PRN LINE FLUSH Spironolactone 25 mg 02/26/20 10:00 02/29/20 09:23 Aldactone PO 25 mg QDAY KATELYN Administration Nutrition/Malnutrition Assess - Dietary Evaluation Nutrition/Malnutrition Findings: Nutrition Notes Start: 02/22/20 11:38 Freq: Status: Active Protocol: Document 02/26/20 10:58 CW (Rec: 02/26/20 11:03 CW [email or web address]) Co-Sign 02/26/20 10:58 LM Nutrition Notes Initial or Follow up Brief Note Current Diagnosis COPD,Sepsis,Heart Failure, Respiratory Failure Other Pertinent Diagnosis COPD exacerbation, asthma, pneu Current Diet Promote 1.0 at 60ml/hr Labs/Tests K 3.5 Pertinent Medications Lasix Heparin Solu-medrol Height 5 ft 5 in Weight 63.5 kg [place] Body Weight (kg) 56.81 BMI 23.3 Weight Status Appropriate Subjective/Other Information Pt self extubated on 02/24. CONTRACT MODELER conducting swallow exam during visit. Nurse reports pt requested breaskfast today. CONTRACT MODELER approved pt for regular diet. Nutrition Intervention Change Diet Order: Cardiac Goal #1 Meet 75% of protein and energy needs Anticipated Discharge Needs: Unable to identify at this time Follow-Up By: 02/29/20 Additional Comments FU for intakes/tolerance
[2020-02-29 12:16] LABS: Basophils % (Manual) 0 % (0.0-1.8); Myelocytes # (Manual) 1.3 K/mm3; Total Cells Counted 100
[2020-02-29 12:17] LABS: Large Platelets Few; Platelet Estimate Consistent w Auto; RBC Morphology Normal
--- NOTE | 2020-02-29 13:58 | Progress Note ---
Assessment and Plan Patient alert, awake.Patient resting on room air. O2 saturation 96%. ABG on FIO@ 25% ABG pH 7.354 pH Units (7.350-7.450) 02/25/20 03:30 ABG pCO2 40.9 mm Hg 02/25/20 03:30 ABG pO2 64.6 mm Hg (80.0-90.0) L 02/25/20 03:30 ABG O2 Saturation 93.6 % (95.0-99.0) L 02/25/20 03:30 Denies chest pain, shortness of breath . Complaining some cough. Coughing up white sputum. Patient afebrile. Has leukocytosis. Chest xray done 02/29/20 reported Infiltrate or atelectasis in the left lower lobe is unchanged. The left upper lobe remains clear. No significant pleural fluid or pneumothorax. Patient is on cefepime, S/C Heparine, Famotidine, Albuterol/atrovent aerosol treatments. Patient has heavy history of smoking less than pack x day for 34 years. Counseled to stop smoking. Denies alcohol abuse. Patient smoked marijuana. 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 - Patient Problems (1) Acute hypoxemic respiratory failure Current Visit: Yes Status: Acute Plan to address problem: Patient presently on room air ,O2 saturation 96%. Albuterol/atrovent aerosol treatments q 6 hours. Continue S/C Heparin. Continue cefepime. (2) COPD exacerbation Current Visit: Yes Status: Acute Plan to address problem: Patient presently on room air ,O2 saturation 96%. Albuterol/atrovent aerosol treatments q 6 hours. Continue S/C Heparin. Continue cefepime. Recommend PFTs as out patient. (3) CHF (congestive heart failure) Current Visit: Yes Status: Acute Plan to address problem: Management as per cardiology. (4) Cardiomyopathy Current Visit: Yes Status: Acute Qualifiers: Cardiomyopathy type: unspecified Qualified Code(s): I42.9 - Cardiomyopathy, unspecified Plan to address problem: Patient has pacemaker/defibrilator. Management as per cardiology. (5) Nicotine dependence Current Visit: Yes Status: Acute Qualifiers: Nicotine product type: cigarettes Substance use status: in withdrawal Qualified Code(s): F17.213 - Nicotine dependence, cigarettes, with withdrawal Plan to address problem: Counseled to stop smoking. (6) Pneumonia Current Visit: Yes Status: Acute Qualifiers: Laterality: right Lung location: lower lobe of lung Plan to address problem: Patient is on cefepime. Subjective Date of service: 02/29/20 Principal diagnosis: Ac hypoxemic & hypercapnic resp failure; Ac. encephalopath y; CAP; CMOP;COPD Interval history: Patient alert, awake.Patient resting on room air. O2 saturation 96%. ABG on 25% fio2. ABG pH 7.354 pH Units (7.350-7.450) 02/25/20 03:30 ABG pCO2 40.9 mm Hg 02/25/20 03:30 ABG pO2 64.6 mm Hg (80.0-90.0) L 02/25/20 03:30 ABG O2 Saturation 93.6 % (95.0-99.0) L 02/25/20 03:30 Denies chest pain, shortness of breath . Complaining some cough. Coughing up white sputum. Patient afebrile. Has leukocytosis. Chest xray done 02/29/20 reported Infiltrate or atelectasis in the left lower lobe is unchanged. The left upper lobe remains clear. No significant pleural fluid or p neumothorax. Patient is on cefepime, S/C Heparine, Famotidine, Albuterol/atrovent aerosol treatments. Patient has heavy history of smoking less than pack x day for 34 years. Counseled to stop smoking. Denies alcohol abuse. Patient smoked marijuana. 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 Objective Vital Signs - 12hr 02/29/20 02/29/20 02/29/20 03:41 08:21 09:12 Temperature 98.5 F 98.9 F Pulse Rate 82 89 Pulse Rate [ 88 Throughout] Respiratory 18 18 Rate Respiratory 16 Rate [ Throughout] Blood Pressure 120/71 116/74 Blood Pressure [Right] O2 Sat by Pulse 95 93 Oximetry 02/29/20 02/29/20 09:22 12:06 Temperature 98.7 F Pulse Rate 64 Pulse Rate [ Throughout] Respiratory 20 18 Rate Respiratory Rate [ Throughout] Blood Pressure Blood Pressure 103/70 [Right] O2 Sat by Pulse Oximetry Constitutional: no acute distress, alert, other (middle aged female with normal respiratory effort at rest) Eyes: non-icteric ENT: oropharynx moist Neck: supple, no lymphadenopathy, no JVD Effort: normal Ascultation: Bilateral: diminished breath sounds, wheezes (posterior bases end expiration), rhonchi (scant bases), other (prolonged expiratory phase) Percussion: Bilateral: not dull Cardiovascular: regular rate and rhythm, other (S1,S2) Gastrointestinal: normoactive bowel sounds, soft, non-tender, non-distended Integumentary: normal Extremities: no cyanosis, no edema, pulses normal, no ischemia or petechiae Neurologic: non-focal exam, pupils equal and round, CN II-XII normal, motor strength normal and (weak) Psychiatric: mood appropriate, affect normal CBC and BMP: 02/29/20 09:44 02/29/20 04:41 ABG, PT/INR, D-dimer: ABG ABG pH 7.354 pH Units (7.350-7.450) 02/25/20 03:30 ABG pCO2 40.9 mm Hg 02/25/20 03:30 ABG pO2 64.6 mm Hg (80.0-90.0) L 02/25/20 03:30 ABG O2 Saturation 93.6 % (95.0-99.0) L 02/25/20 03:30 PT/INR, D-dimer D-Dimer 362.52 ng/mlDDU (0-234) H 02/21/20 10:17 Abnormal lab findings: Abnormal Labs 02/21/20 02/21/20 02/21/20 10:17 10:17 10:17 WBC 21.2 H Lymph % (Auto) [place] % (Auto) Lymph # (Auto) [place] # (Auto) Seg Neutrophils % Seg Neuts % (Manual) 94.0 H Lymphocytes % (Manual) 4.0 L Monocytes % (Manual) Seg Neutrophils # Seg Neutrophils # Man 19.9 H Lymphocytes # (Manual) 0.8 L Monocytes # (Manual) Eosinophils # (Manual) D-Dimer 362.52 H ABG pH ABG pO2 ABG O2 Saturation ABG Base Excess ABG Hemoglobin Oxyhemoglobin Potassium Chloride Carbon Dioxide Creatinine 0.4 L Glucose 168 H Lactic Acid Calcium Lactate Dehydrogenase 324 H Troponin T NT-Pro-B Natriuret Pep 1005 H Total Protein Albumin HDL Cholesterol 02/21/20 02/21/20 02/21/20 10:17 10:17 11:56 WBC Lymph % (Auto) [place] % (Auto) Lymph # (Auto) [place] # (Auto) Seg Neutrophils % Seg Neuts % (Manual) Lymphocytes % (Manual) Monocytes % (Manual) Seg Neutrophils # Seg Neutrophils # Man Lymphocytes # (Manual) Monocytes # (Manual) Eosinophils # (Manual) D-Dimer ABG pH ABG pO2 ABG O2 Saturation ABG Base Excess ABG Hemoglobin Oxyhemoglobin Potassium Chloride Carbon Dioxide Creatinine Glucose Lactic Acid 2.50 H* 2.80 H* Calcium Lactate Dehydrogenase Troponin T 0.044 H NT-Pro-B Natriuret Pep 1026 H Total Protein Albumin HDL Cholesterol 75 H 02/21/20 02/21/20 02/21/20 13:31 14:18 15:03 WBC Lymph % (Auto) [place] % (Auto) Lymph # (Auto) [place] # (Auto) Seg Neutrophils % Seg Neuts % (Manual) Lymphocytes % (Manual) Monocytes % (Manual) Seg Neutrophils # Seg Neutrophils # Man Lymphocytes # (Manual) Monocytes # (Manual) Eosinophils # (Manual) D-Dimer ABG pH 7.183 L* ABG pO2 73.8 L ABG O2 Saturation 93.2 L ABG Base Excess -3.8 L ABG Hemoglobin Oxyhemoglobin 90.6 L Potassium Chloride Carbon Dioxide Creatinine Glucose Lactic Acid 2.10 H* 2.50 H* Calcium Lactate Dehydrogenase Troponin T NT-Pro-B Natriuret Pep Total Protein Albumin HDL Cholesterol 02/21/20 02/21/20 02/22/20 16:10 18:33 02:25 WBC Lymph % (Auto) [place] % (Auto) Lymph # (Auto) [place] # (Auto) Seg Neutrophils % Seg Neuts % (Manual) Lymphocytes % (Manual) Monocytes % (Manual) Seg Neutrophils # Seg Neutrophils # Man Lymphocytes # (Manual) Monocytes # (Manual) Eosinophils # (Manual) D-Dimer ABG pH 7.204 L ABG pO2 295.0 H 187.8 H ABG O2 Saturation 99.4 H 99.1 H ABG Base Excess -5.5 L -3.8 L ABG Hemoglobin Oxyhemoglobin Potassium Chloride Carbon Dioxide Creatinine Glucose Lactic Acid 2.10 H* Calcium Lactate Dehydrogenase Troponin T NT-Pro-B Natriuret Pep Total Protein Albumin HDL Cholesterol 11/30/20 11/30/20 11/30/20 02:57 02:57 02:57 WBC 21.9 H Lymph % (Auto) 5.2 L [place] % (Auto) 8.1 H Lymph # (Auto) 1.1 L [place] # (Auto) 1.8 H Seg Neutrophils % 86.5 H Seg Neuts % (Manual) Lymphocytes % (Manual) Monocytes % (Manual) Seg Neutrophils # 19.0 H Seg Neutrophils # Man Lymphocytes # (Manual) Monocytes # (Manual) Eosinophils # (Manual) D-Dimer ABG pH ABG pO2 ABG O2 Saturation ABG Base Excess ABG Hemoglobin Oxyhemoglobin Potassium 5.9 H D Chloride 109.4 H Carbon Dioxide 17 L D Creatinine 0.5 L Glucose 106 H Lactic Acid 2.40 H* Calcium 8.2 L Lactate Dehydrogenase Troponin T NT-Pro-B Natriuret Pep Total Protein Albumin HDL Cholesterol 02/23/20 02/24/20 02/24/20 06:15 04:36 04:50 WBC 18.7 H Lymph % (Auto) 7.1 L [place] % (Auto) Lymph # (Auto) [place] # (Auto) 1.3 H Seg Neutrophils % 85.6 H Seg Neuts % (Manual) Lymphocytes % (Manual) Monocytes % (Manual) Seg Neutrophils # 16.0 H Seg Neutrophils # Man Lymphocytes # (Manual) Monocytes # (Manual) Eosinophils # (Manual) D-Dimer ABG pH 7.456 H ABG pO2 46.0 L ABG O2 Saturation 82.9 L ABG Base Excess -2.1 L -2.8 L ABG Hemoglobin Oxyhemoglobin 81.2 L Potassium Chloride Carbon Dioxide Creatinine Glucose Lactic Acid Calcium Lactate Dehydrogenase Troponin T NT-Pro-B Natriuret Pep Total Protein Albumin HDL Cholesterol 02/24/20 02/24/20 02/25/20 04:50 05:08 03:30 WBC Lymph % (Auto) [place] % (Auto) Lymph # (Auto) [place] # (Auto) Seg Neutrophils % Seg Neuts % (Manual) Lymphocytes % (Manual) Monocytes % (Manual) Seg Neutrophils # Seg Neutrophils # Man Lymphocytes # (Manual) Monocytes # (Manual) Eosinophils # (Manual) D-Dimer ABG pH ABG pO2 58.9 L 64.6 L ABG O2 Saturation 90.8 L 93.6 L ABG Base Excess -3.1 L -3.1 L ABG Hemoglobin 11.7 L Oxyhemoglobin 89.0 L 91.6 L Potassium Chloride 107.5 H Carbon Dioxide 21 L Creatinine 0.4 L Glucose Lactic Acid Calcium Lactate Dehydrogenase Troponin T NT-Pro-B Natriuret Pep Total Protein 5.9 L Albumin 3.7 L HDL Cholesterol 02/26/20 02/26/20 02/27/20 04:37 04:37 05:19 WBC 24.6 H 25.7 H Lymph % (Auto) 5.5 L [place] % (Auto) Lymph # (Auto) [place] # (Auto) 1.2 H Seg Neutrophils % 89.5 H Seg Neuts % (Manual) 76.0 H Lymphocytes % (Manual) Monocytes % (Manual) 9.0 H Seg Neutrophils # 22.0 H Seg Neutrophils # Man 19.5 H Lymphocytes # (Manual) Monocytes # (Manual) 2.3 H Eosinophils # (Manual) D-Dimer ABG pH ABG pO2 ABG O2 Saturation ABG Base Excess ABG Hemoglobin Oxyhemoglobin Potassium 3.5 L D Chloride Carbon Dioxide Creatinine 0.5 L Glucose 155 H Lactic Acid Calcium Lactate Dehydrogenase Troponin T NT-Pro-B Natriuret Pep Total Protein Albumin HDL Cholesterol 02/27/20 02/28/20 02/29/20 05:19 10:05 09:44 WBC 26.0 H Lymph % (Auto) [place] % (Auto) Lymph # (Auto) [place] # (Auto) Seg Neutrophils % Seg Neuts % (Manual) Lymphocytes % (Manual) Monocytes % (Manual) Seg Neutrophils # Seg Neutrophils # Man 17.2 H Lymphocytes # (Manual) 5.5 H Monocytes # (Manual) 1.3 H Eosinophils # (Manual) 0.5 H D-Dimer ABG pH ABG pO2 ABG O2 Saturation ABG Base Excess ABG Hemoglobin Oxyhemoglobin Potassium 3.3 L 3.3 L Chloride Carbon Dioxide Creatinine 0.4 L Glucose 111 H Lactic Acid Calcium Lactate Dehydrogenase Troponin T NT-Pro-B Natriuret Pep Total Protein Albumin HDL Cholesterol Chest x-ray: report reviewed, image reviewed Additional Studies: CHEST - 1 VIEW 0735 hours 02/29/20 INDICATION: follow up respiratory failure COMPARISON: Yesterday FINDINGS: Support devices: Stable positioning of the pacemaker device. Heart: Stable cardiomediastinal silhouette. Lungs/pleura: The right lung remains clear. Infiltrate or atelectasis in the left lower lobe is unchanged. The left upper lobe remains clear. No significant pleural fluid or pneumothorax. Additional findings: None. IMPRESSION: Unchanged exam. Allied health notes reviewed: nursing
[2020-02-29] MEDS: CEFEPIME/NS 2 GM/100 ML 2 GM/100 ML BAG IV SCH ×2 (16:29→21:53)
[2020-03-01] MEDS: oxyCODONE /ACETAMINOPHEN 5-325MG TAB PO PRN ×3 (00:01→12:19)
[2020-03-01] MEDS: FUROSEMIDE 20 MG/2 ML INJ IV SCH (06:35)
[2020-03-01] MEDS: CEFEPIME/NS 2 GM/100 ML 2 GM/100 ML BAG IV SCH ×2 (06:38→13:57)
[2020-03-01] MEDS: IPRATROPIUM/ALBUTEROL SULFATE 3 ML AMPUL.NEB IH SCH (08:57)
--- NOTE | 2020-03-01 09:37 | Progress Note ---
<SPENCER JEROME - Last Filed: 03/01/20 09:36> Assessment and Plan Non-ischemic cardiomyopathy normal [facility] in 2008 while living in [place] per pt presence of AICD Respiratory failure Asthma exacerbation Tobacco abuse An echocardiogram showed severe dilated cardiomyopathy with an ejection fraction 15-20%. There was mild dilated RV with mild pulmonary hypertension, RVSP. Smoking cessation. Continue guideline directed medical therapy for dilated cardiomyopathy. Otherwise, conservative cardiac management. 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 Subjective Date of service: 03/01/20 Principal diagnosis: Ac hypoxemic & hypercapnic resp failure; Ac. encephalopathy; CAP; CMOP;COPD Interval history: No interval cardiac changes. Objective Vital Signs Temp Pulse Pulse Resp Resp BP BP 03/01/20 08:59 71 16 03/01/20 08:00 98.3 F 73 18 88/49 03/01/20 04:20 97.9 F 65 16 105/64 02/29/20 23:44 98.2 F 68 14 92/49 02/29/20 22:00 02/29/20 20:28 80 20 02/29/20 19:53 98.3 F 92 H 14 107/66 02/29/20 18:00 20 02/29/20 17:32 98.6 F 76 18 102/53 02/29/20 14:53 90 16 02/29/20 12:06 98.7 F 64 18 103/70 02/29/20 10:00 Pulse Ox 03/01/20 08:59 03/01/20 08:00 03/01/20 04:20 96 02/29/20 23:44 96 02/29/20 22:00 97 02/29/20 20:28 02/29/20 19:53 96 02/29/20 18:00 02/29/20 17:32 96 02/29/20 14:53 02/29/20 12:06 02/29/20 10:00 97 - Physical Examination General: No Apparent Distress HEENT: Positive: PERRL Neck: Positive: neck supple Cardiac: Positive: Reg Rate and Rhythm Neuro: Positive: Grossly Intact Abdomen: Positive: Unremarkable Extremities: Absent: edema - Labs and Meds CBC 02/29/20 Range/Units 09:44 WBC 26.0 H (4.5-11.0) K/mm3 RBC 4.41 (3.65-5.03) M/mm3 Hgb 13.5 (10.1-14.3) gm/dl Hct 41.9 (30.3-42.9) % Plt Count 374 (140-440) K/mm3 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
[2020-03-01] MEDS: carvediloL 3.125 MG TAB PO SCH (09:52)
[2020-03-01] MEDS: predniSONE 20 MG TAB PO SCH (09:52)
[2020-03-01] MEDS: SPIRONOLACTONE 25 MG TAB PO SCH (09:52)
[2020-03-01] MEDS: HEPARIN 5,000 UNIT/1 ML VIAL SUB-Q SCH (09:52)
[2020-03-01] MEDS: LISINOPRIL 5 MG TAB PO SCH (09:52)
[2020-03-01] MEDS: FAMOTIDINE 20 MG TAB PO SCH (09:53)
--- NOTE | 2020-03-01 10:00 | Progress Note ---
Assessment and Plan Assessment and plan: --COVID-19 test negative; --Sore throat; due to self extubation Cepacol lozenges Lidocaine throat spray --Sepsis; secondary to right pneumonia/POA Tachycardia, leukocytosis, infiltrate on chest x-ray and CT, Patient completed 5 days of Levaquin 02/28/2020 chest x-ray mild left retrocardiac atelectasis --Persistent leukocytosis; 02/28/2020 chest x-ray mild left retrocardiac atelectasis Follow cultures --Persistent infiltrate on chest x-ray/persistent leukocytosis Completed 5 days of Levaquin Patient has persistent infiltrate on multiple chest x-rays along with worsening leukocytosis Start cefepime, pulmonary following ,ID consult if needed -- Ac. hypoxemic resp failure/self extubated 02/25/2020 Continue oxygen titrate O2 sats to more than 90% Ambulate as tolerated, Pulmonary following Oxygen evaluation --Acute COPD exacerbation IV steroid therapy, nebulizers IV antibiotics supportive care, --Hypokalemia; Resolved, closely monitor electrolytes --Acute on chronic congestive heart failure; EF 15 to 20% Diuretics, input output monitoring, beta-blockers CLOTILDE inhibitors, low-sodium diet, fluid restriction Cardiology consult --Dilated cardiomyopathy EF 15 to 20% Diuretics, input output monitoring, beta-blockers CLOTILDE inhibitors, low-sodium diet, fluid restriction Possible ischemia work-up if not done before --ICD in place; stable --Ongoing tobacco use; Smoking cessation, nicotine patch as needed We will on awake counselor the patient once patient is off ventilator --DVT prophylaxis SCD , anticoagulation Closely monitor the patient and adjust the management as needed Plan of care reviewed with the patient and her nurse We will check physical therapy occupational therapy DC planning when medically stable 02/27/2020; patient feels slightly better complains of generalized weakness, awaiting PT evaluation Possible discharge in 1 to 2 days if stable, vegan diet ordered per patient's request 02/28/2020; patient feels slightly better, ambulate as tolerated, possible discharge tomorrow if stable 02/29/2020; persistent leukocytosis, persistent infiltrate on chest x-ray, patient has sore throat Probably secondary to self extubation, Cepacol lozenges/throat spray and pain medications. 03/01/2020. Patient's leukocytosis likely related to steroids. Infiltrate on chest x-ray likely related to atelectasis. Patient satting above 95% on room air. History Interval history: 49-year old female patient was admitted through emergency room with acute exacerbation of bronchial asthma and acute respiratory failure requiring intubation on ventilatory support .patient was self extubated on 02/25/2020 , noted to have leukocytosis and pneumonia , completed 5 days of IV Levaquin with significant improvement .however patient continues to have persistent leukocytosis , and persistent infiltrate on chest x-ray .patient started on cefepime Rpt Cultures sent, patient also has severe cardiomyopathy with ejection fraction of 15 to 20%, cardiology following and patient already has ICD in place. Hospitalist Physical - Constitutional Vitals: Temp Pulse Resp BP Pulse Ox 98.3 F 71 16 88/49 96 03/01/20 08:00 03/01/20 08:59 03/01/20 08:59 03/01/20 08:00 03/01/20 04:20 General appearance: Present: mild distress, well-nourished, other (On nasal cannula oxygen) - EENT Eyes: Present: PERRL, EOM intact ENT: hearing intact, clear oral mucosa, dentition normal - Neck Neck: Present: supple, normal ROM - Respiratory Respiratory effort: normal Respiratory: bilateral: CTA - Cardiovascular Rhythm: regular Heart Sounds: Present: S1 & S2. Absent: gallop, rub - Extremities Extremities: no ischemia, No edema, Full ROM - Abdominal General gastrointestinal: soft, non-tender, non-distended, normal bowel sounds - Integumentary Integumentary: Present: clear, warm, dry - Neurologic Neurologic: CNII-XII intact, moves all extremities HEART Score - HEART Score Troponin: Troponin T 0.044 ng/mL (0.00-0.029) H 02/21/20 10:17 Results - Labs CBC & Chem 7: 02/29/20 09:44 02/29/20 04:41 Labs: Laboratory Last Values WBC 26.0 K/mm3 (4.5-11.0) H 02/29/20 09:44 RBC 4.41 M/mm3 (3.65-5.03) 02/29/20 09:44 Hgb 13.5 gm/dl (10.1-14.3) 02/29/20 09:44 Hct 41.9 % (30.3-42.9) 12/07/20 09:44 MCV 95 fl (79-97) 02/29/20 09:44 MCH 31 pg (28-32) 02/29/20 09:44 MCHC 32 % (30-34) 02/29/20 09:44 RDW 13.8 % (13.2-15.2) 02/29/20 09:44 Plt Count 374 K/mm3 (140-440) 02/29/20 09:44 Lymph % (Auto) 5.5 % (13.4-35.0) L 02/26/20 04:37 [place] % (Auto) 4.9 % (0.0-7.3) 02/26/20 04:37 Eos % (Auto) 0.0 % (0.0-4.3) 02/26/20 04:37 Baso % (Auto) 0.1 % (0.0-1.8) 02/26/20 04:37 Lymph # (Auto) Adult Nurse Practitioner 02/29/20 09:44 [place] # (Auto) 1.2 K/mm3 (0.0-0.8) H 02/26/20 04:37 Eos # (Auto) 0.0 K/mm3 (0.0-0.4) 02/26/20 04:37 Baso # (Auto) 0.1 K/mm3 (0.0-0.1) 02/26/20 04:37 Add Manual Diff Complete 02/29/20 09:44 Total Counted 100 02/29/20 09:44 Seg Neutrophils % 89.5 % (40.0-70.0) H 02/26/20 04:37 Seg Neuts % (Manual) 66.0 % (40.0-70.0) 02/29/20 09:44 Band Neutrophils % 0 % 02/29/20 09:44 Lymphocytes % (Manual) 21.0 % (13.4-35.0) 02/29/20 09:44 Reactive Lymphs % (Man) 1.0 % 02/29/20 09:44 Monocytes % (Manual) 5.0 % (0.0-7.3) 02/29/20 09:44 Eosinophils % (Manual) 2.0 % (0.0-4.3) 02/29/20 09:44 Basophils % (Manual) 0 % (0.0-1.8) 02/29/20 09:44 Metamyelocytes % 0 % 02/29/20 09:44 Myelocytes % 5.0 % 02/29/20 09:44 Promyelocytes % 0 % 02/29/20 09:44 Blast Cells % 0 % 02/29/20 09:44 Nucleated RBC % Not Reportable 02/29/20 09:44 Seg Neutrophils # 22.0 K/mm3 (1.8-7.7) H 02/26/20 04:37 Seg Neutrophils # Man 17.2 K/mm3 (1.8-7.7) H 02/29/20 09:44 Band Neutrophils # 0.0 K/mm3 02/29/20 09:44 Lymphocytes # (Manual) 5.5 K/mm3 (1.2-5.4) H 02/29/20 09:44 Abs React Lymphs (Man) 0.3 K/mm3 02/29/20 09:44 Monocytes # (Manual) 1.3 K/mm3 (0.0-0.8) H 02/29/20 09:44 Eosinophils # (Manual) 0.5 K/mm3 (0.0-0.4) H 02/29/20 09:44 Basophils # (Manual) 0.0 K/mm3 (0.0-0.1) 02/29/20 09:44 Metamyelocytes # 0.0 K/mm3 02/29/20 09:44 Myelocytes # 1.3 K/mm3 02/29/20 09:44 Promyelocytes # 0.0 K/mm3 02/29/20 09:44 Blast Cells # 0.0 K/mm3 02/29/20 09:44 WBC Morphology Not Reportable 02/29/20 09:44 Hypersegmented Neuts Not Reportable 02/29/20 09:44 Hyposegmented Neuts Not Reportable 02/29/20 09:44 Hypogranular Neuts Not Reportable 02/29/20 09:44 Smudge Cells Not Reportable 02/29/20 09:44 Toxic Granulation Not Reportable 02/29/20 09:44 Toxic Vacuolation Not Reportable 02/29/20 09:44 Dohle Bodies Not Reportable 02/29/20 09:44 Pelger-Huet Anomaly Not Reportable 02/29/20 09:44 Arlette Rods Not Reportable 02/29/20 09:44 Platelet Estimate Consistent w auto 02/29/20 09:44 Clumped Platelets Not Reportable 02/29/20 09:44 Plt Clumps, EDTA Not Reportable 02/29/20 09:44 Large Platelets Few 02/29/20 09:44 Giant Platelets Not Reportable 02/29/20 09:44 Platelet Satelliting Not Reportable 02/29/20 09:44 Plt Morphology Comment Not Reportable 02/29/20 09:44 RBC Morphology Normal 02/29/20 09:44 Dimorphic RBCs Not Reportable 02/29/20 09:44 Polychromasia Not Reportable 02/29/20 09:44 Hypochromasia Not Reportable 02/29/20 09:44 Poikilocytosis Not Reportable 02/29/20 09:44 Anisocytosis Not Reportable 02/29/20 09:44 Microcytosis Not Reportable 02/29/20 09:44 Macrocytosis Not Reportable 02/29/20 09:44 Spherocytes Not Reportable 02/29/20 09:44 Pappenheimer Bodies Not Reportable 02/29/20 09:44 Sickle Cells Not Reportable 02/29/20 09:44 Target Cells Not Reportable 02/29/20 09:44 Tear Drop Cells Not Reportable 02/29/20 09:44 Ovalocytes Not Reportable 02/29/20 09:44 Helmet Cells Not Reportable 02/29/20 09:44 Dahl-Metz Bodies Not Reportable 02/29/20 09:44 [place] Rings Not Reportable 02/29/20 09:44 [place] Cells Not Reportable 02/29/20 09:44 Bite Cells Not Reportable 02/29/20 09:44 Crenated Cell Not Reportable 02/29/20 09:44 Elliptocytes Not Reportable 02/29/20 09:44 Acanthocytes (Spur) Not Reportable 02/29/20 09:44 Rouleaux Not Reportable 02/29/20 09:44 Hemoglobin C Crystals Not Reportable 02/29/20 09:44 Schistocytes Not Reportable 02/29/20 09:44 Malaria parasites Not Reportable 02/29/20 09:44 [place] Bodies Not Reportable 02/29/20 09:44 Hem Pathologist Commnt No 02/29/20 09:44 D-Dimer 362.52 ng/mlDDU (0-234) H 02/21/20 10:17 ABG pH 7.354 pH Units (7.350-7.450) 02/25/20 03:30 ABG pCO2 40.9 mm Hg 02/25/20 03:30 ABG pO2 64.6 mm Hg (80.0-90.0) L 02/25/20 03:30 ABG HCO3 22.3 mmol/L (20.0-26.0) 02/25/20 03:30 ABG O2 Saturation 93.6 % (95.0-99.0) L 02/25/20 03:30 ABG O2 Content 15.1 (0.0-44) 02/25/20 03:30 ABG Base Excess -3.1 mmol/L (-2.0-3.0) L 02/25/20 03:30 ABG Hemoglobin 11.7 gm/dl (12.0-16.0) L 02/25/20 03:30 ABG Carboxyhemoglobin 1.5 % (0.0-5.0) 02/25/20 03:30 ABG Methemoglobin 0.5 % (0.0-1.5) 02/25/20 03:30 Oxyhemoglobin 91.6 % (95.0-99.0) L 02/25/20 03:30 FiO2 25 % 02/25/20 03:30 Sodium 141 mmol/L (137-145) 02/27/20 05:19 Potassium 3.9 mmol/L (3.6-5.0) 02/29/20 04:41 Chloride 103.8 mmol/L (98-107) 02/27/20 05:19 Carbon Dioxide 29 mmol/L (22-30) 02/27/20 05:19 Anion Gap 12 mmol/L 02/27/20 05:19 BUN 12 mg/dL (7-17) 02/27/20 05:19 Creatinine 0.4 mg/dL (0.6-1.2) L 02/27/20 05:19 Estimated GFR > 60 ml/min 02/27/20 05:19 BUN/Creatinine Ratio 30 % 02/27/20 05:19 Glucose 111 mg/dL (65-100) H 02/27/20 05:19 Lactic Acid 1.80 mmol/L (0.7-2.0) 02/22/20 15:07 Calcium 8.7 mg/dL (8.4-10.2) 02/27/20 05:19 Magnesium 1.90 mg/dL (1.7-2.3) 02/29/20 04:41 Ferritin 160.6 ng/mL (10.0-200.0) 02/21/20 10:17 Total Bilirubin 1.10 mg/dL (0.1-1.2) 02/24/20 04:50 AST 36 units/L (5-40) 02/24/20 04:50 ALT 46 units/L (7-56) 02/24/20 04:50 Alkaline Phosphatase 69 units/L (35-129) 02/24/20 04:50 Lactate Dehydrogenase 324 units/L (91-180) H 02/21/20 10:17 Troponin T 0.044 ng/mL (0.00-0.029) H 02/21/20 10:17 C-Reactive Protein 0.40 mg/dL (0.00-1.30) 02/21/20 10:17 NT-Pro-B Natriuret Pep 1005 pg/mL (0-900) H 02/21/20 10:17 NT-Pro-B Natriuret Pep 1026 pg/mL (0-900) H 02/21/20 10:17 Total Protein 5.9 g/dL (6.3-8.2) L 02/24/20 04:50 Albumin 3.7 g/dL (3.9-5) L 02/24/20 04:50 Albumin/Globulin Ratio 1.7 % 02/24/20 04:50 Triglycerides 128 mg/dL (2-149) 02/25/20 05:06 Cholesterol 170 mg/dL (50-199) 02/21/20 10:17 LDL Cholesterol Direct 92 mg/dL (50-130) 02/21/20 10:17 HDL Cholesterol 75 mg/dL (40-59) H 02/21/20 10:17 Cholesterol/HDL Ratio 2.26 % 02/21/20 10:17 Procalcitonin < 0.05 ng/mL (<0.15) 02/21/20 10:17 Urine Opiates Screen Negative 02/21/20 19:20 Urine Methadone Screen Negative 02/21/20 19:20 Ur Barbiturates Screen Negative 02/21/20 19:20 Ur Phencyclidine Scrn Negative 02/21/20 19:20 Ur Amphetamines Screen Negative 02/21/20 19:20 U Benzodiazepines Scrn Negative 02/21/20 19:20 Urine Cocaine Screen Negative 02/21/20 19:20 U Marijuana (THC) Screen Positive 02/21/20 19:20 Drugs of Abuse Note Disclamer 02/21/20 19:20 Coronavirus (PCR) Negative (Negative) 02/21/20 10:24 Microbiology: Microbiology 02/29/20 12:31 Peripheral/Venous Blood Culture - Preliminary Culture in Progress 02/29/20 12:31 Peripheral/Venous Blood Culture - Preliminary Culture in Progress - Diagnostic Impressions Diagnostic Impressions: Echocardiogram 02/21/20 16:13 Transthoracic Echocardiogram Indication: Shortness of breath BP: 109/75 HR: 100 Conclusions *The left ventricular size is moderate to severely dilated. *Global left ventricular systolic function is severely decreased. *The estimated ejection fraction is Less Than 15-20%. *There is mild mitral regurgitation. *There is trace tricuspid regurgitation. *There is evidence of mild pulmonary hypertension. *The right ventricular systolic pressure is calculated at 30 mmHg. *A pacemaker wire is visualized in the right heart chambers. Findings Left Ventricle: The left ventricular size is moderate to severely dilated. There is no left ventricular hypertrophy. Global left ventricular systolic function is severely decreased. The estimated ejection fraction is 15-20%. Left Atrium: The left atrial chamber size is normal. Right Ventricle: The right ventricle is mildly dilated. The right ventricular global systolic function is mildly reduced. A pacemaker wire is visualized in the right ventricle. Right Atrium: The right atrial cavity size is normal. A pacemaker wire is visualized in the right atrium. Aortic Valve: The aortic valve is trileaflet. The aortic valve leaflets are moderately thickened. There is no evidence of aortic regurgitation. There is no evidence of aortic stenosis. Mitral Valve: The mitral valve leaflets appear myxomatous. There is mild mitral regurgitation. There is no evidence of mitral stenosis. Tricuspid Valve: There is trace tricuspid regurgitation. The right ventricular systolic pressure is calculated at 30 mmHg. There is evidence of mild pulmonary hypertension. Pulmonic Valve: There is mild pulmonic regurgitation. Pericardium: There is no pericardial effusion. Aorta: There is no dilatation of the aortic root. Venous: The inferior vena cava is dilated. Measurements Chambers 2D Name Value Normal Range IVSd (2D) 0.8 cm (0.6 - 1.1) LVPWd (2D) 0.78 cm (0.6 - 1.1) LVIDd (2D) 5.1 cm (3.7 - 5.6) LVIDs (2D) 3.74 cm (2 - 3.8) LV FS (2D) 26.7 % - EF Teichholz (2D) 51.89 % - Ao root diameter (2D) 3.33 cm (2 - 3.7) Volumes/Mass Name Value Normal Range LA ESV SP 4CH (A/L) 34.31 ml - LA ESV SP 2CH (A/L) 13.16 ml - LA ESV BP (A/L) 36.23 ml - LA ESV BP (A/L) index 21.31 ml/m2 - LA ESV SP 4CH (MOD) 28.65 ml - LA ESV SP 2CH (MOD) 10.49 ml - LA ESV BP (MOD) 29.3 ml - LA ESV BP (MOD) index 17.24 ml/m2 - Aortic Valve Name Value Normal Range AV Vmax 1.05 m/sec - AV VTI 14.59 cm - AV peak gradient 4.38 mmHg - AV mean gradient 2.55 mmHg - LVOT diameter 2.14 cm - LVOT Vmax 0.92 m/sec - LVOT VTI 12.77 cm - LVOT peak gradient 3.36 mmHg - LVOT mean gradient 1.53 mmHg - SV LVOT 45.99 ml - REJI (continuity Vmax) 3.15 cm2 - REJI (continuity VTI) 3.15 cm2 - Ascending Ao 2.83 cm - Mitral Valve Name Value Normal Range MV PHT 38.65 msec - MR Vmax 3.89 m/sec - MVA (PHT) 5.69 cm2 - Tricuspid Valve Name Value Normal Range TR Vmax 2.21 m/sec - TR peak gradient 19 mmHg - RAP 8 mmHg - RVSP 30 mmHg - IVC diameter 2.45 cm (1.2 - 2.3) Pulmonic Valve/Qp:Qs Name Value Normal Range PV Vmax 0.68 m/sec - PV peak gradient 1.86 mmHg - PV acceleration time 110.37 msec - [place]/IV: Voiding Method Toilet IV Catheter Type [Right INT / Saline Lock Antecubital] IV Catheter Type [Left Peripheral IV External Jugular] IV Catheter Type [Right Peripheral IV Forearm] IV Catheter Type [Right Hand] INT / Saline Lock Active Medications - Current Medications Current Medications: Generic Name Dose Route Start Last Admin Trade Name Freq PRN Reason Stop Dose Admin Acetaminophen 650 mg 02/21/20 16:10 02/27/20 21:13 Tylenol PO 650 mg Q6H PRN Administration Pain, Mild (1-3) Albuterol/Ipratropium 1 ampul 02/22/20 20:00 03/01/20 08:57 Duoneb *Not For Prn Use* IH 1 ampul TIDRT KATELYN Administration Lipase/Protease/Amylase 1 each 02/24/20 09:00 Pancreradha Sebastian 10,500 Unit FEEDTUBE PRN PRN For Clogged Feeding Tube Benzocaine/Menthol 1 each 02/28/20 17:32 02/29/20 05:05 Cepacol X Strength MM 1 each Q2HR PRN Administration Sore Throat Carvedilol 3.125 mg 02/24/20 10:00 02/29/20 21:54 Coreg PO 3.125 mg BID KATELYN Administration Famotidine 20 mg 02/26/20 10:00 02/29/20 21:53 Pepcid PO 20 mg BID KATELYN Administration Furosemide 20 mg 02/25/20 13:00 03/01/20 06:35 Lasix IV 20 mg DAILY@0600 KATELYN Administration Heparin Sodium (Porcine) 5,000 unit 02/21/20 22:00 02/29/20 21:53 Heparin SUB-Q 5,000 unit Q12HR KATELYN Administration Hydromorphone HCl 0.25 mg 02/21/20 16:10 02/28/20 16:24 Dilaudid IV 0.25 mg Q4H PRN Administration Pain, Moderate (4-6) Hydrophilic Ointment 1 applic 02/21/20 16:44 Vaseline Lip Therapy TP Q2HR PRN Dry Lips Cefepime HCl 2 gm in 100 mls @ 200 mls/hr 02/29/20 14:00 03/01/20 06:38 Cefepime/Ns 2 Gm/100 Ml IV 200 mls/hr Q8HR KATELYN Administration Protocol Lisinopril 5 mg 02/24/20 10:00 02/29/20 09:23 Zestril PO 5 mg QDAY KATELYN Administration Lorazepam 2 mg 02/21/20 16:44 Ativan IV Q10MIN PRN Agitation Multi-Ingred Cream/Lotion/Oil/Oint 1 applic 02/21/20 16:44 Artificial Tears Ophth Oint OU Q4HR PRN Dry Eye(s) Oxycodone/Acetaminophen 1 tab 02/28/20 17:35 03/01/20 06:35 Percocet 5/325 PO 1 tab Q6H PRN Administration Pain, Moderate (4-6) Prednisone 20 mg 02/28/20 15:00 02/29/20 09:23 Deltasone PO 20 mg QDAY KATELYN Administration Simple Syrup 15 ml 02/24/20 09:00 Simple Syrup FEEDTUBE PRN PRN Hypoglycemia Simple Syrup 30 ml 02/24/20 09:00 Simple Syrup FEEDTUBE PRN PRN Hypoglycemia Sodium Bicarbonate 325 mg 02/24/20 09:00 Sodium Bicarbonate FEEDTUBE PRN PRN For Clogged Feeding Tube Sodium Chloride 10 ml 02/21/20 22:00 02/29/20 21:54 Sodium Chloride Flush Syringe 10 Ml IV 10 ml BID KATELYN Administration Sodium Chloride 10 ml 02/21/20 16:10 Sodium Chloride Flush Syringe 10 Ml IV PRN PRN LINE FLUSH Spironolactone 25 mg 02/26/20 10:00 02/29/20 09:23 Aldactone PO 25 mg QDAY KATELYN Administration Nutrition/Malnutrition Assess - Dietary Evaluation Nutrition/Malnutrition Findings: Nutrition Notes Start: 02/22/20 11:38 Freq: Status: Active Protocol: Document 02/29/20 15:25 (Rec: 02/29/20 15:30 [id number]) Nutrition Notes Initial or Follow up Reassessment Current Diagnosis COPD,Sepsis,Heart Failure, Respiratory Failure Other Pertinent Diagnosis COPD exacerbation, asthma, pneu Current Diet Vegan Labs/Tests Reviewed Pertinent Medications Lasix Height 5 ft 5 in Weight 63.2 kg [place] Body Weight (kg) 56.81 BMI 23.1 Weight Status Appropriate Subjective/Other Information FU for intakes. Pt reports sore throat but eating 100% of meals. Food prefrences noted. Burn Absent Trauma Absent GI Symptoms None Minimum of two criteria No physical signs of malnutrition #1 Nutrition Diagnosis Inadequate oral intake As Evidenced by Signs and Symptoms pt eating 100% of meals Diagnosis Progress(for reassessment Improved documentation) Is patient on ventilator? No Is Patient Ambulatory and/or Out of Bed Yes REE-([facility]-ambulatory/OOB) [ [id number] [id number]] Calculation Used for Recommendations [facility] Additional Notes Pro needs: 51-63 g(0.8-1 g/kg) Fluid needs: 1ml/kcal Nutrition Intervention Change Diet Order: Continue Vegan Nutrition Support: D/C Goal #1 Meet 75% of protein and energy needs Anticipated Discharge Needs: Vegan Follow-Up By: 03/02/20 Additional Comments FU for stable intakes
--- NOTE | 2020-03-01 10:52 | Progress Note ---
Assessment and Plan Patient alert, awake.Patient resting on room air. O2 saturation 96%. ABG on 25% fio2. ABG pH 7.354 pH Units (7.350-7.450) 02/25/20 03:30 ABG pCO2 40.9 mm Hg 02/25/20 03:30 ABG pO2 64.6 mm Hg (80.0-90.0) L 02/25/20 03:30 ABG O2 Saturation 93.6 % (95.0-99.0) L 02/25/20 03:30 Denies chest pain, shortness of breath . Complaining slight cough. Patient afebrile. Has leukocytosis. Chest xray done 02/29/20 reported Infiltrate or atelectasis in the left lower lobe is unchanged. The left upper lobe remains clear. No significant pleural fluid or pneumothorax. Patient is on cefepime, S/C Heparine, Famotidine, Albuterol/atrovent aerosol treatments. Patient has heavy history of smoking less than pack x day for 34 years. Counseled to stop smoking. Denies alcohol abuse. Patient smoked marijuana. Counseled to stop smoking marijuana. 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 Recommend PFTs as out patient. Can switch to po antibiotics. Can be discharged from pulmonary point of view. Recommend to take rest at least one week before flying. I If any symptoms like fever, cough or shortness of breath come back to the emergency room. Other rai recommend pulmonary follow at her home town or place. - Patient Problems (1) Acute hypoxemic respiratory failure Current Visit: Yes Status: Acute Plan to address problem: Patient presently on room air ,O2 saturation 96%. Albuterol/atrovent aerosol treatments q 6 hours. Continue S/C Heparin. Continue cefepime. (2) COPD exacerbation Current Visit: Yes Status: Acute Plan to address problem: Patient presently on room air ,O2 saturation 96%. Albuterol/atrovent aerosol treatments q 6 hours. Continue S/C Heparin. Continue cefepime. Recommend PFTs as out patient. (3) CHF (congestive heart failure) Current Visit: Yes Status: Acute Plan to address problem: Management as per cardiology. (4) Cardiomyopathy Current Visit: Yes Status: Acute Qualifiers: Cardiomyopathy type: unspecified Qualified Code(s): I42.9 - Cardiomyopathy, unspecified Plan to address problem: Patient has pacemaker/defibrilator. Management as per cardiology. (5) Nicotine dependence Current Visit: Yes Status: Acute Qualifiers: Nicotine product type: cigarettes Substance use status: in withdrawal Qualified Code(s): F17.213 - Nicotine dependence, cigarettes, with withdrawal Plan to address problem: Counseled to stop smoking. (6) Pneumonia Current Visit: Yes Status: Acute Qualifiers: Laterality: right Lung location: lower lobe of lung Plan to address problem: Patient is on cefepime. Subjective Date of service: 03/01/20 Principal diagnosis: Ac hypoxemic & hypercapnic resp failure; Ac. encephalopathy; CAP; CMOP;COPD Interval history: Patient alert, awake.Patient resting on room air. O2 saturation 96%. ABG on 25% fio2. ABG pH 7.354 pH Units (7.350-7.450) 02/25/20 03:30 ABG pCO2 40.9 mm Hg 02/25/20 03:30 ABG pO2 64.6 mm Hg (80.0-90.0) L 02/25/20 03:30 ABG O2 Saturation 93.6 % (95.0-99.0) L 02/25/20 03:30 Denies chest pain, shortness of breath . Complaining slight cough. Patient afebrile. Has leukocytosis. Chest xray done 02/29/20 reported Infiltrate or atelectasis in the left lower lobe is unchanged. The left upper lobe remains clear. No significant pleural fluid or pneumothorax. Patient is on cefepime, S/C Heparine, Famotidine, Albuterol/atrovent aerosol treatments. Patient has heavy history of smoking less than pack x day for 34 years. Counseled to stop smoking. Denies alcohol abuse. Patient smoked marijuana. Counseled to stop smoking marijuana. 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 Recommend PFTs as out patient. Can switch to po antibiotics. Can be discharged from pulmonary point of view. Recommend to take rest at least one week before flying. I If any symptoms like fever, cough or shortness of breath come back to the emergency room. Other rai recommend pulmonary follow at her home town or place. Objective Vital Signs - 12hr 02/29/20 03/01/20 03/01/20 23:44 04:20 08:00 Temperature 98.2 F 97.9 F 98.3 F Pulse Rate 68 65 73 Pulse Rate [ Apical] Pulse Rate [ Throughout] Respiratory 14 16 18 Rate Respiratory Rate [ Throughout] Blood Pressure 92/49 105/64 Blood Pressure 88/49 [Right] O2 Sat by Pulse 96 96 Oximetry 03/01/20 03/01/20 08:59 10:00 Temperature Pulse Rate Pulse Rate [ 75 Apical] Pulse Rate [ 71 Throughout] Respiratory 16 Rate Respiratory 16 Rate [ Throughout] Blood Pressure Blood Pressure [Right] O2 Sat by Pulse 96 Oximetry Constitutional: no acute distress, alert, other (middle aged female with normal respiratory effort at rest) Eyes: non-icteric ENT: oropharynx moist Neck: supple, no lymphadenopathy, no JVD Effort: normal Ascultation: Bilateral: diminished breath sounds, rhonchi (few rhonchi left base.), other (prolonged expiratory phase) Percussion: Bilateral: not dull Cardiovascular: regular rate and rhythm, other (S1,S2) Gastrointestinal: normoactive bowel sounds, soft, non-tender, non-distended Integumentary: normal Extremities: no cyanosis, no edema, pulses normal, no ischemia or petechiae Neurologic: non-focal exam, pupils equal and round, CN II-XII normal, motor strength normal and (weak) Psychiatric: mood appropriate, affect normal CBC and BMP: 02/29/20 09:44 02/29/20 04:41 ABG, PT/INR, D-dimer: ABG ABG pH 7.354 pH Units (7.350-7.450) 02/25/20 03:30 ABG pCO2 40.9 mm Hg 02/25/20 03:30 ABG pO2 64.6 mm Hg (80.0-90.0) L 02/25/20 03:30 ABG O2 Saturation 93.6 % (95.0-99.0) L 02/25/20 03:30 PT/INR, D-dimer D-Dimer 362.52 ng/mlDDU (0-234) H 02/21/20 10:17 Abnormal lab findings: Abnormal Labs 02/21/20 02/21/20 02/21/20 10:17 10:17 10:17 WBC 21.2 H Lymph % (Auto) [place] % (Auto) Lymph # (Auto) [place] # (Auto) Seg Neutrophils % Seg Neuts % (Manual) 94.0 H Lymphocytes % (Manual) 4.0 L Monocytes % (Manual) Seg Neutrophils # Seg Neutrophils # Man 19.9 H Lymphocytes # (Manual) 0.8 L Monocytes # (Manual) Eosinophils # (Manual) D-Dimer 362.52 H ABG pH ABG pO2 ABG O2 Saturation ABG Base Excess ABG Hemoglobin Oxyhemoglobin Potassium Chloride Carbon Dioxide Creatinine 0.4 L Glucose 168 H Lactic Acid Calcium Lactate Dehydrogenase 324 H Troponin T NT-Pro-B Natriuret Pep 1005 H Total Protein Albumin HDL Cholesterol 02/21/20 02/21/20 02/21/20 10:17 10:17 11:56 WBC Lymph % (Auto) [place] % (Auto) Lymph # (Auto) [place] # (Auto) Seg Neutrophils % Seg Neuts % (Manual) Lymphocytes % (Manual) Monocytes % (Manual) Seg Neutrophils # Seg Neutrophils # Man Lymphocytes # (Manual) Monocytes # (Manual) Eosinophils # (Manual) D-Dimer ABG pH ABG pO2 ABG O2 Saturation ABG Base Excess ABG Hemoglobin Oxyhemoglobin Potassium Chloride Carbon Dioxide Creatinine Glucose Lactic Acid 2.50 H* 2.80 H* Calcium Lactate Dehydrogenase Troponin T 0.044 H NT-Pro-B Natriuret Pep 1026 H Total Protein Albumin HDL Cholesterol 75 H 02/21/20 02/21/20 02/21/20 13:31 14:18 15:03 WBC Lymph % (Auto) [place] % (Auto) Lymph # (Auto) [place] # (Auto) Seg Neutrophils % Seg Neuts % (Manual) Lymphocytes % (Manual) Monocytes % (Manual) Seg Neutrophils # Seg Neutrophils # Man Lymphocytes # (Manual) Monocytes # (Manual) Eosinophils # (Manual) D-Dimer ABG pH 7.183 L* ABG pO2 73.8 L ABG O2 Saturation 93.2 L ABG Base Excess -3.8 L ABG Hemoglobin Oxyhemoglobin 90.6 L Potassium Chloride Carbon Dioxide Creatinine Glucose Lactic Acid 2.10 H* 2.50 H* Calcium Lactate Dehydrogenase Troponin T NT-Pro-B Natriuret Pep Total Protein Albumin HDL Cholesterol 02/21/20 02/21/20 02/22/20 16:10 18:33 02:25 WBC Lymph % (Auto) [place] % (Auto) Lymph # (Auto) [place] # (Auto) Seg Neutrophils % Seg Neuts % (Manual) Lymphocytes % (Manual) Monocytes % (Manual) Seg Neutrophils # Seg Neutrophils # Man Lymphocytes # (Manual) Monocytes # (Manual) Eosinophils # (Manual) D-Dimer ABG pH 7.204 L ABG pO2 295.0 H 187.8 H ABG O2 Saturation 99.4 H 99.1 H ABG Base Excess -5.5 L -3.8 L ABG Hemoglobin Oxyhemoglobin Potassium Chloride Carbon Dioxide Creatinine Glucose Lactic Acid 2.10 H* Calcium Lactate Dehydrogenase Troponin T NT-Pro-B Natriuret Pep Total Protein Albumin HDL Cholesterol 02/22/20 02/22/20 02/22/20 02:57 02:57 02:57 WBC 21.9 H Lymph % (Auto) 5.2 L [place] % (Auto) 8.1 H Lymph # (Auto) 1.1 L [place] # (Auto) 1.8 H Seg Neutrophils % 86.5 H Seg Neuts % (Manual) Lymphocytes % (Manual) Monocytes % (Manual) Seg Neutrophils # 19.0 H Seg Neutrophils # Man Lymphocytes # (Manual) Monocytes # (Manual) Eosinophils # (Manual) D-Dimer ABG pH ABG pO2 ABG O2 Saturation ABG Base Excess ABG Hemoglobin Oxyhemoglobin Potassium 5.9 H D Chloride 109.4 H Carbon Dioxide 17 L D Creatinine 0.5 L Glucose 106 H Lactic Acid 2.40 H* Calcium 8.2 L Lactate Dehydrogenase Troponin T NT-Pro-B Natriuret Pep Total Protein Albumin HDL Cholesterol 02/23/20 02/24/20 02/24/20 06:15 04:36 04:50 WBC 18.7 H Lymph % (Auto) 7.1 L [place] % (Auto) Lymph # (Auto) [place] # (Auto) 1.3 H Seg Neutrophils % 85.6 H Seg Neuts % (Manual) Lymphocytes % (Manual) Monocytes % (Manual) Seg Neutrophils # 16.0 H Seg Neutrophils # Man Lymphocytes # (Manual) Monocytes # (Manual) Eosinophils # (Manual) D-Dimer ABG pH 7.456 H ABG pO2 46.0 L ABG O2 Saturation 82.9 L ABG Base Excess -2.1 L -2.8 L ABG Hemoglobin Oxyhemoglobin 81.2 L Potassium Chloride Carbon Dioxide Creatinine Glucose Lactic Acid Calcium Lactate Dehydrogenase Troponin T NT-Pro-B Natriuret Pep Total Protein Albumin HDL Cholesterol 02/24/20 02/24/20 02/25/20 04:50 05:08 03:30 WBC Lymph % (Auto) [place] % (Auto) Lymph # (Auto) [place] # (Auto) Seg Neutrophils % Seg Neuts % (Manual) Lymphocytes % (Manual) Monocytes % (Manual) Seg Neutrophils # Seg Neutrophils # Man Lymphocytes # (Manual) Monocytes # (Manual) Eosinophils # (Manual) D-Dimer ABG pH ABG pO2 58.9 L 64.6 L ABG O2 Saturation 90.8 L 93.6 L ABG Base Excess -3.1 L -3.1 L ABG Hemoglobin 11.7 L Oxyhemoglobin 89.0 L 91.6 L Potassium Chloride 107.5 H Carbon Dioxide 21 L Creatinine 0.4 L Glucose Lactic Acid Calcium Lactate Dehydrogenase Troponin T NT-Pro-B Natriuret Pep Total Protein 5.9 L Albumin 3.7 L HDL Cholesterol 02/26/20 02/26/20 02/27/20 04:37 04:37 05:19 WBC 24.6 H 25.7 H Lymph % (Auto) 5.5 L [place] % (Auto) Lymph # (Auto) [place] # (Auto) 1.2 H Seg Neutrophils % 89.5 H Seg Neuts % (Manual) 76.0 H Lymphocytes % (Manual) Monocytes % (Manual) 9.0 H Seg Neutrophils # 22.0 H Seg Neutrophils # Man 19.5 H Lymphocytes # (Manual) Monocytes # (Manual) 2.3 H Eosinophils # (Manual) D-Dimer ABG pH ABG pO2 ABG O2 Saturation ABG Base Excess ABG Hemoglobin Oxyhemoglobin Potassium 3.5 L D Chloride Carbon Dioxide Creatinine 0.5 L Glucose 155 H Lactic Acid Calcium Lactate Dehydrogenase Troponin T NT-Pro-B Natriuret Pep Total Protein Albumin HDL Cholesterol 02/27/20 02/28/20 02/29/20 05:19 10:05 09:44 WBC 26.0 H Lymph % (Auto) [place] % (Auto) Lymph # (Auto) [place] # (Auto) Seg Neutrophils % Seg Neuts % (Manual) Lymphocytes % (Manual) Monocytes % (Manual) Seg Neutrophils # Seg Neutrophils # Man 17.2 H Lymphocytes # (Manual) 5.5 H Monocytes # (Manual) 1.3 H Eosinophils # (Manual) 0.5 H D-Dimer ABG pH ABG pO2 ABG O2 Saturation ABG Base Excess ABG Hemoglobin Oxyhemoglobin Potassium 3.3 L 3.3 L Chloride Carbon Dioxide Creatinine 0.4 L Glucose 111 H Lactic Acid Calcium Lactate Dehydrogenase Troponin T NT-Pro-B Natriuret Pep Total Protein Albumin HDL Cholesterol Allied health notes reviewed: nursing
--- NOTE | 2020-03-01 11:44 | Discharge Summary ---
Providers - Providers Date of Admission: 02/21/20 17:12 Date of discharge: 03/01/20 Attending physician: CHA PORTER 02/21/20 16:10 Consult to Physician [CONS] Routine Comment: Consulting Provider: NANCY MALDONADO Physician Instructions: Reason For Exam: respiratory failure/on vent, sepsis, asthma ex 02/21/20 16:44 Consult to Dietitian/Nutrition [CONS] Routine Physician Instructions: Reason For Exam: Reason for Consult: Evaluate nutritional intake 02/22/20 14:48 Consult to Dietitian/Nutrition [CONS] Routine Physician Instructions: Reason For Exam: Reason for Consult: Evaluate nutritional intake 02/24/20 08:56 Consult to Dietitian/Nutrition [CONS] Routine Physician Instructions: Assess nutrtn needs, initiate, modify, manage TF Reason For Exam: Reason for Consult: Write/Manage Tube Feeding Reason for Consult: Write/Manage Tube Feeding 02/24/20 09:09 Consult to Physician [CONS] Routine Comment: Consulting Provider: ANALIA COX Physician Instructions: Reason For Exam: Dilated CMP/EF 15 to 20%/ICD/intubated 02/26/20 10:27 Speech Therapy Evaluation and Treat [CONS] Routine Reason For Exam: dysphagia 02/26/20 18:29 Physical Therapy Evaluation and Treat [CONS] Routine Comment: Reason For Exam: Evaluate and treat/DC needs/post extubation Primary care physician: STARCHMAKER Hospitalization Reason for admission: resp failure Condition: Fair Hospital course: 49-year old female patient was admitted through emergency room with acute exacerbation of bronchial asthma and acute respiratory failure requiring intubation on ventilatory support .patient was self extubated on 02/25/2020 , noted to have leukocytosis and pneumonia , completed 5 days of IV Levaquin with significant improvement .however patient continues to have persistent leukocytosis , and persistent infiltrate on chest x-ray .patient started on cefepime Rpt Cultures sent, patient also has severe cardiomyopathy with ejection fraction of 15 to 20%, cardiology following and patient already has ICD in place. Hospital course and admitting/discharge diagnosis: --COVID-19 test negative; --Sore throat; due to self extubation Cepacol lozenges Lidocaine throat spray --Sepsis; secondary to right pneumonia/POA Tachycardia, leukocytosis, infiltrate on chest x-ray and CT, Patient completed 5 days of Levaquin 02/28/2020 chest x-ray mild left retrocardiac atelectasis --Persistent leukocytosis; 02/28/2020 chest x-ray mild left retrocardiac atelectasis Follow cultures --Persistent infiltrate on chest x-ray/persistent leukocytosis Completed 5 days of Levaquin Patient has persistent infiltrate on multiple chest x-rays along with worsening leukocytosis Start cefepime, pulmonary following ,ID consult if needed -- Ac. hypoxemic resp failure/self extubated 02/25/2020 Continue oxygen titrate O2 sats to more than 90% Ambulate as tolerated, Pulmonary following Oxygen evaluation --Acute COPD exacerbation IV steroid therapy, nebulizers IV antibiotics supportive care, --Hypokalemia; Resolved, closely monitor electrolytes --Acute on chronic congestive heart failure; EF 15 to 20% Diuretics, input output monitoring, beta-blockers CLOTILDE inhibitors, low-sodium diet, fluid restriction Cardiology consult --Dilated cardiomyopathy EF 15 to 20% Diuretics, input output monitoring, beta-blockers CLOTILDE inhibitors, low-sodium diet, fluid restriction Possible ischemia work-up if not done before --ICD in place; stable --Ongoing tobacco use; Smoking cessation, nicotine patch as needed We will career counselor the patient once patient is off ventilator --DVT prophylaxis SCD , anticoagulation Closely monitor the patient and adjust the management as needed Plan of care reviewed with the patient and her nurse We will check physical therapy occupational therapy DC planning when medically stable 02/27/2020; patient feels slightly better complains of generalized weakness, awaiting PT evaluation Possible discharge in 1 to 2 days if stable, vegan diet ordered per patient's request 02/28/2020; patient feels slightly better, ambulate as tolerated, possible discharge tomorrow if stable 02/29/2020; persistent leukocytosis, persistent infiltrate on chest x-ray, patient has sore throat Probably secondary to self extubation, Cepacol lozenges/throat spray and pain medications. 03/01/2020. Patient's leukocytosis likely related to steroids. Infiltrate on chest x-ray likely related to atelectasis. Patient satting above 95% on room air. Disposition: [id number]-01 TO HOME OR SELFCARE Time spent for discharge: 34 - Discharge Diagnoses (1) Acute hypoxemic respiratory failure Status: Acute (2) COPD exacerbation Status: Acute (3) Hypoxia Status: Acute (4) Pneumonia Status: Acute Qualifiers: Laterality: right Lung location: lower lobe of lung (5) Sepsis Status: Acute Qualifiers: Acute respiratory failure type: with hypoxia Core Measure Documentation - Palliative Care Palliative Care/ Comfort Measures: Not Applicable - Core Measures Any of the following diagnoses?: none Exam - Constitutional Vitals: Temp Pulse Resp BP Pulse Ox 98.3 F 75 16 88/49 96 03/01/20 08:00 03/01/20 10:00 03/01/20 10:00 03/01/20 08:00 03/01/20 10:00 General appearance: Present: no acute distress, well-nourished - EENT Eyes: Present: PERRL ENT: hearing intact, clear oral mucosa - Neck Neck: Present: supple, normal ROM - Respiratory Respiratory effort: normal Respiratory: bilateral: CTA - Cardiovascular Heart Sounds: Present: S1 & S2. Absent: rub, click - Extremities Extremities: pulses symmetrical, No edema Peripheral Pulses: within normal limits - Abdominal General gastrointestinal: Present: soft, non-tender, non-distended, normal bowel sounds Female genitourinary: Present: normal - Integumentary Integumentary: Present: clear, warm, dry - Musculoskeletal Musculoskeletal: gait normal, strength equal bilaterally - Psychiatric Psychiatric: appropriate mood/affect, intact judgment & insight - Neurologic Neurologic: CNII-XII intact, moves all extremities Plan Activity: advance as tolerated Weight Bearing Status: Weight Bear as Tolerated Diet: regular Follow up with: PRIMARY CARE, [Primary Care Provider] - 3-5 Days ALYX TENORIO MD [Staff Physician] - 7 Days Prescriptions: Spironolactone [Aldactone] 25 mg PO QDAY #30 tablet carvediloL [Coreg] 3.125 mg PO BID #60 tablet Furosemide [Lasix] 20 mg PO QDAY #30 tablet levoFLOXacin [Levaquin] 750 mg PO QDAY #7 tablet methylPREDNISolone [Medrol 4MG DOSEPAK (21 tabs)] 4 mg PO DAILY #1 tab.ds.pk Famotidine [Pepcid] 20 mg PO BID #60 tablet lisinopriL [Zestril TAB] 2.5 mg PO QDAY #30 tablet
[2020-03-01 12:00] VITALS: BP 102/55
[2020-03-02] MEDS ORDERED: LISINOPRIL 5 MG TAB PO SCH (10:00)
== END 2020-03-01 14:55 | disposition home or self-care (01) | DRG 870 ==
LOC: ED 07:26 → CC1 17:12 → 4A 02-25 23:04
PROVIDERS: ADMIT Internal Medicine; ATTEND Hospitalist
PROC: 0BH17EZ Insertion of Endotracheal Airway into Trachea, Via Natural or Artificial Opening (ICD-10-PCS; principal; 2020-02-21)
PROC: 5A1955Z Respiratory Ventilation, Greater than 96 Consecutive Hours (ICD-10-PCS; 2020-02-21)
PROC: 5A09357 Assistance with Respiratory Ventilation, Less than 24 Consecutive Hours, Continuous Positive Airway Pressure (ICD-10-PCS; 2020-02-21)
PROC: 4A033R1 Measurement of Arterial Saturation, Peripheral, Percutaneous Approach (ICD-10-PCS; 2020-02-21)
DX: A41.9 Sepsis, unspecified organism (principal); J96.01 Acute respiratory failure with hypoxia; J18.9 Pneumonia, unspecified organism; J96.02 Acute respiratory failure with hypercapnia; G92 Toxic encephalopathy; I50.23 Acute on chronic systolic (congestive) heart failure; J44.1 Chronic obstructive pulmonary disease with (acute) exacerbation; J44.0 Chronic obstructive pulmonary disease with (acute) lower respiratory infection; F17.213 Nicotine dependence, cigarettes, with withdrawal; J45.42 Moderate persistent asthma with status asthmaticus; E87.2 Acidosis; I42.0 Dilated cardiomyopathy; Z95.0 Presence of cardiac pacemaker; Z20.828 Contact with and (suspected) exposure to other viral communicable diseases; D72.829 Elevated white blood cell count, unspecified
CPT/HCPCS: 36415; 36600; 71045; 71275; 74018; 80048; 80053; 80061; 80307; 82140; 82728; 82803; 83615; 83735; 83880; 84132; 84145; 84478; 84484; 85007; 85025; 85379; 86140; 87040; 87070; 87205; 90471; 90686; 93306; 94002; 94003; 94640; 94644; 94760; 96374; 96375; G0378; J0330; J0692; J0696; J1100; J1170; J1644; J1940; J1956; J2060; J2704; J2920; J2930; J3010; J3475; J7030; J7512; Q9967; U0003